=== PATIENT | male | born 1950 | race Hispanic/Latino ===

== ENCOUNTER 2017-05-29 09:57 | Inpatient (IN) | payer MEDICARE ==
--- NOTE | 2017-05-29 10:07 | ED PDOC ---
Arrival/HPI - General Time Seen by Provider: 05/29/17 10:02 Historian: Spouse, EMS - History of Present Illness Narrative History of Present Illness (Text): 05/29/17 09:58 A 67 year old male, [id number], is brought into the emergency department via EMS for possible stroke, the EMS states they found the patient in the kitchen prior to arrival. The patients states that when they went to bed last night the patient was at his normal baseline. When she found him this morning she immediately called EMS. EMS states the patient has slurred speech and complete right sided weakness. Unable to obtain the patient's history ROS is unable to be obtained. Time/Duration: 24 hours Symptom Onset: Sudden Symptom Course: Unchanged Quality: Other Activities at Onset: Rest, Light Context: Home Past Medical History - Provider Review Nursing Documentation Reviewed: Yes Family/Social History - Physician Review Nursing Documentation Reviewed: Yes Family/Social History: No Known Family HX Allergies/Home Meds Allergies/Adverse Reactions: Allergies Penicillins Allergy (Verified 05/29/17 12:45) unknown Home Medications: Home Meds Medication Instructions Recorded Confirmed Mupirocin 2% Ointment [Bactroban 1 appl TP BID 05/29/17 05/29/17 Ointment] Silver Sulfadiazine 1% 20 gm 1 ea TOP BID 05/29/17 05/29/17 [Silvadene 1% 20 gm] Review of Systems - Review of Systems Systems not reviewed;Unavailable: Altered Mental Status Physical Exam - Physical Exam Physical Exam Limitations: Altered Mental Status Vital Signs Reviewed: Yes Vital Signs Pulse Resp BP Pulse Ox 05/29/17 11:58 100 H 148/80 05/29/17 11:38 110 H 161/82 H 05/29/17 11:23 104 H 162/80 H 05/29/17 11:01 90 192/102 H 05/29/17 11:00 100 H 176/86 H 05/29/17 10:47 95 H 17 176/96 H 100 05/29/17 10:32 94 H 187/93 H 05/29/17 10:20 87 193/95 H 05/29/17 10:17 88 18 193/95 H 96 05/29/17 10:03 100 H 159/74 H Blood Pressure: Hypertensive Pulse: Regular Respiratory Rate: Normal Appearance: Positive for: Well-Appearing, Non-Toxic, Comfortable Pain Distress: None Mental Status: Positive for: Alert and Oriented X 3 - Systems Exam Head: Present: Atraumatic, Normocephalic Pupils: Present: PERRL Extroacular Muscles: Present: EOMI Conjunctiva: Present: Normal Mouth: Present: Moist Mucous Membranes Neck: Present: Normal Range of Motion Respiratory/Chest: Present: Clear to Auscultation, Good Air Exchange. No: Respiratory Distress, Accessory Muscle Use Cardiovascular: Present: Regular Rate and Rhythm, Normal S1, S2. No: Murmurs Abdomen: Present: Normal Bowel Sounds. No: Tenderness, Distention, Peritoneal Signs Upper Extremity: Present: Other (Flacid right sided hemiparesis) Neurological: Present: Other (aphasia;right sided facial droop). No: Speech Normal Medical Decision Making ED Course and Treatment: 05/29/17 10:00 Code stroke was called on the patient at 10:00. 05/29/17 10:[address] Davies and he agrees the patient is not a TPA candidate at this time due to unclear time of onset, he recommends stat CTA of the brain. 05/29/17 10:20 EKG: Ordered, reviewed, and independently interpreted the EKG. Rate : 88 BPM Rhythm : NSR Interpretation : LVH. No STEMI. Comparison : No previous EKG for comparison. 05/29/17 10:20 Discussed case with the patient's who states the patient is allergic to Penicilin and does not take any daily medications. The patient's primary doctor is Dr. Puentes. She states the patient drinks 15 beers daily. 05/29/17 10:[address] manriquez who recommends no neurosurgical intervention. 05/29/17 10:59 Chest X-ray Aging Room Hand : Carl Hernandez MD Report Date : 05/29/2017 10:35:05 HISTORY:cva COMPARISON:No prior. FINDINGS: LUNGS:No active pulmonary disease. PLEURA:No significant pleural effusion identified, no pneumothorax apparent. CARDIOVASCULAR:Normal. OSSEOUS STRUCTURES:No significant abnormalities. VISUALIZED UPPER ABDOMEN:Normal. OTHER FINDINGS:None. IMPRESSION:No active disease. PROCEDURE: CT HEAD WITHOUT CONTRAST. Aging Room Hand : Prabhjot Bhandari MD Report Date : 05/29/2017 10:24:15 HISTORY:Code Stroke COMPARISON:None available. FINDINGS: HEMORRHAGE:Hemorrhagic infarction is appreciate the left thalamus/medial left basal ganglia measuring 3.6 x 2.6 cm with extension into the 3rd ventricle and minimally into the left lateral ventricle as well. Trace hemorrhage extends into the right frontal horn further. Local edema is seen surrounding the left thalamic intraparenchymal hemorrhage mildly. No significant shift of the midline structures is appreciated this time however follow-up CT is advised. BRAIN:Diffuse cerebral atrophy chronic microangiopathy are identified. No cortical edema is evident. Posterior fossa contents appear unremarkable and there is no suspicious extra-axial collection identified. Dense calcifications seen related to the falx. VENTRICLES:No hydrocephalus is appreciated at this time. Intraventricular hemorrhage is as discussed above. CALVARIUM:Unremarkable. PARANASAL SINUSES:Mild right maxillary sinusitis identified. MASTOID AIR CELLS:Unremarkable as visualized. No inflammatory changes. OTHER FINDINGS:None. IMPRESSION: Hemorrhagic infarct is seen affecting the left thalamus/basal ganglia without significant midline shift at this time. Trace extension to the bilateral lateral ventricle frontal horns is identified as well as the body of the left lateral ventricle and 3rd ventricle. Local left thalamic edema is appreciated. Follow-up head CT advised. Mild age related neuro degenerative changes are identified diffusely. Findings discussed with Dr. Smith 05/29/2017 10:12 a.m.. - Critical Care Critical Care Minutes: 60 minutes - Lab Interpretations Lab Results: 05/29/17 10:15 05/29/17 10:03 Lab Results 05/29/17 11:07: Blood Type Confirm A POSITIVE 05/29/17 10:15: Alcohol, Quantitative < 10 05/29/17 10:15: Blood Type A POSITIVE, Antibody Screen Negative, BBK History Checked No verified bt 05/29/17 10:15: Hemoglobin A1c 5.6 05/29/17 10:15: PT 13.2 H, INR 1.20 H, APTT 30.8 05/29/17 10:15: WBC 11.3 H, RBC 4.22, Hgb 13.0 L, Hct 38.1 L, MCV 90.3, MCH 30.8 , MCHC 34.1, RDW 12.6, Plt Count 263, MPV 9.2, Gran % 79.5 H, Lymph % (Auto) 10.5 L, [place] % (Auto) 8.6 H, Eos % (Auto) 1.1 L, Baso % (Auto) 0.3, Gran # 8.97 H, Lymph # 1.2, [place] # 1.0 H, Eos # 0.1, Baso # 0.03 05/29/17 10:03: Sodium 132, Potassium 4.3, Chloride 93 L, Carbon Dioxide 31, Anion Gap 12, BUN 9, Creatinine 0.7 L, Est GFR ( Amer) > 60, Est GFR (Non -Af Amer) > 60, Random Glucose 143 H, Calcium 9.3, Total Bilirubin 0.7, AST 32, ALT 30, Alkaline Phosphatase 92, Troponin I 0.02, Total Protein 8.9 H, Albumin 3.7, Globulin 5.2, Albumin/Globulin Ratio 0.7 L, Triglycerides 48, Cholesterol 116 L, LDL Cholesterol Direct 54, HDL Cholesterol 46 - RAD Interpretation Radiology Orders: 05/29/17 10:03 HEAD W/O (CODE STROKE) [CT] Stat CHEST PORTABLE [RAD] Stat - Medication Orders Current Medication Orders: Nicardipine HCl (Cardene Iv Premix) 20 mg in 200 mls @ 50 mls/hr IV .Q4H PRN; Protocol; 5 MG/HR PRN Reason: TITRATE PER MD ORDER Last Admin: 05/29/17 15:00 Dose: 15 mg/hr, 150 mls/hr eMAR Start Stop Document 05/29/17 15:00 JUR (Rec: 05/29/17 15:01 [id number] Intravenous Solution Start Date 05/29/17 Start Time 15:00 MAR Pulse and Blood Pressure Document 05/29/17 15:00 JUR (Rec: 05/29/17 15:01 [facility] [id number]) Pulse Pulse Rate (60-90) 91 Blood Pressure Blood Pressure (100/60-150/90) 122/67 Titration Intervention Document 05/29/17 15:00 JUR (Rec: 05/29/17 15:01 JUR [id number]) Titration Intake Cumulative Intake (Rx) 200 Waste Amount 0 Container Volume 200 Titration Dosing Titration Dose 15 IV Rate 150 Intake/Decrease Started/Running Cumulative Dose 20 Sodium Chloride (Hypertonic Saline 3%) 500 mls @ 30 mls/hr IV .[id number] KATIE Last Admin: 05/29/17 11:34 Dose: 30 mls/hr eMAR Start Stop Document 05/29/17 11:34 AB (Rec: 05/29/17 11:34 AB [id number]) Intravenous Solution Start Date 05/29/17 Start Time 11:46 Sodium Chloride (Hypertonic Saline 3%) 250 mls @ 250 mls/hr IV Q6 KATIE Stop: 05/30/17 12:59 Lorazepam (Ativan) 2 mg IVP Q2H PRN; Protocol PRN Reason: Symptoms of alcohol withdrawl Lorazepam (Ativan) 4 mg IVP Q4H PRN; Protocol PRN Reason: Symptoms of alcohol withdrawl Pantoprazole Sodium (Protonix Inj) 40 mg IVP DAILY KATIE Last Admin: 05/29/17 15:00 Dose: 40 mg IVP Administration Document 05/29/17 15:00 JUR (Rec: 05/29/17 15:00 JUR [id number]) Charges for Administration # of IVP Administrations 1 Discontinued Medications Pneumococcal Polyvalent Vaccine (Pneumovax 23 Vaccine) 0.5 ml IM .ONCE ONE Stop: 05/29/17 13:47 Sodium Chloride (Hypertonic Saline 3%) 250 ml IV STAT STA Stop: 05/29/17 11:22 Last Admin: 05/29/17 11:37 Dose: 250 ml eMAR Start Stop Document 05/29/17 11:37 AB (Rec: 05/29/17 11:37 AB [id number]) Intravenous Solution Start Date 05/29/17 Start Time 11:30 NIHSS Scale(Davidson)3 Time Performed: 10:00 rTPA Inclusion/Exclusion - Refusal of Treatment Patient Refused Treatment: No - Inclusion Criteria for Altepase Patient is 18 years or Older: Yes The Clinical Diagnosis of Ischemic Stroke That is Causing a Potentially Disabling Neurological Deficit: No Time of Onset is Well Established to be Less Than 270 Minute Before Treatment Would Begin: No Risk/Benefit Discussed With Patient/Family Member Present: No NIHSS Stroke Scale 3 - Date/Time Evaluation Performed Date Performed: 05/29/17 Time Performed: 10:00 - How Severe is the Stroke Level of Consciousness: 1=Drowsy LOC to Questions: 2=Neither correct LOC to commands: 1=Obeys one correctly Best Gaze: 0=Normal Visual: 1=Partial hemianopia Facial: 2=Partial (lower face paralysis) Motor Arm - Left: 0=No drift Motor Arm - Right: 4=No movement Motor Leg - Left: 0=No drift Motor Leg - Right: 4=No movement Limb Ataxia: 0=Absent Sensory: 2=Severe to total loss Best Language: 2=Severe aphasia Dysarthia: 2=Severe, near unintelligible or worse Extinction & Inattention (Neglect): 0=Normal, no object Score: 21 - Scribe Statement The provider has reviewed the documentation as recorded by the Anca Fay Provider Scribe Attestation: All medical record entries made by the Anca were at my direction and personally dictated by me. I have reviewed the chart and agree that the record accurately reflects my personal performance of the history, physical exam, medical decision making, and the department course for this patient. I have also personally directed, reviewed, and agree with the discharge instructions and disposition. Disposition/Present on Arrival - Present on Arrival Any Indicators Present on Arrival: No - Disposition Have Diagnosis and Disposition been Completed?: Yes Diagnosis: Intracerebral hemorrhage Disposition: HOSPITALIZED Disposition Time: 11:11 Patient Problems: Current Active Problems Problem Status Onset Intracerebral hemorrhage Acute Condition: CRITICAL
[2017-05-29 10:17] VITALS: BMI 22.8
[2017-05-29] MEDS: Nicardipine 20 MG/200 ML 20 MG/200 ML BAG IV PRN ×5 (10:20→17:47)
--- NOTE | 2017-05-29 10:26 | CT ---
PROCEDURE: CT HEAD WITHOUT CONTRAST. HISTORY: Code Stroke COMPARISON: None available. TECHNIQUE: Axial computed tomography images were obtained through the head/brain without intravenous contrast. Radiation dose: Total exam DLP = 736.81 mGy-cm. This CT exam was performed using one or more of the following dose reduction techniques: Automated exposure control, adjustment of the mA and/or kV according to patient size, and/or use of iterative reconstruction technique. FINDINGS: HEMORRHAGE: Hemorrhagic infarction is appreciate the left thalamus/medial left basal ganglia measuring 3.6 x 2.6 cm with extension into the 3rd ventricle and minimally into the left lateral ventricle as well. Trace hemorrhage extends into the right frontal horn further. Local edema is seen surrounding the left thalamic intraparenchymal hemorrhage mildly. No significant shift of the midline structures is appreciated this time however follow-up CT is advised. BRAIN: Diffuse cerebral atrophy chronic microangiopathy are identified. No cortical edema is evident. Posterior fossa contents appear unremarkable and there is no suspicious extra-axial collection identified. Dense calcifications seen related to the falx. VENTRICLES: No hydrocephalus is appreciated at this time. Intraventricular hemorrhage is as discussed above. CALVARIUM: Unremarkable. PARANASAL SINUSES: Mild right maxillary sinusitis identified. MASTOID AIR CELLS: Unremarkable as visualized. No inflammatory changes. OTHER FINDINGS: None. IMPRESSION: Hemorrhagic infarct is seen affecting the left thalamus/basal ganglia without significant midline shift at this time. Trace extension to the bilateral lateral ventricle frontal horns is identified as well as the body of the left lateral ventricle and 3rd ventricle. Local left thalamic edema is appreciated. Follow-up head CT advised. Mild age related neuro degenerative changes are identified diffusely. Findings discussed with Dr. Smith 05/29/2017 10:12 a.m..
[2017-05-29 10:30] LABS: BASO # 0.03 K/mm3 (0.0-2.0); BASO % 0.3 % (0.0-3.0); EOS # 0.1 (0.0-0.7); EOS % 1.1 % (1.5-5.0); GRAN # 8.97 (1.4-6.5); GRAN % 79.5 % (50.0-68.0); HEMATOCRIT 38.1 % (42.0-52.0); LYMPH # 1.2 (1.2-3.4); LYMPH % 10.5 % (22.0-35.0); MEAN CELL VOLUME 90.3 fl (80.0-105.0); MEAN CORPUSCULAR HEMOGLOBIN 30.8 pg (25.0-35.0); MEAN CORPUSCULAR HGB CONC 34.1 g/dl (31.0-37.0); MEAN PLATELET VOLUME 9.2 fl (7.0-11.0); MONO % 8.6 % (1.0-6.0); RED CELL DISTRIBUTION WIDTH 12.6 % (11.5-14.5); WHITE BLOOD COUNT 11.3 10^3/ul (4.5-11.0)
--- NOTE | 2017-05-29 10:36 | RAD ---
HISTORY: cva COMPARISON: No prior. FINDINGS: LUNGS: No active pulmonary disease. PLEURA: No significant pleural effusion identified, no pneumothorax apparent. CARDIOVASCULAR: Normal. OSSEOUS STRUCTURES: No significant abnormalities. VISUALIZED UPPER ABDOMEN: Normal. OTHER FINDINGS: None. IMPRESSION: No active disease.
[2017-05-29 10:40] LABS: ALB/GLOB RATIO 0.7 (1.1-1.8); ALKALINE PHOSPHATASE 92 U/L (38-126); ALT/SGPT 30 U/L (7-56); AST/SGOT 32 U/L (17-59); BILIRUBIN,TOTAL 0.7 mg/dL (0.2-1.3); BLOOD UREA NITROGEN 9 mg/dL (7-21); CALCIUM 9.3 mg/dL (8.4-10.5); CARBON DIOXIDE 31 mmol/L (21-33); CHLORIDE 93 mmol/L (98-107); CHOLESTEROL 116 mg/dL (130-200); GFR AFRICAN-AMERICAN > 60; GLUCOSE,RANDOM 143 mg/dL (70-110); POTASSIUM 4.3 mmol/L (3.6-5.0); SODIUM 132 mmol/L (132-148); TOTAL PROTEIN 8.9 g/dL (5.8-8.3)
[2017-05-29 10:40] LABS: INR 1.2 (0.93-1.08); PARTIAL THROMBOPLASTIN TIME 30.8 Seconds (25.1-36.5)
[2017-05-29 10:54] LABS: TROPONIN I 0.02 ng/mL
[2017-05-29] MEDS ORDERED: Sodium Chloride 3% 500 ML IV SCH (11:30)
--- NOTE | 2017-05-29 13:02 | CP.PCM.CON ---
History of Present Illness - History of Present Illness History of Present Illness: Mr. Veras is a 67-year-old man who was brought in by EMS after being found by his this morning, on the floor, and paralyzed on the right side with speech difficulty. In the ED, he was noted to have right side hemiplegia, aphasia and confusion. A CT scan of the head was done and showed a large left thalamic bleed with intraventricular extension and some left midbrain involvement. His left pupil was dilated and not responding well to light. He was bolused with 3% hypertonic saline for ICP management and having some mild hyponatremia. Review of Systems - Review of Systems Systems not reviewed;Unavailable: Altered Mental Status Past Patient History - Infectious Disease Hx of Infectious Diseases: None - Past Social History Smoking Status: Unknown If Ever Smoked - PSYCHIATRIC Hx Substance Use: No - ANESTHESIA Hx Anesthesia Reactions: No Hx Malignant Hyperthermia: No Meds Allergies/Adverse Reactions: Allergies Allergy/AdvReac Type Severity Reaction Status Date / Time Penicillins Allergy unknown Verified 05/29/17 12:45 - Medications Medications: Current Medications Nicardipine HCl (Cardene Iv Premix) 20 mg in 200 mls @ 50 mls/hr IV .Q4H PRN; Protocol; 5 MG/HR PRN Reason: TITRATE PER MD ORDER Last Admin: 05/29/17 11:01 Dose: 150 mls/hr Sodium Chloride (Hypertonic Saline 3%) 500 mls @ 30 mls/hr IV .[id number] [facility] Last Admin: 05/29/17 11:34 Dose: 30 mls/hr Physical Exam - Constitutional Appears: Agitated, Confused - Head Exam Head Exam: ATRAUMATIC, NORMAL INSPECTION, NORMOCEPHALIC - Eye Exam Pupil Exam: Unequal - ENT Exam ENT Exam: Mucous Membranes Moist, Normal Exam - Neck Exam Neck exam: Positive for: Normal Inspection - Respiratory Exam Respiratory Exam: Clear to Auscultation Bilateral, NORMAL BREATHING PATTERN - Cardiovascular Exam Cardiovascular Exam: REGULAR RHYTHM, +S1, +S2 - Rectal Exam Rectal Exam: Deferred - Extremities Exam Extremities exam: Positive for: normal inspection - Back Exam Back exam: NORMAL INSPECTION - Neurological Exam Neurological exam: Altered Additional comments: CN III palsy on the left. Otherwise normal CN 2-12. He was aphasic with receptive and productive aphasia. He had right side hemiplegia, right facial droop and hemianesthesia. Reflexes were brisk on the right with upgoing plantar response. NIHSS = 14 - Psychiatric Exam Psychiatric exam: Agitated, Anxious - Skin Skin Exam: Dry, Intact, Normal Color, Warm Results - Vital Signs Recent Vital Signs: Last Vital Signs Temp Pulse 100 H 05/29/17 11:58 Resp 17 05/29/17 10:47 BP 148/80 05/29/17 11:58 Pulse Ox 100 05/29/17 10:47 - Labs Result Diagrams: 05/29/17 10:15 05/29/17 10:03 Assessment & Plan (1) Intracerebral hemorrhage Assessment and Plan: Likely due to hypertension. I recommend the followin. Admit to ICU for close monitoring and Q1 hour neuro-examination 2. Continuous telemetry 3. Bolus with 250 mL of 3% and insert central line 4. Check serum sodium and osmolarity Q6 hours to ensure sodium remains 135-145 and osmolarity is < 320 5. Continue 3% at 30 mL/hr unless sodium is above 145 or osmolarity is above 320. Call neurologist for further instructions. 6. Maintain head of bed above 30 degrees 7. Maintain serum glucose below 160 mg/dL 8. Avoid IV glucose 9. Avoid hyperthermia 10. Avoid antiplatelet or anticoagulants for now 11. PT/OT eval and treat 12. Case management consult Thank you for this consultation. Status: Acute Priority: High
[2017-05-29] MEDS ORDERED: Influenza Vaccine 60 mcg/0.5 mL SYR (4YR UP) IM ONE (13:46)
[2017-05-29] MEDS ORDERED: Pneumococcal 23-Valent Vaccine IM ONE (13:46)
[2017-05-29 14:01] LABS: ARTERIAL BLOOD GAS HCO3 28.5 mmol/L (21-28); ARTERIAL BLOOD GAS PH 7.44 (7.35-7.45)
--- NOTE | 2017-05-29 14:16 | CP.PCM.HP ---
<BROOKS CONWAY - Last Filed: 05/29/17 15:18> History of Present Illness - History of Present Illness History of Present Illness: CC: Stroke HPI: Pt is a 67 yo male with an unknown PMH was [place] [facility] for possible [place]. As per patient's , pt was found on the floor this morning around 9:30 am with head up against cabinet with right-sided paralysis and difficult speaking. Fall was not witnessed. states that patient was babbling and not answer questions correctly. She said he did not have any complaints prior to the event, but patient generally does not complain if there is an issue. Pt was at baseline according to the night before. states that for the last few months the patient has had a shuffling gait. ROS was limited due to patient's current mental status. 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 Past Patient History - Infectious Disease Hx of Infectious Diseases: None - Past Social History Smoking Status: Heavy Smoker > 10 Cigarettes Daily - PULMONARY Hx Respiratory Disorders: Yes (2 ppd smoker) - HEENT Other/Comment: right ear skin ca part of helix removed, red sclera right eye - INTEGUMENTARY Other/Comment: info from , pt had a boil to left buttock over 5 yrs ago had surgery and there are 4 small openings that would not heal, large area of deep red hard skin to left buttock and redness traveled to left groin, and wounds drain "sometimes". pt needs skin graft as per but pt would not follow up. r buttock pink blanchable skin, pt had sx to right ear "many yrs ago" part of helix removed. not sure what type of skin ca it was, dry skin to left ear helix, outer left ankle 1cm round dry scab, dry skin ble, - MUSCULOSKELETAL/RHEUMATOLOGICAL Hx Falls: No - GASTROINTESTINAL Hx Gastroesophageal Reflux: Yes ("years ago" would take otc meds) - PSYCHIATRIC Hx Substance Use: No - SURGICAL HISTORY Hx Surgeries: Yes Other/Comment: lower back sx, hip bone to lower back [facility] - ANESTHESIA Hx Anesthesia Reactions: No Hx Malignant Hyperthermia: No Meds Allergies/Adverse Reactions: Allergies Allergy/AdvReac Type Severity Reaction Status Date / Time Penicillins Allergy unknown Verified 05/29/17 12:45 Physical Exam - Constitutional Appears: Agitated, Confused - Head Exam Head Exam: ATRAUMATIC, NORMAL INSPECTION, NORMOCEPHALIC - Eye Exam Additional comments: Left pupil dilated, B/l eyes not responsive to light - ENT Exam ENT Exam: Mucous Membranes Moist, Normal Exam - Neck Exam Neck exam: Positive for: Full Rom, Normal Inspection. Negative for: Lymphadenopathy, Tenderness, Thyromegaly - Respiratory Exam Respiratory Exam: Clear to Auscultation Bilateral. absent: Accessory Muscle Use , Rales, Rhonchi, Wheezes, Respiratory Distress - Cardiovascular Exam Cardiovascular Exam: RRR, +S1, +S2. absent: Diastolic murmur, Gallop, Rubs, Systolic Murmur - GI/Abdominal Exam GI & Abdominal Exam: Soft. absent: Distended, Firm, Guarding, Rebound, Rigid, Tenderness - Extremities Exam Extremities exam: Positive for: normal inspection - Back Exam Back exam: NORMAL INSPECTION - Neurological Exam Neurological exam: Altered Additional comments: CN 3 palsy. Right facial droop, Right-sided hemiplegia, dysarthria. Moves left arm and leg on command. - Psychiatric Exam Psychiatric exam: Agitated, Anxious - Skin Skin Exam: Dry, Intact, Normal Color, Warm Results - Vital Signs Recent Vital Signs: Last Vital Signs Temp Pulse 95 H 05/29/17 13:21 Resp 20 05/29/17 13:21 BP 130/67 05/29/17 12:45 Pulse Ox 93 L 05/29/17 12:50 - Labs Result Diagrams: 05/29/17 10:15 05/29/17 10:03 Labs: Laboratory Results - last 24 hr 05/29/17 13:55 pCO2 42 pO2 52.0 L HCO3 28.5 H ABG pH 7.44 ABG Total CO2 29.8 H ABG O2 Saturation 93.2 L ABG Base Excess 3.9 H ABG Potassium 3.5 L Sodium 130.0 L Chloride 100.0 Glucose 218 H Lactate 0.6 L FiO2 21.0 Arterial Blood Potassium 3.5 L Assessment & Plan - Assessment and Plan (Free Text) Assessment: 67 yo M with unknown PMH presented for possible stroke, found to have 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 Plan: 1. Intracerebral Hemorrhage - Admitted to ICU - NIHSS in ED: 21 - CT showed hemorrhagic infarct of the left thalamus/basal ganglia. No midline shift. Left thalamic edema - Nicardipine drip per ICU Maintain SBP between 140-160 - Neurosurgery consulted No surgical intervention at this time - Neuro consulted Neuro checks q1h Hypertonic saline via central line Monitor serum sodium and osmolarity Q6H; target Na 135-145 and osmolarity is < 320 Maintain head of bed above 30 degrees Maintain serum glucose below 160 mg/dL Avoid IV glucose, hyperthermia - Lipid panel WNL - PT/OT, speech eval 2. Possible EtOH Withdraw - EtOH negative - CIWA - Ativan PRN GI/DVT PPx - Protonix - SCDs Pt was seen and discussed in detail with Dr. Licona. Tao Conway, PGY1 <Melchor Licona - Last Filed: 05/30/17 13:50> Results - Vital Signs Recent Vital Signs: Last Vital Signs Temp 97.6 F 05/30/17 12:00 Pulse 97 H 05/30/17 12:30 Resp 21 05/30/17 12:30 BP 145/78 05/30/17 10:00 Pulse Ox 96 05/30/17 12:30 - Labs Result Diagrams: 05/30/17 05:20 05/30/17 10:45 Labs: Laboratory Results - last 24 hr 05/29/17 05/29/17 05/29/17 13:55 15:12 15:51 WBC RBC Hgb Hct MCV MCH MCHC RDW Plt Count MPV Gran % Lymph % (Auto) Dawes % (Auto) Eos % (Auto) Baso % (Auto) Gran # Lymph # Dawes # Eos # Baso # pCO2 42 pO2 52.0 L HCO3 28.5 H ABG pH 7.44 ABG Total CO2 29.8 H ABG O2 Saturation 93.2 L ABG Base Excess 3.9 H ABG Potassium 3.5 L Sodium 130.0 L 131 L Chloride 100.0 96 L Glucose 218 H Lactate 0.6 L FiO2 21.0 Potassium 3.9 Carbon Dioxide 30 Anion Gap 9 L BUN 7 Creatinine 0.6 L Est GFR ( Amer) > 60 Est GFR (Non-Af Amer) > 60 POC Glucose (mg/dL) 203 H Random Glucose 206 H Serum Osmolality Calcium 8.9 Phosphorus 2.4 L Magnesium 1.7 Triglycerides Cholesterol LDL Cholesterol Direct HDL Cholesterol Arterial Blood Potassium 3.5 L Urine Osmolality Ur Random Creatinine Ur Random Sodium 05/29/17 05/29/17 05/29/17 16:30 16:45 17:15 WBC RBC Hgb Hct MCV MCH MCHC RDW Plt Count MPV Gran % Lymph % (Auto) Dawes % (Auto) Eos % (Auto) Baso % (Auto) Gran # Lymph # Dawes # Eos # Baso # pCO2 pO2 HCO3 ABG pH ABG Total CO2 ABG O2 Saturation ABG Base Excess ABG Potassium Sodium Chloride Glucose Lactate FiO2 Potassium Carbon Dioxide Anion Gap BUN Creatinine Est GFR ( Amer) Est GFR (Non-Af Amer) POC Glucose (mg/dL) Random Glucose Serum Osmolality 278 Calcium Phosphorus Magnesium Triglycerides Cholesterol LDL Cholesterol Direct HDL Cholesterol Arterial Blood Potassium Urine Osmolality 459 Ur Random Creatinine 41 Ur Random Sodium 161 05/29/17 05/29/17 05/29/17 17:56 19:56 22:06 WBC RBC Hgb Hct MCV MCH MCHC RDW Plt Count MPV Gran % Lymph % (Auto) Dawes % (Auto) Eos % (Auto) Baso % (Auto) Gran # Lymph # Dawes # Eos # Baso # pCO2 pO2 HCO3 ABG pH ABG Total CO2 ABG O2 Saturation ABG Base Excess ABG Potassium Sodium Chloride Glucose Lactate FiO2 Potassium Carbon Dioxide Anion Gap BUN Creatinine Est GFR ( Amer) Est GFR (Non-Af Amer) POC Glucose (mg/dL) 192 H 136 H 130 H Random Glucose Serum Osmolality Calcium Phosphorus Magnesium Triglycerides Cholesterol LDL Cholesterol Direct HDL Cholesterol Arterial Blood Potassium Urine Osmolality Ur Random Creatinine Ur Random Sodium 05/30/17 05/30/17 05/30/17 01:28 03:02 05:20 WBC RBC Hgb Hct MCV MCH MCHC RDW Plt Count MPV Gran % Lymph % (Auto) Dawes % (Auto) Eos % (Auto) Baso % (Auto) Gran # Lymph # Dawes # Eos # Baso # pCO2 pO2 HCO3 ABG pH ABG Total CO2 ABG O2 Saturation ABG Base Excess ABG Potassium Sodium 131 L 132 Chloride 98 99 Glucose Lactate FiO2 Potassium 3.7 3.7 Carbon Dioxide 27 27 Anion Gap 10 10 BUN 4 L 4 L Creatinine 0.6 L 0.6 L Est GFR ( Amer) > 60 > 60 Est GFR (Non-Af Amer) > 60 > 60 POC Glucose (mg/dL) 139 H Random Glucose 135 H 129 H Serum Osmolality Calcium 9.1 9.2 Phosphorus Magnesium Triglycerides 46 Cholesterol 113 L LDL Cholesterol Direct 51 HDL Cholesterol 47 Arterial Blood Potassium Urine Osmolality Ur Random Creatinine Ur Random Sodium 05/30/17 05/30/17 05/30/17 05:20 05:20 05:30 WBC 12.8 H RBC 4.11 Hgb 12.8 L Hct 37.2 L MCV 90.5 MCH 31.1 MCHC 34.4 RDW 12.7 Plt Count 268 MPV 9.9 Gran % 84.0 H Lymph % (Auto) 9.3 L Dawes % (Auto) 6.1 H Eos % (Auto) 0.5 L Baso % (Auto) 0.1 Gran # 10.72 H Lymph # 1.2 Dawes # 0.8 H Eos # 0.1 Baso # 0.01 pCO2 pO2 HCO3 ABG pH ABG Total CO2 ABG O2 Saturation ABG Base Excess ABG Potassium Sodium Chloride Glucose Lactate FiO2 Potassium Carbon Dioxide Anion Gap BUN Creatinine Est GFR ( Amer) Est GFR (Non-Af Amer) POC Glucose (mg/dL) Random Glucose Serum Osmolality 277 Calcium Phosphorus 3.3 Magnesium 1.7 Triglycerides Cholesterol LDL Cholesterol Direct HDL Cholesterol Arterial Blood Potassium Urine Osmolality Ur Random Creatinine Ur Random Sodium 05/30/17 05/30/17 05/30/17 06:49 09:00 10:45 WBC RBC Hgb Hct MCV MCH MCHC RDW Plt Count MPV Gran % Lymph % (Auto) Dawes % (Auto) Eos % (Auto) Baso % (Auto) Gran # Lymph # Dawes # Eos # Baso # pCO2 pO2 HCO3 ABG pH ABG Total CO2 ABG O2 Saturation ABG Base Excess ABG Potassium Sodium 135 Chloride 100 Glucose Lactate FiO2 Potassium 3.6 Carbon Dioxide 28 Anion Gap 11 BUN 5 L Creatinine 0.5 L Est GFR ( Amer) > 60 Est GFR (Non-Af Amer) > 60 POC Glucose (mg/dL) 118 H 115 H Random Glucose 117 H Serum Osmolality Calcium 8.8 Phosphorus Magnesium Triglycerides Cholesterol LDL Cholesterol Direct HDL Cholesterol Arterial Blood Potassium Urine Osmolality Ur Random Creatinine Ur Random Sodium 05/30/17 11:43 WBC RBC Hgb Hct MCV MCH MCHC RDW Plt Count MPV Gran % Lymph % (Auto) Dawes % (Auto) Eos % (Auto) Baso % (Auto) Gran # Lymph # Dawes # Eos # Baso # pCO2 pO2 HCO3 ABG pH ABG Total CO2 ABG O2 Saturation ABG Base Excess ABG Potassium Sodium Chloride Glucose Lactate FiO2 Potassium Carbon Dioxide Anion Gap BUN Creatinine Est GFR ( Amer) Est GFR (Non-Af Amer) POC Glucose (mg/dL) 110 Random Glucose Serum Osmolality Calcium Phosphorus Magnesium Triglycerides Cholesterol LDL Cholesterol Direct HDL Cholesterol Arterial Blood Potassium Urine Osmolality Ur Random Creatinine Ur Random Sodium Attending/Attestation - Attestation I have personally seen and examined this patient.: Yes I have fully participated in the care of the patient.: Yes I have reviewed all pertinent clinical information: Yes Notes (Text): 05/30/17 13:45 Patient was seen and examined with medical fee clerk. 67 yrs old male was admitted with change of mental status , found to have hammorhagic CVA, CT showed hemorrhagic infarct of the left thalamus/basal ganglia with extension into 3rd ventricle and lateral ventrile. Neuro surgery has recommended conservative management. Patient is in ICU , on hypertonic saline and Nicardipine drip. We will monitor Neuro check, blood pressure and electrolyte. Prognosis is guarded. 05/30/17 13:48
--- NOTE | 2017-05-29 14:48 | PCM.PROC ---
Procedures Attestation:: I certify that I have explained the specified Operation(s) or Procedure(s), risks, benefits and reasonable alternatives to the Patient and/or other person responsible. The opportunity was given to ask questions and all questions answered - Central Line Placement Left Internal Jugular Triple Lumen Catheter Aseptic technique was employed throughout the procedure: Hand Hygiene done prior to procedure, Full sterile barriers (mask, hair cover, sterile gown, sterile gloves), Full body sterile drape, Chloraprep Antiseptic: 30 second prep for IJ or SC sites CVP Time Out Performed: Yes Pt. Placed on Pulse Ox Monitor: Yes Central Line Prep: Chlorhexidine-Alcohol Combination Local Anesthesia Used: Lidocaine 1% Amount of Anesthesia Used (mls): 3 Ultrasound Used for Placement: Yes Central Line Lumen Inserted: triple Central Line Length: 20 cm Post Procedure: Sutured in Place, Good Blood Return, All Ports Aspirated, Flushed, Capped, Sterile Dressing Applied Secured by: Suture Post procedure dressing: Clear vapor permeable, Chlorhexidine disc (Biopatch) Post Procedure X-Ray: Yes Patient Tolerated Procedure: Well, No Complications Immediate Complications: None (pending xray before use)
[2017-05-29 15:33] LABS: BLOOD UREA NITROGEN 7 mg/dL (7-21); CALCIUM 8.9 mg/dL (8.4-10.5); CARBON DIOXIDE 30 mmol/L (21-33); CHLORIDE 96 mmol/L (98-107); GFR AFRICAN-AMERICAN > 60; GLUCOSE,RANDOM 206 mg/dL (70-110); PHOSPHOROUS 2.4 mg/dL (2.5-4.5); POTASSIUM 3.9 mmol/L (3.6-5.0); SODIUM 131 mmol/L (132-148)
--- NOTE | 2017-05-29 15:42 | RAD ---
HISTORY: Central line placement COMPARISON: No prior. FINDINGS: LUNGS: There is a left internal jugular line that terminates in the SVC just below the level of the aortic arch. There is no pneumothorax PLEURA: No significant pleural effusion identified, no pneumothorax apparent. CARDIOVASCULAR: Normal. OSSEOUS STRUCTURES: No significant abnormalities. VISUALIZED UPPER ABDOMEN: Normal. OTHER FINDINGS: None. IMPRESSION: There is a left internal jugular line that terminates in the SVC just below the level of the aortic arch. There is no pneumothorax
[2017-05-29 16:17] LABS: MAGNESIUM 1.7 mg/dL (1.7-2.2)
--- NOTE | 2017-05-29 16:33 | CARD ---
APPROVED REPORT EKG Measurement Heart [id number] <Conclusion> Normal sinus rhythm Possible Left atrial enlargement Left ventricular hypertrophy Abnormal ECG
[2017-05-29] MEDS: Sodium Chloride 3% 250 ML IV SCH (17:49)
--- NOTE | 2017-05-30 00:50 | CON ---
DATE: 05/29/2017HISTORY OF PRESENT ILLNESS: The patient is 67-year-old gentleman without significant past medical history; however, known active smoker and heavy drinker, who presented at this time with sudden onset of right-sided weakness, inability to maintain posture and aphasia. No history of chest pain, shortness of breath, fever, chills, sweats, nausea, vomiting, diarrhea or constipation noted. PAST MEDICAL HISTORY: None. SOCIAL HISTORY: The patient is active smoker and drinks every day large amount of beer. No illicit drug abuse. FAMILY HISTORY: Noncontributory. MEDICATION AT HOME: Just ointment topical for buttock abscess. No heals. REVIEW OF SYSTEM: Review of 12-organ system other than mentioned in history of present illness is negative. ALLERGIES: TO PENICILLIN. PHYSICAL EXAMINATION: GENERAL: The patient is on a Cardene drip 5 mg per hour. VITAL SIGNS: His blood pressure 155/60, heart rate 95, oxygen saturation 93% on nasal cannula, respiratory rate 20. ENT: Head and neck atraumatic. LUNGS: Clear to auscultation bilaterally. HEART: Regular rate and rhythm. S1 and S2 distant. ABDOMEN: Soft, nontender, nondistended. MUSCULOSKELETAL: No C/C/E. NEUROLOGIC: The patient has a right-sided facial droop. Appears to be able to protect his airways. There is 1/5 motor strength in the right upper and lower extremity and 4/5 motor strength in left upper extremity, 3/5 motor strength in the left lower extremity. The patient does follow command; however, has expressive aphasia. The patient also has some visual neglect of the left side. SKIN: Moist. PSYCHIATRIC: The patient is following commands. Appears to be comfortable, not in respiratory or otherwise distress. LABORATORY DATA: WBC 11.3, hemoglobin 13, platelet count 263. Sodium 132, potassium 4.3, chloride 93, carbon dioxide 31, BUN 9, creatinine 0.7, glucose 143, troponin 0.02, AST 32, ALT 30, INR 1.2. Alcohol less than 10. CT head revealed hemorrhagic infarct in the left thalamus basal ganglia without significant midline shift at this time, trace extension to the bilateral lateral ventricle, frontal horns is identified as well as the body of the left lateral ventricle and third ventricle; local left thalamic edema is appreciated. Followup head CT advised; mild age-related neurodegenerative changes identified diffusely. Chest x-ray revealed no acute pulmonary disease. Neurology consultation is appreciated. MEDICATIONS: Cardene drip 5 mg per hour; Protonix, sodium chloride 30 mL per hour (hypertonic 3%), bolus of 250 mL of 3% sodium chloride was given. ASSESSMENT AND PLAN: This is a 67-year-old gentleman with intracranial hemorrhage, most likely due to hypertensive episode. The patient has a neurological impairment; however, appears to be able to protect his airways. He has a borderline gas exchange parameters. I will do arterial blood gas to better evaluate ventilatory and gas exchange parameters as well. Nevertheless at present time, we will proceed with maintaining blood pressure within 140 to 160 systolic range. The patient is on Cardene drip. Speech and swallow evaluation will be done. If the patient fails this evaluation, he may need nasogastric tube for enteral nutrition and medication. Clonidine will be started tomorrow to wean down on his Cardene drip. Head of bed elevated at 135 degrees in neutral position will be recommended. Maintain euvolemia, euglycemia, normothermia, and oxygen saturation more than 90%. Neurology consultation appreciated and recommendation noted. Central venous line will be placed for continuous hypertonic saline infusion. When discussed case with PICC line team, it appears that they will not be able to put it today, thus CVL will be placed by intensive care unit team today. We will continue with mechanical deep venous thrombosis prophylaxis. We will continue with gastrointestinal prophylaxis. Physical therapy and occupational therapy will be requested. Echocardiogram will be performed. Neurosurgical team was consulted; however, no neurosurgical intervention is indicated based on the input at the present time. ccm time 40 min Sukhwinder Oliva MD EZRA
[2017-05-30] MEDS: Sodium Chloride 3% 250 ML IV SCH ×2 (01:00→06:17)
[2017-05-30 01:46] LABS: BLOOD UREA NITROGEN 4 mg/dL (7-21); CALCIUM 9.1 mg/dL (8.4-10.5); CARBON DIOXIDE 27 mmol/L (21-33); CHLORIDE 98 mmol/L (98-107); GFR AFRICAN-AMERICAN > 60; GLUCOSE,RANDOM 135 mg/dL (70-110); POTASSIUM 3.7 mmol/L (3.6-5.0); SODIUM 131 mmol/L (132-148)
[2017-05-30 06:09] LABS: BASO # 0.01 K/mm3 (0.0-2.0); BASO % 0.1 % (0.0-3.0); EOS # 0.1 (0.0-0.7); EOS % 0.5 % (1.5-5.0); GRAN # 10.72 (1.4-6.5); HEMATOCRIT 37.2 % (42.0-52.0); LYMPH # 1.2 (1.2-3.4); LYMPH % 9.3 % (22.0-35.0); MEAN CELL VOLUME 90.5 fl (80.0-105.0); MEAN CORPUSCULAR HEMOGLOBIN 31.1 pg (25.0-35.0); MEAN CORPUSCULAR HGB CONC 34.4 g/dl (31.0-37.0); MEAN PLATELET VOLUME 9.9 fl (7.0-11.0); MONO # 0.8 (0.1-0.6); MONO % 6.1 % (1.0-6.0); RED CELL DISTRIBUTION WIDTH 12.7 % (11.5-14.5); WHITE BLOOD COUNT 12.8 10^3/ul (4.5-11.0)
[2017-05-30 06:34] LABS: BLOOD UREA NITROGEN 4 mg/dL (7-21); CALCIUM 9.2 mg/dL (8.4-10.5); CARBON DIOXIDE 27 mmol/L (21-33); CHLORIDE 99 mmol/L (98-107); CHOLESTEROL 113 mg/dL (130-200); GFR AFRICAN-AMERICAN > 60; GLUCOSE,RANDOM 129 mg/dL (70-110); POTASSIUM 3.7 mmol/L (3.6-5.0); SODIUM 132 mmol/L (132-148)
[2017-05-30 06:40] LABS: MAGNESIUM 1.7 mg/dL (1.7-2.2); PHOSPHOROUS 3.3 mg/dL (2.5-4.5)
--- NOTE | 2017-05-30 08:05 | CP.CCUPN ---
<Benji Ma - Last Filed: 05/30/17 10:25> CCU Subjective - Physician Review Subjective (Free Text): 05/30/17 07:57 Benji Ma D.O. 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 Patient was seen and examined at bedside. Patient continues to have an expressive aphasia but can follow commands. Does not appear in any discomfort. Overnight patient had no acute events. CCU Objective - Vital Signs / Intake & Output Vital Signs (Last 4 hours): Vital Signs Temp Pulse Resp BP Pulse Ox 05/30/17 06:30 76 17 97 05/30/17 06:20 73 17 97 05/30/17 06:10 73 17 97 05/30/17 06:00 74 18 129/71 97 05/30/17 05:50 75 18 95 05/30/17 05:40 74 18 92 L 05/30/17 05:30 77 18 96 05/30/17 05:20 75 17 98 05/30/17 05:10 98 H 23 99 05/30/17 05:00 73 16 131/68 99 05/30/17 04:50 76 16 99 05/30/17 04:40 74 16 99 05/30/17 04:30 78 18 100 05/30/17 04:20 72 17 99 05/30/17 04:10 73 17 99 05/30/17 04:00 98 F 71 15 117/75 99 Intake and Output (Last 8hrs): Intake & Output 05/29/17 05/30/17 05/30/17 22:59 06:59 14:59 Intake Total 1910 460 Output Total 150 1200 Balance 1760 -740 Weight 69.853 kg Intake: IV 1910 460 Right Hand 100 Right Internal Jugular 1510 360 Oral 0 Output: Urine 150 1200 Condom 150 1200 Other: # Voids Condom 1 # Bowel Movements 0 - Physical Exam Head: Positive for: Atraumatic, Normocephalic Pupils: Positive for: Other (~2-3mm fixed) Extroacular Muscles: Positive for: Other (does not follow commands to evaluate) Conjunctiva: Positive for: Normal Ears: Positive for: Normal Mouth: Positive for: Moist Mucous Membranes Pharnyx: Positive for: Normal Nose (External): Positive for: Atraumatic Neck: Positive for: Normal Range of Motion Respiratory/Chest: Positive for: Clear to Auscultation, Good Air Exchange. Negative for: Respiratory Distress, Accessory Muscle Use, Wheezes, Rales, Rhonchi Cardiovascular: Positive for: Regular Rate and Rhythm, Normal S1, S2. Negative for: Murmurs, Rub Abdomen: Positive for: Normal Bowel Sounds. Negative for: Tenderness, Distention, Peritoneal Signs Upper Extremity: Positive for: Capillary Refill < 2s, Other (Flacid right sided hemiparesis). Negative for: Edema, Erythema Lower Extremity: Positive for: Capillary Refill < 2 s. Negative for: Edema, CALF TENDERNESS Neurological: Positive for: Other (awake, alert, follows simple commands, expressive aphasia, right sided hemiplegia with some residual tone, upgoing babinski on R, L 4/5 BI/TRI/DELT, L 3/5 HF/KF/DF/PF). Negative for: Speech Normal Skin: Positive for: Warm, Dry - Medications Active Medications: Active Medications Generic Name Dose Route Start Last Admin Trade Name Freq PRN Reason Stop Dose Admin Nicardipine HCl 20 mg in 200 mls @ 50 mls/hr 05/29/17 10:12 05/29/17 17:47 Cardene Iv Premix IV 15 mg/hr .Q4H PRN 150 mls/hr TITRATE PER MD ORDER Administration Protocol 5 MG/HR Sodium Chloride 500 mls @ 30 mls/hr 05/29/17 11:30 05/29/17 11:34 Hypertonic Saline 3% IV 30 mls/hr .[id number] KATIE Administration Sodium Chloride 250 mls @ 250 mls/hr 05/29/17 18:00 05/30/17 06:17 Hypertonic Saline 3% IV 05/30/17 12:59 250 mls/hr Q6 KATIE Administration Lorazepam 2 mg 05/29/17 15:23 Ativan IVP Q2H PRN Symptoms of alcohol withdrawl Protocol Lorazepam 4 mg 05/29/17 15:23 Ativan IVP Q4H PRN Symptoms of alcohol withdrawl Protocol Pantoprazole Sodium 40 mg 05/29/17 13:30 05/29/17 15:00 Protonix Inj IVP 40 mg DAILY KATIE Administration - Patient Studies Lab Studies: Microbiology Studies 05/29/17 12:35 MRSA Culture (Admit) - Final Nose MRSA NOT DETECTED Lab Studies 05/30/17 05/30/17 05/30/17 Range/Units 06:49 05:20 05:20 WBC 12.8 H (4.5-11.0) 10^3/ul RBC 4.11 (3.5-6.1) 10^6/uL Hgb 12.8 L (14.0-18.0) g/dL Hct 37.2 L (42.0-52.0) % MCV 90.5 (80.0-105.0) fl MCH 31.1 (25.0-35.0) pg MCHC 34.4 (31.0-37.0) g/dl RDW 12.7 (11.5-14.5) % Plt Count 268 (120.0-450.0) 10^3/uL MPV 9.9 (7.0-11.0) fl Gran % 84.0 H (50.0-68.0) % Lymph % (Auto) 9.3 L (22.0-35.0) % Spencer % (Auto) 6.1 H (1.0-6.0) % Eos % (Auto) 0.5 L (1.5-5.0) % Baso % (Auto) 0.1 (0.0-3.0) % Gran # 10.72 H (1.4-6.5) Lymph # 1.2 (1.2-3.4) Spencer # 0.8 H (0.1-0.6) Eos # 0.1 (0.0-0.7) Baso # 0.01 (0.0-2.0) K/mm3 pCO2 (35-45) mm/Hg pO2 (80-100) mm/Hg HCO3 (21-28) mmol/L ABG pH (7.35-7.45) ABG Total CO2 (22-28) mmol.L ABG O2 Saturation (95-98) % ABG Base Excess (-2.0-3.0) mmol/L ABG Potassium (3.6-5.2) mmol/L Sodium (132-148) mmol/L Chloride (98-107) mmol/L Glucose (75-110) mg/dl Lactate (0.7-2.1) mmol/L FiO2 % Potassium (3.6-5.0) mmol/L Carbon Dioxide (21-33) mmol/L Anion Gap (10-20) BUN (7-21) mg/dL Creatinine (0.8-1.5) mg/dL Est GFR ( Amer) Est GFR (Non-Af Amer) POC Glucose (mg/dL) 118 H (65-110) mg/dL Random Glucose (70-110) mg/dL Calcium (8.4-10.5) mg/dL Phosphorus 3.3 (2.5-4.5) mg/dL Magnesium 1.7 (1.7-2.2) mg/dL Triglycerides (35-160) mg/dL Cholesterol (130-200) mg/dL LDL Cholesterol Direct (0-129) mg/dL HDL Cholesterol (29-60) mg/dL Arterial Blood Potassium (3.6-5.2) mmol/L Urine Osmolality (300-1000) mosm/kg Ur Random Creatinine mg/dL Ur Random Sodium meq/L 05/30/17 05/30/17 05/30/17 Range/Units 05:20 03:02 01:28 WBC (4.5-11.0) 10^3/ul RBC (3.5-6.1) 10^6/uL Hgb (14.0-18.0) g/dL Hct (42.0-52.0) % MCV (80.0-105.0) fl MCH (25.0-35.0) pg MCHC (31.0-37.0) g/dl RDW (11.5-14.5) % Plt Count (120.0-450.0) 10^3/uL MPV (7.0-11.0) fl Gran % (50.0-68.0) % Lymph % (Auto) (22.0-35.0) % Spencer % (Auto) (1.0-6.0) % Eos % (Auto) (1.5-5.0) % Baso % (Auto) (0.0-3.0) % Gran # (1.4-6.5) Lymph # (1.2-3.4) Spencer # (0.1-0.6) Eos # (0.0-0.7) Baso # (0.0-2.0) K/mm3 pCO2 (35-45) mm/Hg pO2 (80-100) mm/Hg HCO3 (21-28) mmol/L ABG pH (7.35-7.45) ABG Total CO2 (22-28) mmol.L ABG O2 Saturation (95-98) % ABG Base Excess (-2.0-3.0) mmol/L ABG Potassium (3.6-5.2) mmol/L Sodium 132 131 L (132-148) mmol/L Chloride 99 98 (98-107) mmol/L Glucose (75-110) mg/dl Lactate (0.7-2.1) mmol/L FiO2 % Potassium 3.7 3.7 (3.6-5.0) mmol/L Carbon Dioxide 27 27 (21-33) mmol/L Anion Gap 10 10 (10-20) BUN 4 L 4 L (7-21) mg/dL Creatinine 0.6 L 0.6 L (0.8-1.5) mg/dL Est GFR ( Amer) > 60 > 60 Est GFR (Non-Af Amer) > 60 > 60 POC Glucose (mg/dL) 139 H (65-110) mg/dL Random Glucose 129 H 135 H (70-110) mg/dL Calcium 9.2 9.1 (8.4-10.5) mg/dL Phosphorus (2.5-4.5) mg/dL Magnesium (1.7-2.2) mg/dL Triglycerides 46 (35-160) mg/dL Cholesterol 113 L (130-200) mg/dL LDL Cholesterol Direct 51 (0-129) mg/dL HDL Cholesterol 47 (29-60) mg/dL Arterial Blood Potassium (3.6-5.2) mmol/L Urine Osmolality (300-1000) mosm/kg Ur Random Creatinine mg/dL Ur Random Sodium meq/L 05/29/17 05/29/17 05/29/17 Range/Units 22:06 19:56 17:56 WBC (4.5-11.0) 10^3/ul RBC (3.5-6.1) 10^6/uL Hgb (14.0-18.0) g/dL Hct (42.0-52.0) % MCV (80.0-105.0) fl MCH (25.0-35.0) pg MCHC (31.0-37.0) g/dl RDW (11.5-14.5) % Plt Count (120.0-450.0) 10^3/uL MPV (7.0-11.0) fl Gran % (50.0-68.0) % Lymph % (Auto) (22.0-35.0) % Spencer % (Auto) (1.0-6.0) % Eos % (Auto) (1.5-5.0) % Baso % (Auto) (0.0-3.0) % Gran # (1.4-6.5) Lymph # (1.2-3.4) Spencer # (0.1-0.6) Eos # (0.0-0.7) Baso # (0.0-2.0) K/mm3 pCO2 (35-45) mm/Hg pO2 (80-100) mm/Hg HCO3 (21-28) mmol/L ABG pH (7.35-7.45) ABG Total CO2 (22-28) mmol.L ABG O2 Saturation (95-98) % ABG Base Excess (-2.0-3.0) mmol/L ABG Potassium (3.6-5.2) mmol/L Sodium (132-148) mmol/L Chloride (98-107) mmol/L Glucose (75-110) mg/dl Lactate (0.7-2.1) mmol/L FiO2 % Potassium (3.6-5.0) mmol/L Carbon Dioxide (21-33) mmol/L Anion Gap (10-20) BUN (7-21) mg/dL Creatinine (0.8-1.5) mg/dL Est GFR ( Amer) Est GFR (Non-Af Amer) POC Glucose (mg/dL) 130 H 136 H 192 H (65-110) mg/dL Random Glucose (70-110) mg/dL Calcium (8.4-10.5) mg/dL Phosphorus (2.5-4.5) mg/dL Magnesium (1.7-2.2) mg/dL Triglycerides (35-160) mg/dL Cholesterol (130-200) mg/dL LDL Cholesterol Direct (0-129) mg/dL HDL Cholesterol (29-60) mg/dL Arterial Blood Potassium (3.6-5.2) mmol/L Urine Osmolality (300-1000) mosm/kg Ur Random Creatinine mg/dL Ur Random Sodium meq/L 05/29/17 05/29/17 05/29/17 Range/Units 17:15 16:45 15:51 WBC (4.5-11.0) 10^3/ul RBC (3.5-6.1) 10^6/uL Hgb (14.0-18.0) g/dL Hct (42.0-52.0) % MCV (80.0-105.0) fl MCH (25.0-35.0) pg MCHC (31.0-37.0) g/dl RDW (11.5-14.5) % Plt Count (120.0-450.0) 10^3/uL MPV (7.0-11.0) fl Gran % (50.0-68.0) % Lymph % (Auto) (22.0-35.0) % Spencer % (Auto) (1.0-6.0) % Eos % (Auto) (1.5-5.0) % Baso % (Auto) (0.0-3.0) % Gran # (1.4-6.5) Lymph # (1.2-3.4) Spencer # (0.1-0.6) Eos # (0.0-0.7) Baso # (0.0-2.0) K/mm3 pCO2 (35-45) mm/Hg pO2 (80-100) mm/Hg HCO3 (21-28) mmol/L ABG pH (7.35-7.45) ABG Total CO2 (22-28) mmol.L ABG O2 Saturation (95-98) % ABG Base Excess (-2.0-3.0) mmol/L ABG Potassium (3.6-5.2) mmol/L Sodium (132-148) mmol/L Chloride (98-107) mmol/L Glucose (75-110) mg/dl Lactate (0.7-2.1) mmol/L FiO2 % Potassium (3.6-5.0) mmol/L Carbon Dioxide (21-33) mmol/L Anion Gap (10-20) BUN (7-21) mg/dL Creatinine (0.8-1.5) mg/dL Est GFR ( Amer) Est GFR (Non-Af Amer) POC Glucose (mg/dL) 203 H (65-110) mg/dL Random Glucose (70-110) mg/dL Calcium (8.4-10.5) mg/dL Phosphorus (2.5-4.5) mg/dL Magnesium (1.7-2.2) mg/dL Triglycerides (35-160) mg/dL Cholesterol (130-200) mg/dL LDL Cholesterol Direct (0-129) mg/dL HDL Cholesterol (29-60) mg/dL Arterial Blood Potassium (3.6-5.2) mmol/L Urine Osmolality 459 (300-1000) mosm/kg Ur Random Creatinine 41 mg/dL Ur Random Sodium 161 meq/L 05/29/17 05/29/17 Range/Units 15:12 13:55 WBC (4.5-11.0) 10^3/ul RBC (3.5-6.1) 10^6/uL Hgb (14.0-18.0) g/dL Hct (42.0-52.0) % MCV (80.0-105.0) fl MCH (25.0-35.0) pg MCHC (31.0-37.0) g/dl RDW (11.5-14.5) % Plt Count (120.0-450.0) 10^3/uL MPV (7.0-11.0) fl Gran % (50.0-68.0) % Lymph % (Auto) (22.0-35.0) % Spencer % (Auto) (1.0-6.0) % Eos % (Auto) (1.5-5.0) % Baso % (Auto) (0.0-3.0) % Gran # (1.4-6.5) Lymph # (1.2-3.4) Spencer # (0.1-0.6) Eos # (0.0-0.7) Baso # (0.0-2.0) K/mm3 pCO2 42 (35-45) mm/Hg pO2 52.0 L (80-100) mm/Hg HCO3 28.5 H (21-28) mmol/L ABG pH 7.44 (7.35-7.45) ABG Total CO2 29.8 H (22-28) mmol.L ABG O2 Saturation 93.2 L (95-98) % ABG Base Excess 3.9 H (-2.0-3.0) mmol/L ABG Potassium 3.5 L (3.6-5.2) mmol/L Sodium 131 L 130.0 L (132-148) mmol/L Chloride 96 L 100.0 (98-107) mmol/L Glucose 218 H (75-110) mg/dl Lactate 0.6 L (0.7-2.1) mmol/L FiO2 21.0 % Potassium 3.9 (3.6-5.0) mmol/L Carbon Dioxide 30 (21-33) mmol/L Anion Gap 9 L (10-20) BUN 7 (7-21) mg/dL Creatinine 0.6 L (0.8-1.5) mg/dL Est GFR ( Amer) > 60 Est GFR (Non-Af Amer) > 60 POC Glucose (mg/dL) (65-110) mg/dL Random Glucose 206 H (70-110) mg/dL Calcium 8.9 (8.4-10.5) mg/dL Phosphorus 2.4 L (2.5-4.5) mg/dL Magnesium 1.7 (1.7-2.2) mg/dL Triglycerides (35-160) mg/dL Cholesterol (130-200) mg/dL LDL Cholesterol Direct (0-129) mg/dL HDL Cholesterol (29-60) mg/dL Arterial Blood Potassium 3.5 L (3.6-5.2) mmol/L Urine Osmolality (300-1000) mosm/kg Ur Random Creatinine mg/dL Ur Random Sodium meq/L Laboratory Results - last 24 hr 05/29/17 05/29/17 05/29/17 13:55 15:12 15:51 WBC RBC Hgb Hct MCV MCH MCHC RDW Plt Count MPV Gran % Lymph % (Auto) Spencer % (Auto) Eos % (Auto) Baso % (Auto) Gran # Lymph # Spencer # Eos # Baso # pCO2 42 pO2 52.0 L HCO3 28.5 H ABG pH 7.44 ABG Total CO2 29.8 H ABG O2 Saturation 93.2 L ABG Base Excess 3.9 H ABG Potassium 3.5 L Sodium 130.0 L 131 L Chloride 100.0 96 L Glucose 218 H Lactate 0.6 L FiO2 21.0 Potassium 3.9 Carbon Dioxide 30 Anion Gap 9 L BUN 7 Creatinine 0.6 L Est GFR ( Amer) > 60 Est GFR (Non-Af Amer) > 60 POC Glucose (mg/dL) 203 H Random Glucose 206 H Calcium 8.9 Phosphorus 2.4 L Magnesium 1.7 Triglycerides Cholesterol LDL Cholesterol Direct HDL Cholesterol Arterial Blood Potassium 3.5 L Urine Osmolality Ur Random Creatinine Ur Random Sodium 05/29/17 05/29/17 05/29/17 16:45 17:15 17:56 WBC RBC Hgb Hct MCV MCH MCHC RDW Plt Count MPV Gran % Lymph % (Auto) Spencer % (Auto) Eos % (Auto) Baso % (Auto) Gran # Lymph # Spencer # Eos # Baso # pCO2 pO2 HCO3 ABG pH ABG Total CO2 ABG O2 Saturation ABG Base Excess ABG Potassium Sodium Chloride Glucose Lactate FiO2 Potassium Carbon Dioxide Anion Gap BUN Creatinine Est GFR ( Amer) Est GFR (Non-Af Amer) POC Glucose (mg/dL) 192 H Random Glucose Calcium Phosphorus Magnesium Triglycerides Cholesterol LDL Cholesterol Direct HDL Cholesterol Arterial Blood Potassium Urine Osmolality 459 Ur Random Creatinine 41 Ur Random Sodium 161 05/29/17 05/29/17 05/30/17 19:56 22:06 01:28 WBC RBC Hgb Hct MCV MCH MCHC RDW Plt Count MPV Gran % Lymph % (Auto) Spencer % (Auto) Eos % (Auto) Baso % (Auto) Gran # Lymph # Spencer # Eos # Baso # pCO2 pO2 HCO3 ABG pH ABG Total CO2 ABG O2 Saturation ABG Base Excess ABG Potassium Sodium 131 L Chloride 98 Glucose Lactate FiO2 Potassium 3.7 Carbon Dioxide 27 Anion Gap 10 BUN 4 L Creatinine 0.6 L Est GFR ( Amer) > 60 Est GFR (Non-Af Amer) > 60 POC Glucose (mg/dL) 136 H 130 H Random Glucose 135 H Calcium 9.1 Phosphorus Magnesium Triglycerides Cholesterol LDL Cholesterol Direct HDL Cholesterol Arterial Blood Potassium Urine Osmolality Ur Random Creatinine Ur Random Sodium 05/30/17 05/30/17 05/30/17 03:02 05:20 05:20 WBC 12.8 H RBC 4.11 Hgb 12.8 L Hct 37.2 L MCV 90.5 MCH 31.1 MCHC 34.4 RDW 12.7 Plt Count 268 MPV 9.9 Gran % 84.0 H Lymph % (Auto) 9.3 L Spencer % (Auto) 6.1 H Eos % (Auto) 0.5 L Baso % (Auto) 0.1 Gran # 10.72 H Lymph # 1.2 Spencer # 0.8 H Eos # 0.1 Baso # 0.01 pCO2 pO2 HCO3 ABG pH ABG Total CO2 ABG O2 Saturation ABG Base Excess ABG Potassium Sodium 132 Chloride 99 Glucose Lactate FiO2 Potassium 3.7 Carbon Dioxide 27 Anion Gap 10 BUN 4 L Creatinine 0.6 L Est GFR ( Amer) > 60 Est GFR (Non-Af Amer) > 60 POC Glucose (mg/dL) 139 H Random Glucose 129 H Calcium 9.2 Phosphorus Magnesium Triglycerides 46 Cholesterol 113 L LDL Cholesterol Direct 51 HDL Cholesterol 47 Arterial Blood Potassium Urine Osmolality Ur Random Creatinine Ur Random Sodium 05/30/17 05/30/17 05:20 06:49 WBC RBC Hgb Hct MCV MCH MCHC RDW Plt Count MPV Gran % Lymph % (Auto) Spencer % (Auto) Eos % (Auto) Baso % (Auto) Gran # Lymph # Spencer # Eos # Baso # pCO2 pO2 HCO3 ABG pH ABG Total CO2 ABG O2 Saturation ABG Base Excess ABG Potassium Sodium Chloride Glucose Lactate FiO2 Potassium Carbon Dioxide Anion Gap BUN Creatinine Est GFR ( Amer) Est GFR (Non-Af Amer) POC Glucose (mg/dL) 118 H Random Glucose Calcium Phosphorus 3.3 Magnesium 1.7 Triglycerides Cholesterol LDL Cholesterol Direct HDL Cholesterol Arterial Blood Potassium Urine Osmolality Ur Random Creatinine Ur Random Sodium Fingerstick Blood Sugar Results: 118 Assessment/Plan - Assessment and Plan (Free Text) Assessment: 67 year old male with a PMH of tobacco and alcohol abuse, hypertension, who presented to [facility] ER on 05/29 after being found by his , 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 Plan: Neurological Left thalamic/BG with intraventricular extension on Head CT Neuro following, recs appreciated NeuroSx states no acute intervention On 3% NaCl @ 50ml/hr per neuro Sodium and serum osm Q8H PT/OT Speech/swallow eval Accuchecks Q2, avoid hyperglycemia Maintain SBP 140-160 Off cardizem drip HOB 30 PRN lorazepam for possible withdrawal given alcohol abuse hx Cardiovascular Hemodynamically stable On monitor, following vital signs Pulmnologic Protecting airway, maintaing saturations on NC 2L GI NPO until swallow eval Nephro/Electrolytes Monitoring IxOs Following sodium closely while on 3% NaCl ID Afebrile but mild leukocytosis, likely reactive Monitoring closely Heme Hemodynamically stable No active bleeding GI/DVT ppx: protonix/SCDs, no AC Patient was seen and examined and case was discussed at length with attending physician. - Date & Time Date: 05/30/17 Time: 07:00 <Sukhwinder Oliva - Last Filed: 05/30/17 16:31> CCU Objective - Vital Signs / Intake & Output Vital Signs (Last 4 hours): Vital Signs Pulse Resp BP Pulse Ox 05/30/17 16:00 93 H 21 154/89 H 96 05/30/17 15:50 89 18 95 05/30/17 15:40 93 H 21 95 05/30/17 15:30 91 H 19 96 05/30/17 15:20 94 H 18 96 05/30/17 15:10 97 H 22 96 05/30/17 15:00 97 H 24 150/81 96 05/30/17 14:50 98 H 25 H 95 05/30/17 14:40 95 H 22 96 05/30/17 14:30 103 H 24 97 05/30/17 14:20 97 H 23 95 05/30/17 14:10 103 H 18 96 05/30/17 14:00 100 H 22 144/82 95 05/30/17 13:50 101 H 20 95 05/30/17 13:44 101 H 21 144/84 95 05/30/17 13:40 103 H 21 95 05/30/17 13:30 102 H 19 92 L 05/30/17 13:20 103 H 22 95 05/30/17 13:10 99 H 23 96 05/30/17 13:00 101 H 22 96 05/30/17 12:50 97 H 29 H 97 05/30/17 12:40 93 H 20 97 05/30/17 12:30 97 H 21 96 Intake and Output (Last 8hrs): Intake & Output 05/30/17 05/30/1705/30/17 06:59 14:59 22:59 Intake Total 460 Output Total 1200 Balance -740 Weight 154 lb 155 lb 9.6 oz Intake: IV 460 Right Hand 100 Right Internal Jugular 360 Oral 0 Output: Urine 1200 Condom 1200 Other: # Bowel Movements 0 - Medications Active Medications: Active Medications Generic Name Dose Route Start Last Admin Trade Name Freq PRN Reason Stop Dose Admin Nicardipine HCl 20 mg in 200 mls @ 50 mls/hr 05/29/17 10:12 05/29/17 17:47 Cardene Iv Premix IV 15 mg/hr .Q4H PRN 150 mls/hr TITRATE PER MD ORDER Administration Protocol 5 MG/HR Sodium Chloride 500 mls @ 50 mls/hr 05/30/17 15:45 05/30/17 16:14 Hypertonic Saline 3% IV 50 mls/hr .Q10H KATIE Administration Lorazepam 2 mg 05/29/17 15:23 Ativan IVP Q2H PRN Symptoms of alcohol withdrawl Protocol Lorazepam 4 mg 05/29/17 15:23 Ativan IVP Q4H PRN Symptoms of alcohol withdrawl Protocol Pantoprazole Sodium 40 mg 05/29/17 13:30 05/30/17 09:15 Protonix Inj IVP 40 mg DAILY KATIE Administration Silver Sulfadiazine 0 gm 05/30/17 18:00 Silvadene 1% 25 Gm TP BID KATIE - Patient Studies Lab Studies: Microbiology Studies 05/29/17 12:35 MRSA Culture (Admit) - Final Nose MRSA NOT DETECTED Lab Studies 05/30/17 05/30/17 05/30/17 Range/Units 15:27 11:43 10:45 WBC (4.5-11.0) 10^3/ul RBC (3.5-6.1) 10^6/uL Hgb (14.0-18.0) g/dL Hct (42.0-52.0) % MCV (80.0-105.0) fl MCH (25.0-35.0) pg MCHC (31.0-37.0) g/dl RDW (11.5-14.5) % Plt Count (120.0-450.0) 10^3/uL MPV (7.0-11.0) fl Gran % (50.0-68.0) % Lymph % (Auto) (22.0-35.0) % Spencer % (Auto) (1.0-6.0) % Eos % (Auto) (1.5-5.0) % Baso % (Auto) (0.0-3.0) % Gran # (1.4-6.5) Lymph # (1.2-3.4) Spencer # (0.1-0.6) Eos # (0.0-0.7) Baso # (0.0-2.0) K/mm3 Sodium 135 (132-148) mmol/L Potassium 3.6 (3.6-5.0) mmol/L Chloride 100 (98-107) mmol/L Carbon Dioxide 28 (21-33) mmol/L Anion Gap 11 (10-20) BUN 5 L (7-21) mg/dL Creatinine 0.5 L (0.8-1.5) mg/dL Est GFR ( Amer) > 60 Est GFR (Non-Af Amer) > 60 POC Glucose (mg/dL) 120 H 110 (65-110) mg/dL Random Glucose 117 H (70-110) mg/dL Serum Osmolality (272-300) mosm/kg Calcium 8.8 (8.4-10.5) mg/dL Phosphorus (2.5-4.5) mg/dL Magnesium (1.7-2.2) mg/dL Triglycerides (35-160) mg/dL Cholesterol (130-200) mg/dL LDL Cholesterol Direct (0-129) mg/dL HDL Cholesterol (29-60) mg/dL Urine Osmolality (300-1000) mosm/kg Ur Random Creatinine mg/dL Ur Random Sodium meq/L 05/30/17 05/30/17 05/30/17 Range/Units 09:00 06:49 05:30 WBC (4.5-11.0) 10^3/ul RBC (3.5-6.1) 10^6/uL Hgb (14.0-18.0) g/dL Hct (42.0-52.0) % MCV (80.0-105.0) fl MCH (25.0-35.0) pg MCHC (31.0-37.0) g/dl RDW (11.5-14.5) % Plt Count (120.0-450.0) 10^3/uL MPV (7.0-11.0) fl Gran % (50.0-68.0) % Lymph % (Auto) (22.0-35.0) % Spencer % (Auto) (1.0-6.0) % Eos % (Auto) (1.5-5.0) % Baso % (Auto) (0.0-3.0) % Gran # (1.4-6.5) Lymph # (1.2-3.4) Spencer # (0.1-0.6) Eos # (0.0-0.7) Baso # (0.0-2.0) K/mm3 Sodium (132-148) mmol/L Potassium (3.6-5.0) mmol/L Chloride (98-107) mmol/L Carbon Dioxide (21-33) mmol/L Anion Gap (10-20) BUN (7-21) mg/dL Creatinine (0.8-1.5) mg/dL Est GFR ( Amer) Est GFR (Non-Af Amer) POC Glucose (mg/dL) 115 H 118 H (65-110) mg/dL Random Glucose (70-110) mg/dL Serum Osmolality 277 (272-300) mosm/kg Calcium (8.4-10.5) mg/dL Phosphorus (2.5-4.5) mg/dL Magnesium (1.7-2.2) mg/dL Triglycerides (35-160) mg/dL Cholesterol (130-200) mg/dL LDL Cholesterol Direct (0-129) mg/dL HDL Cholesterol (29-60) mg/dL Urine Osmolality (300-1000) mosm/kg Ur Random Creatinine mg/dL Ur Random Sodium meq/L 05/30/17 05/30/17 05/30/17 Range/Units 05:20 05:20 05:20 WBC 12.8 H (4.5-11.0) 10^3/ul RBC 4.11 (3.5-6.1) 10^6/uL Hgb 12.8 L (14.0-18.0) g/dL Hct 37.2 L (42.0-52.0) % MCV 90.5 (80.0-105.0) fl MCH 31.1 (25.0-35.0) pg MCHC 34.4 (31.0-37.0) g/dl RDW 12.7 (11.5-14.5) % Plt Count 268 (120.0-450.0) 10^3/uL MPV 9.9 (7.0-11.0) fl Gran % 84.0 H (50.0-68.0) % Lymph % (Auto) 9.3 L (22.0-35.0) % Spencer % (Auto) 6.1 H (1.0-6.0) % Eos % (Auto) 0.5 L (1.5-5.0) % Baso % (Auto) 0.1 (0.0-3.0) % Gran # 10.72 H (1.4-6.5) Lymph # 1.2 (1.2-3.4) Spencer # 0.8 H (0.1-0.6) Eos # 0.1 (0.0-0.7) Baso # 0.01 (0.0-2.0) K/mm3 Sodium 132 (132-148) mmol/L Potassium 3.7 (3.6-5.0) mmol/L Chloride 99 (98-107) mmol/L Carbon Dioxide 27 (21-33) mmol/L Anion Gap 10 (10-20) BUN 4 L (7-21) mg/dL Creatinine 0.6 L (0.8-1.5) mg/dL Est GFR ( Amer) > 60 Est GFR (Non-Af Amer) > 60 POC Glucose (mg/dL) (65-110) mg/dL Random Glucose 129 H (70-110) mg/dL Serum Osmolality (272-300) mosm/kg Calcium 9.2 (8.4-10.5) mg/dL Phosphorus 3.3 (2.5-4.5) mg/dL Magnesium 1.7 (1.7-2.2) mg/dL Triglycerides 46 (35-160) mg/dL Cholesterol 113 L (130-200) mg/dL LDL Cholesterol Direct 51 (0-129) mg/dL HDL Cholesterol 47 (29-60) mg/dL Urine Osmolality (300-1000) mosm/kg Ur Random Creatinine mg/dL Ur Random Sodium meq/L 11/08/1505/30/17 05/29/17 Range/Units 03:02 01:28 22:06 WBC (4.5-11.0) 10^3/ul RBC (3.5-6.1) 10^6/uL Hgb (14.0-18.0) g/dL Hct (42.0-52.0) % MCV (80.0-105.0) fl MCH (25.0-35.0) pg MCHC (31.0-37.0) g/dl RDW (11.5-14.5) % Plt Count (120.0-450.0) 10^3/uL MPV (7.0-11.0) fl Gran % (50.0-68.0) % Lymph % (Auto) (22.0-35.0) % Spencer % (Auto) (1.0-6.0) % Eos % (Auto) (1.5-5.0) % Baso % (Auto) (0.0-3.0) % Gran # (1.4-6.5) Lymph # (1.2-3.4) Spencer # (0.1-0.6) Eos # (0.0-0.7) Baso # (0.0-2.0) K/mm3 Sodium 131 L (132-148) mmol/L Potassium 3.7 (3.6-5.0) mmol/L Chloride 98 (98-107) mmol/L Carbon Dioxide 27 (21-33) mmol/L Anion Gap 10 (10-20) BUN 4 L (7-21) mg/dL Creatinine 0.6 L (0.8-1.5) mg/dL Est GFR ( Amer) > 60 Est GFR (Non-Af Amer) > 60 POC Glucose (mg/dL) 139 H 130 H (65-110) mg/dL Random Glucose 135 H (70-110) mg/dL Serum Osmolality (272-300) mosm/kg Calcium 9.1 (8.4-10.5) mg/dL Phosphorus (2.5-4.5) mg/dL Magnesium (1.7-2.2) mg/dL Triglycerides (35-160) mg/dL Cholesterol (130-200) mg/dL LDL Cholesterol Direct (0-129) mg/dL HDL Cholesterol (29-60) mg/dL Urine Osmolality (300-1000) mosm/kg Ur Random Creatinine mg/dL Ur Random Sodium meq/L 05/29/17 05/29/17 05/29/17 Range/Units 19:56 17:56 17:15 WBC (4.5-11.0) 10^3/ul RBC (3.5-6.1) 10^6/uL Hgb (14.0-18.0) g/dL Hct (42.0-52.0) % MCV (80.0-105.0) fl MCH (25.0-35.0) pg MCHC (31.0-37.0) g/dl RDW (11.5-14.5) % Plt Count (120.0-450.0) 10^3/uL MPV (7.0-11.0) fl Gran % (50.0-68.0) % Lymph % (Auto) (22.0-35.0) % Spencer % (Auto) (1.0-6.0) % Eos % (Auto) (1.5-5.0) % Baso % (Auto) (0.0-3.0) % Gran # (1.4-6.5) Lymph # (1.2-3.4) Spencer # (0.1-0.6) Eos # (0.0-0.7) Baso # (0.0-2.0) K/mm3 Sodium (132-148) mmol/L Potassium (3.6-5.0) mmol/L Chloride (98-107) mmol/L Carbon Dioxide (21-33) mmol/L Anion Gap (10-20) BUN (7-21) mg/dL Creatinine (0.8-1.5) mg/dL Est GFR ( Amer) Est GFR (Non-Af Amer) POC Glucose (mg/dL) 136 H 192 H (65-110) mg/dL Random Glucose (70-110) mg/dL Serum Osmolality (272-300) mosm/kg Calcium (8.4-10.5) mg/dL Phosphorus (2.5-4.5) mg/dL Magnesium (1.7-2.2) mg/dL Triglycerides (35-160) mg/dL Cholesterol (130-200) mg/dL LDL Cholesterol Direct (0-129) mg/dL HDL Cholesterol (29-60) mg/dL Urine Osmolality 459 (300-1000) mosm/kg Ur Random Creatinine mg/dL Ur Random Sodium meq/L 05/29/17 05/29/17 05/29/17 Range/Units 16:45 16:30 15:51 WBC (4.5-11.0) 10^3/ul RBC (3.5-6.1) 10^6/uL Hgb (14.0-18.0) g/dL Hct (42.0-52.0) % MCV (80.0-105.0) fl MCH (25.0-35.0) pg MCHC (31.0-37.0) g/dl RDW (11.5-14.5) % Plt Count (120.0-450.0) 10^3/uL MPV (7.0-11.0) fl Gran % (50.0-68.0) % Lymph % (Auto) (22.0-35.0) % Spencer % (Auto) (1.0-6.0) % Eos % (Auto) (1.5-5.0) % Baso % (Auto) (0.0-3.0) % Gran # (1.4-6.5) Lymph # (1.2-3.4) Spencer # (0.1-0.6) Eos # (0.0-0.7) Baso # (0.0-2.0) K/mm3 Sodium (132-148) mmol/L Potassium (3.6-5.0) mmol/L Chloride (98-107) mmol/L Carbon Dioxide (21-33) mmol/L Anion Gap (10-20) BUN (7-21) mg/dL Creatinine (0.8-1.5) mg/dL Est GFR ( Amer) Est GFR (Non-Af Amer) POC Glucose (mg/dL) 203 H (65-110) mg/dL Random Glucose (70-110) mg/dL Serum Osmolality 278 (272-300) mosm/kg Calcium (8.4-10.5) mg/dL Phosphorus (2.5-4.5) mg/dL Magnesium (1.7-2.2) mg/dL Triglycerides (35-160) mg/dL Cholesterol (130-200) mg/dL LDL Cholesterol Direct (0-129) mg/dL HDL Cholesterol (29-60) mg/dL Urine Osmolality (300-1000) mosm/kg Ur Random Creatinine 41 mg/dL Ur Random Sodium 161 meq/L 05/29/17 Range/Units 15:12 WBC (4.5-11.0) 10^3/ul RBC (3.5-6.1) 10^6/uL Hgb (14.0-18.0) g/dL Hct (42.0-52.0) % MCV (80.0-105.0) fl MCH (25.0-35.0) pg MCHC (31.0-37.0) g/dl RDW (11.5-14.5) % Plt Count (120.0-450.0) 10^3/uL MPV (7.0-11.0) fl Gran % (50.0-68.0) % Lymph % (Auto) (22.0-35.0) % Spencer % (Auto) (1.0-6.0) % Eos % (Auto) (1.5-5.0) % Baso % (Auto) (0.0-3.0) % Gran # (1.4-6.5) Lymph # (1.2-3.4) Spencer # (0.1-0.6) Eos # (0.0-0.7) Baso # (0.0-2.0) K/mm3 Sodium (132-148) mmol/L Potassium (3.6-5.0) mmol/L Chloride (98-107) mmol/L Carbon Dioxide (21-33) mmol/L Anion Gap (10-20) BUN (7-21) mg/dL Creatinine (0.8-1.5) mg/dL Est GFR ( Amer) Est GFR (Non-Af Amer) POC Glucose (mg/dL) (65-110) mg/dL Random Glucose (70-110) mg/dL Serum Osmolality (272-300) mosm/kg Calcium (8.4-10.5) mg/dL Phosphorus (2.5-4.5) mg/dL Magnesium 1.7 (1.7-2.2) mg/dL Triglycerides (35-160) mg/dL Cholesterol (130-200) mg/dL LDL Cholesterol Direct (0-129) mg/dL HDL Cholesterol (29-60) mg/dL Urine Osmolality (300-1000) mosm/kg Ur Random Creatinine mg/dL Ur Random Sodium meq/L Laboratory Results - last 24 hr 05/29/17 05/29/17 05/29/17 15:12 15:51 16:30 WBC RBC Hgb Hct MCV MCH MCHC RDW Plt Count MPV Gran % Lymph % (Auto) Spencer % (Auto) Eos % (Auto) Baso % (Auto) Gran # Lymph # Spencer # Eos # Baso # Sodium Potassium Chloride Carbon Dioxide Anion Gap BUN Creatinine Est GFR ( Amer) Est GFR (Non-Af Amer) POC Glucose (mg/dL) 203 H Random Glucose Serum Osmolality 278 Calcium Phosphorus Magnesium 1.7 Triglycerides Cholesterol LDL Cholesterol Direct HDL Cholesterol Urine Osmolality Ur Random Creatinine Ur Random Sodium 05/29/17 05/29/17 05/29/17 16:45 17:15 17:56 WBC RBC Hgb Hct MCV MCH MCHC RDW Plt Count MPV Gran % Lymph % (Auto) Spencer % (Auto) Eos % (Auto) Baso % (Auto) Gran # Lymph # Spencer # Eos # Baso # Sodium Potassium Chloride Carbon Dioxide Anion Gap BUN Creatinine Est GFR ( Amer) Est GFR (Non-Af Amer) POC Glucose (mg/dL) 192 H Random Glucose Serum Osmolality Calcium Phosphorus Magnesium Triglycerides Cholesterol LDL Cholesterol Direct HDL Cholesterol Urine Osmolality 459 Ur Random Creatinine 41 Ur Random Sodium 161 05/29/17 05/29/17 05/30/17 19:56 22:06 01:28 WBC RBC Hgb Hct MCV MCH MCHC RDW Plt Count MPV Gran % Lymph % (Auto) Spencer % (Auto) Eos % (Auto) Baso % (Auto) Gran # Lymph # Spencer # Eos # Baso # Sodium 131 L Potassium 3.7 Chloride 98 Carbon Dioxide 27 Anion Gap 10 BUN 4 L Creatinine 0.6 L Est GFR ( Amer) > 60 Est GFR (Non-Af Amer) > 60 POC Glucose (mg/dL) 136 H 130 H Random Glucose 135 H Serum Osmolality Calcium 9.1 Phosphorus Magnesium Triglycerides Cholesterol LDL Cholesterol Direct HDL Cholesterol Urine Osmolality Ur Random Creatinine Ur Random Sodium 05/30/17 05/30/17 05/30/17 03:02 05:20 05:20 WBC 12.8 H RBC 4.11 Hgb 12.8 L Hct 37.2 L MCV 90.5 MCH 31.1 MCHC 34.4 RDW 12.7 Plt Count 268 MPV 9.9 Gran % 84.0 H Lymph % (Auto) 9.3 L Spencer % (Auto) 6.1 H Eos % (Auto) 0.5 L Baso % (Auto) 0.1 Gran # 10.72 H Lymph # 1.2 Spencer # 0.8 H Eos # 0.1 Baso # 0.01 Sodium 132 Potassium 3.7 Chloride 99 Carbon Dioxide 27 Anion Gap 10 BUN 4 L Creatinine 0.6 L Est GFR ( Amer) > 60 Est GFR (Non-Af Amer) > 60 POC Glucose (mg/dL) 139 H Random Glucose 129 H Serum Osmolality Calcium 9.2 Phosphorus Magnesium Triglycerides 46 Cholesterol 113 L LDL Cholesterol Direct 51 HDL Cholesterol 47 Urine Osmolality Ur Random Creatinine Ur Random Sodium 05/30/17 05/30/17 05/30/17 05:20 05:30 06:49 WBC RBC Hgb Hct MCV MCH MCHC RDW Plt Count MPV Gran % Lymph % (Auto) Spencer % (Auto) Eos % (Auto) Baso % (Auto) Gran # Lymph # Spencer # Eos # Baso # Sodium Potassium Chloride Carbon Dioxide Anion Gap BUN Creatinine Est GFR ( Amer) Est GFR (Non-Af Amer) POC Glucose (mg/dL) 118 H Random Glucose Serum Osmolality 277 Calcium Phosphorus 3.3 Magnesium 1.7 Triglycerides Cholesterol LDL Cholesterol Direct HDL Cholesterol Urine Osmolality Ur Random Creatinine Ur Random Sodium 05/30/17 05/30/17 05/30/17 09:00 10:45 11:43 WBC RBC Hgb Hct MCV MCH MCHC RDW Plt Count MPV Gran % Lymph % (Auto) Spencer % (Auto) Eos % (Auto) Baso % (Auto) Gran # Lymph # Spencer # Eos # Baso # Sodium 135 Potassium 3.6 Chloride 100 Carbon Dioxide 28 Anion Gap 11 BUN 5 L Creatinine 0.5 L Est GFR ( Amer) > 60 Est GFR (Non-Af Amer) > 60 POC Glucose (mg/dL) 115 H 110 Random Glucose 117 H Serum Osmolality Calcium 8.8 Phosphorus Magnesium Triglycerides Cholesterol LDL Cholesterol Direct HDL Cholesterol Urine Osmolality Ur Random Creatinine Ur Random Sodium 05/30/17 15:27 WBC RBC Hgb Hct MCV MCH MCHC RDW Plt Count MPV Gran % Lymph % (Auto) Spencer % (Auto) Eos % (Auto) Baso % (Auto) Gran # Lymph # Spencer # Eos # Baso # Sodium Potassium Chloride Carbon Dioxide Anion Gap BUN Creatinine Est GFR ( Amer) Est GFR (Non-Af Amer) POC Glucose (mg/dL) 120 H Random Glucose Serum Osmolality Calcium Phosphorus Magnesium Triglycerides Cholesterol LDL Cholesterol Direct HDL Cholesterol Urine Osmolality Ur Random Creatinine Ur Random Sodium Attending/Attestation - Attestation I have personally seen and examined this patient.: Yes I have fully participated in the care of the patient.: Yes I have reviewed all pertinent clinical information: Yes Notes (Text): 05/30/17 16: HTN related ICH with some surrounding swelling in basal ganglia/thalami area. 3% NaCl rate is adjusted, CTH-no worsening, satble bleed. No significant clinical improvement though. Maintain euvolemia, euglycemia and 02sat>90%. mechanical DVT prophylaxis, GI prophyalxis. swallow eval done--want to repeat tomorrow, if fails tomorrow as well--NGT and start feeding. PT/OT, pulmonary toilet, early mobilization ccm time 40 min
[2017-05-30] MEDS ORDERED: Sodium Chloride 3% 500 ML IV SCH ×2 (08:21→15:45)
--- NOTE | 2017-05-30 08:34 | CP.PCM.PN ---
Subjective - Date & Time of Evaluation Date of Evaluation: 05/30/17 Time of Evaluation: 08:30 - Subjective Subjective: Mr. Veras was seen and examined at the bedside. He is responsive to verbal and tactile cues, remains with garbled speech. He is able to follow few commands such as visual field assessment,squeezing the hand and raising his left upper arm. He is not able to follow commands like sticking out his tongue. He remains with right facial droop, right side paralysis. He has the left jugular TLC with 3% NACL infusing. There was no untoward events overnight. Objective - Vital Signs/Intake and Output Vital Signs (last 24 hours): Temp Pulse Resp BP Pulse Ox 98 F 76 17 129/71 97 05/30/17 04:00 05/30/17 06:30 05/30/17 06:30 05/30/17 06:00 05/30/17 06:30 Intake and Output: 05/30/17 05/30/17 06:59 18:59 Intake Total 460 Output Total 1200 Balance -740 - Medications Medications: Current Medications Nicardipine HCl (Cardene Iv Premix) 20 mg in 200 mls @ 50 mls/hr IV .Q4H PRN; Protocol; 5 MG/HR PRN Reason: TITRATE PER MD ORDER Last Admin: 05/29/17 17:47 Dose: 15 mg/hr, 150 mls/hr Sodium Chloride (Hypertonic Saline 3%) 500 mls @ 50 mls/hr IV .Q10H [facility] Lorazepam (Ativan) 2 mg IVP Q2H PRN; Protocol PRN Reason: Symptoms of alcohol withdrawl Lorazepam (Ativan) 4 mg IVP Q4H PRN; Protocol PRN Reason: Symptoms of alcohol withdrawl Pantoprazole Sodium (Protonix Inj) 40 mg IVP DAILY [facility] Last Admin: 05/29/17 15:00 Dose: 40 mg - Labs Labs: 05/30/17 05:20 05/30/17 05:20 PT 13.2 SECONDS (9.4-12.5) H 05/29/17 10:15 INR 1.20 (0.93-1.08) H 05/29/17 10:15 APTT 30.8 Seconds (25.1-36.5) 05/29/17 10:15 - Constitutional Appears: No Acute Distress - Head Exam Head Exam: ATRAUMATIC - Eye Exam Additional comments: pupils are sluggish to react with 2 mm size and equal. - Neurological Exam Neurological Exam: Awake Neuro motor strength exam: Left Upper Extremity: 2/1, Right Upper Extremity: 0, Left Lower Extremity: 2/1, Right Lower Extremity: 0 Additional comments: He is able to follow some simple commands such as squeezing his left fingers and visual field assessment. He remains with garbled speech. Sensation asymmetrical. Assessment and Plan (1) Intracerebral hemorrhage Assessment & Plan: Case discussed with Dr. Davies, To increase the 3% NACL to 50 ml/hr. Continue monitoring for serum Na and serum osmolality Q 6 hours. Speech to evaluate swallowing, if unable to pass swallowing test, kindly place NGT for medications and nutrition. Repeat CT of the head without contrast today.Continue all other medical, physical, and occupational therapies. DVT prophylaxis- on SCD's. Status: Acute
--- NOTE | 2017-05-30 10:44 | CT ---
PROCEDURE: CT HEAD WITHOUT CONTRAST. HISTORY: follow up ICH COMPARISON: 05/29/2017 TECHNIQUE: Axial computed tomography images were obtained through the head/brain without intravenous contrast. Radiation dose: Total exam DLP = 775 mGy-cm. This CT exam was performed using one or more of the following dose reduction techniques: Automated exposure control, adjustment of the mA and/or kV according to patient size, and/or use of iterative reconstruction technique. FINDINGS: HEMORRHAGE: There is no change in the size of the acute hemorrhage in the region of the left thalamus. This measures 18 x 36 mm on image 33 series 2. There is a small amount of blood in the 3rd ventricle and the occipital horns of the lateral ventricles. The amount of intraventricular hemorrhage has decreased. BRAIN: Atrophy and chronic microvascular changes are seen. VENTRICLES: There is mild hydrocephalus unchanged. CALVARIUM: Unremarkable. PARANASAL SINUSES: Unremarkable as visualized. No significant inflammatory changes. MASTOID AIR CELLS: Unremarkable as visualized. No inflammatory changes. OTHER FINDINGS: None. IMPRESSION: Stable appearance of left thalamic hemorrhage. Decreased intraventricular blood.
--- NOTE | 2017-05-30 11:18 | CP.PCM.PN ---
<BROOKS CONWAY - Last Filed: 05/30/17 11:14> Subjective - Date & Time of Evaluation Date of Evaluation: 05/30/17 Time of Evaluation: 11:14 - Subjective Subjective: Medicine Progress Note: Pt seen and examined at bedside. No acute changes overnight. Pt follow some commands, but speech is incoherent. Pt appears to be stable from yesterday. ROS limited due to patient's current mental status. Objective - Vital Signs/Intake and Output Vital Signs (last 24 hours): Temp Pulse Resp BP Pulse Ox 98 F 76 17 129/71 97 05/30/17 04:00 05/30/17 10:00 05/30/17 06:30 05/30/17 06:00 05/30/17 06:30 Intake and Output: 05/30/17 05/30/17 06:59 18:59 Intake Total 460 Output Total 1200 Balance -740 - Medications Medications: Current Medications Nicardipine HCl (Cardene Iv Premix) 20 mg in 200 mls @ 50 mls/hr IV .Q4H PRN; Protocol; 5 MG/HR PRN Reason: TITRATE PER MD ORDER Last Admin: 05/29/17 17:47 Dose: 15 mg/hr, 150 mls/hr Sodium Chloride (Hypertonic Saline 3%) 500 mls @ 50 mls/hr IV .Q10H [facility] Last Admin: 05/30/17 09:12 Dose: 50 mls/hr Lorazepam (Ativan) 2 mg IVP Q2H PRN; Protocol PRN Reason: Symptoms of alcohol withdrawl Lorazepam (Ativan) 4 mg IVP Q4H PRN; Protocol PRN Reason: Symptoms of alcohol withdrawl Pantoprazole Sodium (Protonix Inj) 40 mg IVP DAILY [facility] Last Admin: 05/30/17 09:15 Dose: 40 mg - Labs Labs: 05/30/17 05:20 05/30/17 05:20 PT 13.2 SECONDS (9.4-12.5) H 05/29/17 10:15 INR 1.20 (0.93-1.08) H 05/29/17 10:15 APTT 30.8 Seconds (25.1-36.5) 05/29/17 10:15 - Constitutional Appears: No Acute Distress - Head Exam Head Exam: ATRAUMATIC, NORMOCEPHALIC - Eye Exam Additional comments: Fixed 3mm b/l - ENT Exam ENT Exam: Mucous Membranes Moist, Normal Exam - Neck Exam Neck Exam: Full ROM. absent: Lymphadenopathy, Tenderness, Thyromegaly - Respiratory Exam Respiratory Exam: Clear to Ausculation Bilateral. absent: Accessory Muscle Use , Rales, Rhonchi, Wheezes, Respiratory Distress - Cardiovascular Exam Cardiovascular Exam: RRR, +S1, +S2. absent: Diastolic murmur, Gallop, Rubs, Murmur - GI/Abdominal Exam GI & Abdominal Exam: Soft. absent: Distended, Guarding, Tenderness, Mass, Organomegaly, Rebound - Extremities Exam Extremities Exam: absent: Joint Swelling, Pedal Edema, Tenderness Additional comments: Lifts left arm and leg on command. Unable to move right arm and leg. - Neurological Exam Neurological Exam: Awake. absent: Oriented x3 Additional comments: CN 3 palsy, Right facial droop, Right-sided hemiplegia, dysarthria. Moves left arm and leg on command. Positive babinski on R. - Skin Skin Exam: Dry, Intact, Normal Color, Warm Assessment and Plan - Assessment and Plan (Free Text) Assessment: 67 yo M with unknown PMH presented for possible stroke, found to have 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 Plan: 1. Intracerebral Hemorrhage - Admitted to ICU - NIHSS in ED: 21 - CT showed hemorrhagic infarct of the left thalamus/basal ganglia. No midline shift. Left thalamic edema - Repeat CT showed stable left thalamic hemorrhage - Nicardipine drip per ICU for BP management - Neurosurgery consulted No surgical intervention at this time - Neuro consulted Neuro checks q1h Hypertonic saline, rate increased to 50 ml/hr Monitor serum sodium and osmolarity Q6H Target Na 135-145 and osmolarity is < 320 (Na 132 today) Maintain serum glucose below 160 mg/dL (129 today) Maintain head of bed above 30 degrees Avoid IV glucose, hyperthermia F/u swallow eval - Lipid panel, A1C WNL - PT/OT, speech eval 2. Possible EtOH Withdraw - EtOH negative - CIWA 2 - Ativan PRN GI/DVT PPx - Protonix - SCDs Pt was seen and discussed in detail with Dr. Licona. Tao Conway, PGY1 <Melchor Licona - Last Filed: 05/31/17 16:52> Objective - Vital Signs/Intake and Output Vital Signs (last 24 hours): Temp Pulse Resp BP Pulse Ox 99 F 76 16 116/58 L 93 L 05/31/17 05:36 05/31/17 16:40 05/31/17 10:47 05/31/17 16:30 05/31/17 16:40 Intake and Output: 05/31/17 05/31/17 06:59 18:59 Intake Total 500 135 Output Total 250 Balance 250 135 - Medications Medications: Current Medications NOREPINEPHRINE BIT/0.9 % NACL (Levophed 4 Mg/ 250 Ml Ns Premixed) 4 mg in 250 mls @ 18.75 mls/hr IV .[id number] PRN; Protocol; 5 MCG/MIN PRN Reason: TITRATE PER MD ORDER Last Titration: 05/31/17 13:35 Dose: 0 mcg/min, 0 mls/hr Propofol (Diprivan) 500 mg in 50 mls @ 2.117 mls/hr IV .[id number] PRN; Protocol; 5 MCG/KG/MIN PRN Reason: TITRATE PER MD ORDER Last Titration: 05/31/17 09:39 Dose: 0 mcg/kg/min, 0 mls/hr Sodium Chloride (Hypertonic Saline 3%) 500 mls @ 50 mls/hr IV .Q10H [facility] Last Admin: 05/31/17 13:31 Dose: 50 mls/hr Lorazepam (Ativan) 2 mg IVP Q2H PRN; Protocol PRN Reason: Symptoms of alcohol withdrawl Lorazepam (Ativan) 4 mg IVP Q4H PRN; Protocol PRN Reason: Symptoms of alcohol withdrawl Last Admin: 05/30/17 17:00 Dose: 4 mg Metoprolol Tartrate (Lopressor) 25 mg PO BID [facility] Pantoprazole Sodium (Protonix Inj) 40 mg IVP DAILY [facility] Last Admin: 05/31/17 11:36 Dose: 40 mg Silver Sulfadiazine (Silvadene 1% 25 Gm) 0 gm TP BID [facility] Last Admin: 05/31/17 11:39 Dose: 25 gm Sodium Chloride (Sodium Chloride Tab) 1 gm PO Q12 [facility] Last Admin: 05/31/17 11:38 Dose: 1 gm - Labs Labs: 05/31/17 09:30 05/31/17 09:30 PT 14.0 SECONDS (9.4-12.5) H 05/31/17 09:30 INR 1.27 (0.93-1.08) H 05/31/17 09:30 APTT 23.3 Seconds (25.1-36.5) L 05/31/17 09:30 Attending/Attestation - Attestation I have personally seen and examined this patient.: Yes I have fully participated in the care of the patient.: Yes I have reviewed all pertinent clinical information, including history, physical exam and plan: Yes Notes (Text): 05/31/17 16:49 Patient was seen and examined with medical director. 67 yrs old male was admitted with change of mental status , found to have hammorhagic CVA, CT showed hemorrhagic infarct of the left thalamus/basal ganglia with extension into 3rd ventricle and lateral ventrile. Neuro surgery has recommended conservative management. Patient is in ICU , blood pressure is better, Repeat Ct head 05/30/17 is unchanged.Patient Neuro examination is unchanged since yesterday. We will DC ativan as there is no sign of alcohol withdrawal and patient Neuro examination need to be monitored closely. Prognosis is guarded.
[2017-05-30 11:21] LABS: BLOOD UREA NITROGEN 5 mg/dL (7-21); CALCIUM 8.8 mg/dL (8.4-10.5); CARBON DIOXIDE 28 mmol/L (21-33); CHLORIDE 100 mmol/L (98-107); GFR AFRICAN-AMERICAN > 60; GLUCOSE,RANDOM 117 mg/dL (70-110); POTASSIUM 3.6 mmol/L (3.6-5.0); SODIUM 135 mmol/L (132-148)
--- NOTE | 2017-05-30 13:22 | CON ---
I was asked to review the CAT scan on this 67-year-old gentleman who presented with a code stroke. Basically, he has a moderate-sized deep intraparenchymal hemorrhage rupturing, unfortunately into the left mid brain and there was a small amount of blood in the third ventricle. There is no hydrocephalus. There was no indication for neurosurgical involvement for this patient at this time, suggest to call Neurology. Chema Kern MD
--- NOTE | 2017-05-30 18:23 | RAD ---
HISTORY: NGT placement COMPARISON: 05/29/2017. FINDINGS: The nasogastric tube terminates in the stomach. The left IJV line terminates in the SVC. LUNGS: The lungs are hyperinflated and there is peribronchial thickening with chronic changes in both lungs. No focal consolidation. The PLEURA: No significant pleural effusion identified, no pneumothorax apparent. CARDIOVASCULAR: The heart is normal in size. Atherosclerotic aortic arch calcifications are present. OSSEOUS STRUCTURES: No significant abnormalities. VISUALIZED UPPER ABDOMEN: Normal. OTHER FINDINGS: None. IMPRESSION: Nasogastric tube terminates in the stomach. No active pulmonary disease. COPD.
[2017-05-30 18:50] LABS: BLOOD UREA NITROGEN 7 mg/dL (7-21); CALCIUM 9.1 mg/dL (8.4-10.5); CARBON DIOXIDE 29 mmol/L (21-33); CHLORIDE 101 mmol/L (98-107); GFR AFRICAN-AMERICAN > 60; GLUCOSE,RANDOM 107 mg/dL (70-110); POTASSIUM 3.6 mmol/L (3.6-5.0); SODIUM 136 mmol/L (132-148)
[2017-05-30] MEDS: Silver Sulfadiazine 1% Cream (25 gm) TP SCH (18:56)
[2017-05-30] MEDS ORDERED: Sodium Chloride 0.9% 1,000 ML IV SCH (21:30)
[2017-05-31 03:51] LABS: BLOOD UREA NITROGEN 8 mg/dL (7-21); CALCIUM 9.1 mg/dL (8.4-10.5); CARBON DIOXIDE 29 mmol/L (21-33); CHLORIDE 101 mmol/L (98-107); GFR AFRICAN-AMERICAN > 60; GLUCOSE,RANDOM 105 mg/dL (70-110); POTASSIUM 3.7 mmol/L (3.6-5.0); SODIUM 136 mmol/L (132-148)
[2017-05-31 06:15] LABS: BASO # 0.02 K/mm3 (0.0-2.0); BASO % 0.2 % (0.0-3.0); EOS # 0.1 (0.0-0.7); EOS % 0.5 % (1.5-5.0); GRAN # 10.87 (1.4-6.5); GRAN % 84.5 % (50.0-68.0); HEMATOCRIT 36.9 % (42.0-52.0); LYMPH # 1.1 (1.2-3.4); LYMPH % 8.5 % (22.0-35.0); MEAN CELL VOLUME 92.3 fl (80.0-105.0); MEAN CORPUSCULAR HEMOGLOBIN 30.8 pg (25.0-35.0); MEAN CORPUSCULAR HGB CONC 33.3 g/dl (31.0-37.0); MEAN PLATELET VOLUME 9.8 fl (7.0-11.0); MONO # 0.8 (0.1-0.6); MONO % 6.3 % (1.0-6.0); RED CELL DISTRIBUTION WIDTH 13.1 % (11.5-14.5); WHITE BLOOD COUNT 12.9 10^3/ul (4.5-11.0)
[2017-05-31 07:27] LABS: ARTERIAL BLOOD GAS HCO3 27.9 mmol/L (21-28); ARTERIAL BLOOD GAS O2 CAPACITY 16.4 mL/dl (16-24); ARTERIAL BLOOD GAS O2 CONTENT 15.9 ML/dl (15-23); ARTERIAL BLOOD GAS PH 7.33 (7.35-7.45); ARTERIAL BLOOD HGB O2 SAT 93.4 % (95.0-98.0); CARBOXYHEMOGLOBIN 2.8 % (0.5-1.5); HHB 2.7 % (0-5); METHEMOGLOBIN 1.1 % (0.0-3.0)
[2017-05-31] MEDS ORDERED: Propofol 10 mg/ml 1,000 MG/100 ML VIAL ONE (07:34)
[2017-05-31] MEDS ORDERED: NOREPINEPHRINE BIT/0.9 % NACL 4 MG/250 ML BAG IV ONE (08:06)
--- NOTE | 2017-05-31 08:10 | CP.PCM.PN ---
Subjective - Date & Time of Evaluation Date of Evaluation: 05/31/17 Time of Evaluation: 08:08 - Subjective Subjective: Mr. Veras was seen and examined at the bedside. He had episode of decrease respiration, with gurgling sound was noted by the staff. The ABG was done with CO2 of 53. Patient was intubated for airway protection. During the intubation, propofol was administered. Patients is currently sedated. Unable to assess neuro status of the patient. Objective - Vital Signs/Intake and Output Vital Signs (last 24 hours): Temp Pulse Resp BP Pulse Ox 99 F 104 H 28 H 156/98 H 95 05/31/17 05:36 05/31/17 06:30 05/31/17 06:30 05/31/17 06:19 05/31/17 06:30 Intake and Output: 05/31/17 05/31/17 06:59 18:59 Intake Total 500 Output Total 250 Balance 250 - Medications Medications: Current Medications Sodium Chloride (Sodium Chloride 0.9%) 1,000 mls @ 50 mls/hr IV .Q20H [facility] Last Admin: 05/30/17 21:40 Dose: 50 mls/hr Lorazepam (Ativan) 2 mg IVP Q2H PRN; Protocol PRN Reason: Symptoms of alcohol withdrawl Lorazepam (Ativan) 4 mg IVP Q4H PRN; Protocol PRN Reason: Symptoms of alcohol withdrawl Last Admin: 05/30/17 17:00 Dose: 4 mg Pantoprazole Sodium (Protonix Inj) 40 mg IVP DAILY [facility] Last Admin: 05/30/17 09:15 Dose: 40 mg Silver Sulfadiazine (Silvadene 1% 25 Gm) 0 gm TP BID [facility] Last Admin: 05/30/17 18:56 Dose: Not Given Sodium Chloride (Sodium Chloride Tab) 1 gm PO Q12 [facility] Sodium Chloride (Hypertonic Saline 3%) 0 ml IV STAT STA Stop: 05/31/17 08:04 - Labs Labs: 05/31/17 05:20 05/31/17 03:00 PT 13.2 SECONDS (9.4-12.5) H 05/29/17 10:15 INR 1.20 (0.93-1.08) H 05/29/17 10:15 APTT 30.8 Seconds (25.1-36.5) 05/29/17 10:15 - Constitutional Appears: In Acute Distress - Head Exam Head Exam: ATRAUMATIC, NORMAL INSPECTION, NORMOCEPHALIC - Eye Exam Additional comments: 2 mm very sluggish, but equal size - Neurological Exam Neuro motor strength exam: Left Upper Extremity: 2/1, Right Upper Extremity: 2/1 , Left Lower Extremity: 2/1, Right Lower Extremity: 2/1 Additional comments: Unable to assess neuro status due to patient being sedated. Pupils remains bilateral equal in size. Assessment and Plan (1) Intracerebral hemorrhage Assessment & Plan: Case discussed with Dr. Davies, Will repeat CT of the head without contrast, bolus of 250 ml 3% NaCl for 1 dose. continue all other medical regimen. Status: Acute
[2017-05-31] MEDS ORDERED: NOREPINEPHRINE BIT/0.9 % NACL 4 MG/250 ML BAG IV PRN (08:18)
--- NOTE | 2017-05-31 08:36 | RAD ---
HISTORY: post intubation COMPARISON: 05/30/2017 FINDINGS: LUNGS: The endotracheal and nasogastric tube are in satisfactory position. There is a left internal jugular line in the SVC in satisfactory position. The lungs are clear PLEURA: No significant pleural effusion identified, no pneumothorax apparent. CARDIOVASCULAR: Normal. OSSEOUS STRUCTURES: No significant abnormalities. VISUALIZED UPPER ABDOMEN: Normal. OTHER FINDINGS: None. IMPRESSION: The endotracheal and nasogastric tube are in satisfactory position. There is a left internal jugular line in the SVC in satisfactory position.
[2017-05-31 08:46] LABS: ARTERIAL BLOOD GAS HCO3 23.7 mmol/L (21-28); ARTERIAL BLOOD GAS O2 CONTENT 14.9 ML/dl (15-23); ARTERIAL BLOOD GAS PH 7.35 (7.35-7.45); ARTERIAL BLOOD HGB O2 SAT 95.8 % (95.0-98.0); CARBOXYHEMOGLOBIN 2.7 % (0.5-1.5); HHB 0.4 % (0-5); METHEMOGLOBIN 1.1 % (0.0-3.0)
[2017-05-31] MEDS ORDERED: Sodium Chloride 3% 250 ML IV ONE (09:00)
[2017-05-31] MEDS ORDERED: Amiodarone 150 mg/D5W 100 ml 150 MG/100 ML BAG IVPB ONE (09:11)
[2017-05-31] MEDS ORDERED: Amiodarone 150 mg/D5W 100 ml 150 MG/100 ML BAG ONE (09:12)
[2017-05-31 09:36] LABS: BASO # 0.02 K/mm3 (0.0-2.0); BASO % 0.1 % (0.0-3.0); EOS # 0.1 (0.0-0.7); EOS % 0.4 % (1.5-5.0); GRAN # 12.69 (1.4-6.5); GRAN % 84.6 % (50.0-68.0); LYMPH # 1.3 (1.2-3.4); LYMPH % 8.4 % (22.0-35.0); MEAN CELL VOLUME 92.4 fl (80.0-105.0); MEAN CORPUSCULAR HEMOGLOBIN 30.3 pg (25.0-35.0); MEAN CORPUSCULAR HGB CONC 32.7 g/dl (31.0-37.0); MEAN PLATELET VOLUME 9.3 fl (7.0-11.0); MONO % 6.5 % (1.0-6.0)
[2017-05-31 09:38] LABS: VENOUS BLOOD GAS BASE EXCESS -3.7 mmol/L (0.0-2.0); VENOUS BLOOD PH 7.33 (7.32-7.43)
[2017-05-31] MEDS ORDERED: Amiodarone 360 mg/D5W 200 ml 360 MG/200 ML BAG IV SCH (09:45)
[2017-05-31 09:48] LABS: ALB/GLOB RATIO 0.7 (1.1-1.8); ALKALINE PHOSPHATASE 68 U/L (38-126); ALT/SGPT 29 U/L (7-56); AST/SGOT 27 U/L (17-59); BILIRUBIN,TOTAL 0.7 mg/dL (0.2-1.3); BLOOD UREA NITROGEN 10 mg/dL (7-21); CALCIUM 7.5 mg/dL (8.4-10.5); CARBON DIOXIDE 19 mmol/L (21-33); CHLORIDE 109 mmol/L (98-107); GFR AFRICAN-AMERICAN > 60; GLUCOSE,RANDOM 123 mg/dL (70-110); POTASSIUM 3.6 mmol/L (3.6-5.0); SODIUM 136 mmol/L (132-148); TOTAL PROTEIN 6.9 g/dL (5.8-8.3)
[2017-05-31] MEDS ORDERED: Metoprolol 1 mg/ml Inj IVP ONE ×2 (09:50→09:56)
[2017-05-31 09:59] LABS: INR 1.27 (0.93-1.08); PARTIAL THROMBOPLASTIN TIME 23.3 Seconds (25.1-36.5)
[2017-05-31 10:00] LABS: TROPONIN I 0.06 ng/mL
[2017-05-31] MEDS ORDERED: Propofol 10 mg/ml 500 MG/50 ML VIAL IV PRN (10:06)
--- NOTE | 2017-05-31 11:32 | CT ---
PROCEDURE: CT HEAD WITHOUT CONTRAST. HISTORY: follow up ICH COMPARISON: 05/30/2017. TECHNIQUE: Axial computed tomography images were obtained through the head/brain without intravenous contrast. Radiation dose: Total exam DLP = 792.29 mGy-cm. This CT exam was performed using one or more of the following dose reduction techniques: Automated exposure control, adjustment of the mA and/or kV according to patient size, and/or use of iterative reconstruction technique. FINDINGS: HEMORRHAGE: Given differences in slice selection, there has been no significant interval change in the size and appearance of 3.6 x 2.3 cm acute/early subacute left thalamic hematoma with extension of hemorrhage in the 3rd ventricle and occipital horns of the lateral ventricles. The hematoma extends superiorly into the muller radiata and inferior medially into the posterior limb of the internal capsule and left cerebral peduncle. BRAIN: Again seen are moderate chronic microangiopathic changes. VENTRICLES: There is moderate age-related global parenchymal volume loss and proportionate enlargement of the ventricles and cortical sulci. CALVARIUM: Within normal limits. PARANASAL SINUSES: There is fluid in the right maxillary sinus. The remaining included paranasal sinuses are clear. MASTOID AIR CELLS: Unremarkable as visualized. No inflammatory changes. OTHER FINDINGS: None. IMPRESSION: Little interval change in the size and appearance of acute/early subacute left thalamic hematoma with intraventricular extension of hemorrhage.
[2017-05-31] MEDS: Silver Sulfadiazine 1% Cream (25 gm) TP SCH ×2 (11:39→17:35)
--- NOTE | 2017-05-31 12:50 | CON ---
CARDIOLOGY CONSULTATION DATE: 05/31/2017 HISTORY OF PRESENT ILLNESS: The patient is a 67-year-old male with a history of hypertension as well as heavy alcohol use who was found to have a new neurologic deficit. He was found to have an intracerebral bleed. The patient was treated with Cardene for his accelerated hypertension. This morning, the patient became dyspneic, hypotensive, was intubated, and found to have marked tachycardia with diffuse ST changes on the EKG. SOCIAL HISTORY AND REVIEW OF SYSTEMS: All from the chart, unavailable at this time. PHYSICAL EXAMINATION: GENERAL: The patient is sedated on a ventilator. VITAL SIGNS: Blood pressure was 100 systolic on IV pressors with a heart rate in the 140 to 150s, narrow complex. NECK: Negative JVD. LUNGS: Without rales. HEART: S1 and S2. EXTREMITIES: Without edema. LABORATORY DATA: EKG shows marked supraventricular tachycardia with diffuse ST-T depression. Laboratories reveal hemoglobin of 10.8. Chemistries, BUN, and creatinine unremarkable. Troponin was 0.06. Preliminary echo revealed marked LVH with good overall LV systolic function. IMPRESSION: 1. Intracerebral bleed. 2. Accelerated hypertension/malignant hypertension, which the patient currently is now hypotensive. 3. Intracerebral bleed. 4. Supraventricular tachycardia, which may be an supraventricular tachycardia versus rapid atrial fibrillation. 5. Left ventricular hypertrophy. 6. Ischemia on EKG likely due to his tachycardia. PLAN: His hypotension currently has a differential diagnosis, which needs to include iatrogenic causes from his aggressive hypotensive regimen. We will give Adenocard to try to break his supraventricular tachycardia. We would not give clonidine large doses anymore. A 6 mg of IV Adenocard was given. The patient went from his rapid SVT down to normal sinus rhythm at 90. Given these findings, we will start him on beta-nina slowly. We will discontinue his amiodarone, aggressive IV hydration would be appropriate given his normal LV function and hyperdynamic LV function. Nathan Pereyra MD
--- NOTE | 2017-05-31 13:12 | CP.CCUPN ---
<Benji Ma - Last Filed: 05/31/17 13:01> CCU Subjective - Physician Review Subjective (Free Text): 05/31/17 13:01 Benji Ma D.O. 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 Patient was seen and examined at bedside. Patient was found to be very short of breath this morning and needed to be intubated for airway protection. No overnight events. CCU Objective - Vital Signs / Intake & Output Vital Signs (Last 4 hours): Vital Signs Pulse Resp BP Pulse Ox 05/31/17 12:10 61 111/62 98 05/31/17 12:05 60 105/62 97 05/31/17 12:00 65 97/60 L 97 05/31/17 11:55 65 96/57 L 98 05/31/17 11:52 65 98 05/31/17 11:45 66 126/71 98 05/31/17 11:43 67 98 05/31/17 11:30 70 121/72 99 05/31/17 11:25 71 120/71 100 05/31/17 11:20 70 117/69 100 05/31/17 11:15 71 137/86 100 05/31/17 11:13 70 133/77 100 05/31/17 11:10 70 151/93 H 100 05/31/17 11:08 75 169/95 H 100 05/31/17 11:00 66 157/85 H 100 05/31/17 10:55 66 155/82 H 100 05/31/17 10:50 73 147/78 100 05/31/17 10:47 68 16 156/82 H 100 05/31/17 10:46 69 18 05/31/17 10:20 128/70 99 05/31/17 10:15 64 14 127/69 100 05/31/17 10:10 65 14 119/66 100 05/31/17 10:05 64 14 129/69 97 05/31/17 10:00 76 19 100 05/31/17 09:59 75 17 147/74 99 05/31/17 09:56 75 147/74 11/02/17 09:55 82 18 141/79 98 05/31/17 09:50 84 17 134/80 98 05/31/17 09:48 90 19 141/82 98 05/31/17 09:45 146 H 21 99/63 L 65 L 05/31/17 09:40 144 H 20 106/71 100 Intake and Output (Last 8hrs): Intake & Output 05/30/17 05/31/17 05/31/17 22:59 06:59 14:59 Intake Total 500 125 Output Total 800 250 Balance -800 250 125 Intake: IV 500 125 Right Internal Jugular 500 Oral 0 Output: Urine 800 250 Urine, Voided 800 250 Other: # Bowel Movements 1 - Physical Exam Head: Positive for: Atraumatic, Normocephalic Pupils: Positive for: Other (~2-3mm fixed) Extroacular Muscles: Positive for: Other (does not follow commands to evaluate) Conjunctiva: Positive for: Normal Ears: Positive for: Normal Mouth: Positive for: Moist Mucous Membranes Pharnyx: Positive for: Normal Nose (External): Positive for: Atraumatic Neck: Positive for: Normal Range of Motion, Other (L IJ in place) Respiratory/Chest: Positive for: Respiratory Distress. Negative for: Accessory Muscle Use, Wheezes, Rales, Rhonchi Cardiovascular: Positive for: Regular Rate and Rhythm, Normal S1, S2. Negative for: Murmurs, Rub Abdomen: Positive for: Normal Bowel Sounds. Negative for: Tenderness, Distention, Peritoneal Signs Upper Extremity: Positive for: Capillary Refill < 2s, Other (Flacid right sided hemiparesis). Negative for: Edema, Erythema Lower Extremity: Positive for: Capillary Refill < 2 s. Negative for: Edema, CALF TENDERNESS Neurological: Positive for: Other (intubated, sedated, right Babinski). Negative for: Speech Normal Skin: Positive for: Warm, Dry - Medications Active Medications: Active Medications Generic Name Dose Route Start Last Admin Trade Name Freq PRN Reason Stop Dose Admin NOREPINEPHRINE BIT/0.9 % NACL 4 mg in 250 mls @ 18.75 mls/hr 05/31/17 08:18 05/31/17 12:15 Levophed 4 Mg/ 250 Ml Ns Premixed IV 2 mcg/min .[id number] PRN 7.5 mls/hr TITRATE PER MD ORDER Titration Protocol 5 MCG/MIN Propofol 500 mg in 50 mls @ 2.117 mls/hr 05/31/17 10:06 05/31/17 09:39 Diprivan IV 0 mcg/kg/min .[id number] PRN 0 mls/hr TITRATE PER MD ORDER Titration Protocol 5 MCG/KG/MIN Sodium Chloride 500 mls @ 50 mls/hr 05/31/17 12:30 Hypertonic Saline 3% IV .Q10H KATIE Lorazepam 2 mg 05/29/17 15:23 Ativan IVP Q2H PRN Symptoms of alcohol withdrawl Protocol Lorazepam 4 mg 05/29/17 15:23 05/30/17 17:00 Ativan IVP 4 mg Q4H PRN Administration Symptoms of alcohol withdrawl Protocol Metoprolol Tartrate 25 mg 05/31/17 18:00 Lopressor PO BID KATIE Pantoprazole Sodium 40 mg 05/29/17 13:30 05/31/17 11:36 Protonix Inj IVP 40 mg DAILY KATIE Administration Silver Sulfadiazine 0 gm 05/30/17 18:00 05/31/17 11:39 Silvadene 1% 25 Gm TP 25 gm BID KATIE Administration Sodium Chloride 1 gm 05/31/17 10:00 05/31/17 11:38 Sodium Chloride Tab PO 1 gm Q12 KATIE Administration - Patient Studies Lab Studies: Lab Studies 05/31/17 05/31/17 05/31/17 Range/Units 11:21 09:30 09:30 WBC (4.5-11.0) 10^3/ul RBC (3.5-6.1) 10^6/uL Hgb (14.0-18.0) g/dL Hct (42.0-52.0) % MCV (80.0-105.0) fl MCH (25.0-35.0) pg MCHC (31.0-37.0) g/dl RDW (11.5-14.5) % Plt Count (120.0-450.0) 10^3/uL MPV (7.0-11.0) fl Gran % (50.0-68.0) % Lymph % (Auto) (22.0-35.0) % Jenkins % (Auto) (1.0-6.0) % Eos % (Auto) (1.5-5.0) % Baso % (Auto) (0.0-3.0) % Gran # (1.4-6.5) Lymph # (1.2-3.4) Jenkins # (0.1-0.6) Eos # (0.0-0.7) Baso # (0.0-2.0) K/mm3 PT 14.0 H (9.4-12.5) SECONDS INR 1.27 H (0.93-1.08) APTT 23.3 L (25.1-36.5) Seconds pCO2 (35-45) mm/Hg pO2 45 (80-100) mm/Hg HCO3 (21-28) mmol/L ABG pH (7.35-7.45) ABG Total CO2 (22-28) mmol.L ABG O2 Saturation (95-98) % ABG O2 Content (15-23) ML/dl ABG Base Excess (-2.0-3.0) mmol/L ABG Hemoglobin (11.7-17.4) g/dL ABG Carboxyhemoglobin (0.5-1.5) % POC ABG HHb (Measured) (0-5) % ABG Methemoglobin (0.0-3.0) % ABG O2 Capacity (16-24) mL/dl VBG pH 7.33 (7.32-7.43) VBG pCO2 42.0 (40-60) VBG HCO3 22.1 (21-28) mmol/l VBG Total CO2 23.4 (22-28) mmol.L VBG O2 Sat (Calc) 85.9 H (40-65) % VBG Base Excess -3.7 L (0.0-2.0) mmol/L VBG Potassium 3.6 (3.6-5.2) mmol/L Hgb O2 Saturation (95.0-98.0) % Glucose 130 H (75-110) mg/dl Lactate 1.0 (0.7-2.1) mmol/L FiO2 21.0 % Sodium 136.0 (132-148) mmol/L Potassium (3.6-5.0) mmol/L Chloride 109.0 H (98-107) mmol/L Carbon Dioxide (21-33) mmol/L Anion Gap (10-20) BUN (7-21) mg/dL Creatinine (0.8-1.5) mg/dL Est GFR ( Amer) Est GFR (Non-Af Amer) POC Glucose (mg/dL) 109 (65-110) mg/dL Random Glucose (70-110) mg/dL Serum Osmolality (272-300) mosm/kg Calcium (8.4-10.5) mg/dL Total Bilirubin (0.2-1.3) mg/dL AST (17-59) U/L ALT (7-56) U/L Alkaline Phosphatase (38-126) U/L Lactate Dehydrogenase (333-699) U/L Total Creatine Kinase (35-230) U/L Troponin I ng/mL Total Protein (5.8-8.3) g/dL Albumin (3.0-4.8) g/dL Globulin gm/dL Albumin/Globulin Ratio (1.1-1.8) Venous Blood Potassium 3.6 (3.6-5.2) mmol/L 05/31/17 05/31/17 05/31/17 Range/Units 09:30 09:30 09:30 WBC 15.0 H (4.5-11.0) 10^3/ul RBC 3.57 (3.5-6.1) 10^6/uL Hgb 10.8 L (14.0-18.0) g/dL Hct 33.0 L (42.0-52.0) % MCV 92.4 (80.0-105.0) fl MCH 30.3 (25.0-35.0) pg MCHC 32.7 (31.0-37.0) g/dl RDW 13.0 (11.5-14.5) % Plt Count 223 (120.0-450.0) 10^3/uL MPV 9.3 (7.0-11.0) fl Gran % 84.6 H (50.0-68.0) % Lymph % (Auto) 8.4 L (22.0-35.0) % Jenkins % (Auto) 6.5 H (1.0-6.0) % Eos % (Auto) 0.4 L (1.5-5.0) % Baso % (Auto) 0.1 (0.0-3.0) % Gran # 12.69 H (1.4-6.5) Lymph # 1.3 (1.2-3.4) Jenkins # 1.0 H (0.1-0.6) Eos # 0.1 (0.0-0.7) Baso # 0.02 (0.0-2.0) K/mm3 PT (9.4-12.5) SECONDS INR (0.93-1.08) APTT (25.1-36.5) Seconds pCO2 (35-45) mm/Hg pO2 (80-100) mm/Hg HCO3 (21-28) mmol/L ABG pH (7.35-7.45) ABG Total CO2 (22-28) mmol.L ABG O2 Saturation (95-98) % ABG O2 Content (15-23) ML/dl ABG Base Excess (-2.0-3.0) mmol/L ABG Hemoglobin (11.7-17.4) g/dL ABG Carboxyhemoglobin (0.5-1.5) % POC ABG HHb (Measured) (0-5) % ABG Methemoglobin (0.0-3.0) % ABG O2 Capacity (16-24) mL/dl VBG pH (7.32-7.43) VBG pCO2 (40-60) VBG HCO3 (21-28) mmol/l VBG Total CO2 (22-28) mmol.L VBG O2 Sat (Calc) (40-65) % VBG Base Excess (0.0-2.0) mmol/L VBG Potassium (3.6-5.2) mmol/L Hgb O2 Saturation (95.0-98.0) % Glucose (75-110) mg/dl Lactate (0.7-2.1) mmol/L FiO2 % Sodium 136 (132-148) mmol/L Potassium 3.6 (3.6-5.0) mmol/L Chloride 109 H (98-107) mmol/L Carbon Dioxide 19 L (21-33) mmol/L Anion Gap 12 (10-20) BUN 10 (7-21) mg/dL Creatinine 0.7 L (0.8-1.5) mg/dL Est GFR ( Amer) > 60 Est GFR (Non-Af Amer) > 60 POC Glucose (mg/dL) (65-110) mg/dL Random Glucose 123 H (70-110) mg/dL Serum Osmolality 287 (272-300) mosm/kg Calcium 7.5 L (8.4-10.5) mg/dL Total Bilirubin 0.7 (0.2-1.3) mg/dL AST 27 (17-59) U/L ALT 29 (7-56) U/L Alkaline Phosphatase 68 (38-126) U/L Lactate Dehydrogenase 284 L (333-699) U/L Total Creatine Kinase 206 (35-230) U/L Troponin I 0.06 D ng/mL Total Protein 6.9 (5.8-8.3) g/dL Albumin 2.8 L (3.0-4.8) g/dL Globulin 4.1 gm/dL Albumin/Globulin Ratio 0.7 L (1.1-1.8) Venous Blood Potassium (3.6-5.2) mmol/L 05/31/17 05/31/17 05/31/17 Range/Units 08:40 07:24 07:19 WBC (4.5-11.0) 10^3/ul RBC (3.5-6.1) 10^6/uL Hgb (14.0-18.0) g/dL Hct (42.0-52.0) % MCV (80.0-105.0) fl MCH (25.0-35.0) pg MCHC (31.0-37.0) g/dl RDW (11.5-14.5) % Plt Count (120.0-450.0) 10^3/uL MPV (7.0-11.0) fl Gran % (50.0-68.0) % Lymph % (Auto) (22.0-35.0) % Jenkins % (Auto) (1.0-6.0) % Eos % (Auto) (1.5-5.0) % Baso % (Auto) (0.0-3.0) % Gran # (1.4-6.5) Lymph # (1.2-3.4) Jenkins # (0.1-0.6) Eos # (0.0-0.7) Baso # (0.0-2.0) K/mm3 PT (9.4-12.5) SECONDS INR (0.93-1.08) APTT (25.1-36.5) Seconds pCO2 43 53 H (35-45) mm/Hg pO2 110.0 H 71.0 L (80-100) mm/Hg HCO3 23.7 27.9 (21-28) mmol/L ABG pH 7.35 7.33 L (7.35-7.45) ABG Total CO2 25.0 29.5 H (22-28) mmol.L ABG O2 Saturation 99.6 H 97.2 (95-98) % ABG O2 Content 14.9 L 15.9 (15-23) ML/dl ABG Base Excess -1.9 1.1 (-2.0-3.0) mmol/L ABG Hemoglobin 10.9 L 12.1 (11.7-17.4) g/dL ABG Carboxyhemoglobin 2.7 H 2.8 H (0.5-1.5) % POC ABG HHb (Measured) 0.4 2.7 (0-5) % ABG Methemoglobin 1.1 1.1 (0.0-3.0) % ABG O2 Capacity 15.0 L 16.4 (16-24) mL/dl VBG pH (7.32-7.43) VBG pCO2 (40-60) VBG HCO3 (21-28) mmol/l VBG Total CO2 (22-28) mmol.L VBG O2 Sat (Calc) (40-65) % VBG Base Excess (0.0-2.0) mmol/L VBG Potassium (3.6-5.2) mmol/L Hgb O2 Saturation 95.8 93.4 L (95.0-98.0) % Glucose (75-110) mg/dl Lactate (0.7-2.1) mmol/L FiO2 40.0 28.0 % Sodium (132-148) mmol/L Potassium (3.6-5.0) mmol/L Chloride (98-107) mmol/L Carbon Dioxide (21-33) mmol/L Anion Gap (10-20) BUN (7-21) mg/dL Creatinine (0.8-1.5) mg/dL Est GFR ( Amer) Est GFR (Non-Af Amer) POC Glucose (mg/dL) 110 (65-110) mg/dL Random Glucose (70-110) mg/dL Serum Osmolality (272-300) mosm/kg Calcium (8.4-10.5) mg/dL Total Bilirubin (0.2-1.3) mg/dL AST (17-59) U/L ALT (7-56) U/L Alkaline Phosphatase (38-126) U/L Lactate Dehydrogenase (333-699) U/L Total Creatine Kinase (35-230) U/L Troponin I ng/mL Total Protein (5.8-8.3) g/dL Albumin (3.0-4.8) g/dL Globulin gm/dL Albumin/Globulin Ratio (1.1-1.8) Venous Blood Potassium (3.6-5.2) mmol/L 05/31/17 05/31/17 05/31/17 Range/Units 05:20 05:08 03:00 WBC 12.9 H (4.5-11.0) 10^3/ul RBC 4.00 (3.5-6.1) 10^6/uL Hgb 12.3 L (14.0-18.0) g/dL Hct 36.9 L (42.0-52.0) % MCV 92.3 (80.0-105.0) fl MCH 30.8 (25.0-35.0) pg MCHC 33.3 (31.0-37.0) g/dl RDW 13.1 (11.5-14.5) % Plt Count 278 (120.0-450.0) 10^3/uL MPV 9.8 (7.0-11.0) fl Gran % 84.5 H (50.0-68.0) % Lymph % (Auto) 8.5 L (22.0-35.0) % Jenkins % (Auto) 6.3 H (1.0-6.0) % Eos % (Auto) 0.5 L (1.5-5.0) % Baso % (Auto) 0.2 (0.0-3.0) % Gran # 10.87 H (1.4-6.5) Lymph # 1.1 L (1.2-3.4) Jenkins # 0.8 H (0.1-0.6) Eos # 0.1 (0.0-0.7) Baso # 0.02 (0.0-2.0) K/mm3 PT (9.4-12.5) SECONDS INR (0.93-1.08) APTT (25.1-36.5) Seconds pCO2 (35-45) mm/Hg pO2 (80-100) mm/Hg HCO3 (21-28) mmol/L ABG pH (7.35-7.45) ABG Total CO2 (22-28) mmol.L ABG O2 Saturation (95-98) % ABG O2 Content (15-23) ML/dl ABG Base Excess (-2.0-3.0) mmol/L ABG Hemoglobin (11.7-17.4) g/dL ABG Carboxyhemoglobin (0.5-1.5) % POC ABG HHb (Measured) (0-5) % ABG Methemoglobin (0.0-3.0) % ABG O2 Capacity (16-24) mL/dl VBG pH (7.32-7.43) VBG pCO2 (40-60) VBG HCO3 (21-28) mmol/l VBG Total CO2 (22-28) mmol.L VBG O2 Sat (Calc) (40-65) % VBG Base Excess (0.0-2.0) mmol/L VBG Potassium (3.6-5.2) mmol/L Hgb O2 Saturation (95.0-98.0) % Glucose (75-110) mg/dl Lactate (0.7-2.1) mmol/L FiO2 % Sodium (132-148) mmol/L Potassium (3.6-5.0) mmol/L Chloride (98-107) mmol/L Carbon Dioxide (21-33) mmol/L Anion Gap (10-20) BUN (7-21) mg/dL Creatinine (0.8-1.5) mg/dL Est GFR ( Amer) Est GFR (Non-Af Amer) POC Glucose (mg/dL) 149 H (65-110) mg/dL Random Glucose (70-110) mg/dL Serum Osmolality 282 (272-300) mosm/kg Calcium (8.4-10.5) mg/dL Total Bilirubin (0.2-1.3) mg/dL AST (17-59) U/L ALT (7-56) U/L Alkaline Phosphatase (38-126) U/L Lactate Dehydrogenase (333-699) U/L Total Creatine Kinase (35-230) U/L Troponin I ng/mL Total Protein (5.8-8.3) g/dL Albumin (3.0-4.8) g/dL Globulin gm/dL Albumin/Globulin Ratio (1.1-1.8) Venous Blood Potassium (3.6-5.2) mmol/L 05/31/17 05/30/17 05/30/17 Range/Units 03:00 22:04 19:07 WBC (4.5-11.0) 10^3/ul RBC (3.5-6.1) 10^6/uL Hgb (14.0-18.0) g/dL Hct (42.0-52.0) % MCV (80.0-105.0) fl MCH (25.0-35.0) pg MCHC (31.0-37.0) g/dl RDW (11.5-14.5) % Plt Count (120.0-450.0) 10^3/uL MPV (7.0-11.0) fl Gran % (50.0-68.0) % Lymph % (Auto) (22.0-35.0) % Jenkins % (Auto) (1.0-6.0) % Eos % (Auto) (1.5-5.0) % Baso % (Auto) (0.0-3.0) % Gran # (1.4-6.5) Lymph # (1.2-3.4) Jenkins # (0.1-0.6) Eos # (0.0-0.7) Baso # (0.0-2.0) K/mm3 PT (9.4-12.5) SECONDS INR (0.93-1.08) APTT (25.1-36.5) Seconds pCO2 (35-45) mm/Hg pO2 (80-100) mm/Hg HCO3 (21-28) mmol/L ABG pH (7.35-7.45) ABG Total CO2 (22-28) mmol.L ABG O2 Saturation (95-98) % ABG O2 Content (15-23) ML/dl ABG Base Excess (-2.0-3.0) mmol/L ABG Hemoglobin (11.7-17.4) g/dL ABG Carboxyhemoglobin (0.5-1.5) % POC ABG HHb (Measured) (0-5) % ABG Methemoglobin (0.0-3.0) % ABG O2 Capacity (16-24) mL/dl VBG pH (7.32-7.43) VBG pCO2 (40-60) VBG HCO3 (21-28) mmol/l VBG Total CO2 (22-28) mmol.L VBG O2 Sat (Calc) (40-65) % VBG Base Excess (0.0-2.0) mmol/L VBG Potassium (3.6-5.2) mmol/L Hgb O2 Saturation (95.0-98.0) % Glucose (75-110) mg/dl Lactate (0.7-2.1) mmol/L FiO2 % Sodium 136 (132-148) mmol/L Potassium 3.7 (3.6-5.0) mmol/L Chloride 101 (98-107) mmol/L Carbon Dioxide 29 (21-33) mmol/L Anion Gap 10 (10-20) BUN 8 (7-21) mg/dL Creatinine 0.7 L (0.8-1.5) mg/dL Est GFR ( Amer) > 60 Est GFR (Non-Af Amer) > 60 POC Glucose (mg/dL) 71 81 (65-110) mg/dL Random Glucose 105 (70-110) mg/dL Serum Osmolality (272-300) mosm/kg Calcium 9.1 (8.4-10.5) mg/dL Total Bilirubin (0.2-1.3) mg/dL AST (17-59) U/L ALT (7-56) U/L Alkaline Phosphatase (38-126) U/L Lactate Dehydrogenase (333-699) U/L Total Creatine Kinase (35-230) U/L Troponin I ng/mL Total Protein (5.8-8.3) g/dL Albumin (3.0-4.8) g/dL Globulin gm/dL Albumin/Globulin Ratio (1.1-1.8) Venous Blood Potassium (3.6-5.2) mmol/L 05/30/17 05/30/17 05/30/17 Range/Units 18:37 18:37 17:21 WBC (4.5-11.0) 10^3/ul RBC (3.5-6.1) 10^6/uL Hgb (14.0-18.0) g/dL Hct (42.0-52.0) % MCV (80.0-105.0) fl MCH (25.0-35.0) pg MCHC (31.0-37.0) g/dl RDW (11.5-14.5) % Plt Count (120.0-450.0) 10^3/uL MPV (7.0-11.0) fl Gran % (50.0-68.0) % Lymph % (Auto) (22.0-35.0) % Jenkins % (Auto) (1.0-6.0) % Eos % (Auto) (1.5-5.0) % Baso % (Auto) (0.0-3.0) % Gran # (1.4-6.5) Lymph # (1.2-3.4) Jenkins # (0.1-0.6) Eos # (0.0-0.7) Baso # (0.0-2.0) K/mm3 PT (9.4-12.5) SECONDS INR (0.93-1.08) APTT (25.1-36.5) Seconds pCO2 (35-45) mm/Hg pO2 (80-100) mm/Hg HCO3 (21-28) mmol/L ABG pH (7.35-7.45) ABG Total CO2 (22-28) mmol.L ABG O2 Saturation (95-98) % ABG O2 Content (15-23) ML/dl ABG Base Excess (-2.0-3.0) mmol/L ABG Hemoglobin (11.7-17.4) g/dL ABG Carboxyhemoglobin (0.5-1.5) % POC ABG HHb (Measured) (0-5) % ABG Methemoglobin (0.0-3.0) % ABG O2 Capacity (16-24) mL/dl VBG pH (7.32-7.43) VBG pCO2 (40-60) VBG HCO3 (21-28) mmol/l VBG Total CO2 (22-28) mmol.L VBG O2 Sat (Calc) (40-65) % VBG Base Excess (0.0-2.0) mmol/L VBG Potassium (3.6-5.2) mmol/L Hgb O2 Saturation (95.0-98.0) % Glucose (75-110) mg/dl Lactate (0.7-2.1) mmol/L FiO2 % Sodium 136 (132-148) mmol/L Potassium 3.6 (3.6-5.0) mmol/L Chloride 101 (98-107) mmol/L Carbon Dioxide 29 (21-33) mmol/L Anion Gap 10 (10-20) BUN 7 (7-21) mg/dL Creatinine 0.6 L (0.8-1.5) mg/dL Est GFR ( Amer) > 60 Est GFR (Non-Af Amer) > 60 POC Glucose (mg/dL) 104 (65-110) mg/dL Random Glucose 107 (70-110) mg/dL Serum Osmolality 286 (272-300) mosm/kg Calcium 9.1 (8.4-10.5) mg/dL Total Bilirubin (0.2-1.3) mg/dL AST (17-59) U/L ALT (7-56) U/L Alkaline Phosphatase (38-126) U/L Lactate Dehydrogenase (333-699) U/L Total Creatine Kinase (35-230) U/L Troponin I ng/mL Total Protein (5.8-8.3) g/dL Albumin (3.0-4.8) g/dL Globulin gm/dL Albumin/Globulin Ratio (1.1-1.8) Venous Blood Potassium (3.6-5.2) mmol/L 05/30/17 05/30/17 Range/Units 15:27 10:45 WBC (4.5-11.0) 10^3/ul RBC (3.5-6.1) 10^6/uL Hgb (14.0-18.0) g/dL Hct (42.0-52.0) % MCV (80.0-105.0) fl MCH (25.0-35.0) pg MCHC (31.0-37.0) g/dl RDW (11.5-14.5) % Plt Count (120.0-450.0) 10^3/uL MPV (7.0-11.0) fl Gran % (50.0-68.0) % Lymph % (Auto) (22.0-35.0) % Jenkins % (Auto) (1.0-6.0) % Eos % (Auto) (1.5-5.0) % Baso % (Auto) (0.0-3.0) % Gran # (1.4-6.5) Lymph # (1.2-3.4) Jenkins # (0.1-0.6) Eos # (0.0-0.7) Baso # (0.0-2.0) K/mm3 PT (9.4-12.5) SECONDS INR (0.93-1.08) APTT (25.1-36.5) Seconds pCO2 (35-45) mm/Hg pO2 (80-100) mm/Hg HCO3 (21-28) mmol/L ABG pH (7.35-7.45) ABG Total CO2 (22-28) mmol.L ABG O2 Saturation (95-98) % ABG O2 Content (15-23) ML/dl ABG Base Excess (-2.0-3.0) mmol/L ABG Hemoglobin (11.7-17.4) g/dL ABG Carboxyhemoglobin (0.5-1.5) % POC ABG HHb (Measured) (0-5) % ABG Methemoglobin (0.0-3.0) % ABG O2 Capacity (16-24) mL/dl VBG pH (7.32-7.43) VBG pCO2 (40-60) VBG HCO3 (21-28) mmol/l VBG Total CO2 (22-28) mmol.L VBG O2 Sat (Calc) (40-65) % VBG Base Excess (0.0-2.0) mmol/L VBG Potassium (3.6-5.2) mmol/L Hgb O2 Saturation (95.0-98.0) % Glucose (75-110) mg/dl Lactate (0.7-2.1) mmol/L FiO2 % Sodium (132-148) mmol/L Potassium (3.6-5.0) mmol/L Chloride (98-107) mmol/L Carbon Dioxide (21-33) mmol/L Anion Gap (10-20) BUN (7-21) mg/dL Creatinine (0.8-1.5) mg/dL Est GFR ( Amer) Est GFR (Non-Af Amer) POC Glucose (mg/dL) 120 H (65-110) mg/dL Random Glucose (70-110) mg/dL Serum Osmolality 297 (272-300) mosm/kg Calcium (8.4-10.5) mg/dL Total Bilirubin (0.2-1.3) mg/dL AST (17-59) U/L ALT (7-56) U/L Alkaline Phosphatase (38-126) U/L Lactate Dehydrogenase (333-699) U/L Total Creatine Kinase (35-230) U/L Troponin I ng/mL Total Protein (5.8-8.3) g/dL Albumin (3.0-4.8) g/dL Globulin gm/dL Albumin/Globulin Ratio (1.1-1.8) Venous Blood Potassium (3.6-5.2) mmol/L Laboratory Results - last 24 hr 05/30/17 05/30/17 05/30/17 10:45 15:27 17:21 WBC RBC Hgb Hct MCV MCH MCHC RDW Plt Count MPV Gran % Lymph % (Auto) Jenkins % (Auto) Eos % (Auto) Baso % (Auto) Gran # Lymph # Jenkins # Eos # Baso # PT INR APTT pCO2 pO2 HCO3 ABG pH ABG Total CO2 ABG O2 Saturation ABG O2 Content ABG Base Excess ABG Hemoglobin ABG Carboxyhemoglobin POC ABG HHb (Measured) ABG Methemoglobin ABG O2 Capacity VBG pH VBG pCO2 VBG HCO3 VBG Total CO2 VBG O2 Sat (Calc) VBG Base Excess VBG Potassium Hgb O2 Saturation Glucose Lactate FiO2 Sodium Potassium Chloride Carbon Dioxide Anion Gap BUN Creatinine Est GFR ( Amer) Est GFR (Non-Af Amer) POC Glucose (mg/dL) 120 H 104 Random Glucose Serum Osmolality 297 Calcium Total Bilirubin AST ALT Alkaline Phosphatase Lactate Dehydrogenase Total Creatine Kinase Troponin I Total Protein Albumin Globulin Albumin/Globulin Ratio Venous Blood Potassium 05/30/17 05/30/17 05/30/17 18:37 18:37 19:07 WBC RBC Hgb Hct MCV MCH MCHC RDW Plt Count MPV Gran % Lymph % (Auto) Jenkins % (Auto) Eos % (Auto) Baso % (Auto) Gran # Lymph # Jenkins # Eos # Baso # PT INR APTT pCO2 pO2 HCO3 ABG pH ABG Total CO2 ABG O2 Saturation ABG O2 Content ABG Base Excess ABG Hemoglobin ABG Carboxyhemoglobin POC ABG HHb (Measured) ABG Methemoglobin ABG O2 Capacity VBG pH VBG pCO2 VBG HCO3 VBG Total CO2 VBG O2 Sat (Calc) VBG Base Excess VBG Potassium Hgb O2 Saturation Glucose Lactate FiO2 Sodium 136 Potassium 3.6 Chloride 101 Carbon Dioxide 29 Anion Gap 10 BUN 7 Creatinine 0.6 L Est GFR ( Amer) > 60 Est GFR (Non-Af Amer) > 60 POC Glucose (mg/dL) 81 Random Glucose 107 Serum Osmolality 286 Calcium 9.1 Total Bilirubin AST ALT Alkaline Phosphatase Lactate Dehydrogenase Total Creatine Kinase Troponin I Total Protein Albumin Globulin Albumin/Globulin Ratio Venous Blood Potassium 05/30/17 05/31/17 05/31/17 22:04 03:00 03:00 WBC RBC Hgb Hct MCV MCH MCHC RDW Plt Count MPV Gran % Lymph % (Auto) Jenkins % (Auto) Eos % (Auto) Baso % (Auto) Gran # Lymph # Jenkins # Eos # Baso # PT INR APTT pCO2 pO2 HCO3 ABG pH ABG Total CO2 ABG O2 Saturation ABG O2 Content ABG Base Excess ABG Hemoglobin ABG Carboxyhemoglobin POC ABG HHb (Measured) ABG Methemoglobin ABG O2 Capacity VBG pH VBG pCO2 VBG HCO3 VBG Total CO2 VBG O2 Sat (Calc) VBG Base Excess VBG Potassium Hgb O2 Saturation Glucose Lactate FiO2 Sodium 136 Potassium 3.7 Chloride 101 Carbon Dioxide 29 Anion Gap 10 BUN 8 Creatinine 0.7 L Est GFR ( Amer) > 60 Est GFR (Non-Af Amer) > 60 POC Glucose (mg/dL) 71 Random Glucose 105 Serum Osmolality 282 Calcium 9.1 Total Bilirubin AST ALT Alkaline Phosphatase Lactate Dehydrogenase Total Creatine Kinase Troponin I Total Protein Albumin Globulin Albumin/Globulin Ratio Venous Blood Potassium 05/31/17 05/31/17 05/31/17 05:08 05:20 07:19 WBC 12.9 H RBC 4.00 Hgb 12.3 L Hct 36.9 L MCV 92.3 MCH 30.8 MCHC 33.3 RDW 13.1 Plt Count 278 MPV 9.8 Gran % 84.5 H Lymph % (Auto) 8.5 L Jenkins % (Auto) 6.3 H Eos % (Auto) 0.5 L Baso % (Auto) 0.2 Gran # 10.87 H Lymph # 1.1 L Jenkins # 0.8 H Eos # 0.1 Baso # 0.02 PT INR APTT pCO2 pO2 HCO3 ABG pH ABG Total CO2 ABG O2 Saturation ABG O2 Content ABG Base Excess ABG Hemoglobin ABG Carboxyhemoglobin POC ABG HHb (Measured) ABG Methemoglobin ABG O2 Capacity VBG pH VBG pCO2 VBG HCO3 VBG Total CO2 VBG O2 Sat (Calc) VBG Base Excess VBG Potassium Hgb O2 Saturation Glucose Lactate FiO2 Sodium Potassium Chloride Carbon Dioxide Anion Gap BUN Creatinine Est GFR ( Amer) Est GFR (Non-Af Amer) POC Glucose (mg/dL) 149 H 110 Random Glucose Serum Osmolality Calcium Total Bilirubin AST ALT Alkaline Phosphatase Lactate Dehydrogenase Total Creatine Kinase Troponin I Total Protein Albumin Globulin Albumin/Globulin Ratio Venous Blood Potassium 05/31/17 05/31/17 05/31/17 07:24 08:40 09:30 WBC RBC Hgb Hct MCV MCH MCHC RDW Plt Count MPV Gran % Lymph % (Auto) Jenkins % (Auto) Eos % (Auto) Baso % (Auto) Gran # Lymph # Jenkins # Eos # Baso # PT INR APTT pCO2 53 H 43 pO2 71.0 L 110.0 H HCO3 27.9 23.7 ABG pH 7.33 L 7.35 ABG Total CO2 29.5 H 25.0 ABG O2 Saturation 97.2 99.6 H ABG O2 Content 15.9 14.9 L ABG Base Excess 1.1 -1.9 ABG Hemoglobin 12.1 10.9 L ABG Carboxyhemoglobin 2.8 H 2.7 H POC ABG HHb (Measured) 2.7 0.4 ABG Methemoglobin 1.1 1.1 ABG O2 Capacity 16.4 15.0 L VBG pH VBG pCO2 VBG HCO3 VBG Total CO2 VBG O2 Sat (Calc) VBG Base Excess VBG Potassium Hgb O2 Saturation 93.4 L 95.8 Glucose Lactate FiO2 28.0 40.0 Sodium 136 Potassium 3.6 Chloride 109 H Carbon Dioxide 19 L Anion Gap 12 BUN 10 Creatinine 0.7 L Est GFR ( Amer) > 60 Est GFR (Non-Af Amer) > 60 POC Glucose (mg/dL) Random Glucose 123 H Serum Osmolality Calcium 7.5 L Total Bilirubin 0.7 AST 27 ALT 29 Alkaline Phosphatase 68 Lactate Dehydrogenase 284 L Total Creatine Kinase 206 Troponin I 0.06 D Total Protein 6.9 Albumin 2.8 L Globulin 4.1 Albumin/Globulin Ratio 0.7 L Venous Blood Potassium 05/31/17 05/31/17 05/31/17 09:30 09:30 09:30 WBC 15.0 H RBC 3.57 Hgb 10.8 L Hct 33.0 L MCV 92.4 MCH 30.3 MCHC 32.7 RDW 13.0 Plt Count 223 MPV 9.3 Gran % 84.6 H Lymph % (Auto) 8.4 L Jenkins % (Auto) 6.5 H Eos % (Auto) 0.4 L Baso % (Auto) 0.1 Gran # 12.69 H Lymph # 1.3 Jenkins # 1.0 H Eos # 0.1 Baso # 0.02 PT INR APTT pCO2 pO2 45 HCO3 ABG pH ABG Total CO2 ABG O2 Saturation ABG O2 Content ABG Base Excess ABG Hemoglobin ABG Carboxyhemoglobin POC ABG HHb (Measured) ABG Methemoglobin ABG O2 Capacity VBG pH 7.33 VBG pCO2 42.0 VBG HCO3 22.1 VBG Total CO2 23.4 VBG O2 Sat (Calc) 85.9 H VBG Base Excess -3.7 L VBG Potassium 3.6 Hgb O2 Saturation Glucose 130 H Lactate 1.0 FiO2 21.0 Sodium 136.0 Potassium Chloride 109.0 H Carbon Dioxide Anion Gap BUN Creatinine Est GFR ( Amer) Est GFR (Non-Af Amer) POC Glucose (mg/dL) Random Glucose Serum Osmolality 287 Calcium Total Bilirubin AST ALT Alkaline Phosphatase Lactate Dehydrogenase Total Creatine Kinase Troponin I Total Protein Albumin Globulin Albumin/Globulin Ratio Venous Blood Potassium 3.6 05/31/17 05/31/17 09:30 11:21 WBC RBC Hgb Hct MCV MCH MCHC RDW Plt Count MPV Gran % Lymph % (Auto) Jenkins % (Auto) Eos % (Auto) Baso % (Auto) Gran # Lymph # Jenkins # Eos # Baso # PT 14.0 H INR 1.27 H APTT 23.3 L pCO2 pO2 HCO3 ABG pH ABG Total CO2 ABG O2 Saturation ABG O2 Content ABG Base Excess ABG Hemoglobin ABG Carboxyhemoglobin POC ABG HHb (Measured) ABG Methemoglobin ABG O2 Capacity VBG pH VBG pCO2 VBG HCO3 VBG Total CO2 VBG O2 Sat (Calc) VBG Base Excess VBG Potassium Hgb O2 Saturation Glucose Lactate FiO2 Sodium Potassium Chloride Carbon Dioxide Anion Gap BUN Creatinine Est GFR ( Amer) Est GFR (Non-Af Amer) POC Glucose (mg/dL) 109 Random Glucose Serum Osmolality Calcium Total Bilirubin AST ALT Alkaline Phosphatase Lactate Dehydrogenase Total Creatine Kinase Troponin I Total Protein Albumin Globulin Albumin/Globulin Ratio Venous Blood Potassium EKG/Cardiology Studies: Cardiology / EKG Studies 05/31/17 08:56 EKG [ELECTROCARDIOGRAM] Stat Comment: Reason For Exam: tachycardia 05/31/17 11:18 EKG [ELECTROCARDIOGRAM] Stat Comment: Reason For Exam: chest pain Fingerstick Blood Sugar Results: 71 Assessment/Plan - Assessment and Plan (Free Text) Assessment: 67 year old male with a PMH of tobacco and alcohol abuse, hypertension, who presented to [facility] on 05/29 after being found by his , 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 Plan: Neurological Left thalamic/BG with intraventricular extension on Head CT, no neurosurgical intervention indicated Repeat Head CT 05/30 showed little interval change and decreased intraventricular blood Will order another STAT Head CT given change in mentation Neuro following, recs appreciated, maintaining serum Na from 135-145 Continue 3% NaCl @ 50ml/hr Continue serum Na and serum osm Q8H Maintain SBP 140-160 HOB 30 Cardiovascular Hemodynamically unstable, started on levophed drip Found to have abnormal rhythm/tachycardia, STAT consult with Cardiology Dr. Pereyra placed Amio 150 STAT Following closely Pulmnologic Not protecting airway this AM, ABG showed acidosis with CO2 retention, patient intubated, PRVC 480/14/5/40% Propofol gtt started ABG pending, will adjust as indicated Maintain O2 sat >92% GI NPO, now intubated GI ppx Nephro/Electrolytes Monitoring IxOs, making good urine, banegas in place Following sodium closely while on 3% NaCl ID Afebrile but mild leukocytosis, likely reactive Monitoring closely Heme No active bleeding noted, no interval change on repeat Head CT Following CBC GI/DVT ppx: protonix/SCDs, no AC Patient was seen and examined and case was discussed at length with attending physician. - Date & Time Date: 05/31/17 Time: 07:00 <Sukhwinder Oliva - Last Filed: 05/31/17 16:38> CCU Objective - Vital Signs / Intake & Output Vital Signs (Last 4 hours): Vital Signs Pulse 05/31/17 13:00 54 L Intake and Output (Last 8hrs): Intake & Output 05/31/17 05/31/17 05/31/17 06:59 14:59 22:59 Intake Total 500 135 Output Total 250 Balance 250 135 Intake: IV 500 135 Right Internal Jugular 500 Oral 0 Output: Urine 250 Urine, Voided 250 Other: # Bowel Movements 1 - Medications Active Medications: Active Medications Generic Name Dose Route Start Last Admin Trade Name Freq PRN Reason Stop Dose Admin NOREPINEPHRINE BIT/0.9 % NACL 4 mg in 250 mls @ 18.75 mls/hr 05/31/17 08:18 05/31/17 13:35 Levophed 4 Mg/ 250 Ml Ns Premixed IV 0 mcg/min .[id number] PRN 0 mls/hr TITRATE PER MD ORDER Titration Protocol 5 MCG/MIN Propofol 500 mg in 50 mls @ 2.117 mls/hr 05/31/17 10:06 05/31/17 09:39 Diprivan IV 0 mcg/kg/min .[id number] PRN 0 mls/hr TITRATE PER MD ORDER Titration Protocol 5 MCG/KG/MIN Sodium Chloride 500 mls @ 50 mls/hr 05/31/17 12:30 05/31/17 13:31 Hypertonic Saline 3% IV 50 mls/hr .Q10H KATIE Administration Lorazepam 2 mg 05/29/17 15:23 Ativan IVP Q2H PRN Symptoms of alcohol withdrawl Protocol Lorazepam 4 mg 05/29/17 15:23 05/30/17 17:00 Ativan IVP 4 mg Q4H PRN Administration Symptoms of alcohol withdrawl Protocol Metoprolol Tartrate 25 mg 05/31/17 18:00 Lopressor PO BID KATIE Pantoprazole Sodium 40 mg 05/29/17 13:30 05/31/17 11:36 Protonix Inj IVP 40 mg DAILY KATIE Administration Silver Sulfadiazine 0 gm 05/30/17 18:00 05/31/17 11:39 Silvadene 1% 25 Gm TP 25 gm BID KATIE Administration Sodium Chloride 1 gm 05/31/17 10:00 05/31/17 11:38 Sodium Chloride Tab PO 1 gm Q12 KATIE Administration - Patient Studies Lab Studies: Lab Studies 05/31/17 05/31/17 05/31/17 Range/Units 11:21 09:30 09:30 WBC (4.5-11.0) 10^3/ul RBC (3.5-6.1) 10^6/uL Hgb (14.0-18.0) g/dL Hct (42.0-52.0) % MCV (80.0-105.0) fl MCH (25.0-35.0) pg MCHC (31.0-37.0) g/dl RDW (11.5-14.5) % Plt Count (120.0-450.0) 10^3/uL MPV (7.0-11.0) fl Gran % (50.0-68.0) % Lymph % (Auto) (22.0-35.0) % Jenkins % (Auto) (1.0-6.0) % Eos % (Auto) (1.5-5.0) % Baso % (Auto) (0.0-3.0) % Gran # (1.4-6.5) Lymph # (1.2-3.4) Jenkins # (0.1-0.6) Eos # (0.0-0.7) Baso # (0.0-2.0) K/mm3 PT 14.0 H (9.4-12.5) SECONDS INR 1.27 H (0.93-1.08) APTT 23.3 L (25.1-36.5) Seconds pCO2 (35-45) mm/Hg pO2 45 (80-100) mm/Hg HCO3 (21-28) mmol/L ABG pH (7.35-7.45) ABG Total CO2 (22-28) mmol.L ABG O2 Saturation (95-98) % ABG O2 Content (15-23) ML/dl ABG Base Excess (-2.0-3.0) mmol/L ABG Hemoglobin (11.7-17.4) g/dL ABG Carboxyhemoglobin (0.5-1.5) % POC ABG HHb (Measured) (0-5) % ABG Methemoglobin (0.0-3.0) % ABG O2 Capacity (16-24) mL/dl VBG pH 7.33 (7.32-7.43) VBG pCO2 42.0 (40-60) VBG HCO3 22.1 (21-28) mmol/l VBG Total CO2 23.4 (22-28) mmol.L VBG O2 Sat (Calc) 85.9 H (40-65) % VBG Base Excess -3.7 L (0.0-2.0) mmol/L VBG Potassium 3.6 (3.6-5.2) mmol/L Hgb O2 Saturation (95.0-98.0) % Glucose 130 H (75-110) mg/dl Lactate 1.0 (0.7-2.1) mmol/L FiO2 21.0 % Sodium 136.0 (132-148) mmol/L Potassium (3.6-5.0) mmol/L Chloride 109.0 H (98-107) mmol/L Carbon Dioxide (21-33) mmol/L Anion Gap (10-20) BUN (7-21) mg/dL Creatinine (0.8-1.5) mg/dL Est GFR ( Amer) Est GFR (Non-Af Amer) POC Glucose (mg/dL) 109 (65-110) mg/dL Random Glucose (70-110) mg/dL Serum Osmolality (272-300) mosm/kg Calcium (8.4-10.5) mg/dL Total Bilirubin (0.2-1.3) mg/dL AST (17-59) U/L ALT (7-56) U/L Alkaline Phosphatase (38-126) U/L Lactate Dehydrogenase (333-699) U/L Total Creatine Kinase (35-230) U/L Troponin I ng/mL Total Protein (5.8-8.3) g/dL Albumin (3.0-4.8) g/dL Globulin gm/dL Albumin/Globulin Ratio (1.1-1.8) Venous Blood Potassium 3.6 (3.6-5.2) mmol/L 05/31/17 05/31/17 05/31/17 Range/Units 09:30 09:30 09:30 WBC 15.0 H (4.5-11.0) 10^3/ul RBC 3.57 (3.5-6.1) 10^6/uL Hgb 10.8 L (14.0-18.0) g/dL Hct 33.0 L (42.0-52.0) % MCV 92.4 (80.0-105.0) fl MCH 30.3 (25.0-35.0) pg MCHC 32.7 (31.0-37.0) g/dl RDW 13.0 (11.5-14.5) % Plt Count 223 (120.0-450.0) 10^3/uL MPV 9.3 (7.0-11.0) fl Gran % 84.6 H (50.0-68.0) % Lymph % (Auto) 8.4 L (22.0-35.0) % Jenkins % (Auto) 6.5 H (1.0-6.0) % Eos % (Auto) 0.4 L (1.5-5.0) % Baso % (Auto) 0.1 (0.0-3.0) % Gran # 12.69 H (1.4-6.5) Lymph # 1.3 (1.2-3.4) Jenkins # 1.0 H (0.1-0.6) Eos # 0.1 (0.0-0.7) Baso # 0.02 (0.0-2.0) K/mm3 PT (9.4-12.5) SECONDS INR (0.93-1.08) APTT (25.1-36.5) Seconds pCO2 (35-45) mm/Hg pO2 (80-100) mm/Hg HCO3 (21-28) mmol/L ABG pH (7.35-7.45) ABG Total CO2 (22-28) mmol.L ABG O2 Saturation (95-98) % ABG O2 Content (15-23) ML/dl ABG Base Excess (-2.0-3.0) mmol/L ABG Hemoglobin (11.7-17.4) g/dL ABG Carboxyhemoglobin (0.5-1.5) % POC ABG HHb (Measured) (0-5) % ABG Methemoglobin (0.0-3.0) % ABG O2 Capacity (16-24) mL/dl VBG pH (7.32-7.43) VBG pCO2 (40-60) VBG HCO3 (21-28) mmol/l VBG Total CO2 (22-28) mmol.L VBG O2 Sat (Calc) (40-65) % VBG Base Excess (0.0-2.0) mmol/L VBG Potassium (3.6-5.2) mmol/L Hgb O2 Saturation (95.0-98.0) % Glucose (75-110) mg/dl Lactate (0.7-2.1) mmol/L FiO2 % Sodium 136 (132-148) mmol/L Potassium 3.6 (3.6-5.0) mmol/L Chloride 109 H (98-107) mmol/L Carbon Dioxide 19 L (21-33) mmol/L Anion Gap 12 (10-20) BUN 10 (7-21) mg/dL Creatinine 0.7 L (0.8-1.5) mg/dL Est GFR ( Amer) > 60 Est GFR (Non-Af Amer) > 60 POC Glucose (mg/dL) (65-110) mg/dL Random Glucose 123 H (70-110) mg/dL Serum Osmolality 287 (272-300) mosm/kg Calcium 7.5 L (8.4-10.5) mg/dL Total Bilirubin 0.7 (0.2-1.3) mg/dL AST 27 (17-59) U/L ALT 29 (7-56) U/L Alkaline Phosphatase 68 (38-126) U/L Lactate Dehydrogenase 284 L (333-699) U/L Total Creatine Kinase 206 (35-230) U/L Troponin I 0.06 D ng/mL Total Protein 6.9 (5.8-8.3) g/dL Albumin 2.8 L (3.0-4.8) g/dL Globulin 4.1 gm/dL Albumin/Globulin Ratio 0.7 L (1.1-1.8) Venous Blood Potassium (3.6-5.2) mmol/L 05/31/17 05/31/17 05/31/17 Range/Units 08:40 07:24 07:19 WBC (4.5-11.0) 10^3/ul RBC (3.5-6.1) 10^6/uL Hgb (14.0-18.0) g/dL Hct (42.0-52.0) % MCV (80.0-105.0) fl MCH (25.0-35.0) pg MCHC (31.0-37.0) g/dl RDW (11.5-14.5) % Plt Count (120.0-450.0) 10^3/uL MPV (7.0-11.0) fl Gran % (50.0-68.0) % Lymph % (Auto) (22.0-35.0) % Jenkins % (Auto) (1.0-6.0) % Eos % (Auto) (1.5-5.0) % Baso % (Auto) (0.0-3.0) % Gran # (1.4-6.5) Lymph # (1.2-3.4) Jenkins # (0.1-0.6) Eos # (0.0-0.7) Baso # (0.0-2.0) K/mm3 PT (9.4-12.5) SECONDS INR (0.93-1.08) APTT (25.1-36.5) Seconds pCO2 43 53 H (35-45) mm/Hg pO2 110.0 H 71.0 L (80-100) mm/Hg HCO3 23.7 27.9 (21-28) mmol/L ABG pH 7.35 7.33 L (7.35-7.45) ABG Total CO2 25.0 29.5 H (22-28) mmol.L ABG O2 Saturation 99.6 H 97.2 (95-98) % ABG O2 Content 14.9 L 15.9 (15-23) ML/dl ABG Base Excess -1.9 1.1 (-2.0-3.0) mmol/L ABG Hemoglobin 10.9 L 12.1 (11.7-17.4) g/dL ABG Carboxyhemoglobin 2.7 H 2.8 H (0.5-1.5) % POC ABG HHb (Measured) 0.4 2.7 (0-5) % ABG Methemoglobin 1.1 1.1 (0.0-3.0) % ABG O2 Capacity 15.0 L 16.4 (16-24) mL/dl VBG pH (7.32-7.43) VBG pCO2 (40-60) VBG HCO3 (21-28) mmol/l VBG Total CO2 (22-28) mmol.L VBG O2 Sat (Calc) (40-65) % VBG Base Excess (0.0-2.0) mmol/L VBG Potassium (3.6-5.2) mmol/L Hgb O2 Saturation 95.8 93.4 L (95.0-98.0) % Glucose (75-110) mg/dl Lactate (0.7-2.1) mmol/L FiO2 40.0 28.0 % Sodium (132-148) mmol/L Potassium (3.6-5.0) mmol/L Chloride (98-107) mmol/L Carbon Dioxide (21-33) mmol/L Anion Gap (10-20) BUN (7-21) mg/dL Creatinine (0.8-1.5) mg/dL Est GFR ( Amer) Est GFR (Non-Af Amer) POC Glucose (mg/dL) 110 (65-110) mg/dL Random Glucose (70-110) mg/dL Serum Osmolality (272-300) mosm/kg Calcium (8.4-10.5) mg/dL Total Bilirubin (0.2-1.3) mg/dL AST (17-59) U/L ALT (7-56) U/L Alkaline Phosphatase (38-126) U/L Lactate Dehydrogenase (333-699) U/L Total Creatine Kinase (35-230) U/L Troponin I ng/mL Total Protein (5.8-8.3) g/dL Albumin (3.0-4.8) g/dL Globulin gm/dL Albumin/Globulin Ratio (1.1-1.8) Venous Blood Potassium (3.6-5.2) mmol/L 05/31/17 05/31/17 05/31/17 Range/Units 05:20 05:08 03:00 WBC 12.9 H (4.5-11.0) 10^3/ul RBC 4.00 (3.5-6.1) 10^6/uL Hgb 12.3 L (14.0-18.0) g/dL Hct 36.9 L (42.0-52.0) % MCV 92.3 (80.0-105.0) fl MCH 30.8 (25.0-35.0) pg MCHC 33.3 (31.0-37.0) g/dl RDW 13.1 (11.5-14.5) % Plt Count 278 (120.0-450.0) 10^3/uL MPV 9.8 (7.0-11.0) fl Gran % 84.5 H (50.0-68.0) % Lymph % (Auto) 8.5 L (22.0-35.0) % Jenkins % (Auto) 6.3 H (1.0-6.0) % Eos % (Auto) 0.5 L (1.5-5.0) % Baso % (Auto) 0.2 (0.0-3.0) % Gran # 10.87 H (1.4-6.5) Lymph # 1.1 L (1.2-3.4) Jenkins # 0.8 H (0.1-0.6) Eos # 0.1 (0.0-0.7) Baso # 0.02 (0.0-2.0) K/mm3 PT (9.4-12.5) SECONDS INR (0.93-1.08) APTT (25.1-36.5) Seconds pCO2 (35-45) mm/Hg pO2 (80-100) mm/Hg HCO3 (21-28) mmol/L ABG pH (7.35-7.45) ABG Total CO2 (22-28) mmol.L ABG O2 Saturation (95-98) % ABG O2 Content (15-23) ML/dl ABG Base Excess (-2.0-3.0) mmol/L ABG Hemoglobin (11.7-17.4) g/dL ABG Carboxyhemoglobin (0.5-1.5) % POC ABG HHb (Measured) (0-5) % ABG Methemoglobin (0.0-3.0) % ABG O2 Capacity (16-24) mL/dl VBG pH (7.32-7.43) VBG pCO2 (40-60) VBG HCO3 (21-28) mmol/l VBG Total CO2 (22-28) mmol.L VBG O2 Sat (Calc) (40-65) % VBG Base Excess (0.0-2.0) mmol/L VBG Potassium (3.6-5.2) mmol/L Hgb O2 Saturation (95.0-98.0) % Glucose (75-110) mg/dl Lactate (0.7-2.1) mmol/L FiO2 % Sodium (132-148) mmol/L Potassium (3.6-5.0) mmol/L Chloride (98-107) mmol/L Carbon Dioxide (21-33) mmol/L Anion Gap (10-20) BUN (7-21) mg/dL Creatinine (0.8-1.5) mg/dL Est GFR ( Amer) Est GFR (Non-Af Amer) POC Glucose (mg/dL) 149 H (65-110) mg/dL Random Glucose (70-110) mg/dL Serum Osmolality 282 (272-300) mosm/kg Calcium (8.4-10.5) mg/dL Total Bilirubin (0.2-1.3) mg/dL AST (17-59) U/L ALT (7-56) U/L Alkaline Phosphatase (38-126) U/L Lactate Dehydrogenase (333-699) U/L Total Creatine Kinase (35-230) U/L Troponin I ng/mL Total Protein (5.8-8.3) g/dL Albumin (3.0-4.8) g/dL Globulin gm/dL Albumin/Globulin Ratio (1.1-1.8) Venous Blood Potassium (3.6-5.2) mmol/L 05/31/17 05/30/17 05/30/17 Range/Units 03:00 22:04 19:07 WBC (4.5-11.0) 10^3/ul RBC (3.5-6.1) 10^6/uL Hgb (14.0-18.0) g/dL Hct (42.0-52.0) % MCV (80.0-105.0) fl MCH (25.0-35.0) pg MCHC (31.0-37.0) g/dl RDW (11.5-14.5) % Plt Count (120.0-450.0) 10^3/uL MPV (7.0-11.0) fl Gran % (50.0-68.0) % Lymph % (Auto) (22.0-35.0) % Jenkins % (Auto) (1.0-6.0) % Eos % (Auto) (1.5-5.0) % Baso % (Auto) (0.0-3.0) % Gran # (1.4-6.5) Lymph # (1.2-3.4) Jenkins # (0.1-0.6) Eos # (0.0-0.7) Baso # (0.0-2.0) K/mm3 PT (9.4-12.5) SECONDS INR (0.93-1.08) APTT (25.1-36.5) Seconds pCO2 (35-45) mm/Hg pO2 (80-100) mm/Hg HCO3 (21-28) mmol/L ABG pH (7.35-7.45) ABG Total CO2 (22-28) mmol.L ABG O2 Saturation (95-98) % ABG O2 Content (15-23) ML/dl ABG Base Excess (-2.0-3.0) mmol/L ABG Hemoglobin (11.7-17.4) g/dL ABG Carboxyhemoglobin (0.5-1.5) % POC ABG HHb (Measured) (0-5) % ABG Methemoglobin (0.0-3.0) % ABG O2 Capacity (16-24) mL/dl VBG pH (7.32-7.43) VBG pCO2 (40-60) VBG HCO3 (21-28) mmol/l VBG Total CO2 (22-28) mmol.L VBG O2 Sat (Calc) (40-65) % VBG Base Excess (0.0-2.0) mmol/L VBG Potassium (3.6-5.2) mmol/L Hgb O2 Saturation (95.0-98.0) % Glucose (75-110) mg/dl Lactate (0.7-2.1) mmol/L FiO2 % Sodium 136 (132-148) mmol/L Potassium 3.7 (3.6-5.0) mmol/L Chloride 101 (98-107) mmol/L Carbon Dioxide 29 (21-33) mmol/L Anion Gap 10 (10-20) BUN 8 (7-21) mg/dL Creatinine 0.7 L (0.8-1.5) mg/dL Est GFR ( Amer) > 60 Est GFR (Non-Af Amer) > 60 POC Glucose (mg/dL) 71 81 (65-110) mg/dL Random Glucose 105 (70-110) mg/dL Serum Osmolality (272-300) mosm/kg Calcium 9.1 (8.4-10.5) mg/dL Total Bilirubin (0.2-1.3) mg/dL AST (17-59) U/L ALT (7-56) U/L Alkaline Phosphatase (38-126) U/L Lactate Dehydrogenase (333-699) U/L Total Creatine Kinase (35-230) U/L Troponin I ng/mL Total Protein (5.8-8.3) g/dL Albumin (3.0-4.8) g/dL Globulin gm/dL Albumin/Globulin Ratio (1.1-1.8) Venous Blood Potassium (3.6-5.2) mmol/L 05/30/17 05/30/17 05/30/17 Range/Units 18:37 18:37 17:21 WBC (4.5-11.0) 10^3/ul RBC (3.5-6.1) 10^6/uL Hgb (14.0-18.0) g/dL Hct (42.0-52.0) % MCV (80.0-105.0) fl MCH (25.0-35.0) pg MCHC (31.0-37.0) g/dl RDW (11.5-14.5) % Plt Count (120.0-450.0) 10^3/uL MPV (7.0-11.0) fl Gran % (50.0-68.0) % Lymph % (Auto) (22.0-35.0) % Jenkins % (Auto) (1.0-6.0) % Eos % (Auto) (1.5-5.0) % Baso % (Auto) (0.0-3.0) % Gran # (1.4-6.5) Lymph # (1.2-3.4) Jenkins # (0.1-0.6) Eos # (0.0-0.7) Baso # (0.0-2.0) K/mm3 PT (9.4-12.5) SECONDS INR (0.93-1.08) APTT (25.1-36.5) Seconds pCO2 (35-45) mm/Hg pO2 (80-100) mm/Hg HCO3 (21-28) mmol/L ABG pH (7.35-7.45) ABG Total CO2 (22-28) mmol.L ABG O2 Saturation (95-98) % ABG O2 Content (15-23) ML/dl ABG Base Excess (-2.0-3.0) mmol/L ABG Hemoglobin (11.7-17.4) g/dL ABG Carboxyhemoglobin (0.5-1.5) % POC ABG HHb (Measured) (0-5) % ABG Methemoglobin (0.0-3.0) % ABG O2 Capacity (16-24) mL/dl VBG pH (7.32-7.43) VBG pCO2 (40-60) VBG HCO3 (21-28) mmol/l VBG Total CO2 (22-28) mmol.L VBG O2 Sat (Calc) (40-65) % VBG Base Excess (0.0-2.0) mmol/L VBG Potassium (3.6-5.2) mmol/L Hgb O2 Saturation (95.0-98.0) % Glucose (75-110) mg/dl Lactate (0.7-2.1) mmol/L FiO2 % Sodium 136 (132-148) mmol/L Potassium 3.6 (3.6-5.0) mmol/L Chloride 101 (98-107) mmol/L Carbon Dioxide 29 (21-33) mmol/L Anion Gap 10 (10-20) BUN 7 (7-21) mg/dL Creatinine 0.6 L (0.8-1.5) mg/dL Est GFR ( Amer) > 60 Est GFR (Non-Af Amer) > 60 POC Glucose (mg/dL) 104 (65-110) mg/dL Random Glucose 107 (70-110) mg/dL Serum Osmolality 286 (272-300) mosm/kg Calcium 9.1 (8.4-10.5) mg/dL Total Bilirubin (0.2-1.3) mg/dL AST (17-59) U/L ALT (7-56) U/L Alkaline Phosphatase (38-126) U/L Lactate Dehydrogenase (333-699) U/L Total Creatine Kinase (35-230) U/L Troponin I ng/mL Total Protein (5.8-8.3) g/dL Albumin (3.0-4.8) g/dL Globulin gm/dL Albumin/Globulin Ratio (1.1-1.8) Venous Blood Potassium (3.6-5.2) mmol/L 05/30/17 Range/Units 10:45 WBC (4.5-11.0) 10^3/ul RBC (3.5-6.1) 10^6/uL Hgb (14.0-18.0) g/dL Hct (42.0-52.0) % MCV (80.0-105.0) fl MCH (25.0-35.0) pg MCHC (31.0-37.0) g/dl RDW (11.5-14.5) % Plt Count (120.0-450.0) 10^3/uL MPV (7.0-11.0) fl Gran % (50.0-68.0) % Lymph % (Auto) (22.0-35.0) % Jenkins % (Auto) (1.0-6.0) % Eos % (Auto) (1.5-5.0) % Baso % (Auto) (0.0-3.0) % Gran # (1.4-6.5) Lymph # (1.2-3.4) Jenkins # (0.1-0.6) Eos # (0.0-0.7) Baso # (0.0-2.0) K/mm3 PT (9.4-12.5) SECONDS INR (0.93-1.08) APTT (25.1-36.5) Seconds pCO2 (35-45) mm/Hg pO2 (80-100) mm/Hg HCO3 (21-28) mmol/L ABG pH (7.35-7.45) ABG Total CO2 (22-28) mmol.L ABG O2 Saturation (95-98) % ABG O2 Content (15-23) ML/dl ABG Base Excess (-2.0-3.0) mmol/L ABG Hemoglobin (11.7-17.4) g/dL ABG Carboxyhemoglobin (0.5-1.5) % POC ABG HHb (Measured) (0-5) % ABG Methemoglobin (0.0-3.0) % ABG O2 Capacity (16-24) mL/dl VBG pH (7.32-7.43) VBG pCO2 (40-60) VBG HCO3 (21-28) mmol/l VBG Total CO2 (22-28) mmol.L VBG O2 Sat (Calc) (40-65) % VBG Base Excess (0.0-2.0) mmol/L VBG Potassium (3.6-5.2) mmol/L Hgb O2 Saturation (95.0-98.0) % Glucose (75-110) mg/dl Lactate (0.7-2.1) mmol/L FiO2 % Sodium (132-148) mmol/L Potassium (3.6-5.0) mmol/L Chloride (98-107) mmol/L Carbon Dioxide (21-33) mmol/L Anion Gap (10-20) BUN (7-21) mg/dL Creatinine (0.8-1.5) mg/dL Est GFR ( Amer) Est GFR (Non-Af Amer) POC Glucose (mg/dL) (65-110) mg/dL Random Glucose (70-110) mg/dL Serum Osmolality 297 (272-300) mosm/kg Calcium (8.4-10.5) mg/dL Total Bilirubin (0.2-1.3) mg/dL AST (17-59) U/L ALT (7-56) U/L Alkaline Phosphatase (38-126) U/L Lactate Dehydrogenase (333-699) U/L Total Creatine Kinase (35-230) U/L Troponin I ng/mL Total Protein (5.8-8.3) g/dL Albumin (3.0-4.8) g/dL Globulin gm/dL Albumin/Globulin Ratio (1.1-1.8) Venous Blood Potassium (3.6-5.2) mmol/L Laboratory Results - last 24 hr 05/30/17 05/30/17 05/30/17 10:45 17:21 18:37 WBC RBC Hgb Hct MCV MCH MCHC RDW Plt Count MPV Gran % Lymph % (Auto) Jenkins % (Auto) Eos % (Auto) Baso % (Auto) Gran # Lymph # Jenkins # Eos # Baso # PT INR APTT pCO2 pO2 HCO3 ABG pH ABG Total CO2 ABG O2 Saturation ABG O2 Content ABG Base Excess ABG Hemoglobin ABG Carboxyhemoglobin POC ABG HHb (Measured) ABG Methemoglobin ABG O2 Capacity VBG pH VBG pCO2 VBG HCO3 VBG Total CO2 VBG O2 Sat (Calc) VBG Base Excess VBG Potassium Hgb O2 Saturation Glucose Lactate FiO2 Sodium 136 Potassium 3.6 Chloride 101 Carbon Dioxide 29 Anion Gap 10 BUN 7 Creatinine 0.6 L Est GFR ( Amer) > 60 Est GFR (Non-Af Amer) > 60 POC Glucose (mg/dL) 104 Random Glucose 107 Serum Osmolality 297 Calcium 9.1 Total Bilirubin AST ALT Alkaline Phosphatase Lactate Dehydrogenase Total Creatine Kinase Troponin I Total Protein Albumin Globulin Albumin/Globulin Ratio Venous Blood Potassium 05/30/17 05/30/17 05/30/17 18:37 19:07 22:04 WBC RBC Hgb Hct MCV MCH MCHC RDW Plt Count MPV Gran % Lymph % (Auto) Jenkins % (Auto) Eos % (Auto) Baso % (Auto) Gran # Lymph # Jenkins # Eos # Baso # PT INR APTT pCO2 pO2 HCO3 ABG pH ABG Total CO2 ABG O2 Saturation ABG O2 Content ABG Base Excess ABG Hemoglobin ABG Carboxyhemoglobin POC ABG HHb (Measured) ABG Methemoglobin ABG O2 Capacity VBG pH VBG pCO2 VBG HCO3 VBG Total CO2 VBG O2 Sat (Calc) VBG Base Excess VBG Potassium Hgb O2 Saturation Glucose Lactate FiO2 Sodium Potassium Chloride Carbon Dioxide Anion Gap BUN Creatinine Est GFR ( Amer) Est GFR (Non-Af Amer) POC Glucose (mg/dL) 81 71 Random Glucose Serum Osmolality 286 Calcium Total Bilirubin AST ALT Alkaline Phosphatase Lactate Dehydrogenase Total Creatine Kinase Troponin I Total Protein Albumin Globulin Albumin/Globulin Ratio Venous Blood Potassium 05/31/17 05/31/17 05/31/17 03:00 03:00 05:08 WBC RBC Hgb Hct MCV MCH MCHC RDW Plt Count MPV Gran % Lymph % (Auto) Jenkins % (Auto) Eos % (Auto) Baso % (Auto) Gran # Lymph # Jenkins # Eos # Baso # PT INR APTT pCO2 pO2 HCO3 ABG pH ABG Total CO2 ABG O2 Saturation ABG O2 Content ABG Base Excess ABG Hemoglobin ABG Carboxyhemoglobin POC ABG HHb (Measured) ABG Methemoglobin ABG O2 Capacity VBG pH VBG pCO2 VBG HCO3 VBG Total CO2 VBG O2 Sat (Calc) VBG Base Excess VBG Potassium Hgb O2 Saturation Glucose Lactate FiO2 Sodium 136 Potassium 3.7 Chloride 101 Carbon Dioxide 29 Anion Gap 10 BUN 8 Creatinine 0.7 L Est GFR ( Amer) > 60 Est GFR (Non-Af Amer) > 60 POC Glucose (mg/dL) 149 H Random Glucose 105 Serum Osmolality 282 Calcium 9.1 Total Bilirubin AST ALT Alkaline Phosphatase Lactate Dehydrogenase Total Creatine Kinase Troponin I Total Protein Albumin Globulin Albumin/Globulin Ratio Venous Blood Potassium 05/31/17 05/31/17 05/31/17 05:20 07:19 07:24 WBC 12.9 H RBC 4.00 Hgb 12.3 L Hct 36.9 L MCV 92.3 MCH 30.8 MCHC 33.3 RDW 13.1 Plt Count 278 MPV 9.8 Gran % 84.5 H Lymph % (Auto) 8.5 L Jenkins % (Auto) 6.3 H Eos % (Auto) 0.5 L Baso % (Auto) 0.2 Gran # 10.87 H Lymph # 1.1 L Jenkins # 0.8 H Eos # 0.1 Baso # 0.02 PT INR APTT pCO2 53 H pO2 71.0 L HCO3 27.9 ABG pH 7.33 L ABG Total CO2 29.5 H ABG O2 Saturation 97.2 ABG O2 Content 15.9 ABG Base Excess 1.1 ABG Hemoglobin 12.1 ABG Carboxyhemoglobin 2.8 H POC ABG HHb (Measured) 2.7 ABG Methemoglobin 1.1 ABG O2 Capacity 16.4 VBG pH VBG pCO2 VBG HCO3 VBG Total CO2 VBG O2 Sat (Calc) VBG Base Excess VBG Potassium Hgb O2 Saturation 93.4 L Glucose Lactate FiO2 28.0 Sodium Potassium Chloride Carbon Dioxide Anion Gap BUN Creatinine Est GFR ( Amer) Est GFR (Non-Af Amer) POC Glucose (mg/dL) 110 Random Glucose Serum Osmolality Calcium Total Bilirubin AST ALT Alkaline Phosphatase Lactate Dehydrogenase Total Creatine Kinase Troponin I Total Protein Albumin Globulin Albumin/Globulin Ratio Venous Blood Potassium 05/31/17 05/31/17 05/31/17 08:40 09:30 09:30 WBC RBC Hgb Hct MCV MCH MCHC RDW Plt Count MPV Gran % Lymph % (Auto) Jenkins % (Auto) Eos % (Auto) Baso % (Auto) Gran # Lymph # Jenkins # Eos # Baso # PT INR APTT pCO2 43 pO2 110.0 H HCO3 23.7 ABG pH 7.35 ABG Total CO2 25.0 ABG O2 Saturation 99.6 H ABG O2 Content 14.9 L ABG Base Excess -1.9 ABG Hemoglobin 10.9 L ABG Carboxyhemoglobin 2.7 H POC ABG HHb (Measured) 0.4 ABG Methemoglobin 1.1 ABG O2 Capacity 15.0 L VBG pH VBG pCO2 VBG HCO3 VBG Total CO2 VBG O2 Sat (Calc) VBG Base Excess VBG Potassium Hgb O2 Saturation 95.8 Glucose Lactate FiO2 40.0 Sodium 136 Potassium 3.6 Chloride 109 H Carbon Dioxide 19 L Anion Gap 12 BUN 10 Creatinine 0.7 L Est GFR ( Amer) > 60 Est GFR (Non-Af Amer) > 60 POC Glucose (mg/dL) Random Glucose 123 H Serum Osmolality 287 Calcium 7.5 L Total Bilirubin 0.7 AST 27 ALT 29 Alkaline Phosphatase 68 Lactate Dehydrogenase 284 L Total Creatine Kinase 206 Troponin I 0.06 D Total Protein 6.9 Albumin 2.8 L Globulin 4.1 Albumin/Globulin Ratio 0.7 L Venous Blood Potassium 05/31/17 05/31/17 05/31/17 09:30 09:30 09:30 WBC 15.0 H RBC 3.57 Hgb 10.8 L Hct 33.0 L MCV 92.4 MCH 30.3 MCHC 32.7 RDW 13.0 Plt Count 223 MPV 9.3 Gran % 84.6 H Lymph % (Auto) 8.4 L Jenkins % (Auto) 6.5 H Eos % (Auto) 0.4 L Baso % (Auto) 0.1 Gran # 12.69 H Lymph # 1.3 Jenkins # 1.0 H Eos # 0.1 Baso # 0.02 PT 14.0 H INR 1.27 H APTT 23.3 L pCO2 pO2 45 HCO3 ABG pH ABG Total CO2 ABG O2 Saturation ABG O2 Content ABG Base Excess ABG Hemoglobin ABG Carboxyhemoglobin POC ABG HHb (Measured) ABG Methemoglobin ABG O2 Capacity VBG pH 7.33 VBG pCO2 42.0 VBG HCO3 22.1 VBG Total CO2 23.4 VBG O2 Sat (Calc) 85.9 H VBG Base Excess -3.7 L VBG Potassium 3.6 Hgb O2 Saturation Glucose 130 H Lactate 1.0 FiO2 21.0 Sodium 136.0 Potassium Chloride 109.0 H Carbon Dioxide Anion Gap BUN Creatinine Est GFR ( Amer) Est GFR (Non-Af Amer) POC Glucose (mg/dL) Random Glucose Serum Osmolality Calcium Total Bilirubin AST ALT Alkaline Phosphatase Lactate Dehydrogenase Total Creatine Kinase Troponin I Total Protein Albumin Globulin Albumin/Globulin Ratio Venous Blood Potassium 3.6 05/31/17 11:21 WBC RBC Hgb Hct MCV MCH MCHC RDW Plt Count MPV Gran % Lymph % (Auto) Jenkins % (Auto) Eos % (Auto) Baso % (Auto) Gran # Lymph # Jenkins # Eos # Baso # PT INR APTT pCO2 pO2 HCO3 ABG pH ABG Total CO2 ABG O2 Saturation ABG O2 Content ABG Base Excess ABG Hemoglobin ABG Carboxyhemoglobin POC ABG HHb (Measured) ABG Methemoglobin ABG O2 Capacity VBG pH VBG pCO2 VBG HCO3 VBG Total CO2 VBG O2 Sat (Calc) VBG Base Excess VBG Potassium Hgb O2 Saturation Glucose Lactate FiO2 Sodium Potassium Chloride Carbon Dioxide Anion Gap BUN Creatinine Est GFR ( Amer) Est GFR (Non-Af Amer) POC Glucose (mg/dL) 109 Random Glucose Serum Osmolality Calcium Total Bilirubin AST ALT Alkaline Phosphatase Lactate Dehydrogenase Total Creatine Kinase Troponin I Total Protein Albumin Globulin Albumin/Globulin Ratio Venous Blood Potassium EKG/Cardiology Studies: Cardiology / EKG Studies 05/31/17 08:56 EKG [ELECTROCARDIOGRAM] Stat Comment: Reason For Exam: tachycardia 05/31/17 11:18 EKG [ELECTROCARDIOGRAM] Stat Comment: Reason For Exam: chest pain Attending/Attestation - Attestation I have personally seen and examined this patient.: Yes I have fully participated in the care of the patient.: Yes I have reviewed all pertinent clinical information: Yes Notes (Text): 05/31/17 16:33 67 yo with intrathalamic bleed and progressively worse mental status, requring intubation for airway protection, complicated by SVT spontaneously converted to NSR after adenosin 6 mg IV x 1 with catholic of stable hemodynamics. Will continue with protective lung ventilation strategy, HOB>35 in neutral position, oral hygiene and DVT/GI prophylaxis. will maintain euvolemia, euglycemia and normothermia as we ll as 02sat>90%. Will start enteral nutrition. Repeated CTH revelaed slight worsening of ventricular dilatation, but not warranting Nsx intervention as per neurology and Nsx service. Sedation vacation. Will keep close eye on wbc, but for now afebrile and no clear cut source of infection. CXR --no infiltrate and no PTX. Will start enteral nutrition. ccm time 40 min
[2017-05-31] MEDS: Sodium Chloride 3% 500 ML IV SCH (13:31)
--- NOTE | 2017-05-31 15:21 | CP.PCM.PN ---
<BROOKS CONWAY - Last Filed: 05/31/17 15:18> Subjective - Date & Time of Evaluation Date of Evaluation: 05/31/17 Time of Evaluation: 15:18 - Subjective Subjective: Medicine Progress Note: Pt seen and examined at bedside. Pt SOB overnight, currently mechanically ventilated to protect ariway. Pt went into a-fib with rvr overnight. ROS was unobtainable due to patient's current status. Objective - Vital Signs/Intake and Output Vital Signs (last 24 hours): Temp Pulse Resp BP Pulse Ox 99 F 54 L 16 111/62 98 05/31/17 05:36 05/31/17 13:00 05/31/17 10:47 05/31/17 12:10 05/31/17 12:10 Intake and Output: 05/31/17 05/31/17 06:59 18:59 Intake Total 500 135 Output Total 250 Balance 250 135 - Medications Medications: Current Medications NOREPINEPHRINE BIT/0.9 % NACL (Levophed 4 Mg/ 250 Ml Ns Premixed) 4 mg in 250 mls @ 18.75 mls/hr IV .[id number] PRN; Protocol; 5 MCG/MIN PRN Reason: TITRATE PER MD ORDER Last Titration: 05/31/17 13:35 Dose: 0 mcg/min, 0 mls/hr Propofol (Diprivan) 500 mg in 50 mls @ 2.117 mls/hr IV .[id number] PRN; Protocol; 5 MCG/KG/MIN PRN Reason: TITRATE PER MD ORDER Last Titration: 05/31/17 09:39 Dose: 0 mcg/kg/min, 0 mls/hr Sodium Chloride (Hypertonic Saline 3%) 500 mls @ 50 mls/hr IV .Q10H [facility] Last Admin: 05/31/17 13:31 Dose: 50 mls/hr Lorazepam (Ativan) 2 mg IVP Q2H PRN; Protocol PRN Reason: Symptoms of alcohol withdrawl Lorazepam (Ativan) 4 mg IVP Q4H PRN; Protocol PRN Reason: Symptoms of alcohol withdrawl Last Admin: 05/30/17 17:00 Dose: 4 mg Metoprolol Tartrate (Lopressor) 25 mg PO BID [facility] Pantoprazole Sodium (Protonix Inj) 40 mg IVP DAILY [facility] Last Admin: 05/31/17 11:36 Dose: 40 mg Silver Sulfadiazine (Silvadene 1% 25 Gm) 0 gm TP BID [facility] Last Admin: 05/31/17 11:39 Dose: 25 gm Sodium Chloride (Sodium Chloride Tab) 1 gm PO Q12 [facility] Last Admin: 05/31/17 11:38 Dose: 1 gm - Labs Labs: 05/31/17 09:30 05/31/17 09:30 PT 14.0 SECONDS (9.4-12.5) H 05/31/17 09:30 INR 1.27 (0.93-1.08) H 05/31/17 09:30 APTT 23.3 Seconds (25.1-36.5) L 05/31/17 09:30 - Constitutional Appears: In Acute Distress - Head Exam Head Exam: ATRAUMATIC, NORMAL INSPECTION, NORMOCEPHALIC - Eye Exam Additional comments: 2-3 mm pupil equal, but not reactive to light. - ENT Exam ENT Exam: Mucous Membranes Moist - Neck Exam Neck Exam: absent: Lymphadenopathy, Tenderness, Thyromegaly - Respiratory Exam Respiratory Exam: Clear to Ausculation Bilateral. absent: Rales, Rhonchi, Wheezes - Cardiovascular Exam Cardiovascular Exam: Tachycardia, Irregular Rhythm, +S1, +S2. absent: Diastolic murmur, Gallop, Rubs, Murmur - GI/Abdominal Exam GI & Abdominal Exam: Soft. 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 Plan: 1. Intracerebral Hemorrhage - Admitted to ICU - Intubated to protect airway, vent settings and sedation per ICU - Hemodynamically unstable, Levophed started - NGT placed as patient failed swallow evaluation - CT showed hemorrhagic infarct of the left thalamus/basal ganglia. No midline shift. Left thalamic edema - Repeat CT showed stable left thalamic hemorrhage x2 - Nicardipine drip per ICU for BP management - Neurosurgery consulted No surgical intervention at this time - Neuro consulted Neuro checks q1h Hypertonic saline, rate increased to 50 ml/hr Monitor serum sodium and osmolarity Q6H Target Na 135-145 and osmolarity is < 320 (Na 136, Osm 287 today) Maintain serum glucose below 160 mg/dL (123 today) Maintain head of bed above 30 degrees Avoid IV glucose, hyperthermia - Lipid panel, A1C WNL - PT/OT, speech eval 2. SVT vs. Rapid a-fib - Cardio consulted - Adenosine given, which converted patient to NSR - Start Lopressor and aggresive IV hydration 3. EtOH Abuse - EtOH negative - Ativan held to better assess neuro status GI/DVT PPx - Protonix - SCDs Pt was seen and discussed in detail with Dr. Licona. Tao Conway, PGY1 <Melchor Licona - Last Filed: 05/31/17 17:02> Objective - Vital Signs/Intake and Output Vital Signs (last 24 hours): Temp Pulse Resp BP Pulse Ox 99 F 79 16 116/58 L 92 L 05/31/17 05:36 05/31/17 16:50 05/31/17 10:47 05/31/17 16:30 05/31/17 16:50 Intake and Output: 05/31/17 05/31/17 06:59 18:59 Intake Total 500 135 Output Total 250 Balance 250 135 - Medications Medications: Current Medications NOREPINEPHRINE BIT/0.9 % NACL (Levophed 4 Mg/ 250 Ml Ns Premixed) 4 mg in 250 mls @ 18.75 mls/hr IV .[id number] PRN; Protocol; 5 MCG/MIN PRN Reason: TITRATE PER MD ORDER Last Titration: 05/31/17 13:35 Dose: 0 mcg/min, 0 mls/hr Propofol (Diprivan) 500 mg in 50 mls @ 2.117 mls/hr IV .[id number] PRN; Protocol; 5 MCG/KG/MIN PRN Reason: TITRATE PER MD ORDER Last Titration: 05/31/17 09:39 Dose: 0 mcg/kg/min, 0 mls/hr Sodium Chloride (Hypertonic Saline 3%) 500 mls @ 50 mls/hr IV .Q10H KATIE Last Admin: 05/31/17 13:31 Dose: 50 mls/hr Lorazepam (Ativan) 2 mg IVP Q2H PRN; Protocol PRN Reason: Symptoms of alcohol withdrawl Lorazepam (Ativan) 4 mg IVP Q4H PRN; Protocol PRN Reason: Symptoms of alcohol withdrawl Last Admin: 05/30/17 17:00 Dose: 4 mg Metoprolol Tartrate (Lopressor) 25 mg PO BID [facility] Pantoprazole Sodium (Protonix Inj) 40 mg IVP DAILY [facility] Last Admin: 05/31/17 11:36 Dose: 40 mg Silver Sulfadiazine (Silvadene 1% 25 Gm) 0 gm TP BID [facility] Last Admin: 05/31/17 11:39 Dose: 25 gm Sodium Chloride (Sodium Chloride Tab) 1 gm PO Q12 [facility] Last Admin: 05/31/17 11:38 Dose: 1 gm - Labs Labs: 05/31/17 09:30 05/31/17 09:30 PT 14.0 SECONDS (9.4-12.5) H 05/31/17 09:30 INR 1.27 (0.93-1.08) H 05/31/17 09:30 APTT 23.3 Seconds (25.1-36.5) L 05/31/17 09:30 Attending/Attestation - Attestation I have personally seen and examined this patient.: Yes I have fully participated in the care of the patient.: Yes I have reviewed all pertinent clinical information, including history, physical exam and plan: Yes Notes (Text): 05/31/17 16:55 Patient was seen and examined with medical i d sales. 67 yrs old male was admitted with change of mental status , found to have hammorhagic CVA, CT showed hemorrhagic infarct of the left thalamus/basal ganglia with extension into 3rd ventricle and lateral ventrile. Neuro surgery recommended conservative management.Patient was intubated for air way protection , also went into SVT responded to 6 mg of Adenosine, now back in NSR. Patient repeat CT head is unchanged.Mental status is very poor.We will continue monitoring Neuro check. Patient case was discussed with Neurology and ICU attending. Prognosis is guarded.
[2017-05-31 19:21] LABS: BLOOD UREA NITROGEN 14 mg/dL (7-21); CALCIUM 8.3 mg/dL (8.4-10.5); CARBON DIOXIDE 24 mmol/L (21-33); CHLORIDE 115 mmol/L (98-107); GFR AFRICAN-AMERICAN > 60; GLUCOSE,RANDOM 86 mg/dL (70-110); POTASSIUM 3.6 mmol/L (3.6-5.0); SODIUM 145 mmol/L (132-148)
--- NOTE | 2017-05-31 20:18 | CARD ---
APPROVED REPORT EKG Measurement Heart [id number] <Conclusion> Normal sinus rhythm Normal ECG
--- NOTE | 2017-05-31 20:25 | CARD ---
APPROVED REPORT EKG Measurement Heart [id number] <Conclusion> Junctional tachycardia vs A Flutter with 2:1 conduction Left ventricular hypertrophy with QRS widening Abnormal ECG
[2017-06-01] MEDS: Sodium Chloride 3% 500 ML IV SCH (00:10)
[2017-06-01 02:00] LABS: BLOOD UREA NITROGEN 14 mg/dL (7-21); CALCIUM 8.8 mg/dL (8.4-10.5); CARBON DIOXIDE 23 mmol/L (21-33); CHLORIDE 116 mmol/L (98-107); GFR AFRICAN-AMERICAN > 60; GLUCOSE,RANDOM 90 mg/dL (70-110); POTASSIUM 3.5 mmol/L (3.6-5.0); SODIUM 146 mmol/L (132-148)
[2017-06-01 06:04] LABS: ARTERIAL BLOOD GAS HCO3 19.8 mmol/L (21-28); ARTERIAL BLOOD GAS O2 CAPACITY 14.4 mL/dl (16-24); ARTERIAL BLOOD GAS O2 CONTENT 14.3 ML/dl (15-23); ARTERIAL BLOOD HGB O2 SAT 96.6 % (95.0-98.0); CARBOXYHEMOGLOBIN 1.9 % (0.5-1.5); HHB 0.8 % (0-5); METHEMOGLOBIN 0.8 % (0.0-3.0)
[2017-06-01 06:35] LABS: BASO # 0.01 K/mm3 (0.0-2.0); BASO % 0.1 % (0.0-3.0); EOS % 0.1 % (1.5-5.0); GRAN # 11.22 (1.4-6.5); GRAN % 88.4 % (50.0-68.0); HEMATOCRIT 33.2 % (42.0-52.0); LYMPH # 0.8 (1.2-3.4); LYMPH % 5.9 % (22.0-35.0); MEAN CELL VOLUME 93.3 fl (80.0-105.0); MEAN CORPUSCULAR HEMOGLOBIN 30.3 pg (25.0-35.0); MEAN CORPUSCULAR HGB CONC 32.5 g/dl (31.0-37.0); MEAN PLATELET VOLUME 9.7 fl (7.0-11.0); MONO # 0.7 (0.1-0.6); MONO % 5.5 % (1.0-6.0); RED CELL DISTRIBUTION WIDTH 13.2 % (11.5-14.5); WHITE BLOOD COUNT 12.7 10^3/ul (4.5-11.0)
[2017-06-01 07:07] LABS: ALB/GLOB RATIO 0.6 (1.1-1.8); ALKALINE PHOSPHATASE 75 U/L (38-126); ALT/SGPT 21 U/L (7-56); AST/SGOT 39 U/L (17-59); BILIRUBIN,TOTAL 0.7 mg/dL (0.2-1.3); BLOOD UREA NITROGEN 13 mg/dL (7-21); CARBON DIOXIDE 22 mmol/L (21-33); CHLORIDE 118 mmol/L (98-107); GFR AFRICAN-AMERICAN > 60; GLUCOSE,RANDOM 98 mg/dL (70-110); POTASSIUM 3.4 mmol/L (3.6-5.0); SODIUM 151 mmol/L (132-148); TOTAL PROTEIN 7.9 g/dL (5.8-8.3)
--- NOTE | 2017-06-01 08:08 | CP.PCM.PN ---
Subjective - Date & Time of Evaluation Date of Evaluation: 06/01/17 Time of Evaluation: 08:07 - Subjective Subjective: Mr. Veras was seen and examined at the bedside. He is awake, on mechanical ventilation, patient is able to tolerate without any sedation. He has the NGT on the left nare. He had two episodes of hypertension episodes last night. Hydralazine was given. At present, the BP- 157/88. Hr-94. He is not in any kind of distress. He is able to follow simple commands such as squeezing his left hand, wriggling his left fingers, and raising his left leg. He has a left arm restraint for patient safety. Objective - Vital Signs/Intake and Output Vital Signs (last 24 hours): Temp Pulse Resp BP Pulse Ox 98.4 F 86 21 147/74 100 06/01/17 05:00 06/01/17 06:40 06/01/17 07:05 06/01/17 06:30 06/01/17 07:05 Intake and Output: 06/01/17 06/01/17 06:59 18:59 Intake Total 600 Output Total 875 Balance -275 - Medications Medications: Current Medications NOREPINEPHRINE BIT/0.9 % NACL (Levophed 4 Mg/ 250 Ml Ns Premixed) 4 mg in 250 mls @ 18.75 mls/hr IV .[id number] PRN; Protocol; 5 MCG/MIN PRN Reason: TITRATE PER MD ORDER Last Titration: 05/31/17 13:35 Dose: 0 mcg/min, 0 mls/hr Propofol (Diprivan) 500 mg in 50 mls @ 2.117 mls/hr IV .[id number] PRN; Protocol; 5 MCG/KG/MIN PRN Reason: TITRATE PER MD ORDER Last Titration: 05/31/17 09:39 Dose: 0 mcg/kg/min, 0 mls/hr Potassium Chloride (Potassium Chloride 20 Meq/100 Ml) 20 meq in 100 mls @ 50 mls/hr IVPB Q2H [facility]AT[facility] Stop: 06/01/17 11:44 Vancomycin HCl (Vancomycin 1gm) 1 gm in 250 mls @ 167 mls/hr IVPB Q12H KATIE PRN Reason: Protocol Lorazepam (Ativan) 2 mg IVP Q2H PRN; Protocol PRN Reason: Symptoms of alcohol withdrawl Lorazepam (Ativan) 4 mg IVP Q4H PRN; Protocol PRN Reason: Symptoms of alcohol withdrawl Last Admin: 05/30/17 17:00 Dose: 4 mg Pantoprazole Sodium (Protonix Inj) 40 mg IVP DAILY [facility] Last Admin: 05/31/17 11:36 Dose: 40 mg Silver Sulfadiazine (Silvadene 1% 25 Gm) 0 gm TP BID [facility] Last Admin: 05/31/17 17:35 Dose: 25 gm Sodium Chloride (Sodium Chloride Tab) 1 gm PO Q12 [facility] Last Admin: 05/31/17 22:24 Dose: 1 gm - Labs Labs: 06/01/17 06:00 06/01/17 06:00 PT 14.0 SECONDS (9.4-12.5) H 05/31/17 09:30 INR 1.27 (0.93-1.08) H 05/31/17 09:30 APTT 23.3 Seconds (25.1-36.5) L 05/31/17 09:30 - Constitutional Appears: No Acute Distress - Head Exam Head Exam: ATRAUMATIC, NORMAL INSPECTION, NORMOCEPHALIC - Eye Exam Additional comments: very sluggish, but equal in size. - Neurological Exam Neurological Exam: Awake Neuro motor strength exam: Left Upper Extremity: 4, Right Upper Extremity: 0 ( paralyze), Left Lower Extremity: 3, Right Lower Extremity: 0 (paralyze) Additional comments: He is able to follow simple commands such as squeezing his left hand, wriggling his left fingers, and raising his left leg. He has the CN 3 palsy.Sensation remains asymmetrical Assessment and Plan (1) Intracerebral hemorrhage Assessment & Plan: Case discussed with Dr. Davies, continue all current medical regimen. PT to eval and treat for passive exercise and left side strengthening. Status: Acute
--- NOTE | 2017-06-01 09:32 | RAD ---
HISTORY: intubated COMPARISON: 05/31/2017 FINDINGS: LUNGS: No active pulmonary disease. PLEURA: No significant pleural effusion identified, no pneumothorax apparent. CARDIOVASCULAR: Normal. OSSEOUS STRUCTURES: No significant abnormalities. VISUALIZED UPPER ABDOMEN: Normal. OTHER FINDINGS: Central lines and tubes are unchanged in position IMPRESSION: No active disease.
[2017-06-01] MEDS: Vancomycin 1gm in NS 250ml 1 GM/250 ML BAG IVPB SCH ×2 (09:49→22:32)
[2017-06-01] MEDS: Silver Sulfadiazine 1% Cream (25 gm) TP SCH ×2 (09:49→18:14)
[2017-06-01] MEDS: Aztreonam 2 Gm in NS 100mL 100 ML IVPB SCH ×3 (10:00→22:33)
--- NOTE | 2017-06-01 10:09 | CP.PCM.CON ---
History of Present Illness - History of Present Illness History of Present Illness: 67 year old male with PMH of skin cancer S/P resection around right ear area, S/ P lumbar disc hernia repair was brought in to [facility] after he was found on the floor at home with difficulty speaking. He is now diagnosed with a hemorrhagic CVA on the left thalamus/basal ganglia area. He is currently intubated and on the ventilator in the ICU and is being managed conservatively by Neuro and Neurosurgery. While in the ICU, he was noted to have an erythematous lesion on the left buttock and Infectious diseases consult is requested to further evaluate and manage. There has no fevers, no convulsion, no diarrhea noted in the ICU. Review of Systems - Review of Systems Systems not reviewed;Unavailable: Intubated All systems: reviewed and no additional remarkable complaints except (as per HPI ) Past Patient History - Infectious Disease Hx of Infectious Diseases: None - Past Social History Smoking Status: Heavy Smoker > 10 Cigarettes Daily - PULMONARY Hx Respiratory Disorders: Yes (2 ppd smoker) - HEENT Other/Comment: right ear skin ca part of helix removed, red sclera right eye - HEMATOLOGICAL/ONCOLOGICAL Hx Cancer: Yes (skin Ca; esophageal Ca) - INTEGUMENTARY Other/Comment: info from , pt had a boil to left buttock over 5 yrs ago had surgery and there are 4 small openings that would not heal, large area of deep red hard skin to left buttock and redness traveled to left groin, and wounds drain "sometimes". pt needs skin graft as per but pt would not follow up. r buttock pink blanchable skin, pt had sx to right ear "many yrs ago" part of helix removed. not sure what type of skin ca it was, dry skin to left ear helix, outer left ankle 1cm round dry scab, dry skin ble, - MUSCULOSKELETAL/RHEUMATOLOGICAL Hx Falls: No - GASTROINTESTINAL Hx Gastroesophageal Reflux: Yes - PSYCHIATRIC Hx Substance Use: No - SURGICAL HISTORY Hx Surgeries: Yes Other/Comment: lower back sx, hip bone [facility] lower [facility] - ANESTHESIA Hx Anesthesia Reactions: No Hx Malignant Hyperthermia: No Meds Allergies/Adverse Reactions: Allergies Allergy/AdvReac Type Severity Reaction Status Date / Time Penicillins Allergy unknown Verified 05/29/17 12:45 - Medications Medications: Current Medications NOREPINEPHRINE BIT/0.9 % NACL (Levophed 4 Mg/ 250 Ml Ns Premixed) 4 mg in 250 mls @ 18.75 mls/hr IV .[id number] PRN; Protocol; 5 MCG/MIN PRN Reason: TITRATE PER MD ORDER Last Titration: 05/31/17 13:35 Dose: 0 mcg/min, 0 mls/hr Propofol (Diprivan) 500 mg in 50 mls @ 2.117 mls/hr IV .[id number] PRN; Protocol; 5 MCG/KG/MIN PRN Reason: TITRATE PER MD ORDER Last Titration: 05/31/17 09:39 Dose: 0 mcg/kg/min, 0 mls/hr Potassium Chloride (Potassium Chloride 20 Meq/100 Ml) 20 meq in 100 mls @ 50 mls/hr IVPB Q2H ON [facility] OF [facility] Stop: 06/01/17 11:44 Last Admin: 06/01/17 08:40 Dose: 50 mls/hr Vancomycin HCl (Vancomycin 1gm) 1 gm in 250 mls @ 167 mls/hr IVPB Q12H [facility] PRN Reason: Protocol Aztreonam (Azactam 2 Gm) 100 mls @ 100 mls/hr IVPB Q8 [facility] PRN Reason: Protocol Stop: 06/08/17 09:01 Lorazepam (Ativan) 2 mg IVP Q2H PRN; Protocol PRN Reason: Symptoms of alcohol withdrawl Lorazepam (Ativan) 4 mg IVP Q4H PRN; Protocol PRN Reason: Symptoms of alcohol withdrawl Last Admin: 05/30/17 17:00 Dose: 4 mg Pantoprazole Sodium (Protonix Inj) 40 mg IVP DAILY [facility] Last Admin: 05/31/17 11:36 Dose: 40 mg Silver Sulfadiazine (Silvadene 1% 25 Gm) 0 gm TP BID [facility] Last Admin: 05/31/17 17:35 Dose: 25 gm Sodium Chloride (Sodium Chloride Tab) 1 gm PO Q12 [facility] Last Admin: 05/31/17 22:24 Dose: 1 gm Physical Exam - Constitutional Appears: Other (intubated, sedated) - ENT Exam Additional comments: ET tube in place - Neck Exam Neck exam: Negative for: Meningismus - Respiratory Exam Respiratory Exam: Rales (scattered) - Cardiovascular Exam Cardiovascular Exam: +S1, +S2 - GI/Abdominal Exam GI & Abdominal Exam: Soft. absent: Tenderness - Extremities Exam Additional comments: left buttock area with area of erythema, blanching with some induration, no pus or blood currently noted Results - Vital Signs Recent Vital Signs: Last Vital Signs Temp 98.4 F 06/01/17 05:00 Pulse 86 06/01/17 06:40 Resp 21 06/01/17 07:05 BP 147/74 06/01/17 06:30 Pulse Ox 100 06/01/17 07:05 - Labs Result Diagrams: 06/01/17 06:00 06/01/17 06:00 Labs: Laboratory Results - last 24 hr 05/31/17 05/31/17 05/31/17 03:00 08:40 09:30 WBC RBC Hgb Hct MCV MCH MCHC RDW Plt Count MPV Gran % Lymph % (Auto) [place] % (Auto) Eos % (Auto) Baso % (Auto) Gran # Lymph # [place] # Eos # Baso # PT INR APTT pCO2 43 pO2 110.0 H HCO3 23.7 ABG pH 7.35 ABG Total CO2 25.0 ABG O2 Saturation 99.6 H ABG O2 Content 14.9 L ABG Base Excess -1.9 ABG Hemoglobin 10.9 L ABG Carboxyhemoglobin 2.7 H POC ABG HHb (Measured) 0.4 ABG Methemoglobin 1.1 ABG O2 Capacity 15.0 L VBG pH VBG pCO2 VBG HCO3 VBG Total CO2 VBG O2 Sat (Calc) VBG Base Excess VBG Potassium Hgb O2 Saturation 95.8 Sodium 136 Chloride 109 H Glucose Lactate FiO2 40.0 Potassium 3.6 Carbon Dioxide 19 L Anion Gap 12 BUN 10 Creatinine 0.7 L Est GFR ( Amer) > 60 Est GFR (Non-Af Amer) > 60 POC Glucose (mg/dL) Random Glucose 123 H Serum Osmolality 282 Calcium 7.5 L Total Bilirubin 0.7 AST 27 ALT 29 Alkaline Phosphatase 68 Lactate Dehydrogenase 284 L Total Creatine Kinase 206 Troponin I 0.06 D Total Protein 6.9 Albumin 2.8 L Globulin 4.1 Albumin/Globulin Ratio 0.7 L Venous Blood Potassium 05/31/17 05/31/17 05/31/17 09:30 09:30 09:30 WBC 15.0 H RBC 3.57 Hgb 10.8 L Hct 33.0 L MCV 92.4 MCH 30.3 MCHC 32.7 RDW 13.0 Plt Count 223 MPV 9.3 Gran % 84.6 H Lymph % (Auto) 8.4 L [place] % (Auto) 6.5 H Eos % (Auto) 0.4 L Baso % (Auto) 0.1 Gran # 12.69 H Lymph # 1.3 [place] # 1.0 H Eos # 0.1 Baso # 0.02 PT INR APTT pCO2 pO2 45 HCO3 ABG pH ABG Total CO2 ABG O2 Saturation ABG O2 Content ABG Base Excess ABG Hemoglobin ABG Carboxyhemoglobin POC ABG HHb (Measured) ABG Methemoglobin ABG O2 Capacity VBG pH 7.33 VBG pCO2 42.0 VBG HCO3 22.1 VBG Total CO2 23.4 VBG O2 Sat (Calc) 85.9 H VBG Base Excess -3.7 L VBG Potassium 3.6 Hgb O2 Saturation Sodium 136.0 Chloride 109.0 H Glucose 130 H Lactate 1.0 FiO2 21.0 Potassium Carbon Dioxide Anion Gap BUN Creatinine Est GFR ( Amer) Est GFR (Non-Af Amer) POC Glucose (mg/dL) Random Glucose Serum Osmolality 287 Calcium Total Bilirubin AST ALT Alkaline Phosphatase Lactate Dehydrogenase Total Creatine Kinase Troponin I Total Protein Albumin Globulin Albumin/Globulin Ratio Venous Blood Potassium 3.6 05/31/17 05/31/17 05/31/17 09:30 11:21 16:22 WBC RBC Hgb Hct MCV MCH MCHC RDW Plt Count MPV Gran % Lymph % (Auto) [place] % (Auto) Eos % (Auto) Baso % (Auto) Gran # Lymph # [place] # Eos # Baso # PT 14.0 H INR 1.27 H APTT 23.3 L pCO2 pO2 HCO3 ABG pH ABG Total CO2 ABG O2 Saturation ABG O2 Content ABG Base Excess ABG Hemoglobin ABG Carboxyhemoglobin POC ABG HHb (Measured) ABG Methemoglobin ABG O2 Capacity VBG pH VBG pCO2 VBG HCO3 VBG Total CO2 VBG O2 Sat (Calc) VBG Base Excess VBG Potassium Hgb O2 Saturation Sodium Chloride Glucose Lactate FiO2 Potassium Carbon Dioxide Anion Gap BUN Creatinine Est GFR ( Amer) Est GFR (Non-Af Amer) POC Glucose (mg/dL) 109 89 Random Glucose Serum Osmolality Calcium Total Bilirubin AST ALT Alkaline Phosphatase Lactate Dehydrogenase Total Creatine Kinase Troponin I Total Protein Albumin Globulin Albumin/Globulin Ratio Venous Blood Potassium 05/31/17 05/31/17 05/31/17 19:07 19:07 22:05 WBC RBC Hgb Hct MCV MCH MCHC RDW Plt Count MPV Gran % Lymph % (Auto) [place] % (Auto) Eos % (Auto) Baso % (Auto) Gran # Lymph # [place] # Eos # Baso # PT INR APTT pCO2 pO2 HCO3 ABG pH ABG Total CO2 ABG O2 Saturation ABG O2 Content ABG Base Excess ABG Hemoglobin ABG Carboxyhemoglobin POC ABG HHb (Measured) ABG Methemoglobin ABG O2 Capacity VBG pH VBG pCO2 VBG HCO3 VBG Total CO2 VBG O2 Sat (Calc) VBG Base Excess VBG Potassium Hgb O2 Saturation Sodium 145 Chloride 115 H Glucose Lactate FiO2 Potassium 3.6 Carbon Dioxide 24 Anion Gap 10 BUN 14 Creatinine 0.7 L Est GFR ( Amer) > 60 Est GFR (Non-Af Amer) > 60 POC Glucose (mg/dL) 89 Random Glucose 86 Serum Osmolality 296 Calcium 8.3 L Total Bilirubin AST ALT Alkaline Phosphatase Lactate Dehydrogenase Total Creatine Kinase Troponin I Total Protein Albumin Globulin Albumin/Globulin Ratio Venous Blood Potassium 06/01/17 06/01/17 06/01/17 01:34 05:35 06:00 WBC 12.7 H RBC 3.56 Hgb 10.8 L Hct 33.2 L MCV 93.3 MCH 30.3 MCHC 32.5 RDW 13.2 Plt Count 229 MPV 9.7 Gran % 88.4 H Lymph % (Auto) 5.9 L [place] % (Auto) 5.5 Eos % (Auto) 0.1 L Baso % (Auto) 0.1 Gran # 11.22 H Lymph # 0.8 L [place] # 0.7 H Eos # 0.0 Baso # 0.01 PT INR APTT pCO2 32 L pO2 92.0 HCO3 19.8 L ABG pH 7.40 ABG Total CO2 20.8 L ABG O2 Saturation 99.2 H ABG O2 Content 14.3 L ABG Base Excess -4.3 L ABG Hemoglobin 10.4 L ABG Carboxyhemoglobin 1.9 H POC ABG HHb (Measured) 0.8 ABG Methemoglobin 0.8 ABG O2 Capacity 14.4 L VBG pH VBG pCO2 VBG HCO3 VBG Total CO2 VBG O2 Sat (Calc) VBG Base Excess VBG Potassium Hgb O2 Saturation 96.6 Sodium 146 Chloride 116 H Glucose Lactate FiO2 40.0 Potassium 3.5 L Carbon Dioxide 23 Anion Gap 11 BUN 14 Creatinine 0.8 Est GFR ( Amer) > 60 Est GFR (Non-Af Amer) > 60 POC Glucose (mg/dL) Random Glucose 90 Serum Osmolality Calcium 8.8 Total Bilirubin AST ALT Alkaline Phosphatase Lactate Dehydrogenase Total Creatine Kinase Troponin I Total Protein Albumin Globulin Albumin/Globulin Ratio Venous Blood Potassium 06/01/17 06/01/17 06:00 08:04 WBC RBC Hgb Hct MCV MCH MCHC RDW Plt Count MPV Gran % Lymph % (Auto) [place] % (Auto) Eos % (Auto) Baso % (Auto) Gran # Lymph # [place] # Eos # Baso # PT INR APTT pCO2 pO2 HCO3 ABG pH ABG Total CO2 ABG O2 Saturation ABG O2 Content ABG Base Excess ABG Hemoglobin ABG Carboxyhemoglobin POC ABG HHb (Measured) ABG Methemoglobin ABG O2 Capacity VBG pH VBG pCO2 VBG HCO3 VBG Total CO2 VBG O2 Sat (Calc) VBG Base Excess VBG Potassium Hgb O2 Saturation Sodium 151 H Chloride 118 H Glucose Lactate FiO2 Potassium 3.4 L Carbon Dioxide 22 Anion Gap 14 BUN 13 Creatinine 0.7 L Est GFR ( Amer) > 60 Est GFR (Non-Af Amer) > 60 POC Glucose (mg/dL) 91 Random Glucose 98 Serum Osmolality Calcium 9.0 Total Bilirubin 0.7 AST 39 ALT 21 Alkaline Phosphatase 75 Lactate Dehydrogenase Total Creatine Kinase Troponin I Total Protein 7.9 Albumin 3.1 Globulin 4.8 Albumin/Globulin Ratio 0.6 L Venous Blood Potassium Assessment & Plan - Assessment and Plan (Free Text) Plan: Assessment Probable left buttock skin and skin structure infection systemic inflammatory response syndrome probably from acute left sided hemorrhagic CVA skin cancer S/P resection around right ear area S/P lumbar disc hernia repair Plan Started patient on Vancomycin, Azactam and Flagyl pending blood and wound cx; awaiting Surgery evaluation and plans Neuro and Neurosurgery managing the CVA will monitor clinically
--- NOTE | 2017-06-01 10:56 | PN ---
CARDIOLOGY FOLLOWUP DATE OF FOLLOWUP: 06/01/2017 SUBJECTIVE: The patient remains on a ventilator. PHYSICAL EXAMINATION: VITAL SIGNS: Blood pressure is 147/74, the heart rate is in the 90s, normal sinus rhythm. NECK: Negative JVD. LUNGS: Decreased breath sounds. HEART: S1, S2. EXTREMITIES: Without edema. LABORATORY DATA: Hemoglobin is 10.8. BUN and creatinine is unremarkable. IMPRESSION: 1. Status post cerebrovascular accident. 2. Intracerebral bleed. 3. Respiratory failure. 4. Left ventricular hypertrophy. 5. Status post supraventricular tachycardia. 6. Hypertension. Given these findings, we will start the patient on beta blockers and IV NG tube today. The patient remained in normal sinus rhythm. Nathan Pereyra MD
--- NOTE | 2017-06-01 11:43 | CP.PCM.PN ---
<MANBROOKS - Last Filed: 06/01/17 11:39> Subjective - Date & Time of Evaluation Date of Evaluation: 06/01/17 Time of Evaluation: 11:40 - Subjective Subjective: Medicine Progress Note: Pt seen and examined at bedside. Pt currently intubated off sedation. Pt off pressors and hypertonic saline. Pt obeys commands with hand indian nanny and foot on left side. ROS limited due to patient's current status. Objective - Vital Signs/Intake and Output Vital Signs (last 24 hours): Temp Pulse Resp BP Pulse Ox 98.4 F 86 21 147/74 100 06/01/17 05:00 06/01/17 06:40 06/01/17 07:05 06/01/17 06:30 06/01/17 07:05 Intake and Output: 06/01/17 06/01/17 06:59 18:59 Intake Total 600 Output Total 875 Balance -275 - Medications Medications: Current Medications Chlorhexidine Gluconate (Peridex) 15 ml PO TID KATIE NOREPINEPHRINE BIT/0.9 % NACL (Levophed 4 Mg/ 250 Ml Ns Premixed) 4 mg in 250 mls @ 18.75 mls/hr IV .[id number] PRN; Protocol; 5 MCG/MIN PRN Reason: TITRATE PER MD ORDER Last Titration: 05/31/17 13:35 Dose: 0 mcg/min, 0 mls/hr Propofol (Diprivan) 500 mg in 50 mls @ 2.117 mls/hr IV .[id number] PRN; Protocol; 5 MCG/KG/MIN PRN Reason: TITRATE PER MD ORDER Last Titration: 05/31/17 09:39 Dose: 0 mcg/kg/min, 0 mls/hr Potassium Chloride (Potassium Chloride 20 Meq/100 Ml) 20 meq in 100 mls @ 50 mls/hr IVPB Q2H KATIE Stop: 06/01/17 11:44 Last Admin: 06/01/17 11:18 Dose: 50 mls/hr Vancomycin HCl (Vancomycin 1gm) 1 gm in 250 mls @ 167 mls/hr IVPB Q12H KATIE PRN Reason: Protocol Last Admin: 06/01/17 09:49 Dose: 167 mls/hr Aztreonam (Azactam 2 Gm) 100 mls @ 100 mls/hr IVPB Q8 KATIE PRN Reason: Protocol Stop: 06/08/17 09:01 Last Admin: 06/01/17 10:00 Dose: 100 mls/hr Metronidazole (Flagyl) 500 mg in 100 mls @ 100 mls/hr IVPB Q8 KATIE PRN Reason: Protocol Lorazepam (Ativan) 2 mg IVP Q2H PRN; Protocol PRN Reason: Symptoms of alcohol withdrawl Lorazepam (Ativan) 4 mg IVP Q4H PRN; Protocol PRN Reason: Symptoms of alcohol withdrawl Last Admin: 05/30/17 17:00 Dose: 4 mg Metoprolol Tartrate (Lopressor) 25 mg PO BID [facility] Pantoprazole Sodium (Protonix Inj) 40 mg IVP DAILY [facility] Last Admin: 06/01/17 09:49 Dose: 40 mg Silver Sulfadiazine (Silvadene 1% 25 Gm) 0 gm TP BID [facility] Last Admin: 06/01/17 09:49 Dose: 25 gm Sodium Chloride (Sodium Chloride Tab) 1 gm PO Q12 [facility] Last Admin: 06/01/17 09:45 Dose: Not Given - Labs Labs: 06/01/17 06:00 06/01/17 06:00 PT 14.0 SECONDS (9.4-12.5) H 05/31/17 09:30 INR 1.27 (0.93-1.08) H 05/31/17 09:30 APTT 23.3 Seconds (25.1-36.5) L 05/31/17 09:30 - Head Exam Head Exam: ATRAUMATIC, NORMAL INSPECTION, NORMOCEPHALIC - Eye Exam Additional comments: Pupils 2-3 mm, sluggishly reactive to light, Nystagmus noted with right gaze. CN 3 palsy - ENT Exam ENT Exam: Mucous Membranes Dry - Neck Exam Neck Exam: absent: Lymphadenopathy, Thyromegaly - Respiratory Exam Respiratory Exam: Clear to Ausculation Bilateral. absent: Accessory Muscle Use , Rales, Rhonchi, Wheezes, Respiratory Distress - Cardiovascular Exam Cardiovascular Exam: RRR, +S1, +S2. absent: Diastolic murmur, Gallop, Rubs, Murmur - GI/Abdominal Exam GI & Abdominal Exam: Soft. absent: Distended, Guarding, Tenderness, Rebound - Extremities Exam Extremities Exam: Normal Inspection - Neurological Exam Neurological Exam: Awake. absent: Oriented x3 Additional comments: left hand indian nanny and leg movement on command. Right sided hemiplegia. 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 Plan: 1. Intracerebral Hemorrhage - Admitted to ICU - Intubated to protect airway, currently off sedation - Levophed held, as patient is hypertensive - NGT in place - CT showed hemorrhagic infarct of the left thalamus/basal ganglia. No midline shift. Left thalamic edema - Repeat CT showed stable left thalamic hemorrhage x2 - Neurosurgery consulted No surgical intervention at this time - Neuro consulted Target Na 135-145 and osmolarity is < 320 Hypertonic saline, currently held as Na is 146 Monitor serum sodium and osmolarity Q6H Maintain serum glucose below 160 mg/dL Maintain head of bed above 30 degrees Avoid IV glucose, hyperthermia - Lipid panel, A1C WNL - PT/OT, speech eval 2. SVT vs. Rapid a-fib, resolved - Cardio consulted Lopressor 25 mg PO BID - Adenosine given, which converted patient to NSR - Start Lopressor and aggresive IV hydration 3. Decubitus Ulcer, Grade 2 - Surgery consulted - ID consulted Started patient on Vancomycin, Azactam and Flagyl pending blood and wound cx\ 4. Hypokalemia - K 3.5 - Repleted - Monitor and replete as needed 5. EtOH Abuse - EtOH negative - Ativan held to better assess neuro status GI/DVT PPx - Protonix - SCDs Pt was seen and discussed in detail with Dr. Licona. Tao Greenberg, PGY1 <Melchor Licona - Last Filed: 06/01/17 16:46> Objective - Vital Signs/Intake and Output Vital Signs (last 24 hours): Temp Pulse Resp BP Pulse Ox 98.1 F 74 21 115/61 99 06/01/17 16:00 06/01/17 16:00 06/01/17 07:05 06/01/17 16:00 06/01/17 16:00 Intake and Output: 06/01/17 06/01/17 06:59 18:59 Intake Total 600 Output Total 875 Balance -275 - Medications Medications: Current Medications Chlorhexidine Gluconate (Peridex) 15 ml PO TID [facility] Last Admin: 06/01/17 14:20 Dose: 15 ml Clonidine HCl (Catapres) 0.1 mg PO BID [facility] NOREPINEPHRINE BIT/0.9 % NACL (Levophed 4 Mg/ 250 Ml Ns Premixed) 4 mg in 250 mls @ 18.75 mls/hr IV .[id number] PRN; Protocol; 5 MCG/MIN PRN Reason: TITRATE PER MD ORDER Last Titration: 05/31/17 13:35 Dose: 0 mcg/min, 0 mls/hr Propofol (Diprivan) 500 mg in 50 mls @ 2.117 mls/hr IV .[id number] PRN; Protocol; 5 MCG/KG/MIN PRN Reason: TITRATE PER MD ORDER Last Titration: 05/31/17 09:39 Dose: 0 mcg/kg/min, 0 mls/hr Vancomycin HCl (Vancomycin 1gm) 1 gm in 250 mls @ 167 mls/hr IVPB Q12H KATIE PRN Reason: Protocol Last Admin: 06/01/17 09:49 Dose: 167 mls/hr Aztreonam (Azactam 2 Gm) 100 mls @ 100 mls/hr IVPB Q8 KATIE PRN Reason: Protocol Stop: 06/08/17 09:01 Last Admin: 06/01/17 10:00 Dose: 100 mls/hr Metronidazole (Flagyl) 500 mg in 100 mls @ 100 mls/hr IVPB Q8 KATIE PRN Reason: Protocol Last Admin: 06/01/17 14:21 Dose: 100 mls/hr Fentanyl Citrate (Fentanyl Citrate/Sodium Chloride 1 Mg/100 Ml) 1,000 mcg in 100 mls @ 2 mls/hr IV .Q24H PRN; Protocol; 20 MCG/HR PRN Reason: TITRATE PER MD ORDER Last Admin: 06/01/17 14:21 Dose: 20 mcg/hr, 2 mls/hr Lorazepam (Ativan) 2 mg IVP Q2H PRN; Protocol PRN Reason: Symptoms of alcohol withdrawl Lorazepam (Ativan) 4 mg IVP Q4H PRN; Protocol PRN Reason: Symptoms of alcohol withdrawl Last Admin: 05/30/17 17:00 Dose: 4 mg Metoprolol Tartrate (Lopressor) 25 mg PO BID [facility] Last Admin: 06/01/17 11:27 Dose: 25 mg Pantoprazole Sodium (Protonix Inj) 40 mg IVP DAILY [facility] Last Admin: 06/01/17 09:49 Dose: 40 mg Silver Sulfadiazine (Silvadene 1% 25 Gm) 0 gm TP BID [facility] Last Admin: 06/01/17 09:49 Dose: 25 gm Sodium Chloride (Sodium Chloride Tab) 1 gm PO Q12 [facility] Last Admin: 06/01/17 09:45 Dose: Not Given - Labs Labs: 06/01/17 06:00 06/01/17 06:00 PT 14.0 SECONDS (9.4-12.5) H 05/31/17 09:30 INR 1.27 (0.93-1.08) H 05/31/17 09:30 APTT 23.3 Seconds (25.1-36.5) L 05/31/17 09:30 Attending/Attestation - Attestation I have personally seen and examined this patient.: Yes I have fully participated in the care of the patient.: Yes I have reviewed all pertinent clinical information, including history, physical exam and plan: Yes Notes (Text): 06/01/17 16:44 Patient was seen and examined with certified medical coding specialist. 67 yrs old male was admitted with change of mental status , found to have hammorhagic CVA, CT showed hemorrhagic infarct of the left thalamus/basal ganglia with extension into 3rd ventricle and lateral ventrile. Neuro surgery recommended conservative management.Patient was intubated for air way protection , also went into SVT responded to 6 mg of Adenosine, now back in NSR.Patient was also hypotensive yesterday , now off pressor.Hypernatremia is improving. Patient repeat CT head was unchanged.Patient is also sp I/D of right buttock abscess on broad spectrum antibiotics as per ID.We will follow up cultures. Prognosis is guarded.
[2017-06-01] MEDS: Chlorhexidine 0.12% Oral Sol 480 ml Bot PO SCH ×3 (12:50→18:09)
--- NOTE | 2017-06-01 14:11 | CP.PCM.CON ---
History of Present Illness - History of Present Illness History of Present Illness: Consult for Dr. Hyatt CC: Left gluteal abscess HPI: pt is a 67 year old male who presents to the ED on 05/29 with right sided paralysis, difficulty speaking, left hemorrhagic infarct of thalamus and basal ganglia noted on CT w/o significant midline shift. Surgery consulted for a left gluteal abscess, currently expressing foul smelling purulent drainage from 4 small openings. 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 As per family, pt had left gluteal abscess drained surgically 5 years ago. Pt currently with a leukocytosis. Additiomnally per neurology he is unlikely to recoverin lázaro immediate future. Spoke with Dr. Davies feels the patient would benefit from early tracheostomy as this will allow the patient to begin rehab earlier. Past medical history: HTN, Alcohol Abuse Surgical History: skin cancer excision of right ear, lumbar disc herniation repair Family History: skin cancer, esophageal cancer Allergies: Penicillin, basil Social History: 15 beers/day; 2 ppd for 30 years; no illicit drug use Medications: none noted Review of Systems - Review of Systems Systems not reviewed;Unavailable: Intubated Past Patient History - Infectious Disease Hx of Infectious Diseases: None - Past Medical History & Family History Past Medical History?: Yes - Past Social History Smoking Status: Heavy Smoker > 10 Cigarettes Daily Alcohol: > 2 Drinks/Day Drugs: Denies - CARDIAC Hx Hypertension: Yes - PULMONARY Hx Respiratory Disorders: Yes (2 ppd smoker) - HEENT Other/Comment: right ear skin ca part of helix removed, red sclera right eye - HEMATOLOGICAL/ONCOLOGICAL Hx Cancer: Yes (skin Ca; esophageal Ca) - INTEGUMENTARY Other/Comment: info from , pt had a boil to left buttock over 5 yrs ago had surgery and there are 4 small openings that would not heal, large area of deep red hard skin to left buttock and redness traveled to left groin, and wounds drain "sometimes". pt needs skin graft as per but pt would not follow up. r buttock pink blanchable skin, pt had sx to right ear "many yrs ago" part of helix removed. not sure what type of skin ca it was, dry skin to left ear helix, outer left ankle 1cm round dry scab, dry skin ble, - MUSCULOSKELETAL/RHEUMATOLOGICAL Hx Falls: No - GASTROINTESTINAL Hx Gastroesophageal Reflux: Yes - PSYCHIATRIC Hx Substance Use: No - SURGICAL HISTORY Hx Surgeries: Yes Other/Comment: lower back sx, [facility] - ANESTHESIA Hx Anesthesia Reactions: No Hx Malignant Hyperthermia: No Meds Allergies/Adverse Reactions: Allergies Allergy/AdvReac Type Severity Reaction Status Date / Time Penicillins Allergy unknown Verified 05/29/17 12:45 - Medications Medications: Current Medications Chlorhexidine Gluconate (Peridex) 15 ml PO TID [facility] Last Admin: 06/01/17 12:50 Dose: 15 ml Clonidine HCl (Catapres) 0.1 mg PO BID [facility] NOREPINEPHRINE BIT/0.9 % NACL (Levophed 4 Mg/ 250 Ml Ns Premixed) 4 mg in 250 mls @ 18.75 mls/hr IV .[id number] PRN; Protocol; 5 MCG/MIN PRN Reason: TITRATE PER MD ORDER Last Titration: 05/31/17 13:35 Dose: 0 mcg/min, 0 mls/hr Propofol (Diprivan) 500 mg in 50 mls @ 2.117 mls/hr IV .[id number] PRN; Protocol; 5 MCG/KG/MIN PRN Reason: TITRATE PER MD ORDER Last Titration: 05/31/17 09:39 Dose: 0 mcg/kg/min, 0 mls/hr Vancomycin HCl (Vancomycin 1gm) 1 gm in 250 mls @ 167 mls/hr IVPB Q12H [facility]ATIE PRN Reason: Protocol Last Admin: 06/01/17 09:49 Dose: 167 mls/hr Aztreonam (Azactam 2 Gm) 100 mls @ 100 mls/hr IVPB Q8 KATIE PRN Reason: Protocol Stop: 06/08/17 09:01 Last Admin: 06/01/17 10:00 Dose: 100 mls/hr Metronidazole (Flagyl) 500 mg in 100 mls @ 100 mls/hr IVPB Q8 KATIE PRN Reason: Protocol Lorazepam (Ativan) 2 mg IVP Q2H PRN; Protocol PRN Reason: Symptoms of alcohol withdrawl Lorazepam (Ativan) 4 mg IVP Q4H PRN; Protocol PRN Reason: Symptoms of alcohol withdrawl Last Admin: 05/30/17 17:00 Dose: 4 mg Metoprolol Tartrate (Lopressor) 25 mg PO BID [facility] Last Admin: 06/01/17 11:27 Dose: 25 mg Pantoprazole Sodium (Protonix Inj) 40 mg IVP DAILY [facility] Last Admin: 06/01/17 09:49 Dose: 40 mg Silver Sulfadiazine (Silvadene 1% 25 Gm) 0 gm TP BID [facility] Last Admin: 06/01/17 09:49 Dose: 25 gm Sodium Chloride (Sodium Chloride Tab) 1 gm PO Q12 [facility] Last Admin: 06/01/17 09:45 Dose: Not Given Physical Exam - Constitutional Appears: No Acute Distress - Head Exam Head Exam: NORMOCEPHALIC - Eye Exam Eye Exam: Normal appearance. absent: Scleral icterus - ENT Exam ENT Exam: Mucous Membranes Moist - Respiratory Exam Respiratory Exam: absent: Chest Wall Tenderness - Cardiovascular Exam Cardiovascular Exam: Tachycardia. absent: Gallop, Rubs - GI/Abdominal Exam GI & Abdominal Exam: Normal Bowel Sounds, Soft. absent: Rebound, Rigid - Exam External exam: absent: Ecchymosis, Erythema - Back Exam Additional comments: Left buttock with purulent drainage from multiple puncta. - Neurological Exam Neurological exam: Alert - Skin Skin Exam: Dry, Intact, Normal Color, Warm Results - Vital Signs Recent Vital Signs: Last Vital Signs Temp 98.1 F 06/01/17 12:00 Pulse 85 06/01/17 13:01 Resp 21 06/01/17 07:05 BP 178/91 H 06/01/17 13:01 Pulse Ox 99 06/01/17 13:01 - Labs Result Diagrams: 06/01/17 06:00 06/01/17 06:00 Labs: Laboratory Results - last 24 hr 05/31/17 05/31/17 05/31/17 16:22 19:07 19:07 WBC RBC Hgb Hct MCV MCH MCHC RDW Plt Count MPV Gran % Lymph % (Auto) [place] % (Auto) Eos % (Auto) Baso % (Auto) Gran # Lymph # [place] # Eos # Baso # pCO2 pO2 HCO3 ABG pH ABG Total CO2 ABG O2 Saturation ABG O2 Content ABG Base Excess ABG Hemoglobin ABG Carboxyhemoglobin POC ABG HHb (Measured) ABG Methemoglobin ABG O2 Capacity Hgb O2 Saturation FiO2 Sodium 145 Potassium 3.6 Chloride 115 H Carbon Dioxide 24 Anion Gap 10 BUN 14 Creatinine 0.7 L Est GFR ( Amer) > 60 Est GFR (Non-Af Amer) > 60 POC Glucose (mg/dL) 89 Random Glucose 86 Serum Osmolality 296 Calcium 8.3 L Total Bilirubin AST ALT Alkaline Phosphatase Total Protein Albumin Globulin Albumin/Globulin Ratio 05/31/17 06/01/17 06/01/17 22:05 01:34 05:35 WBC RBC Hgb Hct MCV MCH MCHC RDW Plt Count MPV Gran % Lymph % (Auto) [place] % (Auto) Eos % (Auto) Baso % (Auto) Gran # Lymph # [place] # Eos # Baso # pCO2 32 L pO2 92.0 HCO3 19.8 L ABG pH 7.40 ABG Total CO2 20.8 L ABG O2 Saturation 99.2 H ABG O2 Content 14.3 L ABG Base Excess -4.3 L ABG Hemoglobin 10.4 L ABG Carboxyhemoglobin 1.9 H POC ABG HHb (Measured) 0.8 ABG Methemoglobin 0.8 ABG O2 Capacity 14.4 L Hgb O2 Saturation 96.6 FiO2 40.0 Sodium 146 Potassium 3.5 L Chloride 116 H Carbon Dioxide 23 Anion Gap 11 BUN 14 Creatinine 0.8 Est GFR ( Amer) > 60 Est GFR (Non-Af Amer) > 60 POC Glucose (mg/dL) 89 Random Glucose 90 Serum Osmolality Calcium 8.8 Total Bilirubin AST ALT Alkaline Phosphatase Total Protein Albumin Globulin Albumin/Globulin Ratio 06/01/17 06/01/17 06/01/17 06:00 06:00 08:04 WBC 12.7 H RBC 3.56 Hgb 10.8 L Hct 33.2 L MCV 93.3 MCH 30.3 MCHC 32.5 RDW 13.2 Plt Count 229 MPV 9.7 Gran % 88.4 H Lymph % (Auto) 5.9 L Pacific % (Auto) 5.5 Eos % (Auto) 0.1 L Baso % (Auto) 0.1 Gran # 11.22 H Lymph # 0.8 L Pacific # 0.7 H Eos # 0.0 Baso # 0.01 pCO2 pO2 HCO3 ABG pH ABG Total CO2 ABG O2 Saturation ABG O2 Content ABG Base Excess ABG Hemoglobin ABG Carboxyhemoglobin POC ABG HHb (Measured) ABG Methemoglobin ABG O2 Capacity Hgb O2 Saturation FiO2 Sodium 151 H Potassium 3.4 L Chloride 118 H Carbon Dioxide 22 Anion Gap 14 BUN 13 Creatinine 0.7 L Est GFR ( Amer) > 60 Est GFR (Non-Af Amer) > 60 POC Glucose (mg/dL) 91 Random Glucose 98 Serum Osmolality Calcium 9.0 Total Bilirubin 0.7 AST 39 ALT 21 Alkaline Phosphatase 75 Total Protein 7.9 Albumin 3.1 Globulin 4.8 Albumin/Globulin Ratio 0.6 L 06/01/17 09:00 WBC RBC Hgb Hct MCV MCH MCHC RDW Plt Count MPV Gran % Lymph % (Auto) Pacific % (Auto) Eos % (Auto) Baso % (Auto) Gran # Lymph # Pacific # Eos # Baso # pCO2 pO2 HCO3 ABG pH ABG Total CO2 ABG O2 Saturation ABG O2 Content ABG Base Excess ABG Hemoglobin ABG Carboxyhemoglobin POC ABG HHb (Measured) ABG Methemoglobin ABG O2 Capacity Hgb O2 Saturation FiO2 Sodium Potassium Chloride Carbon Dioxide Anion Gap BUN Creatinine Est GFR ( Amer) Est GFR (Non-Af Amer) POC Glucose (mg/dL) Random Glucose Serum Osmolality 310 H Calcium Total Bilirubin AST ALT Alkaline Phosphatase Total Protein Albumin Globulin Albumin/Globulin Ratio Assessment & Plan - Assessment and Plan (Free Text) Assessment: Pt is a 67 year old male with PMH of HTN and alcohol use who presents to ED on 05/29 with R sided paralysis, difficulty speaking, and hemorrhagic infarct of L thalamus and basal ganglia seen on CT. Surgery consulted for left gluteal abscess and tracheostomy. Plan: Incision and drainage of left gluteal abscess under IV sedation. Tracheostomy
[2017-06-01] MEDS: metroNIDAZOLE IV 500 mg/100 ml 500 MG/100 ML BAG IVPB SCH ×2 (14:21→22:32)
[2017-06-01] MEDS: Fentanyl 1000mcg/100ml NS 1,000 MCG/100 ML BAG IV PRN (14:21)
--- NOTE | 2017-06-01 14:57 | PCM.SURG1 ---
Surgeon's Initial Post Op Note - Surgeon's Notes Surgeon: Dr. Hyatt Sticker On: Dr. Pennington Type of Anesthesia: IV Sedation Pre-Operative Diagnosis: Left gluteal Abscess Operative Findings: Large pocket without significant purulence Post-Operative Diagnosis: Left Gluteal abscess Operation Performed: Bedside Inscision and drainage of left gluteal abscess Specimen/Specimens Removed: None Estimated Blood Loss: EBL {In ML}: 15 Blood Products Given: N/A Drains Used: No Drains Post-Op Condition: Other (Patient intubated and sedated before and after case) Date of Surgery/Procedure: 06/01/17 Time of Surgery/Procedure: 14:56
[2017-06-01] MEDS ORDERED: Lidocaine 1% Inj (20ml) ONE (15:06)
--- NOTE | 2017-06-01 16:33 | PN ---
DATE: 06/01/2017 SUBJECTIVE: The patient is seen and examined at the beside. He is following commands and tracking object with his eyes. He has dense paralysis on the left upper and lower extremity, however able to use his left upper and lower extremity and dense paralysis on the right upper and lower extremity. PHYSICAL EXAMINATION: VITAL SIGNS: Heart rate 106, blood pressure 176/87, respiratory rate 21, and oxygen saturation 100%. ENT: Head and neck; atraumatic. LUNGS: Clear to auscultation bilaterally. HEART: Regular rate and rhythm. S1 and S2 normal. ABDOMEN: Soft, nontender, and nondistended. MUSCULOSKELETAL: No C/C/E. NEUROLOGIC: The patient moves all extremities. The patient has dense hemiplegia on the right side and 3/5 motor strength on the left upper and lower extremity. He is tracking object with his eyes and follow commands. SKIN: Moist. PSYCHIATRIC: The patient is comfortable off sedation. Following commands. LABORATORY DATA: WBC 12.7, hemoglobin 10.8, and platelet count 229. Sodium 151, potassium 3.4, chloride 118, carbon dioxide 22, BUN 15, creatinine 0.7, and glucose 91. AST 39 and ALT 21. MEDICATIONS: Aztreonam, Flagyl, metoprolol 25 mg p.o. b.i.d., Protonix, topical silver sulfadiazine, and vancomycin. ASSESSMENT AND PLAN: 1. This is a 67-year-old gentleman with thalamic bleed due to uncontrolled hypertension, who was intubated for airway protection with some improvement in neuro exam and MS since yesterday. He still has dense hemiplegia on the right side. He however is able to follow commands. I am waiting for neurology followup exam today to see if neuro exam would suggest improved enough ability to protect airways, if extubated. If however, deemed too risky would proceed with trach 2. We will continue to maintain euvolemia, euglycemia, normothermia, and oxygen saturation more than 90%. We will continue to maintain sodium level between 145 and 155 range. We will start enteral nutrition. We will continue with head of bed elevated at >35 degree in neutral position. Neurology follow up is appreciated. If neurology service concur, we will extubate the patient, otherwise trach. 3. PULM: we will continue with PST, VAP bundle including oral hygiene, DVT and GI prophylaxis and head of bed elevated to >35 degrees. 4. Cardiac: The patient is in sinus rhythm, slightly hypertensive. Beta-blockers added. Cardiology followup appreciated. Clonidine 0.1 mg p.o. started to maintain normotension. 5. Gastrointestinal: We will start enteral nutrition through NG tube. GI prophylaxis. 6. Renal: Adequate urine output. Creatinine level is within normal limits. We will try to avoid nephrotoxic medication. We will maintain blood glucose control and euvolemia and MAP>70 (h/o HTN). 7. Infectious Disease: The patient has some cellulitis in the buttock. Antibiotics started. ID and surgical service consult requested.. Leukocytosis is going down. The patient is afebrile. 8. Endocrine: We will maintain euvolemia, euglycemia, and correct electrolytes if needed. We will continue with DVT and GI prophylaxis. Addendum: Discussed with Dr. Davies-->will proceed with trach and further weaning from vent. Surgical consult: I&D of a buttock abscess--done ccm time 40 min Sukhwinder Oliva MD EZRA
[2017-06-01] MEDS ORDERED: Iohexol 350 MG/100 ML VIAL ONE (16:43)
--- NOTE | 2017-06-01 17:37 | CT ---
PROCEDURE: CT HEAD WITHOUT CONTRAST. HISTORY: follow up stroke COMPARISON: 05/29/2017, 05/30/2017, May 31, 2017. . Serial CT scans of the head. TECHNIQUE: Axial computed tomography images were obtained through the head/brain without intravenous contrast. Radiation dose: Total exam DLP = 803.39 mGy-cm. This CT exam was performed using one or more of the following dose reduction techniques: Automated exposure control, adjustment of the mA and/or kV according to patient size, and/or use of iterative reconstruction technique. FINDINGS: HEMORRHAGE: No intracranial hemorrhageStable hemorrhage occupying portions of the left thalamus, posterior limb of the internal capsule and muller radiata. All. BRAIN: Local edema unchanged. Cortical atrophy, periventricular small vessel disease VENTRICLES: Hemorrhage again identified landing in the posterior horns of the lateral ventricles bilaterally. CALVARIUM: Unremarkable. PARANASAL SINUSES: No significant interval change compared to the prior examination(s). MASTOID AIR CELLS: Unremarkable as visualized. No inflammatory changes. OTHER FINDINGS: None. IMPRESSION: Stable the lab yolanda and internal capsule hemorrhage, no interval change with respect to blood layering in the lateral ventricles.
--- NOTE | 2017-06-01 17:44 | CT ---
PROCEDURE: CT Pelvis with contrast HISTORY: Please include full bottock proximal thigh COMPARISON: None. TECHNIQUE: Contiguous axial images of the pelvis with contrast. Coronal and sagittal reformats generated. Contrast dose: 100 cc Omnipaque 350 Radiation dose: Total exam DLP = 486.94 mGy-cm. This CT exam was performed using one or more of the following dose reduction techniques: Automated exposure control, adjustment of the mA and/or kV according to patient size, and/or use of iterative reconstruction technique. FINDINGS: BLADDER: Bladder wall thickening more likely to be secondary to underfilling than cystitis or other inflammatory process. REPRODUCTIVE ORGANS: Unremarkable. VISUALIZED BOWEL: Fecal impaction, constipation. PERITONEUM: Unremarkable, as visualized. No free fluid. No free air. LYMPH NODES: Unremarkable. No enlarged lymph nodes. VASCULATURE: Unremarkable. BONES: Findings in the medial aspect of the right iliac bone suggests sequela prior surgery, perhaps bone graft. OTHER FINDINGS: Cutaneous thickening/edema at or infra gluteal region on the left with focal collection containing air and debris the 1.5 cm. An additional smaller subcutaneous abscess more laterally measures approximately 0.9 x 1.6 cm. No evidence of fistulous tract, sinus tract or extension into the peritoneum. IMPRESSION: Inflammatory changes affecting skin and subcutaneous tissues inferior to the left gluteal muscles with at least 2 focal collections described in greater detail in the commentary common neither limb measure larger than 1.6 cm. Additional benign and/or incidental findings described above.Unremarkable contrast enhanced CT of the pelvis.
[2017-06-01] MEDS: Sodium Chloride 0.9% 1,000 ML IV SCH (20:14)
[2017-06-02] MEDS: Aztreonam 2 Gm in NS 100mL 100 ML IVPB SCH ×3 (05:46→21:22)
[2017-06-02] MEDS: metroNIDAZOLE IV 500 mg/100 ml 500 MG/100 ML BAG IVPB SCH ×3 (05:47→21:26)
[2017-06-02 06:09] LABS: BASO # 0.02 K/mm3 (0.0-2.0); BASO % 0.2 % (0.0-3.0); EOS # 0.1 (0.0-0.7); EOS % 1.1 % (1.5-5.0); GRAN # 9.8 (1.4-6.5); GRAN % 84.8 % (50.0-68.0); HEMATOCRIT 30.5 % (42.0-52.0); LYMPH # 0.8 (1.2-3.4); LYMPH % 7.3 % (22.0-35.0); MEAN CELL VOLUME 94.4 fl (80.0-105.0); MEAN CORPUSCULAR HEMOGLOBIN 30.3 pg (25.0-35.0); MEAN CORPUSCULAR HGB CONC 32.1 g/dl (31.0-37.0); MEAN PLATELET VOLUME 9.5 fl (7.0-11.0); MONO # 0.8 (0.1-0.6); MONO % 6.6 % (1.0-6.0); RED CELL DISTRIBUTION WIDTH 13.5 % (11.5-14.5); WHITE BLOOD COUNT 11.6 10^3/ul (4.5-11.0)
[2017-06-02 06:17] LABS: ALB/GLOB RATIO 0.6 (1.1-1.8); ALKALINE PHOSPHATASE 72 U/L (38-126); ALT/SGPT 25 U/L (7-56); AST/SGOT 30 U/L (17-59); BILIRUBIN,TOTAL 0.6 mg/dL (0.2-1.3); BLOOD UREA NITROGEN 16 mg/dL (7-21); CARBON DIOXIDE 25 mmol/L (21-33); CHLORIDE 118 mmol/L (98-107); GFR AFRICAN-AMERICAN > 60; GLUCOSE,RANDOM 108 mg/dL (70-110); POTASSIUM 3.5 mmol/L (3.6-5.0); SODIUM 149 mmol/L (132-148); TOTAL PROTEIN 7.5 g/dL (5.8-8.3)
--- NOTE | 2017-06-02 08:39 | CP.PCM.PN ---
Subjective - Date & Time of Evaluation Date of Evaluation: 06/02/17 Time of Evaluation: 10:02 - Subjective Subjective: Surgery Progress note. Dr. Hyatt Pt seen and examined at bedside. Patient is intubated and sedated. No acute events overnight as per nursing staff. Objective - Vital Signs/Intake and Output Vital Signs (last 24 hours): Temp Pulse Resp BP Pulse Ox 98.5 F 71 14 119/57 L 99 06/02/17 04:00 06/02/17 06:40 06/02/17 06:40 06/01/17 22:30 06/02/17 06:40 Intake and Output: 06/02/17 06/02/17 06:59 18:59 Intake Total 2270 Output Total 600 Balance 1670 - Medications Medications: Current Medications Chlorhexidine Gluconate (Peridex) 15 ml PO TID [facility] Last Admin: 06/01/17 18:09 Dose: 15 ml Clonidine HCl (Catapres) 0.1 mg PO BID [facility] Last Admin: 06/01/17 18:10 Dose: 0.1 mg NOREPINEPHRINE BIT/0.9 % NACL (Levophed 4 Mg/ 250 Ml Ns Premixed) 4 mg in 250 mls @ 18.75 mls/hr IV .[id number] PRN; Protocol; 5 MCG/MIN PRN Reason: TITRATE PER MD ORDER Last Titration: 05/31/17 13:35 Dose: 0 mcg/min, 0 mls/hr Propofol (Diprivan) 500 mg in 50 mls @ 2.117 mls/hr IV .[id number] PRN; Protocol; 5 MCG/KG/MIN PRN Reason: TITRATE PER MD ORDER Last Titration: 05/31/17 09:39 Dose: 0 mcg/kg/min, 0 mls/hr Vancomycin HCl (Vancomycin 1gm) 1 gm in 250 mls @ 167 mls/hr IVPB Q12H [facility] PRN Reason: Protocol Last Admin: 06/01/17 22:32 Dose: 167 mls/hr Aztreonam (Azactam 2 Gm) 100 mls @ 100 mls/hr IVPB Q8 [facility] PRN Reason: Protocol Stop: 06/08/17 09:01 Last Admin: 06/02/17 05:46 Dose: 100 mls/hr Metronidazole (Flagyl) 500 mg in 100 mls @ 100 mls/hr IVPB Q8 [facility] PRN Reason: Protocol Last Admin: 06/02/17 05:47 Dose: 100 mls/hr Fentanyl Citrate (Fentanyl Citrate/Sodium Chloride 1 Mg/100 Ml) 1,000 mcg in 100 mls @ 2 mls/hr IV .Q24H PRN; Protocol; 20 MCG/HR PRN Reason: TITRATE PER MD ORDER Last Titration: 06/02/17 04:00 Dose: 40 mcg/hr, 4 mls/hr Sodium Chloride (Sodium Chloride 0.9%) 1,000 mls @ 100 mls/hr IV .Q10H [facility] Last Admin: 06/01/17 20:14 Dose: 100 mls/hr Lorazepam (Ativan) 2 mg IVP Q2H PRN; Protocol PRN Reason: Symptoms of alcohol withdrawl Lorazepam (Ativan) 4 mg IVP Q4H PRN; Protocol PRN Reason: Symptoms of alcohol withdrawl Last Admin: 05/30/17 17:00 Dose: 4 mg Metoprolol Tartrate (Lopressor) 25 mg PO BID [facility] Last Admin: 06/01/17 18:10 Dose: 25 mg Pantoprazole Sodium (Protonix Inj) 40 mg IVP DAILY [facility] Last Admin: 06/01/17 09:49 Dose: 40 mg Silver Sulfadiazine (Silvadene 1% 25 Gm) 0 gm TP BID [facility] Last Admin: 06/01/17 18:14 Dose: 25 gm Sodium Chloride (Sodium Chloride Tab) 1 gm PO Q12 [facility] Last Admin: 06/02/17 00:20 Dose: 1 gm - Labs Labs: 06/02/17 06:00 06/02/17 06:00 PT 14.0 SECONDS (9.4-12.5) H 05/31/17 09:30 INR 1.27 (0.93-1.08) H 05/31/17 09:30 APTT 23.3 Seconds (25.1-36.5) L 05/31/17 09:30 - Constitutional Appears: No Acute Distress - Head Exam Head Exam: ATRAUMATIC, NORMAL INSPECTION - ENT Exam Additional comments: Intubated and on vent. - Respiratory Exam Respiratory Exam: absent: Wheezes Additional comments: Intubated and sedated. On vent: PRVC FiO2 40%, RR 14, PEEP 5, TV 480 - Cardiovascular Exam Cardiovascular Exam: RRR. absent: JVD - GI/Abdominal Exam GI & Abdominal Exam: Soft. absent: Guarding, Rigid, Tenderness - Back Exam Additional comments: I&D site with dressings intact. Will reinforce as needed - Neurological Exam Additional comments: Sedated Assessment and Plan - Assessment and Plan (Free Text) Assessment: 67yo M with PMHx of HTN, ETOH abuse here with hemorrhagic stroke involving L Thalamus and Basal Ganglia, Intubated on 05/31. General Surgery consulted for tracheostomy and gluteal abscess. S/P Bedside I&D 06/01. - Reinforce gluteal dressings as needed - Continue Abx as per ID - Medical management as per primary, ICU, Neurology, Cardiology teams - Monitor patient's dependence on ventilator for now Further recs as per Dr. Edmar Andersen PGY1 surgery pager: [phone]
[2017-06-02] MEDS: Chlorhexidine 0.12% Oral Sol 480 ml Bot PO SCH ×3 (10:16→18:37)
[2017-06-02] MEDS: Silver Sulfadiazine 1% Cream (25 gm) TP SCH ×2 (10:21→17:11)
[2017-06-02] MEDS: Vancomycin 1gm in NS 250ml 1 GM/250 ML BAG IVPB SCH ×2 (10:24→21:23)
[2017-06-02] MEDS: Sodium Chloride 0.9% 1,000 ML IV SCH (10:25)
--- NOTE | 2017-06-02 11:05 | CP.PCM.PN ---
Subjective - Date & Time of Evaluation Date of Evaluation: 06/02/17 Time of Evaluation: 10:50 - Subjective Subjective: Continues to be on the ventilator, no fevers overnight, I and D was done for the left gluteal abscess yesterday. Objective - Vital Signs/Intake and Output Vital Signs (last 24 hours): Temp Pulse Resp BP Pulse Ox 98.5 F 71 14 119/57 L 99 06/02/17 04:00 06/02/17 06:40 06/02/17 06:40 06/01/17 22:30 06/02/17 06:40 Intake and Output: 06/02/17 06/02/17 06:59 18:59 Intake Total 2270 Output Total 600 Balance 1670 - Medications Medications: Current Medications Chlorhexidine Gluconate (Peridex) 15 ml PO TID [facility] Last Admin: 06/01/17 18:09 Dose: 15 ml Clonidine HCl (Catapres) 0.1 mg PO BID [facility] Last Admin: 06/01/17 18:10 Dose: 0.1 mg NOREPINEPHRINE BIT/0.9 % NACL (Levophed 4 Mg/ 250 Ml Ns Premixed) 4 mg in 250 mls @ 18.75 mls/hr IV .[id number] PRN; Protocol; 5 MCG/MIN PRN Reason: TITRATE PER MD ORDER Last Titration: 05/31/17 13:35 Dose: 0 mcg/min, 0 mls/hr Propofol (Diprivan) 500 mg in 50 mls @ 2.117 mls/hr IV .[id number] PRN; Protocol; 5 MCG/KG/MIN PRN Reason: TITRATE PER MD ORDER Last Titration: 05/31/17 09:39 Dose: 0 mcg/kg/min, 0 mls/hr Vancomycin HCl (Vancomycin 1gm) 1 gm in 250 mls @ 167 mls/hr IVPB Q12H [facility] PRN Reason: Protocol Last Admin: 06/01/17 22:32 Dose: 167 mls/hr Aztreonam (Azactam 2 Gm) 100 mls @ 100 mls/hr IVPB Q8 [facility] PRN Reason: Protocol Stop: 06/08/17 09:01 Last Admin: 06/02/17 05:46 Dose: 100 mls/hr Metronidazole (Flagyl) 500 mg in 100 mls @ 100 mls/hr IVPB Q8 [facility] PRN Reason: Protocol Last Admin: 06/02/17 05:47 Dose: 100 mls/hr Fentanyl Citrate (Fentanyl Citrate/Sodium Chloride 1 Mg/100 Ml) 1,000 mcg in 100 mls @ 2 mls/hr IV .Q24H PRN; Protocol; 20 MCG/HR PRN Reason: TITRATE PER MD ORDER Last Titration: 06/02/17 04:00 Dose: 40 mcg/hr, 4 mls/hr Sodium Chloride (Sodium Chloride 0.9%) 1,000 mls @ 100 mls/hr IV .Q10H [facility] Last Admin: 06/01/17 20:14 Dose: 100 mls/hr Lorazepam (Ativan) 2 mg IVP Q2H PRN; Protocol PRN Reason: Symptoms of alcohol withdrawl Lorazepam (Ativan) 4 mg IVP Q4H PRN; Protocol PRN Reason: Symptoms of alcohol withdrawl Last Admin: 05/30/17 17:00 Dose: 4 mg Metoprolol Tartrate (Lopressor) 25 mg PO BID [facility] Last Admin: 06/01/17 18:10 Dose: 25 mg Pantoprazole Sodium (Protonix Inj) 40 mg IVP DAILY [facility] Last Admin: 06/01/17 09:49 Dose: 40 mg Silver Sulfadiazine (Silvadene 1% 25 Gm) 0 gm TP BID [facility] Last Admin: 06/01/17 18:14 Dose: 25 gm Sodium Chloride (Sodium Chloride Tab) 1 gm PO Q12 [facility] Last Admin: 06/02/17 00:20 Dose: 1 gm - Labs Labs: 06/02/17 06:00 06/02/17 06:00 PT 14.0 SECONDS (9.4-12.5) H 05/31/17 09:30 INR 1.27 (0.93-1.08) H 05/31/17 09:30 APTT 23.3 Seconds (25.1-36.5) L 05/31/17 09:30 - Constitutional Appears: Other (intubated and sedated) - Head Exam Head Exam: NORMAL INSPECTION - ENT Exam Additional comments: ET tube in place - Respiratory Exam Respiratory Exam: Decreased Breath Sounds - Cardiovascular Exam Cardiovascular Exam: +S1, +S2 - GI/Abdominal Exam GI & Abdominal Exam: Soft. absent: Tenderness - Extremities Exam Additional comments: left gluteal area with dressings in place Assessment and Plan - Assessment and Plan (Free Text) Plan: Assessment Probable left buttock skin and skin structure infection S/P I and D POD #1 systemic inflammatory response syndrome probably from acute left sided hemorrhagic CVA skin cancer S/P resection around right ear area S/P lumbar disc hernia repair Plan continue Vancomycin, Azactam and Flagyl day 2 pending final blood and wound cx Neuro and Neurosurgery managing the CVA will continue to monitor clinically
--- NOTE | 2017-06-02 11:18 | CP.PCM.PN ---
<Paramjit Kamara - Last Filed: 06/02/17 11:15> Subjective - Date & Time of Evaluation Date of Evaluation: 06/02/17 Time of Evaluation: 11:15 - Subjective Subjective: Patient seen and examined at bedside in ICU this AM. Patient is intubated and of sedation. No acute events overnight reported. Patient went for drainage of abscess yesterday with general surgery. Patient able to obey simple commands. Patient is unable to communicate ROS and therefore limited. Objective - Vital Signs/Intake and Output Vital Signs (last 24 hours): Temp Pulse Resp BP Pulse Ox 99.3 F 73 14 136/70 100 06/02/17 09:00 06/02/17 10:16 06/02/17 08:30 06/02/17 10:16 06/02/17 08:30 Intake and Output: 06/02/17 06/02/17 06:59 18:59 Intake Total 2270 Output Total 600 Balance 1670 - Medications Medications: Current Medications Chlorhexidine Gluconate (Peridex) 15 ml PO TID [facility] Last Admin: 06/02/17 10:16 Dose: 15 ml Clonidine HCl (Catapres) 0.1 mg PO BID [facility] Last Admin: 06/02/17 10:15 Dose: 0.1 mg NOREPINEPHRINE BIT/0.9 % NACL (Levophed 4 Mg/ 250 Ml Ns Premixed) 4 mg in 250 mls @ 18.75 mls/hr IV .[id number] PRN; Protocol; 5 MCG/MIN PRN Reason: TITRATE PER MD ORDER Last Titration: 05/31/17 13:35 Dose: 0 mcg/min, 0 mls/hr Propofol (Diprivan) 500 mg in 50 mls @ 2.117 mls/hr IV .[id number] PRN; Protocol; 5 MCG/KG/MIN PRN Reason: TITRATE PER MD ORDER Last Titration: 05/31/17 09:39 Dose: 0 mcg/kg/min, 0 mls/hr Vancomycin HCl (Vancomycin 1gm) 1 gm in 250 mls @ 167 mls/hr IVPB Q12H [facility] PRN Reason: Protocol Last Admin: 06/02/17 10:24 Dose: 167 mls/hr Aztreonam (Azactam 2 Gm) 100 mls @ 100 mls/hr IVPB Q8 [facility] PRN Reason: Protocol Stop: 06/08/17 09:01 Last Admin: 06/02/17 05:46 Dose: 100 mls/hr Metronidazole (Flagyl) 500 mg in 100 mls @ 100 mls/hr IVPB Q8 [facility] PRN Reason: Protocol Last Admin: 06/02/17 05:47 Dose: 100 mls/hr Fentanyl Citrate (Fentanyl Citrate/Sodium Chloride 1 Mg/100 Ml) 1,000 mcg in 100 mls @ 2 mls/hr IV .Q24H PRN; Protocol; 20 MCG/HR PRN Reason: TITRATE PER MD ORDER Last Titration: 06/02/17 04:00 Dose: 40 mcg/hr, 4 mls/hr Sodium Chloride (Sodium Chloride 0.9%) 1,000 mls @ 100 mls/hr IV .Q10H [facility] Last Admin: 06/02/17 10:25 Dose: 100 mls/hr Lorazepam (Ativan) 2 mg IVP Q2H PRN; Protocol PRN Reason: Symptoms of alcohol withdrawl Lorazepam (Ativan) 4 mg IVP Q4H PRN; Protocol PRN Reason: Symptoms of alcohol withdrawl Last Admin: 05/30/17 17:00 Dose: 4 mg Metoprolol Tartrate (Lopressor) 25 mg PO BID [facility] Last Admin: 06/02/17 10:16 Dose: 25 mg Pantoprazole Sodium (Protonix Inj) 40 mg IVP DAILY [facility] Last Admin: 06/02/17 10:17 Dose: 40 mg Silver Sulfadiazine (Silvadene 1% 25 Gm) 0 gm TP BID [facility] Last Admin: 06/02/17 10:21 Dose: Not Given Sodium Chloride (Sodium Chloride Tab) 1 gm PO Q12 [facility] Last Admin: 06/02/17 10:21 Dose: 1 gm - Labs Labs: 06/02/17 06:00 06/02/17 06:00 PT 14.0 SECONDS (9.4-12.5) H 05/31/17 09:30 INR 1.27 (0.93-1.08) H 05/31/17 09:30 APTT 23.3 Seconds (25.1-36.5) L 05/31/17 09:30 - Constitutional Appears: No Acute Distress - Head Exam Head Exam: ATRAUMATIC, NORMAL INSPECTION, NORMOCEPHALIC - Eye Exam Eye Exam: EOMI Pupil Exam: PERRL Additional comments: pupils noted to be sluggish, CN3 palsy, Pupils 2 mm - ENT Exam ENT Exam: Mucous Membranes Dry - Neck Exam Neck Exam: absent: Lymphadenopathy, Thyromegaly - Respiratory Exam Respiratory Exam: Clear to Ausculation Bilateral, NORMAL BREATHING PATTERN - Cardiovascular Exam Cardiovascular Exam: REGULAR RHYTHM, +S1, +S2. absent: Murmur - GI/Abdominal Exam GI & Abdominal Exam: Soft, Normal Bowel Sounds - Extremities Exam Extremities Exam: Normal Capillary Refill, Normal Inspection - Neurological Exam Neurological Exam: Awake Additional comments: right sided hemiplegia Left side able to follow simple commands with motor intact - Psychiatric Exam Psychiatric exam: Normal Affect - Skin Skin Exam: Dry, Intact, Normal Color, Warm Additional comments: Left gluteal ulcer with surgical dressing c/d/i s/p intervention Assessment and Plan - Assessment and Plan (Free Text) Assessment: 67 yo M with unknown PMH presented for possible stroke, found to have 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 Plan: 1. Intracerebral Hemorrhage - Admitted to ICU - Intubated to protect airway, currently off sedation - Levophed held, as patient is hypertensive - NGT in place, tube feedings - CT showed hemorrhagic infarct of the left thalamus/basal ganglia. No midline shift. Left thalamic edema - Repeat CT showed stable left thalamic hemorrhage x2 - Neurosurgery consulted No surgical intervention at this time - Neuro consulted Target Na 135-145 and osmolarity is < 320 Hypertonic saline, currently held Monitor serum sodium and osmolarity Q6H Maintain serum glucose below 160 mg/dL Maintain head of bed above 30 degrees Avoid IV glucose, hyperthermia - Lipid panel, A1C WNL 2. SVT vs. Rapid a-fib, resolved - Cardio consulted Lopressor 25 mg PO BID - Adenosine given, which converted patient to NSR - Start Lopressor and aggresive IV hydration 3. Decubitus Ulcer, Grade 2 - Surgery consulted - ID consulted - Vancomycin, Azactam, Flagyl day 2 - Blood and wound culture negative continue to follow 4. Hypokalemia - K 3.5 - Repleted - Monitor and replete as needed 5. EtOH Abuse - EtOH negative - Ativan held to better assess neuro status GI/DVT PPx - Protonix - SCDs Case and planned reviewed with attending <Irfan,Mohammad - Last Filed: 06/02/17 17:03> Objective - Vital Signs/Intake and Output Vital Signs (last 24 hours): Temp Pulse Resp BP Pulse Ox 99.1 F 68 14 148/74 100 06/02/17 16:00 06/02/17 16:10 06/02/17 16:10 06/02/17 16:00 06/02/17 16:10 Intake and Output: 06/02/17 06/02/17 06:59 18:59 Intake Total 2270 20 Output Total 600 Balance 1670 20 - Medications Medications: Current Medications Artificial Tears (Artificial Tears) 0 ml OU DAILY [facility] Last Admin: 06/02/17 15:06 Dose: 2 drop Chlorhexidine Gluconate (Peridex) 15 ml PO TID [facility] Last Admin: 06/02/17 14:10 Dose: 15 ml Clonidine HCl (Catapres) 0.1 mg PO BID [facility] Last Admin: 06/02/17 10:15 Dose: 0.1 mg Vancomycin HCl (Vancomycin 1gm) 1 gm in 250 mls @ 167 mls/hr IVPB Q12H [facility] PRN Reason: Protocol Last Admin: 06/02/17 10:24 Dose: 167 mls/hr Aztreonam (Azactam 2 Gm) 100 mls @ 100 mls/hr IVPB Q8 [facility] PRN Reason: Protocol Stop: 06/08/17 09:01 Last Admin: 06/02/17 14:09 Dose: 100 mls/hr Metronidazole (Flagyl) 500 mg in 100 mls @ 100 mls/hr IVPB Q8 [facility] PRN Reason: Protocol Last Admin: 06/02/17 14:11 Dose: 100 mls/hr Fentanyl Citrate (Fentanyl Citrate/Sodium Chloride 1 Mg/100 Ml) 1,000 mcg in 100 mls @ 2 mls/hr IV .Q24H PRN; Protocol; 20 MCG/HR PRN Reason: TITRATE PER MD ORDER Last Admin: 06/02/17 11:20 Dose: 40 mcg/hr, 4 mls/hr Sodium Chloride (Sodium Chloride 0.9%) 1,000 mls @ 100 mls/hr IV .Q10H [facility] Last Admin: 06/02/17 10:25 Dose: 100 mls/hr Lorazepam (Ativan) 2 mg IVP Q2H PRN; Protocol PRN Reason: Symptoms of alcohol withdrawl Lorazepam (Ativan) 4 mg IVP Q4H PRN; Protocol PRN Reason: Symptoms of alcohol withdrawl Last Admin: 05/30/17 17:00 Dose: 4 mg Metoprolol Tartrate (Lopressor) 25 mg PO BID [facility] Last Admin: 06/02/17 10:16 Dose: 25 mg Pantoprazole Sodium (Protonix Inj) 40 mg IVP DAILY [facility] Last Admin: 06/02/17 10:17 Dose: 40 mg Silver Sulfadiazine (Silvadene 1% 25 Gm) 0 gm TP BID [facility] Last Admin: 06/02/17 10:21 Dose: Not Given Sodium Chloride (Sodium Chloride Tab) 1 gm PO Q12 [facility] Last Admin: 06/02/17 10:21 Dose: 1 gm - Labs Labs: 06/02/17 06:00 06/02/17 06:00 PT 14.0 SECONDS (9.4-12.5) H 05/31/17 09:30 INR 1.27 (0.93-1.08) H 05/31/17 09:30 APTT 23.3 Seconds (25.1-36.5) L 05/31/17 09:30 Attending/Attestation - Attestation I have personally seen and examined this patient.: Yes I have fully participated in the care of the patient.: Yes I have reviewed all pertinent clinical information, including history, physical exam and plan: Yes Notes (Text): 06/02/17 16:56 Patient was seen and examined with medical territory manager. 67 yrs old male was admitted with change of mental status , found to have hammorhagic CVA, CT showed hemorrhagic infarct of the left thalamus/basal ganglia with extension into 3rd ventricle and lateral ventrile. Neuro surgery recommended conservative management.Patient was intubated for air way protection , also went into SVT responded to 6 mg of Adenosine, now back in NSR.Patient repeat CT head was unchanged.He follows simple command.He is on respiratory support. Patient is also sp I/D of right buttock abscess on broad spectrum antibiotics as per ID.Cultures are negative for any growth.. Hypokalemia, will replace electrolyte. Prognosis is guarded.
[2017-06-02] MEDS: Fentanyl 1000mcg/100ml NS 1,000 MCG/100 ML BAG IV PRN (11:20)
--- NOTE | 2017-06-02 11:21 | CARD ---
APPROVED REPORT EXAM: Two-dimensional and M-mode echocardiogram with Doppler and color Doppler. INDICATION TACHY 2D DIMENSIONS Left Atrium (2D)4.0 (1.6-4.0cm)IVSd1.4 (0.7-1.1cm) LVDd2.8 (3.9-5.9cm)PWd1.9 (0.7-1.1cm) LVDs1.7 (2.5-4.0cm)FS (%) 38.7 % LVEF (%)70.8 (>50%) M-Mode DIMENSIONS Aortic Root3.60 (2.2-3.7cm)Aortic Cusp Exc.1.00 (1.5-2.0cm) Aortic Valve AoV Peak [id number]/Reagan Peak GR.7mmHg Mitral Valve E/A ratio0.0 TDI E/Lateral E'0.0E/Medial E'0.0 Tricuspid Valve TR Peak [id number] [id number] Peak Gr.24mmHg [id number] LEFT VENTRICLE There is moderate concentric left ventricular hypertrophy. The left ventricular function is normal. The left ventricular ejection fraction is within the normal range. RIGHT VENTRICLE The right ventricle is normal size. ATRIA The left atrium is mildly dilated. The right atrium is mildly dilated. AORTIC VALVE The aortic valve is thickened but opens well. MITRAL VALVE The mitral valve is thickened but opens well. TRICUSPID VALVE The tricuspid valve leaflets are thickened , but open well. There is mild tricuspid regurgitation. There is mild pulmonary hypertension. PULMONIC VALVE The pulmonic valve is not well visualized. PERICARDIAL EFFUSION There is no pericardial effusion. <Conclusion> Moderate LVH Normal LV systolic function Small LV cavity secondary to tachycardia Mildly dilated LA and RA Mild TR Mild pulmonary hypertension
--- NOTE | 2017-06-02 11:59 | PN ---
DATE: 06/02/2017 SUBJECTIVE: The patient remains on a ventilator. PHYSICAL EXAMINATION: VITAL SIGNS: Blood pressure is 136/70, heart rate is in the 70s, normal sinus rhythm. NECK: Negative JVD. LUNGS: Decreased breath sounds. HEART: With S1 and S2. EXTREMITIES: Without change. LABORATORY DATA: Hemoglobin is 9.8. Chemistries: BUN and creatinine are unremarkable. Potassium is 3.5. IMPRESSION: 1. Status post respiratory failure. 2. Intracerebral bleed. 3. Status post accelerated hypertension, which is now well-controlled. 4. Status post supraventricular tachycardia, in which the patient now remains in normal sinus rhythm. PLAN: Given these findings, we will check the magnesium today. We will replace potassium and magnesium as needed. We will continue on beta blockers. Nathan Pereyra MD
--- NOTE | 2017-06-02 12:28 | CP.CCUPN ---
<Mikhail De La Cruz - Last Filed: 06/02/17 12:25> CCU Subjective - Physician Review Subjective (Free Text): Patient seen and examined at bedside. Resting comfortably in bed. No acute overnight events. Patient is intubated and off of sedation. Patient opens eyes to verbal stimuli but does not follow commands. ROS cannot be attained at this time due to altered mental status. 06/02/17 12:25 CCU Objective - Vital Signs / Intake & Output Vital Signs (Last 4 hours): Vital Signs Temp Pulse Resp BP Pulse Ox 06/02/17 12:00 55 L 14 102/51 L 100 06/02/17 11:50 56 L 14 99 06/02/17 11:40 57 L 14 100 06/02/17 11:30 59 L 14 100 06/02/17 11:20 63 14 100 06/02/17 11:10 64 14 100 06/02/17 11:00 66 14 115/59 L 100 06/02/17 10:50 78 14 100 06/02/17 10:40 78 14 100 06/02/17 10:30 73 14 100 06/02/17 10:20 71 14 100 06/02/17 10:16 73 136/70 06/02/17 10:15 75 136/70 06/02/17 10:10 74 14 100 06/02/17 10:00 75 14 136/70 100 06/02/17 09:50 71 14 100 06/02/17 09:40 67 14 100 06/02/17 09:30 70 14 100 06/02/17 09:20 66 14 100 06/02/17 09:10 64 14 100 06/02/17 09:00 99.3 F 66 14 121/62 100 06/02/17 08:50 64 14 100 06/02/17 08:40 66 14 100 06/02/17 08:30 68 14 100 Intake and Output (Last 8hrs): Intake & Output 06/01/17 06/02/17 06/02/17 22:59 06:59 14:59 Intake Total 870 2270 20 Output Total 1200 600 Balance -330 1670 20 Intake: IV 800 1890 20 Left Internal Jugular 800 1810 Right Antecubital 0 Oral 0 Tube Feeding 70 380 Output: Urine 1200 600 Urine, Voided 1200 600 Other: # Bowel Movements 0 0 - Physical Exam Head: Positive for: Atraumatic, Normocephalic Extroacular Muscles: Positive for: Other (does not follow commands ) Mouth: Positive for: Moist Mucous Membranes Nose (External): Positive for: Atraumatic Neck: Positive for: Other (L IJ in place) Respiratory/Chest: Positive for: Respiratory Distress. Negative for: Accessory Muscle Use, Wheezes, Rales, Rhonchi Cardiovascular: Positive for: Regular Rate and Rhythm, Normal S1, S2. Negative for: Murmurs, Rub Abdomen: Positive for: Normal Bowel Sounds. Negative for: Tenderness, Distention, Peritoneal Signs Upper Extremity: Positive for: Capillary Refill < 2s, Other (Flacid right sided hemiparesis). Negative for: Edema, Erythema Lower Extremity: Positive for: Capillary Refill < 2 s. Negative for: Edema, CALF TENDERNESS Neurological: Positive for: Other (intubated, right Babinski). Negative for: Speech Normal Skin: Positive for: Warm, Dry - Medications Active Medications: Active Medications Generic Name Dose Route Start Last Admin Trade Name Freq PRN Reason Stop Dose Admin Chlorhexidine Gluconate 15 ml 06/01/17 12:00 06/02/17 10:16 Peridex PO 15 ml TID KATIE Administration Clonidine HCl 0.1 mg 06/01/17 18:00 06/02/17 10:15 Catapres PO 0.1 mg BID KATIE Administration NOREPINEPHRINE BIT/0.9 % NACL 4 mg in 250 mls @ 18.75 mls/hr 05/31/17 08:18 05/31/17 13:35 Levophed 4 Mg/ 250 Ml Ns Premixed IV 0 mcg/min .[id number] PRN 0 mls/hr TITRATE PER MD ORDER Titration Protocol 5 MCG/MIN Propofol 500 mg in 50 mls @ 2.117 mls/hr 05/31/17 10:06 05/31/17 09:39 Diprivan IV 0 mcg/kg/min .[id number] PRN 0 mls/hr TITRATE PER MD ORDER Titration Protocol 5 MCG/KG/MIN Vancomycin HCl 1 gm in 250 mls @ 167 mls/hr 06/01/17 10:00 06/02/17 10:24 Vancomycin 1gm IVPB 167 mls/hr Q12H KATIE Administration Protocol Aztreonam 100 mls @ 100 mls/hr 06/01/17 09:00 06/02/17 05:46 Azactam 2 Gm IVPB 06/08/17 09:01 100 mls/hr Q8 KATIE Administration Protocol Metronidazole 500 mg in 100 mls @ 100 mls/hr 06/01/17 14:00 06/02/17 05:47 Flagyl IVPB 100 mls/hr Q8 KATIE Administration Protocol Fentanyl Citrate 1,000 mcg in 100 mls @ 2 mls/hr 06/01/17 14:04 06/02/17 11: 20 Fentanyl Citrate/Sodium Chloride 1 Mg/100 Ml IV 40 mcg/hr .Q24H PRN 4 mls/hr TITRATE PER MD ORDER Administration Protocol 20 MCG/HR Sodium Chloride 1,000 mls @ 100 mls/hr 06/01/17 19:00 06/02/17 10:25 Sodium Chloride 0.9% IV 100 mls/hr .Q10H KATIE Administration Potassium Chloride 20 meq in 100 mls @ 50 mls/hr 06/02/17 11:30 Potassium Chloride 20 Meq/100 Ml IVPB 06/02/17 15:29 Q2H AKTIE Lorazepam 2 mg 05/29/17 15:23 Ativan IVP Q2H PRN Symptoms of alcohol withdrawl Protocol Lorazepam 4 mg 05/29/17 15:23 05/30/17 17:00 Ativan IVP 4 mg Q4H PRN Administration Symptoms of alcohol withdrawl Protocol Metoprolol Tartrate 25 mg 06/01/17 10:15 06/02/17 10:16 Lopressor PO 25 mg BID KATIE Administration Pantoprazole Sodium 40 mg 05/29/17 13:30 06/02/17 10:17 Protonix Inj IVP 40 mg DAILY KATIE Administration Silver Sulfadiazine 0 gm 05/30/17 18:00 06/02/17 10:21 Silvadene 1% 25 Gm TP Not Given BID KATIE Sodium Chloride 1 gm 05/31/17 10:00 06/02/17 10:21 Sodium Chloride Tab PO 1 gm Q12 KATIE Administration - Patient Studies Lab Studies: Microbiology Studies 06/01/17 09:15 Blood Culture - Preliminary Blood-Venous NO GROWTH AFTER 24 HOURS 06/01/17 09:00 Blood Culture - Preliminary Blood-Venous NO GROWTH AFTER 24 HOURS 06/01/17 07:40 Gram Stain - Final Drainage Lab Studies 06/02/17 06/02/17 06/01/17 Range/Units 06:00 06:00 22:09 WBC 11.6 H (4.5-11.0) 10^3/ul RBC 3.23 L (3.5-6.1) 10^6/uL Hgb 9.8 L (14.0-18.0) g/dL Hct 30.5 L (42.0-52.0) % MCV 94.4 (80.0-105.0) fl MCH 30.3 (25.0-35.0) pg MCHC 32.1 (31.0-37.0) g/dl RDW 13.5 (11.5-14.5) % Plt Count 210 (120.0-450.0) 10^3/uL MPV 9.5 (7.0-11.0) fl Gran % 84.8 H (50.0-68.0) % Lymph % (Auto) 7.3 L (22.0-35.0) % [place] % (Auto) 6.6 H (1.0-6.0) % Eos % (Auto) 1.1 L (1.5-5.0) % Baso % (Auto) 0.2 (0.0-3.0) % Gran # 9.80 H (1.4-6.5) Lymph # 0.8 L (1.2-3.4) [place] # 0.8 H (0.1-0.6) Eos # 0.1 (0.0-0.7) Baso # 0.02 (0.0-2.0) K/mm3 Sodium 149 H (132-148) mmol/L Potassium 3.5 L (3.6-5.0) mmol/L Chloride 118 H (98-107) mmol/L Carbon Dioxide 25 (21-33) mmol/L Anion Gap 10 (10-20) BUN 16 (7-21) mg/dL Creatinine 0.7 L (0.8-1.5) mg/dL Est GFR ( Amer) > 60 Est GFR (Non-Af Amer) > 60 POC Glucose (mg/dL) 96 (65-110) mg/dL Random Glucose 108 (70-110) mg/dL Serum Osmolality (272-300) mosm/kg Calcium 9.0 (8.4-10.5) mg/dL Total Bilirubin 0.6 (0.2-1.3) mg/dL AST 30 (17-59) U/L ALT 25 (7-56) U/L Alkaline Phosphatase 72 (38-126) U/L Total Protein 7.5 (5.8-8.3) g/dL Albumin 2.9 L (3.0-4.8) g/dL Globulin 4.5 gm/dL Albumin/Globulin Ratio 0.6 L (1.1-1.8) 06/01/17 06/01/17 Range/Units 16:18 09:00 WBC (4.5-11.0) 10^3/ul RBC (3.5-6.1) 10^6/uL Hgb (14.0-18.0) g/dL Hct (42.0-52.0) % MCV (80.0-105.0) fl MCH (25.0-35.0) pg MCHC (31.0-37.0) g/dl RDW (11.5-14.5) % Plt Count (120.0-450.0) 10^3/uL MPV (7.0-11.0) fl Gran % (50.0-68.0) % Lymph % (Auto) (22.0-35.0) % [place] % (Auto) (1.0-6.0) % Eos % (Auto) (1.5-5.0) % Baso % (Auto) (0.0-3.0) % Gran # (1.4-6.5) Lymph # (1.2-3.4) [place] # (0.1-0.6) Eos # (0.0-0.7) Baso # (0.0-2.0) K/mm3 Sodium (132-148) mmol/L Potassium (3.6-5.0) mmol/L Chloride (98-107) mmol/L Carbon Dioxide (21-33) mmol/L Anion Gap (10-20) BUN (7-21) mg/dL Creatinine (0.8-1.5) mg/dL Est GFR ( Amer) Est GFR (Non-Af Amer) POC Glucose (mg/dL) 90 (65-110) mg/dL Random Glucose (70-110) mg/dL Serum Osmolality 310 H (272-300) mosm/kg Calcium (8.4-10.5) mg/dL Total Bilirubin (0.2-1.3) mg/dL AST (17-59) U/L ALT (7-56) U/L Alkaline Phosphatase (38-126) U/L Total Protein (5.8-8.3) g/dL Albumin (3.0-4.8) g/dL Globulin gm/dL Albumin/Globulin Ratio (1.1-1.8) Laboratory Results - last 24 hr 06/01/17 06/01/17 06/01/17 09:00 16:18 22:09 WBC RBC Hgb Hct MCV MCH MCHC RDW Plt Count MPV Gran % Lymph % (Auto) [place] % (Auto) Eos % (Auto) Baso % (Auto) Gran # Lymph # [place] # Eos # Baso # Sodium Potassium Chloride Carbon Dioxide Anion Gap BUN Creatinine Est GFR ( Amer) Est GFR (Non-Af Amer) POC Glucose (mg/dL) 90 96 Random Glucose Serum Osmolality 310 H Calcium Total Bilirubin AST ALT Alkaline Phosphatase Total Protein Albumin Globulin Albumin/Globulin Ratio 06/02/17 06/02/17 06:00 06:00 WBC 11.6 H RBC 3.23 L Hgb 9.8 L Hct 30.5 L MCV 94.4 MCH 30.3 MCHC 32.1 RDW 13.5 Plt Count 210 MPV 9.5 Gran % 84.8 H Lymph % (Auto) 7.3 L [place] % (Auto) 6.6 H Eos % (Auto) 1.1 L Baso % (Auto) 0.2 Gran # 9.80 H Lymph # 0.8 L [place] # 0.8 H Eos # 0.1 Baso # 0.02 Sodium 149 H Potassium 3.5 L Chloride 118 H Carbon Dioxide 25 Anion Gap 10 BUN 16 Creatinine 0.7 L Est GFR ( Amer) > 60 Est GFR (Non-Af Amer) > 60 POC Glucose (mg/dL) Random Glucose 108 Serum Osmolality Calcium 9.0 Total Bilirubin 0.6 AST 30 ALT 25 Alkaline Phosphatase 72 Total Protein 7.5 Albumin 2.9 L Globulin 4.5 Albumin/Globulin Ratio 0.6 L Fingerstick Blood Sugar Results: 101 Review of Systems - Review of Systems Review of Systems: 12 point review of system cannot be attained at this time due to altered mental status. Assessment/Plan - Assessment and Plan (Free Text) Assessment: Patient is a 67 year old male with a PMH of tobacco and alcohol abuse, hypertension, who was admitted for evaluation and treatment of altered mental status. 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 Patient was unable to protect his airway and was intubated for airway protection. Plan: Neurological - Left thalamic/BG with intraventricular extension on Head CT, no neurosurgical intervention indicated - Repeat Head CT 05/30 showed little interval change and decreased intraventricular blood - Neuro following, recs appreciated - Continue NS @ 100 and sodium tabs - Continue serum Na and serum osm Q8H - Maintain SBP 140-160 - HOB 30 Cardiovascular - Hemodynamically stable, control BP with catapres and metoprolol - Levophed is discontinued - HR trended, reviewed, and appreciated, will continue to monitor closely - BPs trended, reviewed, and appreciated, will continue to monitor closely Pulmnologic - Not protecting airway this AM, ABG showed acidosis with CO2 retention, patient intubated, PRVC 480/14/5/40%; tracheostomy needed- general surgery consulted - Propofol gtt discontinued - Maintain O2 sat >92% GI - NPO, now intubated - GI ppx Nephro/Electrolytes - Monitoring IxOs, making good urine, banegas in place - Following sodium closely - Hypokalemia noted- mag ordered- will replete - Creatinine and BUN trended, reviewed, and appreciated, will continue to monitor closely ID Gluteal Cellulitis; Gluteal Abscess - Afebrile but mild leukocytosis. due to cellulitis and draining wounds of the buttocks- general surgery consulted - continue vancomycin, azactam and flagyl - Monitoring closely Heme - No active bleeding noted, no interval change on repeat Head CT - Hgbs trended, reviewed, and appreciated, will continue to monitor closely - SCDs Patient seen, case discussed with, and plan approved by attending physician, Dr. Bobo. <Brody Bobo - Last Filed: 06/02/17 13:10> CCU Objective - Vital Signs / Intake & Output Vital Signs (Last 4 hours): Vital Signs Pulse Resp BP Pulse Ox 06/02/17 12:50 53 L 14 100 06/02/17 12:40 54 L 14 100 06/02/17 12:30 55 L 14 100 06/02/17 12:20 56 L 14 100 06/02/17 12:10 55 L 14 100 06/02/17 12:00 55 L 14 102/51 L 100 06/02/17 11:50 56 L 14 99 06/02/17 11:40 57 L 14 100 06/02/17 11:30 59 L 14 100 06/02/17 11:20 63 14 100 06/02/17 11:10 64 14 100 06/02/17 11:00 66 14 115/59 L 100 06/02/17 10:50 78 14 100 06/02/17 10:40 78 14 100 06/02/17 10:30 73 14 100 06/02/17 10:20 71 14 100 06/02/17 10:16 73 136/70 06/02/17 10:15 75 136/70 06/02/17 10:10 74 14 100 06/02/17 10:00 75 14 136/70 100 06/02/17 09:50 71 14 100 06/02/17 09:40 67 14 100 06/02/17 09:30 70 14 100 06/02/17 09:20 66 14 100 06/02/17 09:10 64 14 100 Intake and Output (Last 8hrs): Intake & Output 06/01/17 06/02/17 06/02/17 22:59 06:59 14:59 Intake Total 870 2270 20 Output Total 1200 600 Balance -330 1670 20 Intake: IV 800 1890 20 Left Internal Jugular 800 1810 Right Antecubital 0 Oral 0 Tube Feeding 70 380 Output: Urine 1200 600 Urine, Voided 1200 600 Other: # Bowel Movements 0 0 - Medications Active Medications: Active Medications Generic Name Dose Route Start Last Admin Trade Name Freq PRN Reason Stop Dose Admin Chlorhexidine Gluconate 15 ml 06/01/17 12:00 06/02/17 10:16 Peridex PO 15 ml TID KATIE Administration Clonidine HCl 0.1 mg 06/01/17 18:00 06/02/17 10:15 Catapres PO 0.1 mg BID KATIE Administration Vancomycin HCl 1 gm in 250 mls @ 167 mls/hr 06/01/17 10:00 06/02/17 10:24 Vancomycin 1gm IVPB 167 mls/hr Q12H KATIE Administration Protocol Aztreonam 100 mls @ 100 mls/hr 06/01/17 09:00 06/02/17 05:46 Azactam 2 Gm IVPB 06/08/17 09:01 100 mls/hr Q8 KATIE Administration Protocol Metronidazole 500 mg in 100 mls @ 100 mls/hr 06/01/17 14:00 06/02/17 05:47 Flagyl IVPB 100 mls/hr Q8 KATIE Administration Protocol Fentanyl Citrate 1,000 mcg in 100 mls @ 2 mls/hr 06/01/17 14:04 06/02/17 11: 20 Fentanyl Citrate/Sodium Chloride 1 Mg/100 Ml IV 40 mcg/hr .Q24H PRN 4 mls/hr TITRATE PER MD ORDER Administration Protocol 20 MCG/HR Sodium Chloride 1,000 mls @ 100 mls/hr 06/01/17 19:00 06/02/17 10:25 Sodium Chloride 0.9% IV 100 mls/hr .Q10H KATIE Administration Potassium Chloride 20 meq in 100 mls @ 50 mls/hr 06/02/17 11:30 06/02/17 12: 50 Potassium Chloride 20 Meq/100 Ml IVPB 06/02/17 15:29 50 mls/hr Q2H KATIE Administration Lorazepam 2 mg 05/29/17 15:23 Ativan IVP Q2H PRN Symptoms of alcohol withdrawl Protocol Lorazepam 4 mg 05/29/17 15:23 05/30/17 17:00 Ativan IVP 4 mg Q4H PRN Administration Symptoms of alcohol withdrawl Protocol Metoprolol Tartrate 25 mg 06/01/17 10:15 06/02/17 10:16 Lopressor PO 25 mg BID KATIE Administration Pantoprazole Sodium 40 mg 05/29/17 13:30 06/02/17 10:17 Protonix Inj IVP 40 mg DAILY KATIE Administration Silver Sulfadiazine 0 gm 05/30/17 18:00 06/02/17 10:21 Silvadene 1% 25 Gm TP Not Given BID KATIE Sodium Chloride 1 gm 05/31/17 10:00 06/02/17 10:21 Sodium Chloride Tab PO 1 gm Q12 KATIE Administration - Patient Studies Lab Studies: Microbiology Studies 06/01/17 09:15 Blood Culture - Preliminary Blood-Venous NO GROWTH AFTER 24 HOURS 06/01/17 09:00 Blood Culture - Preliminary Blood-Venous NO GROWTH AFTER 24 HOURS 06/01/17 07:40 Gram Stain - Final Drainage Lab Studies 06/02/17 06/02/17 06/01/17 Range/Units 06:00 06:00 22:09 WBC 11.6 H (4.5-11.0) 10^3/ul RBC 3.23 L (3.5-6.1) 10^6/uL Hgb 9.8 L (14.0-18.0) g/dL Hct 30.5 L (42.0-52.0) % MCV 94.4 (80.0-105.0) fl MCH 30.3 (25.0-35.0) pg MCHC 32.1 (31.0-37.0) g/dl RDW 13.5 (11.5-14.5) % Plt Count 210 (120.0-450.0) 10^3/uL MPV 9.5 (7.0-11.0) fl Gran % 84.8 H (50.0-68.0) % Lymph % (Auto) 7.3 L (22.0-35.0) % [place] % (Auto) 6.6 H (1.0-6.0) % Eos % (Auto) 1.1 L (1.5-5.0) % Baso % (Auto) 0.2 (0.0-3.0) % Gran # 9.80 H (1.4-6.5) Lymph # 0.8 L (1.2-3.4) [place] # 0.8 H (0.1-0.6) Eos # 0.1 (0.0-0.7) Baso # 0.02 (0.0-2.0) K/mm3 Sodium 149 H (132-148) mmol/L Potassium 3.5 L (3.6-5.0) mmol/L Chloride 118 H (98-107) mmol/L Carbon Dioxide 25 (21-33) mmol/L Anion Gap 10 (10-20) BUN 16 (7-21) mg/dL Creatinine 0.7 L (0.8-1.5) mg/dL Est GFR ( Amer) > 60 Est GFR (Non-Af Amer) > 60 POC Glucose (mg/dL) 96 (65-110) mg/dL Random Glucose 108 (70-110) mg/dL Serum Osmolality (272-300) mosm/kg Calcium 9.0 (8.4-10.5) mg/dL Total Bilirubin 0.6 (0.2-1.3) mg/dL AST 30 (17-59) U/L ALT 25 (7-56) U/L Alkaline Phosphatase 72 (38-126) U/L Total Protein 7.5 (5.8-8.3) g/dL Albumin 2.9 L (3.0-4.8) g/dL Globulin 4.5 gm/dL Albumin/Globulin Ratio 0.6 L (1.1-1.8) 06/01/17 06/01/17 Range/Units 16:18 09:00 WBC (4.5-11.0) 10^3/ul RBC (3.5-6.1) 10^6/uL Hgb (14.0-18.0) g/dL Hct (42.0-52.0) % MCV (80.0-105.0) fl MCH (25.0-35.0) pg MCHC (31.0-37.0) g/dl RDW (11.5-14.5) % Plt Count (120.0-450.0) 10^3/uL MPV (7.0-11.0) fl Gran % (50.0-68.0) % Lymph % (Auto) (22.0-35.0) % [place] % (Auto) (1.0-6.0) % Eos % (Auto) (1.5-5.0) % Baso % (Auto) (0.0-3.0) % Gran # (1.4-6.5) Lymph # (1.2-3.4) [place] # (0.1-0.6) Eos # (0.0-0.7) Baso # (0.0-2.0) K/mm3 Sodium (132-148) mmol/L Potassium (3.6-5.0) mmol/L Chloride (98-107) mmol/L Carbon Dioxide (21-33) mmol/L Anion Gap (10-20) BUN (7-21) mg/dL Creatinine (0.8-1.5) mg/dL Est GFR ( Amer) Est GFR (Non-Af Amer) POC Glucose (mg/dL) 90 (65-110) mg/dL Random Glucose (70-110) mg/dL Serum Osmolality 310 H (272-300) mosm/kg Calcium (8.4-10.5) mg/dL Total Bilirubin (0.2-1.3) mg/dL AST (17-59) U/L ALT (7-56) U/L Alkaline Phosphatase (38-126) U/L Total Protein (5.8-8.3) g/dL Albumin (3.0-4.8) g/dL Globulin gm/dL Albumin/Globulin Ratio (1.1-1.8) Laboratory Results - last 24 hr 06/01/17 06/01/17 06/01/17 09:00 16:18 22:09 WBC RBC Hgb Hct MCV MCH MCHC RDW Plt Count MPV Gran % Lymph % (Auto) [place] % (Auto) Eos % (Auto) Baso % (Auto) Gran # Lymph # [place] # Eos # Baso # Sodium Potassium Chloride Carbon Dioxide Anion Gap BUN Creatinine Est GFR ( Amer) Est GFR (Non-Af Amer) POC Glucose (mg/dL) 90 96 Random Glucose Serum Osmolality 310 H Calcium Total Bilirubin AST ALT Alkaline Phosphatase Total Protein Albumin Globulin Albumin/Globulin Ratio 06/02/17 06/02/17 06:00 06:00 WBC 11.6 H RBC 3.23 L Hgb 9.8 L Hct 30.5 L MCV 94.4 MCH 30.3 MCHC 32.1 RDW 13.5 Plt Count 210 MPV 9.5 Gran % 84.8 H Lymph % (Auto) 7.3 L [place] % (Auto) 6.6 H Eos % (Auto) 1.1 L Baso % (Auto) 0.2 Gran # 9.80 H Lymph # 0.8 L [place] # 0.8 H Eos # 0.1 Baso # 0.02 Sodium 149 H Potassium 3.5 L Chloride 118 H Carbon Dioxide 25 Anion Gap 10 BUN 16 Creatinine 0.7 L Est GFR ( Amer) > 60 Est GFR (Non-Af Amer) > 60 POC Glucose (mg/dL) Random Glucose 108 Serum Osmolality Calcium 9.0 Total Bilirubin 0.6 AST 30 ALT 25 Alkaline Phosphatase 72 Total Protein 7.5 Albumin 2.9 L Globulin 4.5 Albumin/Globulin Ratio 0.6 L Assessment/Plan - Assessment and Plan (Free Text) Plan: Patient is seen and examined, on rounds with resident, agree with residents note , with following additions/exceptions: Patient is a 67 year old male with a PMH of tobacco and alcohol abuse, hypertension, who was admitted altered mental status, 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 Patient is currently intubated , follows simple commands. ICH HTN Gluteal Abscess/Cellulitis Recommend: - cont with vent support as needed - patient unable to protect airway, will need Tracheostomy - BP control - maintain Sodium 150-155 - replete K - follow up neurology - cont with IVF - GI ppx - DVT ppx
[2017-06-02] MEDS: Aritificial Tears (15ml) OU SCH (15:06)
--- NOTE | 2017-06-02 18:23 | CP.PCM.PN ---
Subjective - Date & Time of Evaluation Date of Evaluation: 06/02/17 Time of Evaluation: 14:00 - Subjective Subjective: Mr. Veras was seen and examined today at bedside in the ICU. His family was present and we discussed the benefit of tracheostomy considering his weakness of the oropharyngeal muscles. The patient was stable overnight and there were no acute events. He continues to have right side hemiplegia and aphasia, but does follow simple commands. Objective - Vital Signs/Intake and Output Vital Signs (last 24 hours): Temp Pulse Resp BP Pulse Ox 99.1 F 65 14 123/60 100 06/02/17 16:00 06/02/17 17:00 06/02/17 17:00 06/02/17 17:00 06/02/17 17:00 Intake and Output: 06/02/17 06/02/17 06:59 18:59 Intake Total 2270 20 Output Total 600 Balance 1670 20 - Medications Medications: Current Medications Artificial Tears (Artificial Tears) 0 ml OU DAILY [facility] Last Admin: 06/02/17 15:06 Dose: 2 drop Chlorhexidine Gluconate (Peridex) 15 ml PO TID KATIE Last Admin: 06/02/17 14:10 Dose: 15 ml Clonidine HCl (Catapres) 0.1 mg PO BID KATIE Last Admin: 06/02/17 10:15 Dose: 0.1 mg Vancomycin HCl (Vancomycin 1gm) 1 gm in 250 mls @ 167 mls/hr IVPB Q12H KATIE PRN Reason: Protocol Last Admin: 06/02/17 10:24 Dose: 167 mls/hr Aztreonam (Azactam 2 Gm) 100 mls @ 100 mls/hr IVPB Q8 KATIE PRN Reason: Protocol Stop: 06/08/17 09:01 Last Admin: 06/02/17 14:09 Dose: 100 mls/hr Metronidazole (Flagyl) 500 mg in 100 mls @ 100 mls/hr IVPB Q8 KATIE PRN Reason: Protocol Last Admin: 06/02/17 14:11 Dose: 100 mls/hr Fentanyl Citrate (Fentanyl Citrate/Sodium Chloride 1 Mg/100 Ml) 1,000 mcg in 100 mls @ 2 mls/hr IV .Q24H PRN; Protocol; 20 MCG/HR PRN Reason: TITRATE PER MD ORDER Last Admin: 06/02/17 11:20 Dose: 40 mcg/hr, 4 mls/hr Sodium Chloride (Sodium Chloride 0.9%) 1,000 mls @ 100 mls/hr IV .Q10H [facility] Last Admin: 06/02/17 10:25 Dose: 100 mls/hr Lorazepam (Ativan) 2 mg IVP Q2H PRN; Protocol PRN Reason: Symptoms of alcohol withdrawl Lorazepam (Ativan) 4 mg IVP Q4H PRN; Protocol PRN Reason: Symptoms of alcohol withdrawl Last Admin: 05/30/17 17:00 Dose: 4 mg Metoprolol Tartrate (Lopressor) 25 mg PO BID [facility] Last Admin: 06/02/17 10:16 Dose: 25 mg Pantoprazole Sodium (Protonix Inj) 40 mg IVP DAILY [facility] Last Admin: 06/02/17 10:17 Dose: 40 mg Silver Sulfadiazine (Silvadene 1% 25 Gm) 0 gm TP BID [facility] Last Admin: 06/02/17 17:11 Dose: Not Given Sodium Chloride (Sodium Chloride Tab) 1 gm PO Q12 [facility] Last Admin: 06/02/17 10:21 Dose: 1 gm - Labs Labs: 06/02/17 06:00 06/02/17 06:00 PT 14.0 SECONDS (9.4-12.5) H 05/31/17 09:30 INR 1.27 (0.93-1.08) H 05/31/17 09:30 APTT 23.3 Seconds (25.1-36.5) L 05/31/17 09:30 - Neurological Exam Neurological Exam: Altered, Awake Neuro motor strength exam: Left Upper Extremity: 4, Right Upper Extremity: 0, Left Lower Extremity: 4, Right Lower Extremity: 2/1 Additional comments: Left CN 3 palsy. Assessment and Plan (1) Intracerebral hemorrhage Assessment & Plan: Left thalamic and upper midbrain intraparenchymal hemorrhage with some intraventricular component as well. Stable on repeat imaging. Will plan for tracheostomy and initiate PT/OT/ST as soon as possible. Avoid hypertension, hyperthermia, hyperglycemia and continue adequate hydration with NS. May slowly normalize the serum sodium. Will repeat CT head tomorrow morning. If CT head remains stable, or has improved, may initiate SQ heparin for DVT prophylaxis in addition to SCD since the bleed has been stable and it has been longer than 48 hours. Status: Acute
[2017-06-03] MEDS: Sodium Chloride 0.9% 1,000 ML IV SCH (01:30)
[2017-06-03] MEDS ORDERED: Acetaminophen 650mg/20.3ml solution UD PO ONE (04:43)
[2017-06-03] MEDS: metroNIDAZOLE IV 500 mg/100 ml 500 MG/100 ML BAG IVPB SCH ×3 (05:06→21:32)
[2017-06-03] MEDS: Aztreonam 2 Gm in NS 100mL 100 ML IVPB SCH ×3 (05:07→23:54)
[2017-06-03 05:34] LABS: ALB/GLOB RATIO 0.7 (1.1-1.8); ALKALINE PHOSPHATASE 80 U/L (38-126); ALT/SGPT 25 U/L (7-56); AST/SGOT 32 U/L (17-59); BILIRUBIN,TOTAL 0.4 mg/dL (0.2-1.3); BLOOD UREA NITROGEN 15 mg/dL (7-21); CALCIUM 8.6 mg/dL (8.4-10.5); CARBON DIOXIDE 29 mmol/L (21-33); CHLORIDE 119 mmol/L (98-107); GFR AFRICAN-AMERICAN > 60; GLUCOSE,RANDOM 143 mg/dL (70-110); POTASSIUM 3.8 mmol/L (3.6-5.0); SODIUM 151 mmol/L (132-148); TOTAL PROTEIN 7.1 g/dL (5.8-8.3)
[2017-06-03 07:43] LABS: BASO # 0.02 K/mm3 (0.0-2.0); BASO % 0.2 % (0.0-3.0); EOS # 0.2 (0.0-0.7); EOS % 1.8 % (1.5-5.0); GRAN # 7.17 (1.4-6.5); GRAN % 80.1 % (50.0-68.0); LYMPH # 0.9 (1.2-3.4); LYMPH % 10.1 % (22.0-35.0); MEAN CELL VOLUME 96.2 fl (80.0-105.0); MEAN CORPUSCULAR HEMOGLOBIN 29.8 pg (25.0-35.0); MEAN PLATELET VOLUME 10.1 fl (7.0-11.0); MONO # 0.7 (0.1-0.6); MONO % 7.8 % (1.0-6.0); RED CELL DISTRIBUTION WIDTH 13.9 % (11.5-14.5)
[2017-06-03 08:30] LABS: ARTERIAL BLOOD GAS HCO3 25.4 mmol/L (21-28); ARTERIAL BLOOD GAS O2 CAPACITY 12.4 mL/dl (16-24); ARTERIAL BLOOD GAS O2 CONTENT 12.4 ML/dl (15-23); ARTERIAL BLOOD GAS PH 7.34 (7.35-7.45); ARTERIAL BLOOD HGB O2 SAT 97.7 % (95.0-98.0); CARBOXYHEMOGLOBIN 1.9 % (0.5-1.5); HHB -0.2 % (0-5); METHEMOGLOBIN 0.6 % (0.0-3.0)
--- NOTE | 2017-06-03 08:48 | RAD ---
HISTORY: feeding tube insertion COMPARISON: June 01, 2017. FINDINGS: LUNGS: No active pulmonary disease. PLEURA: No significant pleural effusion identified, no pneumothorax apparent. CARDIOVASCULAR: No radiographic findings to suggest acute or significant cardiovascular disease. Venous access catheter in stable, satisfactory position. OSSEOUS STRUCTURES: No significant abnormalities. VISUALIZED UPPER ABDOMEN: Normal. OTHER FINDINGS: Satisfactory position of endotracheal tube. Feeding tube tip within 5 cm of the gastroesophageal junction. IMPRESSION: Feeding tube in the proximal stomach. Optimal placement would be more distal, for example advancing the tube between 05-2010 cm.
[2017-06-03] MEDS: Fentanyl 1000mcg/100ml NS 1,000 MCG/100 ML BAG IV PRN (09:16)
--- NOTE | 2017-06-03 09:54 | CP.PCM.PN ---
Subjective - Date & Time of Evaluation Date of Evaluation: 06/03/17 Time of Evaluation: 08:51 - Subjective Subjective: General Surgery Progress Note for Dr. Hyatt This patient was seen and examined at bedside this AM at bedside. Packing was pulled from abscess incisions, during exam draining lesion noted on left aspect of scrotum discussed with ICU resident urology consulted. Objective - Vital Signs/Intake and Output Vital Signs (last 24 hours): Temp Pulse Resp BP Pulse Ox 100.1 F H 70 14 100/51 L 99 06/03/17 08:00 06/03/17 08:00 06/03/17 07:55 06/03/17 07:23 06/03/17 07:55 Intake and Output: 06/03/17 06/03/17 06:59 18:59 Intake Total 100 Output Total Balance 100 - Medications Medications: Current Medications Artificial Tears (Artificial Tears) 0 ml OU DAILY [facility] Last Admin: 06/02/17 15:06 Dose: 2 drop Chlorhexidine Gluconate (Peridex) 15 ml PO TID [facility] Last Admin: 06/02/17 18:37 Dose: 15 ml Clonidine HCl (Catapres) 0.1 mg PO BID [facility] Last Admin: 06/02/17 21:51 Dose: 0.1 mg Vancomycin HCl (Vancomycin 1gm) 1 gm in 250 mls @ 167 mls/hr IVPB Q12H [facility]ATIE PRN Reason: Protocol Last Admin: 06/02/17 21:23 Dose: 167 mls/hr Aztreonam (Azactam 2 Gm) 100 mls @ 100 mls/hr IVPB Q8 [facility]ATIE PRN Reason: Protocol Stop: 06/08/17 09:01 Last Admin: 06/03/17 05:07 Dose: 100 mls/hr Metronidazole (Flagyl) 500 mg in 100 mls @ 100 mls/hr IVPB Q8 KATIE PRN Reason: Protocol Last Admin: 06/03/17 05:06 Dose: 100 mls/hr Fentanyl Citrate (Fentanyl Citrate/Sodium Chloride 1 Mg/100 Ml) 1,000 mcg in 100 mls @ 2 mls/hr IV .Q24H PRN; Protocol; 20 MCG/HR PRN Reason: TITRATE PER MD ORDER Last Admin: 06/03/17 09:16 Dose: 40 mcg/hr, 4 mls/hr Lorazepam (Ativan) 2 mg IVP Q2H PRN; Protocol PRN Reason: Symptoms of alcohol withdrawl Lorazepam (Ativan) 4 mg IVP Q4H PRN; Protocol PRN Reason: Symptoms of alcohol withdrawl Last Admin: 05/30/17 17:00 Dose: 4 mg Metoprolol Tartrate (Lopressor) 25 mg PO BID [facility] Last Admin: 06/02/17 21:52 Dose: 25 mg Pantoprazole Sodium (Protonix Inj) 40 mg IVP DAILY [facility] Last Admin: 06/02/17 10:17 Dose: 40 mg Silver Sulfadiazine (Silvadene 1% 25 Gm) 0 gm TP BID [facility] Last Admin: 06/02/17 17:11 Dose: Not Given Sodium Chloride (Sodium Chloride Tab) 1 gm PO Q12 [facility] Last Admin: 06/02/17 21:31 Dose: 1 gm - Labs Labs: 06/03/17 07:20 06/03/17 05:20 PT 14.0 SECONDS (9.4-12.5) H 05/31/17 09:30 INR 1.27 (0.93-1.08) H 05/31/17 09:30 APTT 23.3 Seconds (25.1-36.5) L 05/31/17 09:30 - Constitutional Appears: Other (Intubated, breathing with vent) - Respiratory Exam Respiratory Exam: Clear to Ausculation Bilateral - Cardiovascular Exam Cardiovascular Exam: REGULAR RHYTHM - GI/Abdominal Exam GI & Abdominal Exam: Soft. absent: Rigid, Tenderness - Rectal Exam Additional comments: Purulent drainage from poors on the left glute - Exam Additional comments: Left sided testiular abscess spontaneously draining Assessment and Plan - Assessment and Plan (Free Text) Assessment: This is a 67M with a SDH on a vent who currently has multiple draining leasions on his left buttock and groin WBC trending down Continue ABX Testicular abscess management per urology Will continue to monitor gluteal abscess Will Discuss with Dr. Edmar Pennington PGY2
--- NOTE | 2017-06-03 09:55 | RAD ---
HISTORY: Fever COMPARISON: June 02, 2017. Time of the most recent examination: 18:15. FINDINGS: LUNGS: No active pulmonary disease. PLEURA: No significant pleural effusion identified, no pneumothorax apparent. CARDIOVASCULAR: No radiographic findings to suggest acute or significant cardiovascular disease. OSSEOUS STRUCTURES: No significant abnormalities. VISUALIZED UPPER ABDOMEN: Normal. OTHER FINDINGS: Stable, satisfactory position ventilatory, vascular and nasogastric apparatus. IMPRESSION: No significant interval change compared to the prior examination(s).
[2017-06-03] MEDS: Silver Sulfadiazine 1% Cream (25 gm) TP SCH ×2 (09:57→17:33)
[2017-06-03] MEDS: Aritificial Tears (15ml) OU SCH (09:57)
[2017-06-03] MEDS: Chlorhexidine 0.12% Oral Sol 480 ml Bot PO SCH ×3 (09:58→17:34)
[2017-06-03] MEDS: Vancomycin 1gm in NS 250ml 1 GM/250 ML BAG IVPB SCH ×2 (10:11→22:30)
--- NOTE | 2017-06-03 10:38 | CP.PCM.PN ---
Subjective - Date & Time of Evaluation Date of Evaluation: 06/03/17 Time of Evaluation: 10:10 - Subjective Subjective: Continues to be on the ventilator, developed low grade fevers last night, has swollen scrotal areas. Objective - Vital Signs/Intake and Output Vital Signs (last 24 hours): Temp Pulse Resp BP Pulse Ox 99.1 F 70 14 127/60 100 06/02/17 16:00 06/02/17 21:52 06/02/17 18:20 06/02/17 21:52 06/02/17 18:20 - Medications Medications: Current Medications Artificial Tears (Artificial Tears) 0 ml OU DAILY [facility] Last Admin: 06/02/17 15:06 Dose: 2 drop Chlorhexidine Gluconate (Peridex) 15 ml PO TID [facility] Last Admin: 06/02/17 18:37 Dose: 15 ml Clonidine HCl (Catapres) 0.1 mg PO BID [facility] Last Admin: 06/02/17 21:51 Dose: 0.1 mg Vancomycin HCl (Vancomycin 1gm) 1 gm in 250 mls @ 167 mls/hr IVPB Q12H [facility]ATIE PRN Reason: Protocol Last Admin: 06/02/17 21:23 Dose: 167 mls/hr Aztreonam (Azactam 2 Gm) 100 mls @ 100 mls/hr IVPB Q8 KATIE PRN Reason: Protocol Stop: 06/08/17 09:01 Last Admin: 06/03/17 05:07 Dose: 100 mls/hr Metronidazole (Flagyl) 500 mg in 100 mls @ 100 mls/hr IVPB Q8 [facility]ATIE PRN Reason: Protocol Last Admin: 06/03/17 05:06 Dose: 100 mls/hr Fentanyl Citrate (Fentanyl Citrate/Sodium Chloride 1 Mg/100 Ml) 1,000 mcg in 100 mls @ 2 mls/hr IV .Q24H PRN; Protocol; 20 MCG/HR PRN Reason: TITRATE PER MD ORDER Last Admin: 06/02/17 11:20 Dose: 40 mcg/hr, 4 mls/hr Sodium Chloride (Sodium Chloride 0.9%) 1,000 mls @ 100 mls/hr IV .Q10H [facility] Last Admin: 06/03/17 01:30 EDT Dose: 100 mls/hr Lorazepam (Ativan) 2 mg IVP Q2H PRN; Protocol PRN Reason: Symptoms of alcohol withdrawl Lorazepam (Ativan) 4 mg IVP Q4H PRN; Protocol PRN Reason: Symptoms of alcohol withdrawl Last Admin: 05/30/17 17:00 Dose: 4 mg Metoprolol Tartrate (Lopressor) 25 mg PO BID [facility] Last Admin: 06/02/17 21:52 Dose: 25 mg Pantoprazole Sodium (Protonix Inj) 40 mg IVP DAILY [facility] Last Admin: 06/02/17 10:17 Dose: 40 mg Silver Sulfadiazine (Silvadene 1% 25 Gm) 0 gm TP BID [facility] Last Admin: 06/02/17 17:11 Dose: Not Given Sodium Chloride (Sodium Chloride Tab) 1 gm PO Q12 [facility] Last Admin: 06/02/17 21:31 Dose: 1 gm - Labs Labs: 06/02/17 06:00 06/03/17 05:20 PT 14.0 SECONDS (9.4-12.5) H 05/31/17 09:30 INR 1.27 (0.93-1.08) H 05/31/17 09:30 APTT 23.3 Seconds (25.1-36.5) L 05/31/17 09:30 - Constitutional Appears: Other (intubated, sedated) - Head Exam Head Exam: NORMAL INSPECTION - ENT Exam Additional comments: ET tube in place - Respiratory Exam Respiratory Exam: Decreased Breath Sounds - Cardiovascular Exam Cardiovascular Exam: +S1, +S2 - GI/Abdominal Exam GI & Abdominal Exam: Soft. absent: Tenderness - Exam Exam: Scrotal Swelling Assessment and Plan - Assessment and Plan (Free Text) Plan: Assessment new onset fevers, R/O due to scrotal cellulitis R/O abscess formation Probable left buttock skin and skin structure infection S/P I and D POD #2 systemic inflammatory response syndrome probably from acute left sided hemorrhagic CVA skin cancer S/P resection around right ear area S/P lumbar disc hernia repair Plan continue Vancomycin, Azactam and Flagyl day 3 pending final blood and wound cx; awaiting Urology evaluation and possible I and D Neuro and Neurosurgery managing the CVA will continue to monitor clinically
--- NOTE | 2017-06-03 10:56 | CP.PCM.PN ---
<VictoriaParamjit - Last Filed: 06/03/17 10:52> Subjective - Date & Time of Evaluation Date of Evaluation: 06/03/17 Time of Evaluation: 08:30 - Subjective Subjective: Patient seen and examined at bedside in ICU. Patient intubated and not on sedation. Patient able to follow simple commands. No acute events overnight. Patient denies chest pain, shortness of breath, abdominal pain. Patient noted to have increased swelling and firmness to testicular sac and urology has been consulted as well as testicular US ordered. Objective - Vital Signs/Intake and Output Vital Signs (last 24 hours): Temp Pulse Resp BP Pulse Ox 100.1 F H 71 14 111/58 L 99 06/03/17 08:00 06/03/17 09:59 06/03/17 07:55 06/03/17 09:59 06/03/17 07:55 Intake and Output: 06/03/17 06/03/17 06:59 18:59 Intake Total 100 Output Total Balance 100 - Medications Medications: Current Medications Artificial Tears (Artificial Tears) 0 ml OU DAILY [facility] Last Admin: 06/03/17 09:57 Dose: 2 drop Chlorhexidine Gluconate (Peridex) 15 ml PO TID [facility] Last Admin: 06/03/17 09:58 Dose: 15 ml Clonidine HCl (Catapres) 0.1 mg PO BID [facility] Last Admin: 06/03/17 09:59 Dose: 0.1 mg Vancomycin HCl (Vancomycin 1gm) 1 gm in 250 mls @ 167 mls/hr IVPB Q12H [facility] PRN Reason: Protocol Last Admin: 06/03/17 10:11 Dose: 167 mls/hr Aztreonam (Azactam 2 Gm) 100 mls @ 100 mls/hr IVPB Q8 [facility]ATIE PRN Reason: Protocol Stop: 06/08/17 09:01 Last Admin: 06/03/17 05:07 Dose: 100 mls/hr Metronidazole (Flagyl) 500 mg in 100 mls @ 100 mls/hr IVPB Q8 [facility]ATIE PRN Reason: Protocol Last Admin: 06/03/17 05:06 Dose: 100 mls/hr Fentanyl Citrate (Fentanyl Citrate/Sodium Chloride 1 Mg/100 Ml) 1,000 mcg in 100 mls @ 2 mls/hr IV .Q24H PRN; Protocol; 20 MCG/HR PRN Reason: TITRATE PER MD ORDER Last Admin: 06/03/17 09:16 Dose: 40 mcg/hr, 4 mls/hr Lorazepam (Ativan) 2 mg IVP Q2H PRN; Protocol PRN Reason: Symptoms of alcohol withdrawl Lorazepam (Ativan) 4 mg IVP Q4H PRN; Protocol PRN Reason: Symptoms of alcohol withdrawl Last Admin: 05/30/17 17:00 Dose: 4 mg Metoprolol Tartrate (Lopressor) 25 mg PO BID [facility] Last Admin: 06/03/17 09:59 Dose: 25 mg Pantoprazole Sodium (Protonix Inj) 40 mg IVP DAILY [facility] Last Admin: 06/03/17 09:57 Dose: 40 mg Silver Sulfadiazine (Silvadene 1% 25 Gm) 0 gm TP BID [facility] Last Admin: 06/03/17 09:57 Dose: Not Given Sodium Chloride (Sodium Chloride Tab) 1 gm PO Q12 [facility] Last Admin: 06/02/17 21:31 Dose: 1 gm - Labs Labs: 06/03/17 07:20 06/03/17 05:20 PT 14.0 SECONDS (9.4-12.5) H 05/31/17 09:30 INR 1.27 (0.93-1.08) H 05/31/17 09:30 APTT 23.3 Seconds (25.1-36.5) L 05/31/17 09:30 - Head Exam Head Exam: ATRAUMATIC, NORMAL INSPECTION, NORMOCEPHALIC - Eye Exam Eye Exam: EOMI, PERRL - ENT Exam ENT Exam: Mucous Membranes Moist - Respiratory Exam Respiratory Exam: Clear to Ausculation Bilateral - Cardiovascular Exam Cardiovascular Exam: REGULAR RHYTHM, +S1, +S2 - GI/Abdominal Exam GI & Abdominal Exam: Soft, Normal Bowel Sounds. 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 Patient is intubated and off sedation. Pt s/p incision and drainage of left buttock abscess. Patient to be evaluated for acute left testicular swelling and drainage. Plan: 1. Intracerebral Hemorrhage - Admitted to ICU - Intubated to protect airway, currently off sedation - Levophed held, as patient is hypertensive - NGT in place, tube feedings - CT showed hemorrhagic infarct of the left thalamus/basal ganglia. No midline shift. Left thalamic edema - Repeat CT showed stable left thalamic hemorrhage x2 - Neurosurgery consulted No surgical intervention at this time - Neuro consulted Target Na 135-145 and osmolarity is < 320 Hypertonic saline, currently held Monitor serum sodium and osmolarity Q6H Maintain serum glucose below 160 mg/dL Maintain head of bed above 30 degrees Avoid IV glucose, hyperthermia - Lipid panel, A1C WNL 2. SVT vs. Rapid a-fib, resolved - Cardio consulted Lopressor 25 mg PO BID - Adenosine given, which converted patient to NSR - Start Lopressor and aggresive IV hydration 3. Decubitus Ulcer, Grade 2 - Surgery consulted - ID consulted - Vancomycin, Azactam, Flagyl day 3 - Blood and wound culture negative continue to follow 4. Testicular swelling/drainage - Rule out scrotal cellulitis vs. abscess - Urology consulted - Testicular US 5. Hypokalemia - K 3.8 - Repleted - Monitor and replete as needed 6. EtOH Abuse - EtOH negative - Ativan held to better assess neuro status GI/DVT PPx - Protonix - SCDs Case and planned reviewed with attending <Melchor Licona - Last Filed: 06/03/17 11:20> Objective - Vital Signs/Intake and Output Vital Signs (last 24 hours): Temp Pulse Resp BP Pulse Ox 100.1 F H 71 14 111/58 L 99 06/03/17 08:00 06/03/17 09:59 06/03/17 07:55 06/03/17 09:59 06/03/17 07:55 Intake and Output: 06/03/17 06/03/17 06:59 18:59 Intake Total 100 Output Total Balance 100 - Medications Medications: Current Medications Artificial Tears (Artificial Tears) 0 ml OU DAILY [facility] Last Admin: 06/03/17 09:57 Dose: 2 drop Chlorhexidine Gluconate (Peridex) 15 ml PO TID [facility] Last Admin: 06/03/17 09:58 Dose: 15 ml Clonidine HCl (Catapres) 0.1 mg PO BID [facility] Last Admin: 06/03/17 09:59 Dose: 0.1 mg Vancomycin HCl (Vancomycin 1gm) 1 gm in 250 mls @ 167 mls/hr IVPB Q12H [facility]ATIE PRN Reason: Protocol Last Admin: 06/03/17 10:11 Dose: 167 mls/hr Aztreonam (Azactam 2 Gm) 100 mls @ 100 mls/hr IVPB Q8 KATIE PRN Reason: Protocol Stop: 06/08/17 09:01 Last Admin: 06/03/17 05:07 Dose: 100 mls/hr Metronidazole (Flagyl) 500 mg in 100 mls @ 100 mls/hr IVPB Q8 [facility]ATIE PRN Reason: Protocol Last Admin: 06/03/17 05:06 Dose: 100 mls/hr Fentanyl Citrate (Fentanyl Citrate/Sodium Chloride 1 Mg/100 Ml) 1,000 mcg in 100 mls @ 2 mls/hr IV .Q24H PRN; Protocol; 20 MCG/HR PRN Reason: TITRATE PER MD ORDER Last Admin: 06/03/17 09:16 Dose: 40 mcg/hr, 4 mls/hr Lorazepam (Ativan) 2 mg IVP Q2H PRN; Protocol PRN Reason: Symptoms of alcohol withdrawl Lorazepam (Ativan) 4 mg IVP Q4H PRN; Protocol PRN Reason: Symptoms of alcohol withdrawl Last Admin: 05/30/17 17:00 Dose: 4 mg Metoprolol Tartrate (Lopressor) 25 mg PO BID [facility] Last Admin: 06/03/17 09:59 Dose: 25 mg Pantoprazole Sodium (Protonix Inj) 40 mg IVP DAILY [facility] Last Admin: 06/03/17 09:57 Dose: 40 mg Silver Sulfadiazine (Silvadene 1% 25 Gm) 0 gm TP BID [facility] Last Admin: 06/03/17 09:57 Dose: Not Given Sodium Chloride (Sodium Chloride Tab) 1 gm PO Q12 [facility] Last Admin: 06/02/17 21:31 Dose: 1 gm - Labs Labs: 06/03/17 07:20 06/03/17 05:20 PT 14.0 SECONDS (9.4-12.5) H 05/31/17 09:30 INR 1.27 (0.93-1.08) H 05/31/17 09:30 APTT 23.3 Seconds (25.1-36.5) L 05/31/17 09:30 Attending/Attestation - Attestation I have personally seen and examined this patient.: Yes I have fully participated in the care of the patient.: Yes I have reviewed all pertinent clinical information, including history, physical exam and plan: Yes Notes (Text): 06/03/17 11:18 Patient was seen and examined with biomedical service engineer. 67 yrs old male was admitted with change of mental status, found to have hemorrhagic infarct of the left thalamus/basal ganglia with extension into 3rd ventricle and lateral ventricle. Neuro surgery recommended conservative management. Patient was intubated for air way protection, also went into SVT responded to 6 mg of Adenosine, now back in NSR.Patient repeat CT head was unchanged. He follows simple command. He is on respiratory support. Patient is having low grade fever, he is sp I/D of right buttock abscess on broad spectrum antibiotics as per ID.Today also noticed to have scrotal redness and swelling,we will get scrotal USG and will get Urology consulted. Case was discussed with ICU and ID attending. Prognosis is guarded.
[2017-06-03] MEDS ORDERED: Potassium Chloride 40 mEq/30 ml LIQ UD PO ONE (11:03)
--- NOTE | 2017-06-03 12:48 | US ---
HISTORY: Testicular swelling. TECHNIQUE: Realtime sonography through the scrotum with color and doppler flow. COMPARISON: None Available. FINDINGS: RIGHT TESTICLE: Measures 1.7 x 2.6 x 4.8 cm. Normal echotexture and flow. RIGHT EPIDIDYMIS: Epididymal head measures 0.8 x 0.7 cm. Grossly unremarkable appearance with normal flow. LEFT TESTICLE: Measures 2.1 x 2.2 x 3.5 cm. Normal echotexture and flow. LEFT EPIDIDYMIS: Epididymal head measures cm. Grossly unremarkable appearance with diminished flow to the left testicle compared to the right without evidence of torsion. HYDROCELE: None. VARICOCELE: None. OTHER FINDINGS: Diffuse scrotal edema. Scan thickness varies from a 9-14 mm right greater than left. IMPRESSION: Negative study for epididymitis, orchitis or torsion. Diminished flow left testicle relative to the right. Diffuse scrotal edema.
[2017-06-03 13:14] LABS: ALB/GLOB RATIO 0.6 (1.1-1.8); ALKALINE PHOSPHATASE 77 U/L (38-126); ALT/SGPT 24 U/L (7-56); AST/SGOT 18 U/L (17-59); BILIRUBIN,TOTAL 0.4 mg/dL (0.2-1.3); BLOOD UREA NITROGEN 14 mg/dL (7-21); CALCIUM 8.4 mg/dL (8.4-10.5); CARBON DIOXIDE 26 mmol/L (21-33); CHLORIDE 119 mmol/L (98-107); GFR AFRICAN-AMERICAN > 60; GLUCOSE,RANDOM 118 mg/dL (70-110); POTASSIUM 3.6 mmol/L (3.6-5.0); SODIUM 150 mmol/L (132-148); TOTAL PROTEIN 6.7 g/dL (5.8-8.3)
--- NOTE | 2017-06-03 13:24 | CP.CCUPN ---
<Benji Ma - Last Filed: 06/03/17 13:21> CCU Subjective - Physician Review Subjective (Free Text): 05/31/17 13:01 Benji Ma D.O. 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 Patient was seen and examined at bedside. Patient intubated at this time and on fentanyl gtt, unable to obtain any information. Patient appears comfortable and in no acute distress. No acute overnight events. CCU Objective - Vital Signs / Intake & Output Vital Signs (Last 4 hours): Vital Signs Pulse BP 06/03/17 09:59 71 111/58 L Intake and Output (Last 8hrs): Intake & Output 06/02/17 06/03/17 06/03/17 23:59 06:59 14:59 Intake Total 100 Output Total Balance 100 Weight Intake: IV 100 Left Internal Jugular Oral Tube Feeding TPN/PPN Blood Product Lipid Albumin Other Output: Urine Condom Urine, Voided Stool Urine/Stool Mix Emesis Oral Regurgitation Other Other: # Bowel Movements - Physical Exam Head: Positive for: Atraumatic, Normocephalic Pupils: Positive for: Other (~2-3mm fixed) Extroacular Muscles: Positive for: Other (does not follow commands ) Conjunctiva: Positive for: Normal Ears: Positive for: Normal Mouth: Positive for: Moist Mucous Membranes Pharnyx: Positive for: Normal, Other (OGT) Nose (External): Positive for: Atraumatic Neck: Positive for: Other (L IJ in place) Respiratory/Chest: Positive for: Respiratory Distress. Negative for: Accessory Muscle Use, Wheezes, Rales, Rhonchi Cardiovascular: Positive for: Regular Rate and Rhythm, Normal S1, S2. Negative for: Murmurs, Rub Abdomen: Positive for: Normal Bowel Sounds. Negative for: Tenderness, Distention, Peritoneal Signs Upper Extremity: Positive for: Capillary Refill < 2s, Other (Flacid right sided hemiparesis). Negative for: Edema, Erythema Lower Extremity: Positive for: Capillary Refill < 2 s. Negative for: Edema, CALF TENDERNESS Neurological: Positive for: Other (intubated, right Babinski). Negative for: Speech Normal Skin: Positive for: Warm, Dry - Medications Active Medications: Active Medications Generic Name Dose Route Start Last Admin Trade Name Freq PRN Reason Stop Dose Admin Artificial Tears 0 ml 06/02/17 14:45 06/03/17 09:57 Artificial Tears OU 2 drop DAILY KATIE Administration Chlorhexidine Gluconate 15 ml 06/01/17 12:00 06/03/17 09:58 Peridex PO 15 ml TID KATIE Administration Clonidine HCl 0.1 mg 06/01/17 18:00 06/03/17 09:59 Catapres PO 0.1 mg BID KATIE Administration Vancomycin HCl 1 gm in 250 mls @ 167 mls/hr 06/01/17 10:00 06/03/17 10:11 Vancomycin 1gm IVPB 167 mls/hr Q12H KATIE Administration Protocol Aztreonam 100 mls @ 100 mls/hr 06/01/17 09:00 06/03/17 05:07 Azactam 2 Gm IVPB 06/08/17 09:01 100 mls/hr Q8 KATIE Administration Protocol Metronidazole 500 mg in 100 mls @ 100 mls/hr 06/01/17 14:00 06/03/17 05:06 Flagyl IVPB 100 mls/hr Q8 KATIE Administration Protocol Fentanyl Citrate 1,000 mcg in 100 mls @ 2 mls/hr 06/01/17 14:04 06/03/17 09: 16 Fentanyl Citrate/Sodium Chloride 1 Mg/100 Ml IV 40 mcg/hr .Q24H PRN 4 mls/hr TITRATE PER MD ORDER Administration Protocol 20 MCG/HR Lorazepam 2 mg 05/29/17 15:23 Ativan IVP Q2H PRN Symptoms of alcohol withdrawl Protocol Lorazepam 4 mg 05/29/17 15:23 05/30/17 17:00 Ativan IVP 4 mg Q4H PRN Administration Symptoms of alcohol withdrawl Protocol Metoprolol Tartrate 25 mg 06/01/17 10:15 06/03/17 09:59 Lopressor PO 25 mg BID KATIE Administration Pantoprazole Sodium 40 mg 05/29/17 13:30 06/03/17 09:57 Protonix Inj IVP 40 mg DAILY KATIE Administration Silver Sulfadiazine 0 gm 05/30/17 18:00 06/03/17 09:57 Silvadene 1% 25 Gm TP Not Given BID KATIE Sodium Chloride 1 gm 05/31/17 10:00 06/02/17 21:31 Sodium Chloride Tab PO 1 gm Q12 KATIE Administration - Patient Studies Lab Studies: Microbiology Studies 06/01/17 09:15 Blood Culture - Preliminary Blood-Venous NO GROWTH AFTER 48 HOURS 06/01/17 09:00 Blood Culture - Preliminary Blood-Venous NO GROWTH AFTER 48 HOURS Lab Studies 06/03/17 06/03/17 06/03/17 Range/Units 12:33 08:25 07:20 WBC 9.0 D (4.5-11.0) 10^3/ul RBC 3.12 L (3.5-6.1) 10^6/uL Hgb 9.3 L (14.0-18.0) g/dL Hct 30.0 L (42.0-52.0) % MCV 96.2 (80.0-105.0) fl MCH 29.8 (25.0-35.0) pg MCHC 31.0 (31.0-37.0) g/dl RDW 13.9 (11.5-14.5) % Plt Count 207 (120.0-450.0) 10^3/uL MPV 10.1 (7.0-11.0) fl Gran % 80.1 H (50.0-68.0) % Lymph % (Auto) 10.1 L (22.0-35.0) % Kings % (Auto) 7.8 H (1.0-6.0) % Eos % (Auto) 1.8 (1.5-5.0) % Baso % (Auto) 0.2 (0.0-3.0) % Gran # 7.17 H (1.4-6.5) Lymph # 0.9 L (1.2-3.4) Kings # 0.7 H (0.1-0.6) Eos # 0.2 (0.0-0.7) Baso # 0.02 (0.0-2.0) K/mm3 pCO2 47 H (35-45) mm/Hg pO2 108.0 H (80-100) mm/Hg HCO3 25.4 (21-28) mmol/L ABG pH 7.34 L (7.35-7.45) ABG Total CO2 26.8 (22-28) mmol.L ABG O2 Saturation 100.2 H (95-98) % ABG O2 Content 12.4 L (15-23) ML/dl ABG Base Excess -0.5 (-2.0-3.0) mmol/L ABG Hemoglobin 8.9 L (11.7-17.4) g/dL ABG Carboxyhemoglobin 1.9 H (0.5-1.5) % POC ABG HHb (Measured) -0.2 L (0-5) % ABG Methemoglobin 0.6 (0.0-3.0) % ABG O2 Capacity 12.4 L (16-24) mL/dl Hgb O2 Saturation 97.7 (95.0-98.0) % FiO2 40.0 % Sodium 150 H (132-148) mmol/L Potassium 3.6 (3.6-5.0) mmol/L Chloride 119 H (98-107) mmol/L Carbon Dioxide 26 (21-33) mmol/L Anion Gap 9 L (10-20) BUN 14 (7-21) mg/dL Creatinine 0.7 L (0.8-1.5) mg/dL Est GFR ( Amer) > 60 Est GFR (Non-Af Amer) > 60 POC Glucose (mg/dL) (65-110) mg/dL Random Glucose 118 H (70-110) mg/dL Calcium 8.4 (8.4-10.5) mg/dL Total Bilirubin 0.4 (0.2-1.3) mg/dL AST 18 (17-59) U/L ALT 24 (7-56) U/L Alkaline Phosphatase 77 (38-126) U/L Total Protein 6.7 (5.8-8.3) g/dL Albumin 2.6 L (3.0-4.8) g/dL Globulin 4.1 gm/dL Albumin/Globulin Ratio 0.6 L (1.1-1.8) 06/03/17 06/02/17 06/02/17 Range/Units 05:20 22:27 16:11 WBC (4.5-11.0) 10^3/ul RBC (3.5-6.1) 10^6/uL Hgb (14.0-18.0) g/dL Hct (42.0-52.0) % MCV (80.0-105.0) fl MCH (25.0-35.0) pg MCHC (31.0-37.0) g/dl RDW (11.5-14.5) % Plt Count (120.0-450.0) 10^3/uL MPV (7.0-11.0) fl Gran % (50.0-68.0) % Lymph % (Auto) (22.0-35.0) % Kings % (Auto) (1.0-6.0) % Eos % (Auto) (1.5-5.0) % Baso % (Auto) (0.0-3.0) % Gran # (1.4-6.5) Lymph # (1.2-3.4) Kings # (0.1-0.6) Eos # (0.0-0.7) Baso # (0.0-2.0) K/mm3 pCO2 (35-45) mm/Hg pO2 (80-100) mm/Hg HCO3 (21-28) mmol/L ABG pH (7.35-7.45) ABG Total CO2 (22-28) mmol.L ABG O2 Saturation (95-98) % ABG O2 Content (15-23) ML/dl ABG Base Excess (-2.0-3.0) mmol/L ABG Hemoglobin (11.7-17.4) g/dL ABG Carboxyhemoglobin (0.5-1.5) % POC ABG HHb (Measured) (0-5) % ABG Methemoglobin (0.0-3.0) % ABG O2 Capacity (16-24) mL/dl Hgb O2 Saturation (95.0-98.0) % FiO2 % Sodium 151 H (132-148) mmol/L Potassium 3.8 (3.6-5.0) mmol/L Chloride 119 H (98-107) mmol/L Carbon Dioxide 29 (21-33) mmol/L Anion Gap 7 L (10-20) BUN 15 (7-21) mg/dL Creatinine 0.8 (0.8-1.5) mg/dL Est GFR ( Amer) > 60 Est GFR (Non-Af Amer) > 60 POC Glucose (mg/dL) 95 125 H (65-110) mg/dL Random Glucose 143 H (70-110) mg/dL Calcium 8.6 (8.4-10.5) mg/dL Total Bilirubin 0.4 (0.2-1.3) mg/dL AST 32 (17-59) U/L ALT 25 (7-56) U/L Alkaline Phosphatase 80 (38-126) U/L Total Protein 7.1 (5.8-8.3) g/dL Albumin 2.8 L (3.0-4.8) g/dL Globulin 4.3 gm/dL Albumin/Globulin Ratio 0.7 L (1.1-1.8) 06/02/17 06/02/17 Range/Units 11:13 07:12 WBC (4.5-11.0) 10^3/ul RBC (3.5-6.1) 10^6/uL Hgb (14.0-18.0) g/dL Hct (42.0-52.0) % MCV (80.0-105.0) fl MCH (25.0-35.0) pg MCHC (31.0-37.0) g/dl RDW (11.5-14.5) % Plt Count (120.0-450.0) 10^3/uL MPV (7.0-11.0) fl Gran % (50.0-68.0) % Lymph % (Auto) (22.0-35.0) % Kings % (Auto) (1.0-6.0) % Eos % (Auto) (1.5-5.0) % Baso % (Auto) (0.0-3.0) % Gran # (1.4-6.5) Lymph # (1.2-3.4) Kings # (0.1-0.6) Eos # (0.0-0.7) Baso # (0.0-2.0) K/mm3 pCO2 (35-45) mm/Hg pO2 (80-100) mm/Hg HCO3 (21-28) mmol/L ABG pH (7.35-7.45) ABG Total CO2 (22-28) mmol.L ABG O2 Saturation (95-98) % ABG O2 Content (15-23) ML/dl ABG Base Excess (-2.0-3.0) mmol/L ABG Hemoglobin (11.7-17.4) g/dL ABG Carboxyhemoglobin (0.5-1.5) % POC ABG HHb (Measured) (0-5) % ABG Methemoglobin (0.0-3.0) % ABG O2 Capacity (16-24) mL/dl Hgb O2 Saturation (95.0-98.0) % FiO2 % Sodium (132-148) mmol/L Potassium (3.6-5.0) mmol/L Chloride (98-107) mmol/L Carbon Dioxide (21-33) mmol/L Anion Gap (10-20) BUN (7-21) mg/dL Creatinine (0.8-1.5) mg/dL Est GFR ( Amer) Est GFR (Non-Af Amer) POC Glucose (mg/dL) 103 101 (65-110) mg/dL Random Glucose (70-110) mg/dL Calcium (8.4-10.5) mg/dL Total Bilirubin (0.2-1.3) mg/dL AST (17-59) U/L ALT (7-56) U/L Alkaline Phosphatase (38-126) U/L Total Protein (5.8-8.3) g/dL Albumin (3.0-4.8) g/dL Globulin gm/dL Albumin/Globulin Ratio (1.1-1.8) Laboratory Results - last 24 hr 06/02/17 06/02/17 06/02/17 07:12 11:13 16:11 WBC RBC Hgb Hct MCV MCH MCHC RDW Plt Count MPV Gran % Lymph % (Auto) Kings % (Auto) Eos % (Auto) Baso % (Auto) Gran # Lymph # Kings # Eos # Baso # pCO2 pO2 HCO3 ABG pH ABG Total CO2 ABG O2 Saturation ABG O2 Content ABG Base Excess ABG Hemoglobin ABG Carboxyhemoglobin POC ABG HHb (Measured) ABG Methemoglobin ABG O2 Capacity Hgb O2 Saturation FiO2 Sodium Potassium Chloride Carbon Dioxide Anion Gap BUN Creatinine Est GFR ( Amer) Est GFR (Non-Af Amer) POC Glucose (mg/dL) 101 103 125 H Random Glucose Calcium Total Bilirubin AST ALT Alkaline Phosphatase Total Protein Albumin Globulin Albumin/Globulin Ratio 06/02/17 06/03/17 06/03/17 22:27 05:20 07:20 WBC 9.0 D RBC 3.12 L Hgb 9.3 L Hct 30.0 L MCV 96.2 MCH 29.8 MCHC 31.0 RDW 13.9 Plt Count 207 MPV 10.1 Gran % 80.1 H Lymph % (Auto) 10.1 L Kings % (Auto) 7.8 H Eos % (Auto) 1.8 Baso % (Auto) 0.2 Gran # 7.17 H Lymph # 0.9 L Kings # 0.7 H Eos # 0.2 Baso # 0.02 pCO2 pO2 HCO3 ABG pH ABG Total CO2 ABG O2 Saturation ABG O2 Content ABG Base Excess ABG Hemoglobin ABG Carboxyhemoglobin POC ABG HHb (Measured) ABG Methemoglobin ABG O2 Capacity Hgb O2 Saturation FiO2 Sodium 151 H Potassium 3.8 Chloride 119 H Carbon Dioxide 29 Anion Gap 7 L BUN 15 Creatinine 0.8 Est GFR ( Amer) > 60 Est GFR (Non-Af Amer) > 60 POC Glucose (mg/dL) 95 Random Glucose 143 H Calcium 8.6 Total Bilirubin 0.4 AST 32 ALT 25 Alkaline Phosphatase 80 Total Protein 7.1 Albumin 2.8 L Globulin 4.3 Albumin/Globulin Ratio 0.7 L 06/03/17 06/03/17 08:25 12:33 WBC RBC Hgb Hct MCV MCH MCHC RDW Plt Count MPV Gran % Lymph % (Auto) Kings % (Auto) Eos % (Auto) Baso % (Auto) Gran # Lymph # Kings # Eos # Baso # pCO2 47 H pO2 108.0 H HCO3 25.4 ABG pH 7.34 L ABG Total CO2 26.8 ABG O2 Saturation 100.2 H ABG O2 Content 12.4 L ABG Base Excess -0.5 ABG Hemoglobin 8.9 L ABG Carboxyhemoglobin 1.9 H POC ABG HHb (Measured) -0.2 L ABG Methemoglobin 0.6 ABG O2 Capacity 12.4 L Hgb O2 Saturation 97.7 FiO2 40.0 Sodium 150 H Potassium 3.6 Chloride 119 H Carbon Dioxide 26 Anion Gap 9 L BUN 14 Creatinine 0.7 L Est GFR ( Amer) > 60 Est GFR (Non-Af Amer) > 60 POC Glucose (mg/dL) Random Glucose 118 H Calcium 8.4 Total Bilirubin 0.4 AST 18 ALT 24 Alkaline Phosphatase 77 Total Protein 6.7 Albumin 2.6 L Globulin 4.1 Albumin/Globulin Ratio 0.6 L Fingerstick Blood Sugar Results: 144 Assessment/Plan - Assessment and Plan (Free Text) Assessment: 67 year old male with a PMH of tobacco and alcohol abuse, hypertension, who presented to [facility] on 05/29 after being found by his , 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, found to be short of breath and unable to protect his airway 05/31 and intubated for airway protection , complicated by tachyarrythmia found to be SVT which resolved with adenosine Plan: Neurological Left thalamic/BG with intraventricular extension on Head CT, no neurosurgical intervention indicated Repeat Head CT 05/30 showed little interval change and decreased intraventricular blood Neuro following, recs appreciate Off 3% Na, will hold Salt tabs for now as Na 151 Repeat CMP today Maintain SBP 140-160 HOB 30 Will need trach and intensive PT/OT Cardiovascular Hemodynamically stable, SVT resolved with adenosine x1 on 05/31 Cardio following, recs appreciated Cont metoprolol Following closely Pulmnologic Intubated for airway protection, PRVC 480/14/5/40% On fentanyl gtt Surgery following, will need trach Maintain O2 sat >92% GI OGT in place, on feeds with water flushes Monitor residuals Optimize nutrition Nephro/Electrolytes Monitoring IxOs, banegas in place Monitoring Na closely, elevated so will hold salt tabs Per neuro will allow to slowly normalize ID ID Dr. Dunn consulted, recs appreciated Left buttock abscess improving, surgery following Febrile 102.3 this morning with no leukocytosis Found to have left testicular cellulitis with actively draining lesion, Uro consulted Testicular US ordered On aztreonam D3, flagyl D3, and vanco D3 Heme No active bleeding noted Hemodynamically stable Following CBC GI/DVT ppx: protonix/SCDs, no AC Patient was seen and examined and case was discussed at length with attending physician. - Date & Time Date: 06/03/17 Time: 08:00 <Brody Bobo - Last Filed: 06/03/17 14:11> CCU Objective - Vital Signs / Intake & Output Intake and Output (Last 8hrs): Intake & Output 1106/03/17 06/03/17 23:59 06:59 14:59 Intake Total 100 Output Total Balance 100 Weight Intake: IV 100 Left Internal Jugular Oral Tube Feeding TPN/PPN Blood Product Lipid Albumin Other Output: Urine Condom Urine, Voided Stool Urine/Stool Mix Emesis Oral Regurgitation Other Other: # Bowel Movements - Medications Active Medications: Active Medications Generic Name Dose Route Start Last Admin Trade Name Freq PRN Reason Stop Dose Admin Artificial Tears 0 ml 06/02/17 14:45 06/03/17 09:57 Artificial Tears OU 2 drop DAILY KATIE Administration Chlorhexidine Gluconate 15 ml 06/01/17 12:00 06/03/17 09:58 Peridex PO 15 ml TID KATIE Administration Clonidine HCl 0.1 mg 06/01/17 18:00 06/03/17 09:59 Catapres PO 0.1 mg BID KATIE Administration Vancomycin HCl 1 gm in 250 mls @ 167 mls/hr 06/01/17 10:00 06/03/17 10:11 Vancomycin 1gm IVPB 167 mls/hr Q12H KATIE Administration Protocol Aztreonam 100 mls @ 100 mls/hr 06/01/17 09:00 06/03/17 05:07 Azactam 2 Gm IVPB 06/08/17 09:01 100 mls/hr Q8 KATIE Administration Protocol Metronidazole 500 mg in 100 mls @ 100 mls/hr 06/01/17 14:00 06/03/17 05:06 Flagyl IVPB 100 mls/hr Q8 KATIE Administration Protocol Fentanyl Citrate 1,000 mcg in 100 mls @ 2 mls/hr 06/01/17 14:04 06/03/17 09: 16 Fentanyl Citrate/Sodium Chloride 1 Mg/100 Ml IV 40 mcg/hr .Q24H PRN 4 mls/hr TITRATE PER MD ORDER Administration Protocol 20 MCG/HR Lorazepam 2 mg 05/29/17 15:23 Ativan IVP Q2H PRN Symptoms of alcohol withdrawl Protocol Lorazepam 4 mg 05/29/17 15:23 05/30/17 17:00 Ativan IVP 4 mg Q4H PRN Administration Symptoms of alcohol withdrawl Protocol Metoprolol Tartrate 25 mg 06/01/17 10:15 06/03/17 09:59 Lopressor PO 25 mg BID KATIE Administration Pantoprazole Sodium 40 mg 05/29/17 13:30 06/03/17 09:57 Protonix Inj IVP 40 mg DAILY KATIE Administration Silver Sulfadiazine 0 gm 05/30/17 18:00 06/03/17 09:57 Silvadene 1% 25 Gm TP Not Given BID KATIE Sodium Chloride 1 gm 05/31/17 10:00 06/02/17 21:31 Sodium Chloride Tab PO 1 gm Q12 KATIE Administration - Patient Studies Lab Studies: Microbiology Studies 06/01/17 09:15 Blood Culture - Preliminary Blood-Venous NO GROWTH AFTER 48 HOURS 06/01/17 09:00 Blood Culture - Preliminary Blood-Venous NO GROWTH AFTER 48 HOURS Lab Studies 06/03/17 06/03/17 06/03/17 Range/Units 12:33 08:25 07:20 WBC 9.0 D (4.5-11.0) 10^3/ul RBC 3.12 L (3.5-6.1) 10^6/uL Hgb 9.3 L (14.0-18.0) g/dL Hct 30.0 L (42.0-52.0) % MCV 96.2 (80.0-105.0) fl MCH 29.8 (25.0-35.0) pg MCHC 31.0 (31.0-37.0) g/dl RDW 13.9 (11.5-14.5) % Plt Count 207 (120.0-450.0) 10^3/uL MPV 10.1 (7.0-11.0) fl Gran % 80.1 H (50.0-68.0) % Lymph % (Auto) 10.1 L (22.0-35.0) % Kings % (Auto) 7.8 H (1.0-6.0) % Eos % (Auto) 1.8 (1.5-5.0) % Baso % (Auto) 0.2 (0.0-3.0) % Gran # 7.17 H (1.4-6.5) Lymph # 0.9 L (1.2-3.4) Kings # 0.7 H (0.1-0.6) Eos # 0.2 (0.0-0.7) Baso # 0.02 (0.0-2.0) K/mm3 pCO2 47 H (35-45) mm/Hg pO2 108.0 H (80-100) mm/Hg HCO3 25.4 (21-28) mmol/L ABG pH 7.34 L (7.35-7.45) ABG Total CO2 26.8 (22-28) mmol.L ABG O2 Saturation 100.2 H (95-98) % ABG O2 Content 12.4 L (15-23) ML/dl ABG Base Excess -0.5 (-2.0-3.0) mmol/L ABG Hemoglobin 8.9 L (11.7-17.4) g/dL ABG Carboxyhemoglobin 1.9 H (0.5-1.5) % POC ABG HHb (Measured) -0.2 L (0-5) % ABG Methemoglobin 0.6 (0.0-3.0) % ABG O2 Capacity 12.4 L (16-24) mL/dl Hgb O2 Saturation 97.7 (95.0-98.0) % FiO2 40.0 % Sodium 150 H (132-148) mmol/L Potassium 3.6 (3.6-5.0) mmol/L Chloride 119 H (98-107) mmol/L Carbon Dioxide 26 (21-33) mmol/L Anion Gap 9 L (10-20) BUN 14 (7-21) mg/dL Creatinine 0.7 L (0.8-1.5) mg/dL Est GFR ( Amer) > 60 Est GFR (Non-Af Amer) > 60 POC Glucose (mg/dL) (65-110) mg/dL Random Glucose 118 H (70-110) mg/dL Calcium 8.4 (8.4-10.5) mg/dL Total Bilirubin 0.4 (0.2-1.3) mg/dL AST 18 (17-59) U/L ALT 24 (7-56) U/L Alkaline Phosphatase 77 (38-126) U/L Total Protein 6.7 (5.8-8.3) g/dL Albumin 2.6 L (3.0-4.8) g/dL Globulin 4.1 gm/dL Albumin/Globulin Ratio 0.6 L (1.1-1.8) 11/05/17 11/04/17 11/04/17 Range/Units 05:20 22:27 16:11 WBC (4.5-11.0) 10^3/ul RBC (3.5-6.1) 10^6/uL Hgb (14.0-18.0) g/dL Hct (42.0-52.0) % MCV (80.0-105.0) fl MCH (25.0-35.0) pg MCHC (31.0-37.0) g/dl RDW (11.5-14.5) % Plt Count (120.0-450.0) 10^3/uL MPV (7.0-11.0) fl Gran % (50.0-68.0) % Lymph % (Auto) (22.0-35.0) % Kings % (Auto) (1.0-6.0) % Eos % (Auto) (1.5-5.0) % Baso % (Auto) (0.0-3.0) % Gran # (1.4-6.5) Lymph # (1.2-3.4) Kings # (0.1-0.6) Eos # (0.0-0.7) Baso # (0.0-2.0) K/mm3 pCO2 (35-45) mm/Hg pO2 (80-100) mm/Hg HCO3 (21-28) mmol/L ABG pH (7.35-7.45) ABG Total CO2 (22-28) mmol.L ABG O2 Saturation (95-98) % ABG O2 Content (15-23) ML/dl ABG Base Excess (-2.0-3.0) mmol/L ABG Hemoglobin (11.7-17.4) g/dL ABG Carboxyhemoglobin (0.5-1.5) % POC ABG HHb (Measured) (0-5) % ABG Methemoglobin (0.0-3.0) % ABG O2 Capacity (16-24) mL/dl Hgb O2 Saturation (95.0-98.0) % FiO2 % Sodium 151 H (132-148) mmol/L Potassium 3.8 (3.6-5.0) mmol/L Chloride 119 H (98-107) mmol/L Carbon Dioxide 29 (21-33) mmol/L Anion Gap 7 L (10-20) BUN 15 (7-21) mg/dL Creatinine 0.8 (0.8-1.5) mg/dL Est GFR ( Amer) > 60 Est GFR (Non-Af Amer) > 60 POC Glucose (mg/dL) 95 125 H (65-110) mg/dL Random Glucose 143 H (70-110) mg/dL Calcium 8.6 (8.4-10.5) mg/dL Total Bilirubin 0.4 (0.2-1.3) mg/dL AST 32 (17-59) U/L ALT 25 (7-56) U/L Alkaline Phosphatase 80 (38-126) U/L Total Protein 7.1 (5.8-8.3) g/dL Albumin 2.8 L (3.0-4.8) g/dL Globulin 4.3 gm/dL Albumin/Globulin Ratio 0.7 L (1.1-1.8) 06/02/17 06/02/17 Range/Units 11:13 07:12 WBC (4.5-11.0) 10^3/ul RBC (3.5-6.1) 10^6/uL Hgb (14.0-18.0) g/dL Hct (42.0-52.0) % MCV (80.0-105.0) fl MCH (25.0-35.0) pg MCHC (31.0-37.0) g/dl RDW (11.5-14.5) % Plt Count (120.0-450.0) 10^3/uL MPV (7.0-11.0) fl Gran % (50.0-68.0) % Lymph % (Auto) (22.0-35.0) % Kings % (Auto) (1.0-6.0) % Eos % (Auto) (1.5-5.0) % Baso % (Auto) (0.0-3.0) % Gran # (1.4-6.5) Lymph # (1.2-3.4) Kings # (0.1-0.6) Eos # (0.0-0.7) Baso # (0.0-2.0) K/mm3 pCO2 (35-45) mm/Hg pO2 (80-100) mm/Hg HCO3 (21-28) mmol/L ABG pH (7.35-7.45) ABG Total CO2 (22-28) mmol.L ABG O2 Saturation (95-98) % ABG O2 Content (15-23) ML/dl ABG Base Excess (-2.0-3.0) mmol/L ABG Hemoglobin (11.7-17.4) g/dL ABG Carboxyhemoglobin (0.5-1.5) % POC ABG HHb (Measured) (0-5) % ABG Methemoglobin (0.0-3.0) % ABG O2 Capacity (16-24) mL/dl Hgb O2 Saturation (95.0-98.0) % FiO2 % Sodium (132-148) mmol/L Potassium (3.6-5.0) mmol/L Chloride (98-107) mmol/L Carbon Dioxide (21-33) mmol/L Anion Gap (10-20) BUN (7-21) mg/dL Creatinine (0.8-1.5) mg/dL Est GFR ( Amer) Est GFR (Non-Af Amer) POC Glucose (mg/dL) 103 101 (65-110) mg/dL Random Glucose (70-110) mg/dL Calcium (8.4-10.5) mg/dL Total Bilirubin (0.2-1.3) mg/dL AST (17-59) U/L ALT (7-56) U/L Alkaline Phosphatase (38-126) U/L Total Protein (5.8-8.3) g/dL Albumin (3.0-4.8) g/dL Globulin gm/dL Albumin/Globulin Ratio (1.1-1.8) Laboratory Results - last 24 hr 06/02/17 06/02/17 06/02/17 07:12 11:13 16:11 WBC RBC Hgb Hct MCV MCH MCHC RDW Plt Count MPV Gran % Lymph % (Auto) Kings % (Auto) Eos % (Auto) Baso % (Auto) Gran # Lymph # Kings # Eos # Baso # pCO2 pO2 HCO3 ABG pH ABG Total CO2 ABG O2 Saturation ABG O2 Content ABG Base Excess ABG Hemoglobin ABG Carboxyhemoglobin POC ABG HHb (Measured) ABG Methemoglobin ABG O2 Capacity Hgb O2 Saturation FiO2 Sodium Potassium Chloride Carbon Dioxide Anion Gap BUN Creatinine Est GFR ( Amer) Est GFR (Non-Af Amer) POC Glucose (mg/dL) 101 103 125 H Random Glucose Calcium Total Bilirubin AST ALT Alkaline Phosphatase Total Protein Albumin Globulin Albumin/Globulin Ratio 06/02/17 06/03/17 06/03/17 22:27 05:20 07:20 WBC 9.0 D RBC 3.12 L Hgb 9.3 L Hct 30.0 L MCV 96.2 MCH 29.8 MCHC 31.0 RDW 13.9 Plt Count 207 MPV 10.1 Gran % 80.1 H Lymph % (Auto) 10.1 L Kings % (Auto) 7.8 H Eos % (Auto) 1.8 Baso % (Auto) 0.2 Gran # 7.17 H Lymph # 0.9 L Kings # 0.7 H Eos # 0.2 Baso # 0.02 pCO2 pO2 HCO3 ABG pH ABG Total CO2 ABG O2 Saturation ABG O2 Content ABG Base Excess ABG Hemoglobin ABG Carboxyhemoglobin POC ABG HHb (Measured) ABG Methemoglobin ABG O2 Capacity Hgb O2 Saturation FiO2 Sodium 151 H Potassium 3.8 Chloride 119 H Carbon Dioxide 29 Anion Gap 7 L BUN 15 Creatinine 0.8 Est GFR ( Amer) > 60 Est GFR (Non-Af Amer) > 60 POC Glucose (mg/dL) 95 Random Glucose 143 H Calcium 8.6 Total Bilirubin 0.4 AST 32 ALT 25 Alkaline Phosphatase 80 Total Protein 7.1 Albumin 2.8 L Globulin 4.3 Albumin/Globulin Ratio 0.7 L 06/03/17 06/03/17 08:25 12:33 WBC RBC Hgb Hct MCV MCH MCHC RDW Plt Count MPV Gran % Lymph % (Auto) Kings % (Auto) Eos % (Auto) Baso % (Auto) Gran # Lymph # Kings # Eos # Baso # pCO2 47 H pO2 108.0 H HCO3 25.4 ABG pH 7.34 L ABG Total CO2 26.8 ABG O2 Saturation 100.2 H ABG O2 Content 12.4 L ABG Base Excess -0.5 ABG Hemoglobin 8.9 L ABG Carboxyhemoglobin 1.9 H POC ABG HHb (Measured) -0.2 L ABG Methemoglobin 0.6 ABG O2 Capacity 12.4 L Hgb O2 Saturation 97.7 FiO2 40.0 Sodium 150 H Potassium 3.6 Chloride 119 H Carbon Dioxide 26 Anion Gap 9 L BUN 14 Creatinine 0.7 L Est GFR ( Amer) > 60 Est GFR (Non-Af Amer) > 60 POC Glucose (mg/dL) Random Glucose 118 H Calcium 8.4 Total Bilirubin 0.4 AST 18 ALT 24 Alkaline Phosphatase 77 Total Protein 6.7 Albumin 2.6 L Globulin 4.1 Albumin/Globulin Ratio 0.6 L Assessment/Plan - Assessment and Plan (Free Text) Plan: Patient is seen and examined, on rounds with resident, agree with residents note , with following additions/exceptions: Patient is a 67 year old male with a PMH of tobacco and alcohol abuse, hypertension, who was admitted altered mental status, 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 Patient is currently intubated , sedated. Patient has drainage form scrotum, Urology consulted. Surgery following buttocks abscess ICH HTN Gluteal Abscess/Cellulitis Recommend: - cont with vent support as needed - patient unable to protect airway, will need Tracheostomy, consult ENT - BP control - Abx as per ID - maintain Sodium 145-150 - follow up neurology - DC IVF - Follow up Urology - GI ppx - DVT ppx
--- NOTE | 2017-06-03 15:45 | CP.PCM.PN ---
Subjective - Date & Time of Evaluation Date of Evaluation: 06/03/17 Time of Evaluation: 15:43 - Subjective Subjective: Mr. Veras was seen and examined today in the ICU with his family at bedside. He was found in NAD and was comfortable. Overnight, he had developed a fever of 102 degrees. Currently, he was afebrile. Objective - Vital Signs/Intake and Output Vital Signs (last 24 hours): Temp Pulse Resp BP Pulse Ox 100.1 F H 82 14 115/55 L 100 06/03/17 08:00 06/03/17 15:33 06/03/17 07:55 06/03/17 15:33 06/03/17 15:33 Intake and Output: 06/03/17 06/03/17 06:59 18:59 Intake Total 100 Output Total Balance 100 - Medications Medications: Current Medications Artificial Tears (Artificial Tears) 0 ml OU DAILY [facility] Last Admin: 06/03/17 09:57 Dose: 2 drop Chlorhexidine Gluconate (Peridex) 15 ml PO TID [facility] Last Admin: 06/03/17 15:00 Dose: 15 ml Clonidine HCl (Catapres) 0.1 mg PO BID [facility] Last Admin: 06/03/17 09:59 Dose: 0.1 mg Vancomycin HCl (Vancomycin 1gm) 1 gm in 250 mls @ 167 mls/hr IVPB Q12H [facility] PRN Reason: Protocol Last Admin: 06/03/17 10:11 Dose: 167 mls/hr Aztreonam (Azactam 2 Gm) 100 mls @ 100 mls/hr IVPB Q8 [facility] PRN Reason: Protocol Stop: 06/08/17 09:01 Last Admin: 06/03/17 15:00 Dose: 100 mls/hr Metronidazole (Flagyl) 500 mg in 100 mls @ 100 mls/hr IVPB Q8 [facility]ATIE PRN Reason: Protocol Last Admin: 06/03/17 15:01 Dose: 100 mls/hr Fentanyl Citrate (Fentanyl Citrate/Sodium Chloride 1 Mg/100 Ml) 1,000 mcg in 100 mls @ 2 mls/hr IV .Q24H PRN; Protocol; 20 MCG/HR PRN Reason: TITRATE PER MD ORDER Last Admin: 06/03/17 09:16 Dose: 40 mcg/hr, 4 mls/hr Lorazepam (Ativan) 2 mg IVP Q2H PRN; Protocol PRN Reason: Symptoms of alcohol withdrawl Lorazepam (Ativan) 4 mg IVP Q4H PRN; Protocol PRN Reason: Symptoms of alcohol withdrawl Last Admin: 05/30/17 17:00 Dose: 4 mg Metoprolol Tartrate (Lopressor) 25 mg PO BID [facility] Last Admin: 06/03/17 09:59 Dose: 25 mg Pantoprazole Sodium (Protonix Inj) 40 mg IVP DAILY [facility] Last Admin: 06/03/17 09:57 Dose: 40 mg Silver Sulfadiazine (Silvadene 1% 25 Gm) 0 gm TP BID [facility] Last Admin: 06/03/17 09:57 Dose: Not Given Sodium Chloride (Sodium Chloride Tab) 1 gm PO Q12 [facility] Last Admin: 06/02/17 21:31 Dose: 1 gm - Labs Labs: 06/03/17 07:20 06/03/17 12:33 PT 14.0 SECONDS (9.4-12.5) H 05/31/17 09:30 INR 1.27 (0.93-1.08) H 05/31/17 09:30 APTT 23.3 Seconds (25.1-36.5) L 05/31/17 09:30 - Neurological Exam Additional comments: Neurologically unchanged compared with yesterday's examination. Assessment and Plan (1) Intracerebral hemorrhage Assessment & Plan: Continue normotension, normothermia, euglycemia and manage infection. Will plan for trach tomorrow or Sunday. Continue PT/OT and transfer to medical floor when stable with a plan to transfer to inpatient rehab if he meet criteria. Status: Acute
[2017-06-04] MEDS: metroNIDAZOLE IV 500 mg/100 ml 500 MG/100 ML BAG IVPB SCH ×4 (05:05→21:47)
[2017-06-04 05:50] LABS: ARTERIAL BLOOD GAS HCO3 27.8 mmol/L (21-28); ARTERIAL BLOOD GAS O2 CAPACITY 13.1 mL/dl (16-24); ARTERIAL BLOOD GAS PH 7.39 (7.35-7.45); ARTERIAL BLOOD HGB O2 SAT 96.7 % (95.0-98.0); CARBOXYHEMOGLOBIN 1.7 % (0.5-1.5); HHB 0.6 % (0-5)
[2017-06-04] MEDS: Aztreonam 2 Gm in NS 100mL 100 ML IVPB SCH ×3 (05:50→21:47)
[2017-06-04 06:25] LABS: BASO # 0.01 K/mm3 (0.0-2.0); BASO % 0.1 % (0.0-3.0); EOS # 0.2 (0.0-0.7); EOS % 2.6 % (1.5-5.0); GRAN # 7.17 (1.4-6.5); GRAN % 77.6 % (50.0-68.0); LYMPH # 1.2 (1.2-3.4); LYMPH % 12.6 % (22.0-35.0); MEAN CELL VOLUME 96.8 fl (80.0-105.0); MEAN CORPUSCULAR HEMOGLOBIN 29.7 pg (25.0-35.0); MEAN CORPUSCULAR HGB CONC 30.7 g/dl (31.0-37.0); MEAN PLATELET VOLUME 10.2 fl (7.0-11.0); MONO # 0.7 (0.1-0.6); MONO % 7.1 % (1.0-6.0); WHITE BLOOD COUNT 9.2 10^3/ul (4.5-11.0)
--- NOTE | 2017-06-04 06:29 | CP.PCM.PN ---
Subjective - Date & Time of Evaluation Date of Evaluation: 06/04/17 Time of Evaluation: 06:27 - Subjective Subjective: Mr. Veras was seen and examined at the bedside. He is responsive to verbal and tactile cues. On Fentanyl drip at 40 mcg/hr. He remains with right side hemiplegia and aphasia, but does follow simple commands. He is on mechanical ventilation and an OGT. He had an episode of febrile with max. temp. 102, IV tylenol was given. At present, he has temp. 99.5 rectally. Objective - Vital Signs/Intake and Output Vital Signs (last 24 hours): Temp Pulse Resp BP Pulse Ox 99.5 F 59 L 14 104/55 L 100 06/04/17 04:00 06/04/17 03:13 06/03/17 07:55 06/04/17 03:13 06/04/17 03:13 Intake and Output: 06/03/17 06/04/17 18:59 06:59 Intake Total 1948 1400 Output Total 750 525 Balance 1198 875 - Medications Medications: Current Medications Artificial Tears (Artificial Tears) 0 ml OU DAILY [facility] Last Admin: 06/03/17 09:57 Dose: 2 drop Chlorhexidine Gluconate (Peridex) 15 ml PO TID [facility] Last Admin: 06/03/17 17:34 Dose: 15 ml Clonidine HCl (Catapres) 0.1 mg PO BID [facility] Last Admin: 06/03/17 17:36 Dose: 0.1 mg Vancomycin HCl (Vancomycin 1gm) 1 gm in 250 mls @ 167 mls/hr IVPB Q12H [facility] PRN Reason: Protocol Last Admin: 06/03/17 22:30 Dose: 167 mls/hr Aztreonam (Azactam 2 Gm) 100 mls @ 100 mls/hr IVPB Q8 [facility]IE PRN Reason: Protocol Stop: 06/08/17 09:01 Last Admin: 06/04/17 05:50 Dose: 100 mls/hr Metronidazole (Flagyl) 500 mg in 100 mls @ 100 mls/hr IVPB Q8 [facility]ATIE PRN Reason: Protocol Last Admin: 06/04/17 05:05 Dose: 100 mls/hr Fentanyl Citrate (Fentanyl Citrate/Sodium Chloride 1 Mg/100 Ml) 1,000 mcg in 100 mls @ 2 mls/hr IV .Q24H PRN; Protocol; 20 MCG/HR PRN Reason: TITRATE PER MD ORDER Last Admin: 06/03/17 09:16 Dose: 40 mcg/hr, 4 mls/hr Lorazepam (Ativan) 2 mg IVP Q2H PRN; Protocol PRN Reason: Symptoms of alcohol withdrawl Lorazepam (Ativan) 4 mg IVP Q4H PRN; Protocol PRN Reason: Symptoms of alcohol withdrawl Last Admin: 05/30/17 17:00 Dose: 4 mg Metoprolol Tartrate (Lopressor) 25 mg PO BID [facility] Last Admin: 06/03/17 17:36 Dose: 25 mg Pantoprazole Sodium (Protonix Inj) 40 mg IVP DAILY [facility] Last Admin: 06/03/17 09:57 Dose: 40 mg Silver Sulfadiazine (Silvadene 1% 25 Gm) 0 gm TP BID [facility] Last Admin: 06/03/17 17:33 Dose: Not Given Sodium Chloride (Sodium Chloride Tab) 1 gm PO Q12 [facility] Last Admin: 06/02/17 21:31 Dose: 1 gm - Labs Labs: 06/03/17 07:20 06/03/17 12:33 PT 14.0 SECONDS (9.4-12.5) H 05/31/17 09:30 INR 1.27 (0.93-1.08) H 05/31/17 09:30 APTT 23.3 Seconds (25.1-36.5) L 05/31/17 09:30 - Constitutional Appears: No Acute Distress - Head Exam Head Exam: ATRAUMATIC, NORMAL INSPECTION, NORMOCEPHALIC - Neurological Exam Neurological Exam: Awake Neuro motor strength exam: Left Upper Extremity: 3, Right Upper Extremity: 0 ( with positive babinski reflex), Left Lower Extremity: 3, Right Lower Extremity: 0 Additional comments: He is able to follow simple commands such as squeezing hands. Sensation is asymmetrical especially on the right upper extremity. Assessment and Plan (1) Intracerebral hemorrhage Assessment & Plan: Case discussed with Dr. Davies, Continue normotension, normothermia, euglycemia and manage infection. Will plan for trach tomorrow or Sunday. Continue PT/OT and transfer to medical floor when stable with a plan to transfer to inpatient rehab if he meet criteria Status: Acute
[2017-06-04 06:42] LABS: ALB/GLOB RATIO 0.6 (1.1-1.8); ALKALINE PHOSPHATASE 79 U/L (38-126); ALT/SGPT 18 U/L (7-56); AST/SGOT 22 U/L (17-59); BILIRUBIN,TOTAL 0.4 mg/dL (0.2-1.3); BLOOD UREA NITROGEN 14 mg/dL (7-21); CALCIUM 8.5 mg/dL (8.4-10.5); CARBON DIOXIDE 28 mmol/L (21-33); CHLORIDE 120 mmol/L (98-107); GFR AFRICAN-AMERICAN > 60; GLUCOSE,RANDOM 124 mg/dL (70-110); POTASSIUM 3.6 mmol/L (3.6-5.0); SODIUM 152 mmol/L (132-148); TOTAL PROTEIN 6.8 g/dL (5.8-8.3)
--- NOTE | 2017-06-04 07:16 | CP.PCM.PN ---
<GaneshJosé - Last Filed: 06/04/17 11:03> Subjective - Date & Time of Evaluation Date of Evaluation: 06/04/17 Time of Evaluation: 07:15 - Subjective Subjective: ICU progress note. Dr. Bobo Pt seen and examined at bedside. No acute events overnight as per nursing staff. Pt noted to have a draining lesion at the left side of scrotum. Urology to evaluate today. He is responsive to verbal and tactile stimuli. Still with right sided hemiplegia. Objective - Vital Signs/Intake and Output Vital Signs (last 24 hours): Temp Pulse Resp BP Pulse Ox 99.5 F 59 L 14 104/55 L 100 06/04/17 04:00 06/04/17 03:13 06/03/17 07:55 06/04/17 03:13 06/04/17 03:13 Intake and Output: 06/04/17 06/04/17 06:59 18:59 Intake Total 1400 Output Total 525 Balance 875 - Medications Medications: Current Medications Artificial Tears (Artificial Tears) 0 ml OU DAILY [facility] Last Admin: 06/03/17 09:57 Dose: 2 drop Chlorhexidine Gluconate (Peridex) 15 ml PO TID [facility] Last Admin: 06/03/17 17:34 Dose: 15 ml Clonidine HCl (Catapres) 0.1 mg PO BID [facility] Last Admin: 06/03/17 17:36 Dose: 0.1 mg Vancomycin HCl (Vancomycin 1gm) 1 gm in 250 mls @ 167 mls/hr IVPB Q12H [facility]IE PRN Reason: Protocol Last Admin: 06/03/17 22:30 Dose: 167 mls/hr Aztreonam (Azactam 2 Gm) 100 mls @ 100 mls/hr IVPB Q8 [facility]IE PRN Reason: Protocol Stop: 06/08/17 09:01 Last Admin: 06/04/17 05:50 Dose: 100 mls/hr Metronidazole (Flagyl) 500 mg in 100 mls @ 100 mls/hr IVPB Q8 [facility]IE PRN Reason: Protocol Last Admin: 06/04/17 05:05 Dose: 100 mls/hr Fentanyl Citrate (Fentanyl Citrate/Sodium Chloride 1 Mg/100 Ml) 1,000 mcg in 100 mls @ 2 mls/hr IV .Q24H PRN; Protocol; 20 MCG/HR PRN Reason: TITRATE PER MD ORDER Last Admin: 06/03/17 09:16 Dose: 40 mcg/hr, 4 mls/hr Lorazepam (Ativan) 2 mg IVP Q2H PRN; Protocol PRN Reason: Symptoms of alcohol withdrawl Lorazepam (Ativan) 4 mg IVP Q4H PRN; Protocol PRN Reason: Symptoms of alcohol withdrawl Last Admin: 05/30/17 17:00 Dose: 4 mg Metoprolol Tartrate (Lopressor) 25 mg PO BID [facility] Last Admin: 06/03/17 17:36 Dose: 25 mg Pantoprazole Sodium (Protonix Inj) 40 mg IVP DAILY [facility] Last Admin: 06/03/17 09:57 Dose: 40 mg Silver Sulfadiazine (Silvadene 1% 25 Gm) 0 gm TP BID [facility] Last Admin: 06/03/17 17:33 Dose: Not Given Sodium Chloride (Sodium Chloride Tab) 1 gm PO Q12 [facility] Last Admin: 06/02/17 21:31 Dose: 1 gm - Labs Labs: 06/04/17 05:30 06/04/17 05:30 PT 14.0 SECONDS (9.4-12.5) H 05/31/17 09:30 INR 1.27 (0.93-1.08) H 05/31/17 09:30 APTT 23.3 Seconds (25.1-36.5) L 05/31/17 09:30 - Constitutional Appears: No Acute Distress - Head Exam Head Exam: ATRAUMATIC, NORMAL INSPECTION, NORMOCEPHALIC - Eye Exam Eye Exam: EOMI - Neck Exam Neck Exam: Full ROM - Respiratory Exam Additional comments: Intubated and on vent. PRVC. FiO2 40%. RR 14. TV 480, PEEP 5. - Cardiovascular Exam Cardiovascular Exam: RRR. absent: JVD - GI/Abdominal Exam GI & Abdominal Exam: Soft. absent: Distended, Firm, Guarding, Tenderness - Exam Additional comments: Left scrotum lesion, draining thick purulent fluid. - Extremities Exam Extremities Exam: Normal Inspection. absent: Calf Tenderness Additional comments: Left buttock: two I&D sites draining. Dressing replaced and is clean, dry and intact. - Neurological Exam Additional comments: intubated and sedated. Does follow simple commands. Responds to verbal and tactile stimuli - Skin Skin Exam: Dry, Intact, Normal Color, Warm Assessment and Plan - Assessment and Plan (Free Text) Assessment: 67yo M w/ a PMHx of tobacco and alcohol abuse, HTN who presented to [facility] on with left thalamic/BG ICH with intraventricular extension, found to be short of breath and unable to protect his airway 05/31 and intubated for airway protection, complicated by tachyarrythmia found to be SVT which resolved with adenosine. Also with left gluteal and left scrotal abscess, s/p ID by gen surg and urology. Neuro: Left thalamic/BG with intraventricular extension on Head CT, no neurosurgical intervention indicated Repeat Head CT 05/30 showed little interval change and decreased intraventricular blood Neuro following, recs appreciate Maintain Na 150-155 Maintain SBP 140-160 HOB > 30 degrees Will need trach/PEG and intensive PT/OT Cardio: Hemodynamically stable, SVT resolved with adenosine x1 on 05/31 Cardio following, recs appreciated Continue metoprolol Resp: Intubated for airway protection, PRVC 480/14/5/40% On fentanyl gtt for sedation Will initiate Pressure support trials with sedation vacations Surgery following, will need trach Maintain O2 sat >92% GI: OGT in place, on feeds with water flushes Monitor residuals Optimize nutrition. Currently on Glucerna 1.2 @30cc/hr Patient may benefit from placement of Gastric feeding tube. Will discuss with Neuro and primary teams today. Nephro/Electrolytes: Monitoring IxOs, will replace condom cath to [place] for more accurate monitoring Monitoring Na closely, elevated so will hold salt tabs. Maintain Na 150-155 Per neuro will allow to slowly normalize ID: ID Dr. Dunn consulted, recs appreciated Left buttock abscess improving, surgery following Febrile 102.5 this morning with no leukocytosis. Temp down after IV Ofirmev Left scrotal swelling, drainage noted Testicular US - no evidence of epididymitis, orchitis, torsion Urology following, performed bedside ID today. Wound culture sent for C&S. On aztreonam D4, flagyl D4, and vanco D4 Heme: No signs of active bleeding noted Hemodynamically stable Following CBC PPx: Protonix SCDs no AC Discussed case with Dr. Jeramie Andersen PGY1 <Brody Bobo - Last Filed: 06/04/17 13:35> Objective - Vital Signs/Intake and Output Vital Signs (last 24 hours): Temp Pulse Resp BP Pulse Ox 99.6 F 76 14 123/62 100 06/04/17 08:00 06/04/17 10:25 06/04/17 07:44 06/04/17 10:25 06/04/17 10:25 Intake and Output: 06/04/17 06/04/17 06:59 18:59 Intake Total 1400 100 Output Total 525 Balance 875 100 - Medications Medications: Current Medications Artificial Tears (Artificial Tears) 0 ml OU DAILY [facility] Last Admin: 06/04/17 09:07 Dose: 1 drop Chlorhexidine Gluconate (Peridex) 15 ml PO TID [facility] Last Admin: 06/04/17 13:23 Dose: 15 ml Clonidine HCl (Catapres) 0.1 mg PO BID [facility] Last Admin: 06/04/17 09:01 Dose: 0.1 mg Vancomycin HCl (Vancomycin 1gm) 1 gm in 250 mls @ 167 mls/hr IVPB Q12H [facility] PRN Reason: Protocol Last Admin: 06/04/17 09:04 Dose: 167 mls/hr Aztreonam (Azactam 2 Gm) 100 mls @ 100 mls/hr IVPB Q8 [facility] PRN Reason: Protocol Stop: 06/08/17 09:01 Last Admin: 06/04/17 13:22 Dose: 100 mls/hr Metronidazole (Flagyl) 500 mg in 100 mls @ 100 mls/hr IVPB Q8 [facility] PRN Reason: Protocol Last Admin: 06/04/17 13:22 Dose: 100 mls/hr Fentanyl Citrate (Fentanyl Citrate/Sodium Chloride 1 Mg/100 Ml) 1,000 mcg in 100 mls @ 2 mls/hr IV .Q24H PRN; Protocol; 20 MCG/HR PRN Reason: TITRATE PER MD ORDER Last Admin: 06/04/17 09:57 Dose: 40 mcg/hr, 4 mls/hr Lorazepam (Ativan) 2 mg IVP Q2H PRN; Protocol PRN Reason: Symptoms of alcohol withdrawl Lorazepam (Ativan) 4 mg IVP Q4H PRN; Protocol PRN Reason: Symptoms of alcohol withdrawl Last Admin: 05/30/17 17:00 Dose: 4 mg Metoprolol Tartrate (Lopressor) 25 mg PO BID [facility] Last Admin: 06/04/17 09:02 Dose: 25 mg Pantoprazole Sodium (Protonix Inj) 40 mg IVP DAILY [facility] Last Admin: 06/04/17 09:05 Dose: 40 mg Silver Sulfadiazine (Silvadene 1% 25 Gm) 0 gm TP BID [facility] Last Admin: 06/04/17 09:08 Dose: 25 gm Sodium Chloride (Sodium Chloride Tab) 1 gm PO Q12 [facility] Last Admin: 06/02/17 21:31 Dose: 1 gm - Labs Labs: 06/04/17 05:30 06/04/17 05:30 PT 14.0 SECONDS (9.4-12.5) H 05/31/17 09:30 INR 1.27 (0.93-1.08) H 05/31/17 09:30 APTT 23.3 Seconds (25.1-36.5) L 05/31/17 09:30 Assessment and Plan - Assessment and Plan (Free Text) Assessment: Patient is seen and examined, on rounds with resident, agree with residents note , with following additions/exceptions: Patient is a 67 year old male with a PMH of tobacco and alcohol abuse, hypertension, who was admitted altered mental status, 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 Patient is currently intubated , sedated. Patient had bedside InD by urology today for scrotal abscess. ICH HTN Gluteal Abscess/Cellulitis Scrotal abscess Recommend: - cont with vent support as needed - patient unable to protect airway, will need Tracheostomy, consult surgery - BP control - Abx as per ID - follow up neurology, ?repeat CTH - Follow up Urology - GI ppx - DVT ppx
--- NOTE | 2017-06-04 08:10 | CP.PCM.PN ---
Subjective - Date & Time of Evaluation Date of Evaluation: 06/04/17 Time of Evaluation: 08:02 - Subjective Subjective: PGY1 General Surgery for Dr. Hyatt Patient seen and examined at beside this morning. No acute events overnight. Patient is intubated, ROS unattainable. Objective - Vital Signs/Intake and Output Vital Signs (last 24 hours): Temp Pulse Resp BP Pulse Ox 99.5 F 59 L 14 104/55 L 99 06/04/17 04:00 06/04/17 03:13 06/04/17 07:44 06/04/17 03:13 06/04/17 07:44 Intake and Output: 06/04/17 06/04/17 06:59 18:59 Intake Total 1400 Output Total 525 Balance 875 - Medications Medications: Current Medications Artificial Tears (Artificial Tears) 0 ml OU DAILY [facility] Last Admin: 06/03/17 09:57 Dose: 2 drop Chlorhexidine Gluconate (Peridex) 15 ml PO TID [facility] Last Admin: 06/03/17 17:34 Dose: 15 ml Clonidine HCl (Catapres) 0.1 mg PO BID [facility] Last Admin: 06/03/17 17:36 Dose: 0.1 mg Vancomycin HCl (Vancomycin 1gm) 1 gm in 250 mls @ 167 mls/hr IVPB Q12H [facility] PRN Reason: Protocol Last Admin: 06/03/17 22:30 Dose: 167 mls/hr Aztreonam (Azactam 2 Gm) 100 mls @ 100 mls/hr IVPB Q8 [facility] PRN Reason: Protocol Stop: 06/08/17 09:01 Last Admin: 06/04/17 05:50 Dose: 100 mls/hr Metronidazole (Flagyl) 500 mg in 100 mls @ 100 mls/hr IVPB Q8 [facility] PRN Reason: Protocol Last Admin: 06/04/17 05:05 Dose: 100 mls/hr Fentanyl Citrate (Fentanyl Citrate/Sodium Chloride 1 Mg/100 Ml) 1,000 mcg in 100 mls @ 2 mls/hr IV .Q24H PRN; Protocol; 20 MCG/HR PRN Reason: TITRATE PER MD ORDER Last Admin: 06/03/17 09:16 Dose: 40 mcg/hr, 4 mls/hr Lorazepam (Ativan) 2 mg IVP Q2H PRN; Protocol PRN Reason: Symptoms of alcohol withdrawl Lorazepam (Ativan) 4 mg IVP Q4H PRN; Protocol PRN Reason: Symptoms of alcohol withdrawl Last Admin: 05/30/17 17:00 Dose: 4 mg Metoprolol Tartrate (Lopressor) 25 mg PO BID [facility] Last Admin: 06/03/17 17:36 Dose: 25 mg Pantoprazole Sodium (Protonix Inj) 40 mg IVP DAILY [facility] Last Admin: 06/03/17 09:57 Dose: 40 mg Silver Sulfadiazine (Silvadene 1% 25 Gm) 0 gm TP BID [facility] Last Admin: 06/03/17 17:33 Dose: Not Given Sodium Chloride (Sodium Chloride Tab) 1 gm PO Q12 [facility] Last Admin: 06/02/17 21:31 Dose: 1 gm - Labs Labs: 06/04/17 05:30 06/04/17 05:30 PT 14.0 SECONDS (9.4-12.5) H 05/31/17 09:30 INR 1.27 (0.93-1.08) H 05/31/17 09:30 APTT 23.3 Seconds (25.1-36.5) L 05/31/17 09:30 - Constitutional Appears: Non-toxic, No Acute Distress - Respiratory Exam Additional comments: Intubated, breathing on vent - Cardiovascular Exam Cardiovascular Exam: REGULAR RHYTHM - GI/Abdominal Exam GI & Abdominal Exam: Soft. absent: Distended, Firm, Guarding, Rigid, Tenderness - Rectal Exam Additional comments: Purulent drainage from the left glute. - Exam Additional comments: Left sided testiular abscess spontaneously draining - Extremities Exam Additional comments: Pressure ulcer boots in place. Assessment and Plan - Assessment and Plan (Free Text) Assessment: This is a 67M with a SDH on a vent who currently has multiple draining leasions on his left buttock and groin Plan: No surgical intervention at this time Continue ABX Testicular abscess management per urology Will continue to monitor gluteal abscess Will Discuss with Dr. Edmar Cruz Alisia PGY1
--- NOTE | 2017-06-04 08:27 | PCM.URO ---
Urology Progress Note - Objective Lab Studies: Reviewed (bedside drainage of a scrotal abcess // packed gently with betadine soaked gauze / would consider a banegas catheter insertion / thanks for the consult / full note to be dictated) Lab Results Last 24 Hours: Laboratory Results - last 24 hr 06/03/17 06/03/17 06/03/17 07:23 08:25 11:24 WBC RBC Hgb Hct MCV MCH MCHC RDW Plt Count MPV Gran % Lymph % (Auto) [place] % (Auto) Eos % (Auto) Baso % (Auto) Gran # Lymph # [place] # Eos # Baso # pCO2 47 H pO2 108.0 H HCO3 25.4 ABG pH 7.34 L ABG Total CO2 26.8 ABG O2 Saturation 100.2 H ABG O2 Content 12.4 L ABG Base Excess -0.5 ABG Hemoglobin 8.9 L ABG Carboxyhemoglobin 1.9 H POC ABG HHb (Measured) -0.2 L ABG Methemoglobin 0.6 ABG O2 Capacity 12.4 L Hgb O2 Saturation 97.7 FiO2 40.0 Sodium Potassium Chloride Carbon Dioxide Anion Gap BUN Creatinine Est GFR ( Amer) Est GFR (Non-Af Amer) POC Glucose (mg/dL) 144 H 141 H Random Glucose Calcium Total Bilirubin AST ALT Alkaline Phosphatase Total Protein Albumin Globulin Albumin/Globulin Ratio 06/03/17 06/03/17 06/03/17 12:33 16:08 22:02 WBC RBC Hgb Hct MCV MCH MCHC RDW Plt Count MPV Gran % Lymph % (Auto) [place] % (Auto) Eos % (Auto) Baso % (Auto) Gran # Lymph # [place] # Eos # Baso # pCO2 pO2 HCO3 ABG pH ABG Total CO2 ABG O2 Saturation ABG O2 Content ABG Base Excess ABG Hemoglobin ABG Carboxyhemoglobin POC ABG HHb (Measured) ABG Methemoglobin ABG O2 Capacity Hgb O2 Saturation FiO2 Sodium 150 H Potassium 3.6 Chloride 119 H Carbon Dioxide 26 Anion Gap 9 L BUN 14 Creatinine 0.7 L Est GFR ( Amer) > 60 Est GFR (Non-Af Amer) > 60 POC Glucose (mg/dL) 122 H 145 H Random Glucose 118 H Calcium 8.4 Total Bilirubin 0.4 AST 18 ALT 24 Alkaline Phosphatase 77 Total Protein 6.7 Albumin 2.6 L Globulin 4.1 Albumin/Globulin Ratio 0.6 L 06/04/17 06/04/17 06/04/17 05:30 05:30 05:40 WBC 9.2 RBC 3.10 L Hgb 9.2 L Hct 30.0 L MCV 96.8 MCH 29.7 MCHC 30.7 L RDW 14.0 Plt Count 178 MPV 10.2 Gran % 77.6 H Lymph % (Auto) 12.6 L [place] % (Auto) 7.1 H Eos % (Auto) 2.6 Baso % (Auto) 0.1 Gran # 7.17 H Lymph # 1.2 [place] # 0.7 H Eos # 0.2 Baso # 0.01 pCO2 46 H pO2 130.0 H HCO3 27.8 ABG pH 7.39 ABG Total CO2 29.2 H ABG O2 Saturation 99.4 H ABG O2 Content 13.0 L ABG Base Excess 2.4 ABG Hemoglobin 9.4 L ABG Carboxyhemoglobin 1.7 H POC ABG HHb (Measured) 0.6 ABG Methemoglobin 1.0 ABG O2 Capacity 13.1 L Hgb O2 Saturation 96.7 FiO2 40.0 Sodium 152 H Potassium 3.6 Chloride 120 H Carbon Dioxide 28 Anion Gap 8 L BUN 14 Creatinine 0.7 L Est GFR ( Amer) > 60 Est GFR (Non-Af Amer) > 60 POC Glucose (mg/dL) Random Glucose 124 H Calcium 8.5 Total Bilirubin 0.4 AST 22 ALT 18 Alkaline Phosphatase 79 Total Protein 6.8 Albumin 2.5 L Globulin 4.2 Albumin/Globulin Ratio 0.6 L Intake & Output: Intake & Output 06/03/17 06/04/17 06/04/17 18:59 06:59 18:59 Intake Total 1948 1400 Output Total 750 525 Balance 1198 875 Weight 170 lb 6.4 oz Intake: IV 1198 800 Left Internal Jugular 1098 800 Oral 550 Tube Feeding 600 Other 200 Output: Urine 750 525 Condom 750 525 Vital Signs: Vital Signs - 24 hr 06/03/17 06/03/17 06/03/17 09:50 09:59 10:00 Temperature Pulse Rate 71 71 70 Respiratory Rate Blood Pressure 111/58 L 112/60 O2 Sat by Pulse 99 99 Oximetry 06/03/17 06/03/17 06/03/17 10:10 10:20 10:30 Temperature Pulse Rate 70 72 69 Respiratory Rate Blood Pressure O2 Sat by Pulse 99 100 100 Oximetry 06/03/17 06/03/17 06/03/17 10:40 10:50 10:58 Temperature Pulse Rate 68 70 71 Respiratory Rate Blood Pressure 111/58 L O2 Sat by Pulse 100 100 100 Oximetry 06/03/17 06/03/17 06/03/17 11:00 11:10 11:20 Temperature Pulse Rate 71 72 71 Respiratory Rate Blood Pressure 103/50 L O2 Sat by Pulse 99 100 100 Oximetry 06/03/17 06/03/17 06/03/17 11:30 11:40 11:50 Temperature Pulse Rate 76 68 70 Respiratory Rate Blood Pressure O2 Sat by Pulse 100 99 100 Oximetry 06/03/17 06/03/17 06/03/17 12:00 12:10 12:20 Temperature 99.6 F Pulse Rate 70 70 74 Respiratory Rate Blood Pressure 110/56 L O2 Sat by Pulse 100 100 100 Oximetry 06/03/17 06/03/17 06/03/17 12:30 12:40 12:50 Temperature Pulse Rate 70 70 67 Respiratory Rate Blood Pressure O2 Sat by Pulse 100 100 100 Oximetry 06/03/17 06/03/17 06/03/17 13:00 13:10 13:20 Temperature Pulse Rate 81 68 70 Respiratory Rate Blood Pressure 100/48 L O2 Sat by Pulse 100 100 100 Oximetry 06/03/17 06/03/17 06/03/17 13:30 13:40 13:50 Temperature Pulse Rate 70 70 85 Respiratory Rate Blood Pressure O2 Sat by Pulse 100 100 100 Oximetry 06/03/17 06/03/17 06/03/17 14:00 14:10 14:20 Temperature Pulse Rate 70 68 70 Respiratory Rate Blood Pressure 135/65 O2 Sat by Pulse 100 100 100 Oximetry 06/03/17 06/03/17 06/03/17 14:30 14:40 14:50 Temperature Pulse Rate 72 72 72 Respiratory Rate Blood Pressure O2 Sat by Pulse 99 99 99 Oximetry 06/03/17 06/03/17 06/03/17 15:00 15:10 15:20 Temperature Pulse Rate 86 74 72 Respiratory Rate Blood Pressure 155/84 H O2 Sat by Pulse 100 100 100 Oximetry 06/03/17 06/03/17 06/03/17 15:30 15:33 16:00 Temperature 99.6 F Pulse Rate 71 79 Respiratory Rate Blood Pressure 115/55 L O2 Sat by Pulse 100 100 Oximetry 06/03/17 06/03/17 06/03/17 16:40 16:50 17:00 Temperature 99.6 F Pulse Rate 80 81 80 Respiratory Rate Blood Pressure 130/59 L O2 Sat by Pulse 100 100 100 Oximetry 06/03/17 06/03/17 06/03/17 17:10 17:20 17:30 Temperature Pulse Rate 79 79 81 Respiratory Rate Blood Pressure O2 Sat by Pulse 100 100 100 Oximetry 06/03/17 06/03/17 06/03/17 17:36 17:40 17:50 Temperature Pulse Rate 79 80 80 Respiratory Rate Blood Pressure 150/70 O2 Sat by Pulse 100 100 Oximetry 06/03/17 06/03/17 06/03/17 18:00 18:08 19:00 Temperature Pulse Rate 87 79 63 Respiratory Rate Blood Pressure 151/70 H 117/57 L O2 Sat by Pulse 100 98 Oximetry 06/03/17 06/03/17 06/03/17 19:10 19:20 19:30 Temperature Pulse Rate 75 73 69 Respiratory Rate Blood Pressure O2 Sat by Pulse 98 98 98 Oximetry 06/03/17 06/03/17 06/03/17 19:40 19:50 20:00 Temperature Pulse Rate 67 64 63 Respiratory Rate Blood Pressure 101/49 L O2 Sat by Pulse 99 100 100 Oximetry 06/03/17 06/03/17 06/03/17 20:10 20:20 20:30 Temperature Pulse Rate 63 63 62 Respiratory Rate Blood Pressure O2 Sat by Pulse 100 100 100 Oximetry 06/03/17 06/03/17 06/03/17 20:40 20:50 21:00 Temperature 102.5 F H Pulse Rate 68 63 63 Respiratory Rate Blood Pressure 102/53 L O2 Sat by Pulse 100 100 100 Oximetry 06/03/17 06/03/17 06/03/17 21:10 21:20 21:30 Temperature Pulse Rate 63 77 73 Respiratory Rate Blood Pressure O2 Sat by Pulse 100 99 100 Oximetry 06/03/17 06/03/17 06/03/17 21:40 21:41 22:39 Temperature Pulse Rate 68 68 65 Respiratory Rate Blood Pressure 98/50 L O2 Sat by Pulse 100 99 98 Oximetry 06/03/17 06/03/17 06/03/17 22:40 22:50 23:00 Temperature 101.2 F H Pulse Rate 64 64 63 Respiratory Rate Blood Pressure 88/45 L O2 Sat by Pulse 99 99 99 Oximetry 06/03/17 06/03/17 06/03/17 23:10 23:20 23:30 Temperature Pulse Rate 63 63 63 Respiratory Rate Blood Pressure O2 Sat by Pulse 99 100 100 Oximetry 06/03/17 06/03/17 06/03/17 23:40 23:49 23:50 Temperature Pulse Rate 63 65 65 Respiratory Rate Blood Pressure 102/49 L O2 Sat by Pulse 100 100 100 Oximetry 06/04/17 06/04/17 06/04/17 00:00 00:10 00:20 Temperature Pulse Rate 63 60 64 Respiratory Rate Blood Pressure 96/43 L O2 Sat by Pulse 100 100 100 Oximetry 06/04/17 06/04/17 06/04/17 00:30 00:40 00:50 Temperature Pulse Rate 59 L 59 L 60 Respiratory Rate Blood Pressure O2 Sat by Pulse 100 100 100 Oximetry 06/04/17 06/04/17 06/04/17 01:00 01:10 01:20 Temperature Pulse Rate 60 58 L 58 L Respiratory Rate Blood Pressure 116/59 L O2 Sat by Pulse 100 100 100 Oximetry 06/04/17 06/04/17 06/04/17 01:30 01:40 01:50 Temperature Pulse Rate 57 L 56 L 55 L Respiratory Rate Blood Pressure O2 Sat by Pulse 100 100 100 Oximetry 06/04/17 06/04/17 06/04/17 02:00 02:10 02:20 Temperature Pulse Rate 57 L 55 L 55 L Respiratory Rate Blood Pressure 114/60 O2 Sat by Pulse 100 100 100 Oximetry 06/04/17 06/04/17 06/04/17 02:30 02:40 02:50 Temperature Pulse Rate 58 L 56 L 65 Respiratory Rate Blood Pressure O2 Sat by Pulse 100 100 100 Oximetry 06/04/17 06/04/17 06/04/17 03:00 03:10 03:13 Temperature Pulse Rate 59 L 61 57 L Respiratory Rate Blood Pressure 111/61 104/55 L O2 Sat by Pulse 100 100 100 Oximetry 06/04/17 06/04/17 04:00 07:44 Temperature 99.5 F Pulse Rate Respiratory 14 Rate Blood Pressure O2 Sat by Pulse 99 Oximetry
--- NOTE | 2017-06-04 08:58 | RAD ---
HISTORY: Intubated. Portable study 05:12 COMPARISON: Multiple serial examinations preceding the most recent study: June 03, 2017. Time of the most recent examination: 08:56 FINDINGS: LUNGS: No active pulmonary disease. PLEURA: No significant pleural effusion identified, no pneumothorax apparent. CARDIOVASCULAR: No radiographic findings to suggest acute or significant cardiovascular disease. OSSEOUS STRUCTURES: No significant abnormalities. VISUALIZED UPPER ABDOMEN: Normal. OTHER FINDINGS: Stable, satisfactory position ventilatory, vascular and nasogastric apparatus. IMPRESSION: No significant interval change compared to the prior examination(s).
[2017-06-04] MEDS: Vancomycin 1gm in NS 250ml 1 GM/250 ML BAG IVPB SCH ×2 (09:04→21:47)
[2017-06-04] MEDS: Aritificial Tears (15ml) OU SCH (09:07)
[2017-06-04] MEDS: Silver Sulfadiazine 1% Cream (25 gm) TP SCH ×2 (09:08→18:28)
--- NOTE | 2017-06-04 09:47 | PN ---
DATE: 06/01/2017 SUBJECTIVE: The patient was seen this morning on rounds. He was noted to have an intracerebral hemorrhage. He was noted to have a left gluteal abscess that is somewhat certainly inflamed and probably fluctuant. I reviewed the history and physical by Dr. Licona examined the patient, we will drain the abscess and consider early tracheostomy. LABORATORY DATA: His white count is 12 and platelet count is 229. Coags; slightly elevated pro-time at 14 with an INR of 1.2. We will follow the patient with you. Manuel Hyatt MD
[2017-06-04] MEDS: Fentanyl 1000mcg/100ml NS 1,000 MCG/100 ML BAG IV PRN (09:57)
--- NOTE | 2017-06-04 09:57 | CP.PCM.PN ---
Subjective - Date & Time of Evaluation Date of Evaluation: 06/04/17 Time of Evaluation: 09:40 - Subjective Subjective: Continues to be on the ventilator, still with fevers overnight, underwent I and D of the left scrotum today. Responds by eye opening to verbal and tactile stimuli. Objective - Vital Signs/Intake and Output Vital Signs (last 24 hours): Temp Pulse Resp BP Pulse Ox 99.5 F 59 L 14 104/55 L 100 06/04/17 04:00 06/04/17 03:13 06/03/17 07:55 06/04/17 03:13 06/04/17 03:13 Intake and Output: 06/03/17 06/04/17 18:59 06:59 Intake Total 1948 1400 Output Total 750 525 Balance 1198 875 - Medications Medications: Current Medications Artificial Tears (Artificial Tears) 0 ml OU DAILY [facility] Last Admin: 06/03/17 09:57 Dose: 2 drop Chlorhexidine Gluconate (Peridex) 15 ml PO TID [facility] Last Admin: 06/03/17 17:34 Dose: 15 ml Clonidine HCl (Catapres) 0.1 mg PO BID [facility] Last Admin: 06/03/17 17:36 Dose: 0.1 mg Vancomycin HCl (Vancomycin 1gm) 1 gm in 250 mls @ 167 mls/hr IVPB Q12H [facility] PRN Reason: Protocol Last Admin: 06/03/17 22:30 Dose: 167 mls/hr Aztreonam (Azactam 2 Gm) 100 mls @ 100 mls/hr IVPB Q8 [facility] PRN Reason: Protocol Stop: 06/08/17 09:01 Last Admin: 06/04/17 05:50 Dose: 100 mls/hr Metronidazole (Flagyl) 500 mg in 100 mls @ 100 mls/hr IVPB Q8 [facility] PRN Reason: Protocol Last Admin: 06/04/17 05:05 Dose: 100 mls/hr Fentanyl Citrate (Fentanyl Citrate/Sodium Chloride 1 Mg/100 Ml) 1,000 mcg in 100 mls @ 2 mls/hr IV .Q24H PRN; Protocol; 20 MCG/HR PRN Reason: TITRATE PER MD ORDER Last Admin: 06/03/17 09:16 Dose: 40 mcg/hr, 4 mls/hr Lorazepam (Ativan) 2 mg IVP Q2H PRN; Protocol PRN Reason: Symptoms of alcohol withdrawl Lorazepam (Ativan) 4 mg IVP Q4H PRN; Protocol PRN Reason: Symptoms of alcohol withdrawl Last Admin: 05/30/17 17:00 Dose: 4 mg Metoprolol Tartrate (Lopressor) 25 mg PO BID [facility] Last Admin: 06/03/17 17:36 Dose: 25 mg Pantoprazole Sodium (Protonix Inj) 40 mg IVP DAILY [facility] Last Admin: 06/03/17 09:57 Dose: 40 mg Silver Sulfadiazine (Silvadene 1% 25 Gm) 0 gm TP BID [facility] Last Admin: 06/03/17 17:33 Dose: Not Given Sodium Chloride (Sodium Chloride Tab) 1 gm PO Q12 [facility] Last Admin: 06/02/17 21:31 Dose: 1 gm - Labs Labs: 06/03/17 07:20 06/03/17 12:33 PT 14.0 SECONDS (9.4-12.5) H 05/31/17 09:30 INR 1.27 (0.93-1.08) H 05/31/17 09:30 APTT 23.3 Seconds (25.1-36.5) L 05/31/17 09:30 - Constitutional Appears: Other (intubated, sedated) - Head Exam Head Exam: NORMAL INSPECTION - ENT Exam Additional comments: ET tube in place - Neck Exam Additional comments: right IJ CVC in place, clean , intact - Respiratory Exam Respiratory Exam: Decreased Breath Sounds. absent: Rales - Cardiovascular Exam Cardiovascular Exam: +S1, +S2 - GI/Abdominal Exam GI & Abdominal Exam: Soft. absent: Tenderness - Exam Exam: Scrotal Swelling (with dressings in place) Assessment and Plan - Assessment and Plan (Free Text) Plan: Assessment new onset fevers, R/O sepsis due to scrotal cellulitis R/O abscess formation S/ P I and D today Probable left buttock skin and skin structure infection S/P I and D POD #3 systemic inflammatory response syndrome probably from acute left sided hemorrhagic CVA skin cancer S/P resection around right ear area S/P lumbar disc hernia repair Plan continue Vancomycin, Azactam and Flagyl day 4wound cx from the scrotum - blood cx are negative Neuro and Neurosurgery managing the CVA will continue to monitor clinically
[2017-06-04] MEDS: Chlorhexidine 0.12% Oral Sol 480 ml Bot PO SCH ×3 (10:48→18:27)
--- NOTE | 2017-06-04 13:14 | CP.PCM.PN ---
<MANBROOKS - Last Filed: 06/04/17 13:08> Subjective - Date & Time of Evaluation Date of Evaluation: 06/04/17 Time of Evaluation: 13:08 - Subjective Subjective: Medicine Progress Note: Pt seen and examined at bedside. Pt currently on mechanical ventilation, off sedation and feedings per NGT. Pt is awake and responds to left sided commands. Pt is s/p I&D left gluteal abscess POD #3 and scrotal abscess POD#0. ROS is limited due to current mental status of patient. Objective - Vital Signs/Intake and Output Vital Signs (last 24 hours): Temp Pulse Resp BP Pulse Ox 99.6 F 76 14 123/62 100 06/04/17 08:00 06/04/17 10:25 06/04/17 07:44 06/04/17 10:25 06/04/17 10:25 Intake and Output: 06/04/17 06/04/17 06:59 18:59 Intake Total 1400 100 Output Total 525 Balance 875 100 - Medications Medications: Current Medications Artificial Tears (Artificial Tears) 0 ml OU DAILY [facility] Last Admin: 06/04/17 09:07 Dose: 1 drop Chlorhexidine Gluconate (Peridex) 15 ml PO TID [facility] Last Admin: 06/03/17 17:34 Dose: 15 ml Clonidine HCl (Catapres) 0.1 mg PO BID [facility] Last Admin: 06/04/17 09:01 Dose: 0.1 mg Vancomycin HCl (Vancomycin 1gm) 1 gm in 250 mls @ 167 mls/hr IVPB Q12H [facility] PRN Reason: Protocol Last Admin: 06/04/17 09:04 Dose: 167 mls/hr Aztreonam (Azactam 2 Gm) 100 mls @ 100 mls/hr IVPB Q8 [facility] PRN Reason: Protocol Stop: 06/08/17 09:01 Last Admin: 06/04/17 05:50 Dose: 100 mls/hr Metronidazole (Flagyl) 500 mg in 100 mls @ 100 mls/hr IVPB Q8 [facility] PRN Reason: Protocol Last Admin: 06/04/17 05:05 Dose: 100 mls/hr Fentanyl Citrate (Fentanyl Citrate/Sodium Chloride 1 Mg/100 Ml) 1,000 mcg in 100 mls @ 2 mls/hr IV .Q24H PRN; Protocol; 20 MCG/HR PRN Reason: TITRATE PER MD ORDER Last Admin: 06/04/17 09:57 Dose: 40 mcg/hr, 4 mls/hr Lorazepam (Ativan) 2 mg IVP Q2H PRN; Protocol PRN Reason: Symptoms of alcohol withdrawl Lorazepam (Ativan) 4 mg IVP Q4H PRN; Protocol PRN Reason: Symptoms of alcohol withdrawl Last Admin: 05/30/17 17:00 Dose: 4 mg Metoprolol Tartrate (Lopressor) 25 mg PO BID [facility] Last Admin: 06/04/17 09:02 Dose: 25 mg Pantoprazole Sodium (Protonix Inj) 40 mg IVP DAILY [facility] Last Admin: 06/04/17 09:05 Dose: 40 mg Silver Sulfadiazine (Silvadene 1% 25 Gm) 0 gm TP BID [facility] Last Admin: 06/04/17 09:08 Dose: 25 gm Sodium Chloride (Sodium Chloride Tab) 1 gm PO Q12 [facility] Last Admin: 06/02/17 21:31 Dose: 1 gm - Labs Labs: 06/04/17 05:30 06/04/17 05:30 PT 14.0 SECONDS (9.4-12.5) H 05/31/17 09:30 INR 1.27 (0.93-1.08) H 05/31/17 09:30 APTT 23.3 Seconds (25.1-36.5) L 05/31/17 09:30 - Head Exam Head Exam: ATRAUMATIC, NORMOCEPHALIC - Eye Exam Additional comments: Pupils 2-3 mm b/l not reactive to light - ENT Exam ENT Exam: Mucous Membranes Moist - Neck Exam Neck Exam: absent: Lymphadenopathy, Tenderness, Thyromegaly - Respiratory Exam Respiratory Exam: Clear to Ausculation Bilateral. absent: Accessory Muscle Use , Rales, Rhonchi, Wheezes, Respiratory Distress - Cardiovascular Exam Cardiovascular Exam: RRR, +S1, +S2. absent: Diastolic murmur, Gallop, Rubs, Murmur - GI/Abdominal Exam GI & Abdominal Exam: Soft. absent: Distended, Guarding, Rigid, Tenderness, Rebound - Exam Additional comments: open scrotal incision with packing consistent with I&D - Extremities Exam Extremities Exam: Normal Inspection. absent: Calf Tenderness, Joint Swelling, Pedal Edema - Neurological Exam Neurological Exam: Awake. absent: Alert, Oriented x3 - Skin Additional comments: left gluteal incision consistent with I&D Assessment and Plan - Assessment and Plan (Free Text) Assessment: 67 yo M with unknown PMH presented for possible stroke, found to have 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 Patient is intubated and off sedation. Pt s/p incision and drainage of left buttock abscess and I&D of scrotal abscess. Plan: 1. Intracerebral Hemorrhage - Admitted to ICU - Intubated to protect airway, currently off sedation - NGT in place, tube feedings - Plan for trach today or tomorrow per surgery - CT showed hemorrhagic infarct of the left thalamus/basal ganglia. No midline shift. Left thalamic edema - Repeat CT's showed stable left thalamic hemorrhage - Neurosurgery consulted No surgical intervention at this time - Neuro consulted Target Na 135-145 and osmolarity is < 320 Hypertonic saline, currently held Monitor serum sodium and osmolarity Q6H Maintain serum glucose below 160 mg/dL Maintain head of bed above 30 degrees Avoid IV glucose, hyperthermia - Lipid panel, A1C WNL 2. Left gluteal ulcer, Grade 2 - Blood cultures negative - Wound culture positive for coag negative staph - Surgery consulted POD #3 I&D Wound care - ID consulted Vancomycin, Azactam, Flagyl day 4 3. Scrotal Abscess - Blood and urine cultures negative - Testicular US negative for epidymitis, orthitis, torsion; decreased flow to left testicle, scrotal edema - Urology consulted POD#0 I&D Wound care - Abx for ulcer covers scrotal abscess 4. SVT vs. Rapid a-fib, resolved - Cardio consulted Lopressor 25 mg PO BID - Adenosine given, which converted patient to NSR - Start Lopressor and aggresive IV hydration 5. Hypokalemia - K 3.8 - Repleted - Monitor and replete as needed 6. EtOH Abuse - EtOH negative - Ativan held to better assess neuro status GI/DVT PPx - Protonix - SCDs Case and planned reviewed with attending Tao Greenberg, PGY1 <Tammy Rocha - Last Filed: 06/04/17 13:40> Objective - Vital Signs/Intake and Output Vital Signs (last 24 hours): Temp Pulse Resp BP Pulse Ox 99.6 F 76 14 123/62 100 06/04/17 08:00 06/04/17 10:25 06/04/17 07:44 06/04/17 10:25 06/04/17 10:25 Intake and Output: 06/04/17 06/04/17 06:59 18:59 Intake Total 1400 100 Output Total 525 Balance 875 100 - Medications Medications: Current Medications Artificial Tears (Artificial Tears) 0 ml OU DAILY [facility] Last Admin: 06/04/17 09:07 Dose: 1 drop Chlorhexidine Gluconate (Peridex) 15 ml PO TID [facility] Last Admin: 06/04/17 13:23 Dose: 15 ml Clonidine HCl (Catapres) 0.1 mg PO BID [facility] Last Admin: 06/04/17 09:01 Dose: 0.1 mg Vancomycin HCl (Vancomycin 1gm) 1 gm in 250 mls @ 167 mls/hr IVPB Q12H [facility] PRN Reason: Protocol Last Admin: 06/04/17 09:04 Dose: 167 mls/hr Aztreonam (Azactam 2 Gm) 100 mls @ 100 mls/hr IVPB Q8 [facility] PRN Reason: Protocol Stop: 06/08/17 09:01 Last Admin: 06/04/17 13:22 Dose: 100 mls/hr Metronidazole (Flagyl) 500 mg in 100 mls @ 100 mls/hr IVPB Q8 [facility] PRN Reason: Protocol Last Admin: 06/04/17 13:22 Dose: 100 mls/hr Fentanyl Citrate (Fentanyl Citrate/Sodium Chloride 1 Mg/100 Ml) 1,000 mcg in 100 mls @ 2 mls/hr IV .Q24H PRN; Protocol; 20 MCG/HR PRN Reason: TITRATE PER MD ORDER Last Admin: 06/04/17 09:57 Dose: 40 mcg/hr, 4 mls/hr Lorazepam (Ativan) 2 mg IVP Q2H PRN; Protocol PRN Reason: Symptoms of alcohol withdrawl Lorazepam (Ativan) 4 mg IVP Q4H PRN; Protocol PRN Reason: Symptoms of alcohol withdrawl Last Admin: 05/30/17 17:00 Dose: 4 mg Metoprolol Tartrate (Lopressor) 25 mg PO BID [facility] Last Admin: 06/04/17 09:02 Dose: 25 mg Pantoprazole Sodium (Protonix Inj) 40 mg IVP DAILY [facility] Last Admin: 06/04/17 09:05 Dose: 40 mg Silver Sulfadiazine (Silvadene 1% 25 Gm) 0 gm TP BID [facility] Last Admin: 06/04/17 09:08 Dose: 25 gm Sodium Chloride (Sodium Chloride Tab) 1 gm PO Q12 [facility] Last Admin: 06/02/17 21:31 Dose: 1 gm - Labs Labs: 06/04/17 05:30 06/04/17 05:30 PT 14.0 SECONDS (9.4-12.5) H 05/31/17 09:30 INR 1.27 (0.93-1.08) H 05/31/17 09:30 APTT 23.3 Seconds (25.1-36.5) L 05/31/17 09:30 Attending/Attestation - Attestation I have personally seen and examined this patient.: Yes I have fully participated in the care of the patient.: Yes I have reviewed all pertinent clinical information, including history, physical exam and plan: Yes Notes (Text): 06/04/17 13:35 67 year old male who was admitted with altered mental status. He was found to have hemorrhagic infarct of the left thalamus / basal ganglia. Neurosurgery recommended conservative management. Patient was seen by neurology as well. Patient is currently intubated for airway protection. Possible plan for trach this week. He is on iv antibiotics for scrotal cellulitis. Will follow up with urology recommendations. He is also being followed by surgery for right buttock abscess s/p I&D. Tammy Rocha MD Hospitalist.
--- NOTE | 2017-06-04 13:14 | PN ---
CARDIOLOGY FOLLOWUP DATE OF FOLLOWUP: 06/04/2017 SUBJECTIVE: The patient remains on a ventilator and is unresponsive. PHYSICAL EXAMINATION: VITAL SIGNS: Blood pressure is 123/62, heart rate is in the 70s. NECK: Negative JVD. LUNGS: Without rales. HEART: S1, S2. EXTREMITIES: Without edema. LABORATORY DATA: The hemoglobin is 9.2. BUN and creatinine are within normal limits. IMPRESSION: 1. Status post intracerebral bleed. 2. Respiratory failure. 3. Status post supraventricular tachycardia, which is now back to normal sinus rhythm, well-controlled, on beta blockers. 4. History of transient malignant hypertension. Given these findings, the patient's cardiac status remains stable despite his poor neurologic function. Nathan Pereyra MD
--- NOTE | 2017-06-04 18:01 | CT ---
PROCEDURE: CT HEAD WITHOUT CONTRAST. HISTORY: interval changes COMPARISON: Comparison is made to the previous study dated 2016 TECHNIQUE: Axial computed tomography images were obtained through the head/brain without intravenous contrast. Radiation dose: Total exam DLP = 775.01 mGy-cm. This CT exam was performed using one or more of the following dose reduction techniques: Automated exposure control, adjustment of the mA and/or kV according to patient size, and/or use of iterative reconstruction technique. FINDINGS: HEMORRHAGE: Re- demonstration of left thalamus basal ganglia intraparenchymal hemorrhage surrounding with vasogenic edema. BRAIN: Again seen is mild mass effect on the left lateral ventricle and mild [id number] midline shift at the level of the thalamus measures 6 millimeter. Moderate atrophy and moderate chronic microvascular white matter ischemic disease are again noted. VENTRICLES: Unremarkable. No hydrocephalus. CALVARIUM: Unremarkable. PARANASAL SINUSES: [id number] right maxillary sinus mucosal thickening is again noted. MASTOID AIR CELLS: Unremarkable as visualized. No inflammatory changes. OTHER FINDINGS: None. IMPRESSION: No significant interval change in the size of left thalamic basal ganglia intraparenchymal hemorrhage since the previous exam. Mild mass effect and approximately 6 millimeter [id number] midline shift noted at the level of the thalamus. Moderate atrophy and chronic microvascular white matter ischemic disease.
--- NOTE | 2017-06-04 19:41 | OP ---
PROCEDURE DATE: 06/04/2017 PREOPERATIVE DIAGNOSIS: Scrotal wall abscess. POSTOPERATIVE DIAGNOSIS: Scrotal wall abscess. NAME OF THE PROCEDURE: Incisional drainage of a scrotal wall abscess. SURGEON: Gerald aMjano MD ESTIMATED BLOOD LOSS: Less than 10 mL. COMPLICATIONS: There were no complications. SPECIMEN SENT DOWN: Culture of the wound with a little purulent drainage. DESCRIPTION OF PROCEDURE: Chart was reviewed. See the consultation note, but in brief this is a patient who is in the ICU with an intracranial hemorrhage. He is currently intubated. He is on sedation. He is on fentanyl. Just observing the patient and there is an abscess with the purulent drainage. So at the bedside, we prepped the skin sterilely. We made an incision. We drained a little bit of purulent drainage. We sent off the culture. At this point, I opened up the wound, drained it out, it tracks down to the lower scrotum. I do not feel that it is connected anywhere out further in the perineal region and it seems to be limited to the scrotum. Again upon observation, the patient has a condom catheter; it is not clear why he does not have a Philippe catheter, but at this point what I had done is just moved it from the patient's left leg to the right leg. We had drained the scrotal wall on the left side. It does not appear to be deeper. There is no testicular involvement and that is clear. So at this point, we packed the wound with the Betadine soaked gauze and applied ABD dressing. Overall, the patient tolerates the procedure well without complication. Gerald Majano MD [facility]ITALSteven
--- NOTE | 2017-06-04 21:37 | CON ---
UROLOGY CONSULTATION DATE OF SERVICE: 06/04/2017 REASON FOR CONSULTATION: A mass in the scrotal wall, rule out an abscess. HISTORY OF PRESENT ILLNESS: Mr. Veras's chart is reviewed. The patient is currently intubated. History is from the chart, cannot get a history from the patient right now. He is in the ICU. He has an intracranial hemorrhage. This is old new onset in a 67 years' old. Significant medical history as listed on the chart. From urology standpoint, he was noted to have a buttock abscess and now there is concern about the scrotal abscess, does not seem to be by CAT scan criteria involvement there is a direct connection. Urology is consulted for further management. PAST MEDICAL AND SURGICAL HISTORY: As listed in the chart. REVIEW OF SYSTEMS: As listed above. PHYSICAL EXAMINATION: He has a condom catheter in place. No apparent Philippe. The exact reason for this is unknown at this point. In terms of ICU monitoring, I do not know if he has had a urethral stricture or any attempt to insert Philippe catheter. In conversation, I need to obtain this. There is a condom catheter that is in place and it is draining well clear yellow urine. In his left freda-scrotum, he has an area that is like that of pinpoint that has some purulent drainage. As well, the patient has a little area of induration below this area and it tracks down along the patient's left freda-scrotum. The right freda-scrotum appears to be normal. No other skin lesions are noted throughout that we can find. See the procedure below because we drained it at the bedside. The remainder of the physical exam is otherwise unremarkable as mentioned above. DIAGNOSES: Scrotal wall abscess and voiding dysfunction in a patient who is 67 years' old in the Intensive Care Unit with intracranial hemorrhage. PLAN: See the addendum, see the separately dictated note. Basically, we drained it at the bedside. The patient is somewhat sedated between the fentanyl and the other medications, and he is definitely medically able to be brought to the OR. See this in the separately dictated note. At the bedside, we drained an abscess. We got a little purulent fluid. We sent it off for culture. This is a 67-year-old gentleman who is in the Intensive Care Unit. We packed the wound. We will monitor the wound care. We will discuss the possibility for insertion of a Philippe catheter and find out some further details. In the interim, the patient is on antibiotics, wound care, and then follow up and see how the patient does clinically. Gerald Majano MD [facility]
--- NOTE | 2017-06-05 05:56 | CP.PCM.PN ---
Subjective - Date & Time of Evaluation Date of Evaluation: 06/05/17 Time of Evaluation: 05:52 - Subjective Subjective: Mr. Veras was seen and examined at the bedside in the ICU. He opens his eyes with both verbal and tactile stimuli. He remains on mechanical ventilation and sedation of Fentanyl at 40 mcg/hr. He also has OGT which was clamp overnight for possible tracheostomy today. He had febrile episode overnight with max. temp. 101. IV tylenol was given and currently the patient is on antibiotic therapy. Objective - Vital Signs/Intake and Output Vital Signs (last 24 hours): Temp Pulse Resp BP Pulse Ox 99.6 F 80 14 121/61 99 06/04/17 08:00 06/05/17 03:51 06/04/17 07:44 06/05/17 03:51 06/05/17 03:51 Intake and Output: 06/04/17 06/05/17 18:59 06:59 Intake Total 1474 Output Total 725 Balance 749 - Medications Medications: Current Medications Artificial Tears (Artificial Tears) 0 ml OU DAILY [facility] Last Admin: 06/04/17 09:07 Dose: 1 drop Chlorhexidine Gluconate (Peridex) 15 ml PO TID KATIE Last Admin: 06/04/17 18:27 Dose: 15 ml Clonidine HCl (Catapres) 0.1 mg PO BID [facility] Last Admin: 06/04/17 18:26 Dose: Not Given Vancomycin HCl (Vancomycin 1gm) 1 gm in 250 mls @ 167 mls/hr IVPB Q12H KATIE PRN Reason: Protocol Last Admin: 06/04/17 21:47 Dose: 167 mls/hr Aztreonam (Azactam 2 Gm) 100 mls @ 100 mls/hr IVPB Q8 KATIE PRN Reason: Protocol Stop: 06/08/17 09:01 Last Admin: 06/04/17 21:47 Dose: 100 mls/hr Metronidazole (Flagyl) 500 mg in 100 mls @ 100 mls/hr IVPB Q8 KATIE PRN Reason: Protocol Last Admin: 06/04/17 21:47 Dose: 100 mls/hr Fentanyl Citrate (Fentanyl Citrate/Sodium Chloride 1 Mg/100 Ml) 1,000 mcg in 100 mls @ 2 mls/hr IV .Q24H PRN; Protocol; 20 MCG/HR PRN Reason: TITRATE PER MD ORDER Last Admin: 06/04/17 09:57 Dose: 40 mcg/hr, 4 mls/hr Acetaminophen (Ofirmev) 1,000 mg in 100 mls @ 400 mls/hr IVPB Q6H PRN PRN Reason: Temperature Stop: 06/06/17 15:33 Last Admin: 06/04/17 16:04 Dose: 400 mls/hr Lorazepam (Ativan) 2 mg IVP Q2H PRN; Protocol PRN Reason: Symptoms of alcohol withdrawl Lorazepam (Ativan) 4 mg IVP Q4H PRN; Protocol PRN Reason: Symptoms of alcohol withdrawl Last Admin: 05/30/17 17:00 Dose: 4 mg Metoprolol Tartrate (Lopressor) 25 mg PO BID [facility] Last Admin: 06/04/17 18:26 Dose: Not Given Pantoprazole Sodium (Protonix Inj) 40 mg IVP DAILY [facility] Last Admin: 06/04/17 09:05 Dose: 40 mg Silver Sulfadiazine (Silvadene 1% 25 Gm) 0 gm TP BID [facility] Last Admin: 06/04/17 18:28 Dose: 25 gm Sodium Chloride (Sodium Chloride Tab) 1 gm PO Q12 [facility] Last Admin: 06/02/17 21:31 Dose: 1 gm - Labs Labs: 06/04/17 05:30 06/04/17 05:30 PT 14.0 SECONDS (9.4-12.5) H 05/31/17 09:30 INR 1.27 (0.93-1.08) H 05/31/17 09:30 APTT 23.3 Seconds (25.1-36.5) L 05/31/17 09:30 - Constitutional Appears: No Acute Distress - Head Exam Head Exam: ATRAUMATIC - Eye Exam Additional comments: very sluggish to react to light, with 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 Assessment and Plan (1) Intracerebral hemorrhage Assessment & Plan: Case discussed with Dr. Davies, continue all current medical, physical regimen. Continue normotension, normothermia, euglycemia and manage infection. Recommends to start with Amantadine 100 mg OGT BID after trach or peg. Status: Acute
[2017-06-05 06:10] LABS: ARTERIAL BLOOD GAS HCO3 29.9 mmol/L (21-28); ARTERIAL BLOOD GAS O2 CAPACITY 12.7 mL/dl (16-24); ARTERIAL BLOOD GAS O2 CONTENT 12.6 ML/dl (15-23); ARTERIAL BLOOD GAS PH 7.44 (7.35-7.45); ARTERIAL BLOOD HGB O2 SAT 96.3 % (95.0-98.0); CARBOXYHEMOGLOBIN 2.1 % (0.5-1.5); HHB 0.7 % (0-5)
[2017-06-05] MEDS: Aztreonam 2 Gm in NS 100mL 100 ML IVPB SCH ×3 (07:00→21:21)
--- NOTE | 2017-06-05 07:27 | CP.CCUPN ---
<José Andersen - Last Filed: 06/05/17 11:14> CCU Subjective - Physician Review Events Since Last Encounter (Free Text): 06/05/17 11:[address] Bobo Pt seen and examined at bedside. No acute events overnight. Patient febrile to 102 overnight, resolved with IV tylonol. Patient on vent and sedated, easily arousable. Does follow simple commands. CCU Objective - Vital Signs / Intake & Output Vital Signs (Last 4 hours): Vital Signs Pulse Resp BP Pulse Ox 06/05/17 06:38 14 98 06/05/17 03:51 75 121/61 99 06/05/17 03:50 77 99 06/05/17 03:40 80 100 06/05/17 03:30 79 99 Intake and Output (Last 8hrs): Intake & Output 06/04/17 06/05/17 06/05/17 22:59 06:59 14:59 Intake Total 1374 Output Total 725 Balance 649 Intake: IV 550 Left Internal Jugular 550 Tube Feeding 624 Other 200 Output: Urine 725 Condom 725 - Physical Exam Head: Positive for: Atraumatic, Normocephalic Pupils: Positive for: Other (~2-3mm fixed) Extroacular Muscles: Positive for: Other (Does track with his eyes) Conjunctiva: Positive for: Normal Ears: Positive for: Normal Mouth: Positive for: Moist Mucous Membranes Pharnyx: Positive for: Normal, Other (OGT in place. Intubated) Nose (External): Positive for: Atraumatic Neck: Positive for: Other (L IJ in place) Respiratory/Chest: Positive for: Respiratory Distress. Negative for: Accessory Muscle Use, Wheezes, Rales, Rhonchi Cardiovascular: Positive for: Regular Rate and Rhythm, Normal S1, S2. Negative for: Murmurs, Rub Abdomen: Positive for: Normal Bowel Sounds. Negative for: Tenderness, Distention, Peritoneal Signs Upper Extremity: Positive for: Capillary Refill < 2s, Other (Flacid right sided hemiparesis). Negative for: Edema, Erythema Lower Extremity: Positive for: Capillary Refill < 2 s. Negative for: Edema, CALF TENDERNESS Neurological: Positive for: Other (intubated, right Babinski positive). Negative for: Speech Normal Skin: Positive for: Warm, Dry - Medications Active Medications: Active Medications Generic Name Dose Route Start Last Admin Trade Name Freq PRN Reason Stop Dose Admin Artificial Tears 0 ml 06/02/17 14:45 06/04/17 09:07 Artificial Tears OU 1 drop DAILY KAITE Administration Chlorhexidine Gluconate 15 ml 06/01/17 12:00 06/04/17 18:27 Peridex PO 15 ml TID KATIE Administration Clonidine HCl 0.1 mg 06/01/17 18:00 06/04/17 18:26 Catapres PO Not Given BID KATIE Vancomycin HCl 1 gm in 250 mls @ 167 mls/hr 06/01/17 10:00 06/04/17 21:47 Vancomycin 1gm IVPB 167 mls/hr Q12H KATIE Administration Protocol Aztreonam 100 mls @ 100 mls/hr 06/01/17 09:00 06/05/17 07:00 Azactam 2 Gm IVPB 06/08/17 09:01 100 mls/hr Q8 KATIE Administration Protocol Metronidazole 500 mg in 100 mls @ 100 mls/hr 06/01/17 14:00 06/04/17 21:47 Flagyl IVPB 100 mls/hr Q8 KATIE Administration Protocol Fentanyl Citrate 1,000 mcg in 100 mls @ 2 mls/hr 06/01/17 14:04 06/04/17 09: 57 Fentanyl Citrate/Sodium Chloride 1 Mg/100 Ml IV 40 mcg/hr .Q24H PRN 4 mls/hr TITRATE PER MD ORDER Administration Protocol 20 MCG/HR Acetaminophen 1,000 mg in 100 mls @ 400 mls/hr 06/04/17 15:32 06/04/17 16:04 Ofirmev IVPB 06/06/17 15:33 400 mls/hr Q6H PRN Administration Temperature Lorazepam 2 mg 05/29/17 15:23 Ativan IVP Q2H PRN Symptoms of alcohol withdrawl Protocol Lorazepam 4 mg 05/29/17 15:23 05/30/17 17:00 Ativan IVP 4 mg Q4H PRN Administration Symptoms of alcohol withdrawl Protocol Metoprolol Tartrate 25 mg 06/01/17 10:15 06/04/17 18:26 Lopressor PO Not Given BID KATIE Pantoprazole Sodium 40 mg 05/29/17 13:30 06/04/17 09:05 Protonix Inj IVP 40 mg DAILY KATIE Administration Silver Sulfadiazine 0 gm 05/30/17 18:00 06/04/17 18:28 Silvadene 1% 25 Gm TP 25 gm BID KATIE Administration Sodium Chloride 1 gm 05/31/17 10:00 06/02/17 21:31 Sodium Chloride Tab PO 1 gm Q12 KATIE Administration - Patient Studies Lab Studies: Microbiology Studies 06/03/17 05:45 Blood Culture - Preliminary Blood-Venous NO GROWTH AFTER 48 HOURS 06/03/17 05:10 Blood Culture - Preliminary Blood-Venous NO GROWTH AFTER 48 HOURS 06/04/17 08:56 Gram Stain - Final Scrotum 06/01/17 07:40 Gram Stain - Final Drainage Wound Culture - Final Coagulase Neg Staphylococcus 06/01/17 09:15 Blood Culture - Preliminary Blood-Venous NO GROWTH AFTER 3 DAYS 06/01/17 09:00 Blood Culture - Preliminary Blood-Venous NO GROWTH AFTER 3 DAYS 06/03/17 08:50 Urine Culture - Final Urine No Growth (<1,000 CFU/ML) Lab Studies 06/05/17 06/04/17 06/04/17 Range/Units 06:08 21:05 16:15 pCO2 44 (35-45) mm/Hg pO2 93.0 (80-100) mm/Hg HCO3 29.9 H (21-28) mmol/L ABG pH 7.44 (7.35-7.45) ABG Total CO2 31.3 H (22-28) mmol.L ABG O2 Saturation 99.3 H (95-98) % ABG O2 Content 12.6 L (15-23) ML/dl ABG Base Excess 5.2 H (-2.0-3.0) mmol/L ABG Hemoglobin 9.2 L (11.7-17.4) g/dL ABG Carboxyhemoglobin 2.1 H (0.5-1.5) % POC ABG HHb (Measured) 0.7 (0-5) % ABG Methemoglobin 1.0 (0.0-3.0) % ABG O2 Capacity 12.7 L (16-24) mL/dl Hgb O2 Saturation 96.3 (95.0-98.0) % FiO2 40.0 % POC Glucose (mg/dL) 113 H 128 H (65-110) mg/dL 06/04/17 06/04/17 Range/Units 11:14 07:34 pCO2 (35-45) mm/Hg pO2 (80-100) mm/Hg HCO3 (21-28) mmol/L ABG pH (7.35-7.45) ABG Total CO2 (22-28) mmol.L ABG O2 Saturation (95-98) % ABG O2 Content (15-23) ML/dl ABG Base Excess (-2.0-3.0) mmol/L ABG Hemoglobin (11.7-17.4) g/dL ABG Carboxyhemoglobin (0.5-1.5) % POC ABG HHb (Measured) (0-5) % ABG Methemoglobin (0.0-3.0) % ABG O2 Capacity (16-24) mL/dl Hgb O2 Saturation (95.0-98.0) % FiO2 % POC Glucose (mg/dL) 144 H 135 H (65-110) mg/dL Laboratory Results - last 24 hr 06/04/17 06/04/17 06/04/17 07:34 11:14 16:15 pCO2 pO2 HCO3 ABG pH ABG Total CO2 ABG O2 Saturation ABG O2 Content ABG Base Excess ABG Hemoglobin ABG Carboxyhemoglobin POC ABG HHb (Measured) ABG Methemoglobin ABG O2 Capacity Hgb O2 Saturation FiO2 POC Glucose (mg/dL) 135 H 144 H 128 H 06/04/17 06/05/17 21:05 06:08 pCO2 44 pO2 93.0 HCO3 29.9 H ABG pH 7.44 ABG Total CO2 31.3 H ABG O2 Saturation 99.3 H ABG O2 Content 12.6 L ABG Base Excess 5.2 H ABG Hemoglobin 9.2 L ABG Carboxyhemoglobin 2.1 H POC ABG HHb (Measured) 0.7 ABG Methemoglobin 1.0 ABG O2 Capacity 12.7 L Hgb O2 Saturation 96.3 FiO2 40.0 POC Glucose (mg/dL) 113 H Fingerstick Blood Sugar Results: 145 Assessment/Plan - Assessment and Plan (Free Text) Assessment: 67yo M w/ a PMHx of tobacco and alcohol abuse, HTN who presented to [facility] ER on with left thalamic/BG ICH with intraventricular extension, found to be short of breath and unable to protect his airway 05/31 and intubated for airway protection, complicated by tachyarrythmia found to be SVT which resolved with adenosine. Also with left gluteal and left scrotal abscess, s/p ID by gen surg and urology. Pending Trach/PEG by surgery on 06/07 Neuro: Left thalamic/BG with intraventricular extension on Head CT, no neurosurgical intervention indicated Repeat Head CT 06/04 with no sig interval change in size of bleed, mild mass effect and 6mm [id number] midline shift at level of thalamus No plans for repeat CTs unless change in neuro exam findings Neuro following, recs appreciate Maintain SBP 140-160 HOB > 30 degrees Will need trach/PEG and intensive PT/OT. Cardio: Hemodynamically stable, SVT resolved with adenosine x1 on 05/31 Cardio following, recs appreciated Continue metoprolol Resp: Intubated for airway protection, PRVC 480/14/5/40% On fentanyl gtt for sedation Will initiate Pressure support trials with sedation vacations Surgery following, will need trach. Plan for Trach/PEG , 06/07 Maintain O2 sat >92% GI: OGT in place, on feeds with water flushes Monitor residuals Optimize nutrition. Currently on Glucerna 1.2 with water flushes 300cc q6h due hypernatremia Surgery plan for PEG on 06/07 Nephro/Electrolytes: Monitoring I&Os, has banegas Monitoring Na closely. Increased water flushes to 300cc q6h Maintain Na 135-145 as per neuro. Allow to slowly normalize ID: ID Dr. Dunn consulted, recs appreciated Left buttock abscess improving, surgery following Febrile 102 this morning with no leukocytosis. Temp down after IV Ofirmev will dc TLC today. Consider central fever to be a cause Left scrotal swelling Testicular US - no evidence of epididymitis, orchitis, or torsion Urology following, performed bedside ID [id number]. Wound culture sent for C&S. On aztreonam D5, flagyl D5, and vanco D5. Pending final Cxs Heme: No signs of active bleeding noted Hemodynamically stable Following CBC PPx: Protonix SCDs no AC Discussed case with Dr. Jeramie Andersen PGY1 <Brody Bobo - Last Filed: 06/05/17 11:37> CCU Objective - Vital Signs / Intake & Output Vital Signs (Last 4 hours): Vital Signs Temp Pulse BP Pulse Ox 06/05/17 10:48 67 98/51 L 100 06/05/17 10:40 61 99 06/05/17 10:34 62 89/49 L 99 06/05/17 10:30 66 98 06/05/17 10:20 70 99 06/05/17 10:10 62 98 06/05/17 10:00 64 93/52 L 99 06/05/17 09:50 67 98 06/05/17 09:40 65 98 06/05/17 09:36 61 89/49 L 06/05/17 09:35 65 89/49 L 06/05/17 09:30 65 98 06/05/17 09:20 64 99 06/05/17 09:10 67 100 06/05/17 09:00 68 108/59 L 100 06/05/17 08:50 67 99 06/05/17 08:40 69 100 06/05/17 08:30 66 100 06/05/17 08:20 66 100 06/05/17 08:10 65 99 06/05/17 08:00 100.1 F H 68 100/61 100 06/05/17 07:50 71 99 06/05/17 07:40 69 99 Intake and Output (Last 8hrs): Intake & Output 06/04/17 06/05/17 06/05/17 22:59 06:59 14:59 Intake Total 1374 1150 100 Output Total 725 750 Balance 649 400 100 Intake: IV 550 550 100 Left Internal Jugular 550 550 Tube Feeding 624 300 Other 200 300 Output: Urine 725 750 Condom 725 750 Stool 0 Urine/Stool Mix 0 Emesis 0 Oral Regurgitation 0 Other 0 Other: # Bowel Movements 0 - Medications Active Medications: Active Medications Generic Name Dose Route Start Last Admin Trade Name Freq PRN Reason Stop Dose Admin Artificial Tears 0 ml 06/02/17 14:45 06/05/17 09:29 Artificial Tears OU 2 drop DAILY KATIE Administration Chlorhexidine Gluconate 15 ml 06/01/17 12:00 06/05/17 09:30 Peridex PO 15 ml TID KATIE Administration Clonidine HCl 0.1 mg 06/01/17 18:00 06/05/17 09:35 Catapres PO Not Given BID KATIE Vancomycin HCl 1 gm in 250 mls @ 167 mls/hr 06/01/17 10:00 06/05/17 09:40 Vancomycin 1gm IVPB 167 mls/hr Q12H KATIE Administration Protocol Aztreonam 100 mls @ 100 mls/hr 06/01/17 09:00 06/05/17 07:00 Azactam 2 Gm IVPB 06/08/17 09:01 100 mls/hr Q8 KATIE Administration Protocol Metronidazole 500 mg in 100 mls @ 100 mls/hr 06/01/17 14:00 06/04/17 21:47 Flagyl IVPB 100 mls/hr Q8 KATIE Administration Protocol Fentanyl Citrate 1,000 mcg in 100 mls @ 2 mls/hr 06/01/17 14:04 06/05/17 11: 07 Fentanyl Citrate/Sodium Chloride 1 Mg/100 Ml IV 40 mcg/hr .Q24H PRN 4 mls/hr TITRATE PER MD ORDER Administration Protocol 20 MCG/HR Acetaminophen 1,000 mg in 100 mls @ 400 mls/hr 06/05/17 09:56 Ofirmev IVPB 06/07/17 09:57 Q8H PRN Temperature Lorazepam 2 mg 05/29/17 15:23 Ativan IVP Q2H PRN Symptoms of alcohol withdrawl Protocol Lorazepam 4 mg 05/29/17 15:23 05/30/17 17:00 Ativan IVP 4 mg Q4H PRN Administration Symptoms of alcohol withdrawl Protocol Metoprolol Tartrate 25 mg 06/01/17 10:15 06/05/17 09:36 Lopressor PO Not Given BID KATIE Pantoprazole Sodium 40 mg 05/29/17 13:30 06/05/17 09:35 Protonix Inj IVP 40 mg DAILY KATIE Administration Silver Sulfadiazine 0 gm 05/30/17 18:00 06/05/17 09:33 Silvadene 1% 25 Gm TP Not Given BID KATIE Sodium Chloride 1 gm 05/31/17 10:00 06/02/17 21:31 Sodium Chloride Tab PO 1 gm Q12 KATIE Administration - Patient Studies Lab Studies: Microbiology Studies 06/01/17 09:15 Blood Culture - Preliminary Blood-Venous NO GROWTH AFTER 4 DAYS 06/01/17 09:00 Blood Culture - Preliminary Blood-Venous NO GROWTH AFTER 4 DAYS 06/04/17 08:56 Gram Stain - Final Scrotum Wound Culture - Preliminary NO GROWTH AFTER 24 HOURS 06/03/17 05:45 Blood Culture - Preliminary Blood-Venous NO GROWTH AFTER 48 HOURS 06/03/17 05:10 Blood Culture - Preliminary Blood-Venous NO GROWTH AFTER 48 HOURS 06/01/17 07:40 Gram Stain - Final Drainage Wound Culture - Final Coagulase Neg Staphylococcus 06/03/17 08:50 Urine Culture - Final Urine No Growth (<1,000 CFU/ML) Lab Studies 06/05/17 06/05/17 06/05/17 Range/Units 11:02 07:35 06:23 WBC (4.5-11.0) 10^3/ul RBC (3.5-6.1) 10^6/uL Hgb (14.0-18.0) g/dL Hct (42.0-52.0) % MCV (80.0-105.0) fl MCH (25.0-35.0) pg MCHC (31.0-37.0) g/dl RDW (11.5-14.5) % Plt Count (120.0-450.0) 10^3/uL MPV (7.0-11.0) fl Gran % (50.0-68.0) % Lymph % (Auto) (22.0-35.0) % [place] % (Auto) (1.0-6.0) % Eos % (Auto) (1.5-5.0) % Baso % (Auto) (0.0-3.0) % Gran # (1.4-6.5) Lymph # (1.2-3.4) [place] # (0.1-0.6) Eos # (0.0-0.7) Baso # (0.0-2.0) K/mm3 pCO2 (35-45) mm/Hg pO2 (80-100) mm/Hg HCO3 (21-28) mmol/L ABG pH (7.35-7.45) ABG Total CO2 (22-28) mmol.L ABG O2 Saturation (95-98) % ABG O2 Content (15-23) ML/dl ABG Base Excess (-2.0-3.0) mmol/L ABG Hemoglobin (11.7-17.4) g/dL ABG Carboxyhemoglobin (0.5-1.5) % POC ABG HHb (Measured) (0-5) % ABG Methemoglobin (0.0-3.0) % ABG O2 Capacity (16-24) mL/dl Hgb O2 Saturation (95.0-98.0) % FiO2 % Sodium 149 H (132-148) mmol/L Potassium 3.8 (3.6-5.0) mmol/L Chloride 116 H (98-107) mmol/L Carbon Dioxide 30 (21-33) mmol/L Anion Gap 7 L (10-20) BUN 13 (7-21) mg/dL Creatinine 0.7 L (0.8-1.5) mg/dL Est GFR ( Amer) > 60 Est GFR (Non-Af Amer) > 60 POC Glucose (mg/dL) 112 H 110 (65-110) mg/dL Random Glucose 110 (70-110) mg/dL Calcium 8.3 L (8.4-10.5) mg/dL Total Bilirubin 0.5 (0.2-1.3) mg/dL AST 27 (17-59) U/L ALT 21 (7-56) U/L Alkaline Phosphatase 83 (38-126) U/L Total Protein 6.6 (5.8-8.3) g/dL Albumin 2.4 L (3.0-4.8) g/dL Globulin 4.1 gm/dL Albumin/Globulin Ratio 0.6 L (1.1-1.8) 06/05/17 06/05/17 06/04/17 Range/Units 06:23 06:08 21:05 WBC 9.0 (4.5-11.0) 10^3/ul RBC 2.96 L (3.5-6.1) 10^6/uL Hgb 8.9 L (14.0-18.0) g/dL Hct 28.9 L (42.0-52.0) % MCV 97.6 (80.0-105.0) fl MCH 30.1 (25.0-35.0) pg MCHC 30.8 L (31.0-37.0) g/dl RDW 13.8 (11.5-14.5) % Plt Count 181 (120.0-450.0) 10^3/uL MPV 11.0 (7.0-11.0) fl Gran % 75.4 H (50.0-68.0) % Lymph % (Auto) 15.3 L (22.0-35.0) % [place] % (Auto) 5.9 (1.0-6.0) % Eos % (Auto) 3.2 (1.5-5.0) % Baso % (Auto) 0.2 (0.0-3.0) % Gran # 6.82 H (1.4-6.5) Lymph # 1.4 (1.2-3.4) [place] # 0.5 (0.1-0.6) Eos # 0.3 (0.0-0.7) Baso # 0.02 (0.0-2.0) K/mm3 pCO2 44 (35-45) mm/Hg pO2 93.0 (80-100) mm/Hg HCO3 29.9 H (21-28) mmol/L ABG pH 7.44 (7.35-7.45) ABG Total CO2 31.3 H (22-28) mmol.L ABG O2 Saturation 99.3 H (95-98) % ABG O2 Content 12.6 L (15-23) ML/dl ABG Base Excess 5.2 H (-2.0-3.0) mmol/L ABG Hemoglobin 9.2 L (11.7-17.4) g/dL ABG Carboxyhemoglobin 2.1 H (0.5-1.5) % POC ABG HHb (Measured) 0.7 (0-5) % ABG Methemoglobin 1.0 (0.0-3.0) % ABG O2 Capacity 12.7 L (16-24) mL/dl Hgb O2 Saturation 96.3 (95.0-98.0) % FiO2 40.0 % Sodium (132-148) mmol/L Potassium (3.6-5.0) mmol/L Chloride (98-107) mmol/L Carbon Dioxide (21-33) mmol/L Anion Gap (10-20) BUN (7-21) mg/dL Creatinine (0.8-1.5) mg/dL Est GFR ( Amer) Est GFR (Non-Af Amer) POC Glucose (mg/dL) 113 H (65-110) mg/dL Random Glucose (70-110) mg/dL Calcium (8.4-10.5) mg/dL Total Bilirubin (0.2-1.3) mg/dL AST (17-59) U/L ALT (7-56) U/L Alkaline Phosphatase (38-126) U/L Total Protein (5.8-8.3) g/dL Albumin (3.0-4.8) g/dL Globulin gm/dL Albumin/Globulin Ratio (1.1-1.8) 06/04/17 06/04/17 06/04/17 Range/Units 16:15 11:14 07:34 WBC (4.5-11.0) 10^3/ul RBC (3.5-6.1) 10^6/uL Hgb (14.0-18.0) g/dL Hct (42.0-52.0) % MCV (80.0-105.0) fl MCH (25.0-35.0) pg MCHC (31.0-37.0) g/dl RDW (11.5-14.5) % Plt Count (120.0-450.0) 10^3/uL MPV (7.0-11.0) fl Gran % (50.0-68.0) % Lymph % (Auto) (22.0-35.0) % [place] % (Auto) (1.0-6.0) % Eos % (Auto) (1.5-5.0) % Baso % (Auto) (0.0-3.0) % Gran # (1.4-6.5) Lymph # (1.2-3.4) [place] # (0.1-0.6) Eos # (0.0-0.7) Baso # (0.0-2.0) K/mm3 pCO2 (35-45) mm/Hg pO2 (80-100) mm/Hg HCO3 (21-28) mmol/L ABG pH (7.35-7.45) ABG Total CO2 (22-28) mmol.L ABG O2 Saturation (95-98) % ABG O2 Content (15-23) ML/dl ABG Base Excess (-2.0-3.0) mmol/L ABG Hemoglobin (11.7-17.4) g/dL ABG Carboxyhemoglobin (0.5-1.5) % POC ABG HHb (Measured) (0-5) % ABG Methemoglobin (0.0-3.0) % ABG O2 Capacity (16-24) mL/dl Hgb O2 Saturation (95.0-98.0) % FiO2 % Sodium (132-148) mmol/L Potassium (3.6-5.0) mmol/L Chloride (98-107) mmol/L Carbon Dioxide (21-33) mmol/L Anion Gap (10-20) BUN (7-21) mg/dL Creatinine (0.8-1.5) mg/dL Est GFR ( Amer) Est GFR (Non-Af Amer) POC Glucose (mg/dL) 128 H 144 H 135 H (65-110) mg/dL Random Glucose (70-110) mg/dL Calcium (8.4-10.5) mg/dL Total Bilirubin (0.2-1.3) mg/dL AST (17-59) U/L ALT (7-56) U/L Alkaline Phosphatase (38-126) U/L Total Protein (5.8-8.3) g/dL Albumin (3.0-4.8) g/dL Globulin gm/dL Albumin/Globulin Ratio (1.1-1.8) Laboratory Results - last 24 hr 06/04/17 06/04/17 06/04/17 07:34 11:14 16:15 WBC RBC Hgb Hct MCV MCH MCHC RDW Plt Count MPV Gran % Lymph % (Auto) [place] % (Auto) Eos % (Auto) Baso % (Auto) Gran # Lymph # [place] # Eos # Baso # pCO2 pO2 HCO3 ABG pH ABG Total CO2 ABG O2 Saturation ABG O2 Content ABG Base Excess ABG Hemoglobin ABG Carboxyhemoglobin POC ABG HHb (Measured) ABG Methemoglobin ABG O2 Capacity Hgb O2 Saturation FiO2 Sodium Potassium Chloride Carbon Dioxide Anion Gap BUN Creatinine Est GFR ( Amer) Est GFR (Non-Af Amer) POC Glucose (mg/dL) 135 H 144 H 128 H Random Glucose Calcium Total Bilirubin AST ALT Alkaline Phosphatase Total Protein Albumin Globulin Albumin/Globulin Ratio 06/04/17 06/05/17 06/05/17 21:05 06:08 06:23 WBC 9.0 RBC 2.96 L Hgb 8.9 L Hct 28.9 L MCV 97.6 MCH 30.1 MCHC 30.8 L RDW 13.8 Plt Count 181 MPV 11.0 Gran % 75.4 H Lymph % (Auto) 15.3 L [place] % (Auto) 5.9 Eos % (Auto) 3.2 Baso % (Auto) 0.2 Gran # 6.82 H Lymph # 1.4 [place] # 0.5 Eos # 0.3 Baso # 0.02 pCO2 44 pO2 93.0 HCO3 29.9 H ABG pH 7.44 ABG Total CO2 31.3 H ABG O2 Saturation 99.3 H ABG O2 Content 12.6 L ABG Base Excess 5.2 H ABG Hemoglobin 9.2 L ABG Carboxyhemoglobin 2.1 H POC ABG HHb (Measured) 0.7 ABG Methemoglobin 1.0 ABG O2 Capacity 12.7 L Hgb O2 Saturation 96.3 FiO2 40.0 Sodium Potassium Chloride Carbon Dioxide Anion Gap BUN Creatinine Est GFR ( Amer) Est GFR (Non-Af Amer) POC Glucose (mg/dL) 113 H Random Glucose Calcium Total Bilirubin AST ALT Alkaline Phosphatase Total Protein Albumin Globulin Albumin/Globulin Ratio 06/05/17 06/05/17 06/05/17 06:23 07:35 11:02 WBC RBC Hgb Hct MCV MCH MCHC RDW Plt Count MPV Gran % Lymph % (Auto) [place] % (Auto) Eos % (Auto) Baso % (Auto) Gran # Lymph # [place] # Eos # Baso # pCO2 pO2 HCO3 ABG pH ABG Total CO2 ABG O2 Saturation ABG O2 Content ABG Base Excess ABG Hemoglobin ABG Carboxyhemoglobin POC ABG HHb (Measured) ABG Methemoglobin ABG O2 Capacity Hgb O2 Saturation FiO2 Sodium 149 H Potassium 3.8 Chloride 116 H Carbon Dioxide 30 Anion Gap 7 L BUN 13 Creatinine 0.7 L Est GFR ( Amer) > 60 Est GFR (Non-Af Amer) > 60 POC Glucose (mg/dL) 110 112 H Random Glucose 110 Calcium 8.3 L Total Bilirubin 0.5 AST 27 ALT 21 Alkaline Phosphatase 83 Total Protein 6.6 Albumin 2.4 L Globulin 4.1 Albumin/Globulin Ratio 0.6 L Assessment/Plan - Assessment and Plan (Free Text) Assessment: Patient is seen and examined, on rounds with resident, agree with residents note , with following additions/exceptions: Patient is a 67 year old male with a PMH of tobacco and alcohol abuse, hypertension, who was admitted altered mental status, 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 Patient is currently intubated , sedated. Patient had bedside InD by urology yesterday for scrotal abscess. Repeat CTH noted, neurology aware of findings. Persistent fevers, with negative blood cultures, ??central fevers ICH HTN Gluteal Abscess/Cellulitis Scrotal abscess Fever Recommend: - cont with vent support as needed - patient unable to protect airway, will need Tracheostomy/PEG, possible - BP control - Abx as per ID - follow up neurology, - Follow up Urology - DC central line - follow up cultures - GI ppx - DVT ppx
[2017-06-05 07:36] LABS: ALB/GLOB RATIO 0.6 (1.1-1.8); ALKALINE PHOSPHATASE 83 U/L (38-126); ALT/SGPT 21 U/L (7-56); AST/SGOT 27 U/L (17-59); BILIRUBIN,TOTAL 0.5 mg/dL (0.2-1.3); BLOOD UREA NITROGEN 13 mg/dL (7-21); CALCIUM 8.3 mg/dL (8.4-10.5); CARBON DIOXIDE 30 mmol/L (21-33); CHLORIDE 116 mmol/L (98-107); GFR AFRICAN-AMERICAN > 60; GLUCOSE,RANDOM 110 mg/dL (70-110); POTASSIUM 3.8 mmol/L (3.6-5.0); SODIUM 149 mmol/L (132-148); TOTAL PROTEIN 6.6 g/dL (5.8-8.3)
[2017-06-05 07:51] LABS: BASO # 0.02 K/mm3 (0.0-2.0); BASO % 0.2 % (0.0-3.0); EOS # 0.3 (0.0-0.7); EOS % 3.2 % (1.5-5.0); GRAN # 6.82 (1.4-6.5); GRAN % 75.4 % (50.0-68.0); HEMATOCRIT 28.9 % (42.0-52.0); LYMPH # 1.4 (1.2-3.4); LYMPH % 15.3 % (22.0-35.0); MEAN CELL VOLUME 97.6 fl (80.0-105.0); MEAN CORPUSCULAR HEMOGLOBIN 30.1 pg (25.0-35.0); MEAN CORPUSCULAR HGB CONC 30.8 g/dl (31.0-37.0); MONO # 0.5 (0.1-0.6); MONO % 5.9 % (1.0-6.0); RED CELL DISTRIBUTION WIDTH 13.8 % (11.5-14.5)
[2017-06-05] MEDS: Aritificial Tears (15ml) OU SCH (09:29)
[2017-06-05] MEDS: Chlorhexidine 0.12% Oral Sol 480 ml Bot PO SCH ×3 (09:30→17:34)
[2017-06-05] MEDS: Silver Sulfadiazine 1% Cream (25 gm) TP SCH ×2 (09:33→17:34)
[2017-06-05] MEDS: Vancomycin 1gm in NS 250ml 1 GM/250 ML BAG IVPB SCH ×2 (09:40→21:21)
--- NOTE | 2017-06-05 10:06 | CP.PCM.PN ---
Subjective - Date & Time of Evaluation Date of Evaluation: 06/05/17 Time of Evaluation: 09:35 - Subjective Subjective: Still having intermittent fevers, continues to be on the ventilator, squeezes hand when asked. Objective - Vital Signs/Intake and Output Vital Signs (last 24 hours): Temp Pulse Resp BP Pulse Ox 99.6 F 80 14 121/61 99 06/04/17 08:00 06/05/17 03:51 06/04/17 07:44 06/05/17 03:51 06/05/17 03:51 Intake and Output: 06/04/17 06/05/17 18:59 06:59 Intake Total 1474 Output Total 725 Balance 749 - Medications Medications: Current Medications Artificial Tears (Artificial Tears) 0 ml OU DAILY [facility] Last Admin: 06/04/17 09:07 Dose: 1 drop Chlorhexidine Gluconate (Peridex) 15 ml PO TID [facility] Last Admin: 06/04/17 18:27 Dose: 15 ml Clonidine HCl (Catapres) 0.1 mg PO BID [facility] Last Admin: 06/04/17 18:26 Dose: Not Given Vancomycin HCl (Vancomycin 1gm) 1 gm in 250 mls @ 167 mls/hr IVPB Q12H KATIE PRN Reason: Protocol Last Admin: 06/04/17 21:47 Dose: 167 mls/hr Aztreonam (Azactam 2 Gm) 100 mls @ 100 mls/hr IVPB Q8 KATIE PRN Reason: Protocol Stop: 06/08/17 09:01 Last Admin: 06/04/17 21:47 Dose: 100 mls/hr Metronidazole (Flagyl) 500 mg in 100 mls @ 100 mls/hr IVPB Q8 KATIE PRN Reason: Protocol Last Admin: 06/04/17 21:47 Dose: 100 mls/hr Fentanyl Citrate (Fentanyl Citrate/Sodium Chloride 1 Mg/100 Ml) 1,000 mcg in 100 mls @ 2 mls/hr IV .Q24H PRN; Protocol; 20 MCG/HR PRN Reason: TITRATE PER MD ORDER Last Admin: 06/04/17 09:57 Dose: 40 mcg/hr, 4 mls/hr Acetaminophen (Ofirmev) 1,000 mg in 100 mls @ 400 mls/hr IVPB Q6H PRN PRN Reason: Temperature Stop: 06/06/17 15:33 Last Admin: 06/04/17 16:04 Dose: 400 mls/hr Lorazepam (Ativan) 2 mg IVP Q2H PRN; Protocol PRN Reason: Symptoms of alcohol withdrawl Lorazepam (Ativan) 4 mg IVP Q4H PRN; Protocol PRN Reason: Symptoms of alcohol withdrawl Last Admin: 05/30/17 17:00 Dose: 4 mg Metoprolol Tartrate (Lopressor) 25 mg PO BID [facility] Last Admin: 06/04/17 18:26 Dose: Not Given Pantoprazole Sodium (Protonix Inj) 40 mg IVP DAILY [facility] Last Admin: 06/04/17 09:05 Dose: 40 mg Silver Sulfadiazine (Silvadene 1% 25 Gm) 0 gm TP BID [facility] Last Admin: 06/04/17 18:28 Dose: 25 gm Sodium Chloride (Sodium Chloride Tab) 1 gm PO Q12 [facility] Last Admin: 06/02/17 21:31 Dose: 1 gm - Labs Labs: 06/04/17 05:30 06/04/17 05:30 PT 14.0 SECONDS (9.4-12.5) H 05/31/17 09:30 INR 1.27 (0.93-1.08) H 05/31/17 09:30 APTT 23.3 Seconds (25.1-36.5) L 05/31/17 09:30 - Constitutional Appears: Other (intubated and on the ventilator) - Head Exam Head Exam: NORMAL INSPECTION - ENT Exam Additional comments: ET tube in place - Neck Exam Additional comments: right IJ CVC in place, intact and clean - Respiratory Exam Respiratory Exam: Decreased Breath Sounds. absent: Rales - Cardiovascular Exam Cardiovascular Exam: +S1, +S2 - GI/Abdominal Exam GI & Abdominal Exam: Soft. absent: Tenderness - Exam Exam: Scrotal Swelling (with packing in place) Assessment and Plan - Assessment and Plan (Free Text) Plan: Assessment new onset fevers, R/O sepsis due to scrotal cellulitis R/O abscess formation S/ P I and D POD #1; R/O central fever Probable left buttock skin and skin structure infection S/P I and D POD #3 systemic inflammatory response syndrome probably from acute left sided hemorrhagic CVA skin cancer S/P resection around right ear area S/P lumbar disc hernia repair Plan continue Vancomycin, Azactam and Flagyl day 5 pending final wound cx from the scrotum - blood cx are negative; right sided central venous catheter to be removed today ; will continue to trend fever curve Neuro and Neurosurgery managing the CVA will continue to monitor clinically discussed with ICU team
[2017-06-05] MEDS: Fentanyl 1000mcg/100ml NS 1,000 MCG/100 ML BAG IV PRN ×2 (11:07→19:17)
--- NOTE | 2017-06-05 11:19 | CP.PCM.PN ---
<BROOKS GREENBERG - Last Filed: 06/05/17 11:16> Subjective - Date & Time of Evaluation Date of Evaluation: 06/05/17 Time of Evaluation: 11:16 - Subjective Subjective: Medicine Progress Note: Pt seen and examined at bedside. Pt is awake and mental status currently stable. Able to follow basic left-sided commands. Pt is currently intubated, off sedation and has OG tube. ROS limited due to patient's current mentation. Objective - Vital Signs/Intake and Output Vital Signs (last 24 hours): Temp Pulse Resp BP Pulse Ox 100.1 F H 67 14 99/50 L 100 06/05/17 08:00 06/05/17 10:48 06/05/17 06:38 06/05/17 10:48 06/05/17 10:48 Intake and Output: 06/05/17 06/05/17 06:59 18:59 Intake Total 1150 100 Output Total 750 Balance 400 100 - Medications Medications: Current Medications Artificial Tears (Artificial Tears) 0 ml OU DAILY [facility] Last Admin: 06/05/17 09:29 Dose: 2 drop Chlorhexidine Gluconate (Peridex) 15 ml PO TID [facility] Last Admin: 06/05/17 09:30 Dose: 15 ml Clonidine HCl (Catapres) 0.1 mg PO BID [facility] Last Admin: 06/05/17 09:35 Dose: Not Given Vancomycin HCl (Vancomycin 1gm) 1 gm in 250 mls @ 167 mls/hr IVPB Q12H KATIE PRN Reason: Protocol Last Admin: 06/05/17 09:40 Dose: 167 mls/hr Aztreonam (Azactam 2 Gm) 100 mls @ 100 mls/hr IVPB Q8 KATIE PRN Reason: Protocol Stop: 06/08/17 09:01 Last Admin: 06/05/17 07:00 Dose: 100 mls/hr Metronidazole (Flagyl) 500 mg in 100 mls @ 100 mls/hr IVPB Q8 KATIE PRN Reason: Protocol Last Admin: 06/04/17 21:47 Dose: 100 mls/hr Fentanyl Citrate (Fentanyl Citrate/Sodium Chloride 1 Mg/100 Ml) 1,000 mcg in 100 mls @ 2 mls/hr IV .Q24H PRN; Protocol; 20 MCG/HR PRN Reason: TITRATE PER MD ORDER Last Admin: 06/05/17 11:07 Dose: 40 mcg/hr, 4 mls/hr Acetaminophen (Ofirmev) 1,000 mg in 100 mls @ 400 mls/hr IVPB Q8H PRN PRN Reason: Temperature Stop: 06/07/17 09:57 Lorazepam (Ativan) 2 mg IVP Q2H PRN; Protocol PRN Reason: Symptoms of alcohol withdrawl Lorazepam (Ativan) 4 mg IVP Q4H PRN; Protocol PRN Reason: Symptoms of alcohol withdrawl Last Admin: 05/30/17 17:00 Dose: 4 mg Metoprolol Tartrate (Lopressor) 25 mg PO BID [facility] Last Admin: 06/05/17 09:36 Dose: Not Given Pantoprazole Sodium (Protonix Inj) 40 mg IVP DAILY [facility] Last Admin: 06/05/17 09:35 Dose: 40 mg Silver Sulfadiazine (Silvadene 1% 25 Gm) 0 gm TP BID [facility] Last Admin: 06/05/17 09:33 Dose: Not Given Sodium Chloride (Sodium Chloride Tab) 1 gm PO Q12 [facility] Last Admin: 06/02/17 21:31 Dose: 1 gm - Labs Labs: 06/05/17 06:23 06/05/17 06:23 PT 14.0 SECONDS (9.4-12.5) H 05/31/17 09:30 INR 1.27 (0.93-1.08) H 05/31/17 09:30 APTT 23.3 Seconds (25.1-36.5) L 05/31/17 09:30 - Head Exam Head Exam: ATRAUMATIC, NORMOCEPHALIC Additional comments: Right sided facial droop - Eye Exam Additional comments: Pupils 2-3 mm and not reactive to light - ENT Exam ENT Exam: Mucous Membranes Moist Additional comments: endotracheal tube and OG tube present - Neck Exam Neck Exam: absent: Lymphadenopathy, Tenderness, Thyromegaly - Respiratory Exam Respiratory Exam: Clear to Ausculation Bilateral. absent: Accessory Muscle Use , Rales, Rhonchi, Wheezes, Respiratory Distress - Cardiovascular Exam Cardiovascular Exam: RRR, +S1, +S2. absent: Diastolic murmur, Gallop, Rubs, Murmur - GI/Abdominal Exam GI & Abdominal Exam: Soft. absent: Distended, Guarding, Tenderness, Mass, Rebound - Exam Additional comments: Philippe catheter in place. Incision with packing s/p scrotal I&D. Mild swelling, erythema. - Neurological Exam Neurological Exam: Awake. 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 Patient is intubated and off sedation. Pt s/p incision and drainage of left buttock abscess and I&D of scrotal abscess. Plan: 1. Intracerebral Hemorrhage - Admitted to ICU - Intubated to protect airway, currently off sedation - OGT in place, tube feedings - Plan for trach today or tomorrow per surgery - CT showed hemorrhagic infarct of the left thalamus/basal ganglia. No midline shift. Left thalamic edema - Repeat CT's showed stable left thalamic hemorrhage x3 - Neurosurgery consulted No surgical intervention at this time - Neuro consulted Target Na 135-145 and osmolarity is < 320 Monitor serum sodium and osmolarity Q6H Maintain serum glucose below 160 mg/dL Maintain head of bed above 30 degrees Avoid IV glucose, hyperthermia - Lipid panel, A1C WNL 2. Left gluteal ulcer, Grade 2 - Blood cultures negative - Wound culture positive for coag negative staph - Surgery consulted POD #4 I&D Wound care - ID consulted Vancomycin, Azactam, Flagyl day 5 3. Scrotal Abscess - Blood and urine cultures negative - Wound culture negative after 24 hours - Testicular US negative for epidymitis, orthitis, torsion; decreased flow to left testicle, scrotal edema - Urology consulted POD#1 I&D Wound care - Abx for ulcer covers scrotal abscess 4. SVT vs. Rapid a-fib, resolved - Cardio consulted Lopressor 25 mg PO BID - Adenosine given, which converted patient to NSR 5. Hypokalemia, resolved - K 3.8 - Repleted - Monitor and replete as needed 6. EtOH Abuse - EtOH negative - Ativan held to better assess neuro status GI/DVT PPx - Protonix - SCDs Case and planned reviewed with attending Tao Greenberg, PGY1 <Tammy Rocha - Last Filed: 06/05/17 13:46> Objective - Vital Signs/Intake and Output Vital Signs (last 24 hours): Temp Pulse Resp BP Pulse Ox 97.8 F 80 14 138/67 100 06/05/17 12:00 06/05/17 12:51 06/05/17 06:38 06/05/17 12:51 06/05/17 12:51 Intake and Output: 06/05/17 06/05/17 06:59 18:59 Intake Total 1150 100 Output Total 750 Balance 400 100 - Medications Medications: Current Medications Artificial Tears (Artificial Tears) 0 ml OU DAILY [facility] Last Admin: 06/05/17 09:29 Dose: 2 drop Chlorhexidine Gluconate (Peridex) 15 ml PO TID [facility] Last Admin: 06/05/17 13:37 Dose: 15 ml Clonidine HCl (Catapres) 0.1 mg PO BID [facility] Last Admin: 06/05/17 09:35 Dose: Not Given Vancomycin HCl (Vancomycin 1gm) 1 gm in 250 mls @ 167 mls/hr IVPB Q12H [facility]IE PRN Reason: Protocol Last Admin: 06/05/17 09:40 Dose: 167 mls/hr Aztreonam (Azactam 2 Gm) 100 mls @ 100 mls/hr IVPB Q8 [facility]ATIE PRN Reason: Protocol Stop: 06/08/17 09:01 Last Admin: 06/05/17 13:37 Dose: 100 mls/hr Metronidazole (Flagyl) 500 mg in 100 mls @ 100 mls/hr IVPB Q8 KATIE PRN Reason: Protocol Last Admin: 06/04/17 21:47 Dose: 100 mls/hr Fentanyl Citrate (Fentanyl Citrate/Sodium Chloride 1 Mg/100 Ml) 1,000 mcg in 100 mls @ 2 mls/hr IV .Q24H PRN; Protocol; 20 MCG/HR PRN Reason: TITRATE PER MD ORDER Last Admin: 06/05/17 11:07 Dose: 40 mcg/hr, 4 mls/hr Acetaminophen (Ofirmev) 1,000 mg in 100 mls @ 400 mls/hr IVPB Q8H PRN PRN Reason: Temperature Stop: 06/07/17 09:57 Lorazepam (Ativan) 2 mg IVP Q2H PRN; Protocol PRN Reason: Symptoms of alcohol withdrawl Lorazepam (Ativan) 4 mg IVP Q4H PRN; Protocol PRN Reason: Symptoms of alcohol withdrawl Last Admin: 05/30/17 17:00 Dose: 4 mg Metoprolol Tartrate (Lopressor) 25 mg PO BID [facility] Last Admin: 06/05/17 09:36 Dose: Not Given Pantoprazole Sodium (Protonix Inj) 40 mg IVP DAILY [facility] Last Admin: 06/05/17 09:35 Dose: 40 mg Silver Sulfadiazine (Silvadene 1% 25 Gm) 0 gm TP BID [facility] Last Admin: 06/05/17 09:33 Dose: Not Given Sodium Chloride (Sodium Chloride Tab) 1 gm PO Q12 [facility] Last Admin: 06/02/17 21:31 Dose: 1 gm - Labs Labs: 06/05/17 06:23 06/05/17 06:23 PT 14.0 SECONDS (9.4-12.5) H 05/31/17 09:30 INR 1.27 (0.93-1.08) H 05/31/17 09:30 APTT 23.3 Seconds (25.1-36.5) L 05/31/17 09:30 Attending/Attestation - Attestation I have personally seen and examined this patient.: Yes I have fully participated in the care of the patient.: Yes I have reviewed all pertinent clinical information, including history, physical exam and plan: Yes Notes (Text): 06/05/17 13:44 67 year old male who was admitted with altered mental status. He was found to have hemorrhagic infarct of the left thalamus / basal ganglia. Neurosurgery recommended conservative management. Patient was seen by neurology as well. Repeat CT head was reviewed. Patient is currently intubated for airway protection. Plan is for possible trach/peg this week per surgery. He is on iv antibiotics for scrotal cellulitis. S/p I&D. Will follow up with urology recommendations. He is also s/p I&D of right buttock abscess. Tammy Rocha MD Hospitalist.
[2017-06-05] MEDS ORDERED: Sodium Chloride 0.9% 1,000 ML IV STA (11:49)
--- NOTE | 2017-06-05 12:37 | CP.PCM.PN ---
Subjective - Date & Time of Evaluation Date of Evaluation: 06/05/17 Time of Evaluation: 12:35 - Subjective Subjective: General Surgery Progress Note for Dr. Hyatt This is patient was seen and examined this AM at bedside. No acute events to report overnight. The patient's family is agreeable to a trach and a PEG. Objective - Vital Signs/Intake and Output Vital Signs (last 24 hours): Temp Pulse Resp BP Pulse Ox 100.1 F H 67 14 99/50 L 100 06/05/17 08:00 06/05/17 10:48 06/05/17 06:38 06/05/17 10:48 06/05/17 10:48 Intake and Output: 06/05/17 06/05/17 06:59 18:59 Intake Total 1150 100 Output Total 750 Balance 400 100 - Medications Medications: Current Medications Artificial Tears (Artificial Tears) 0 ml OU DAILY [facility] Last Admin: 06/05/17 09:29 Dose: 2 drop Chlorhexidine Gluconate (Peridex) 15 ml PO TID [facility] Last Admin: 06/05/17 09:30 Dose: 15 ml Clonidine HCl (Catapres) 0.1 mg PO BID [facility] Last Admin: 06/05/17 09:35 Dose: Not Given Vancomycin HCl (Vancomycin 1gm) 1 gm in 250 mls @ 167 mls/hr IVPB Q12H [facility]ATIE PRN Reason: Protocol Last Admin: 06/05/17 09:40 Dose: 167 mls/hr Aztreonam (Azactam 2 Gm) 100 mls @ 100 mls/hr IVPB Q8 [facility]ATIE PRN Reason: Protocol Stop: 06/08/17 09:01 Last Admin: 06/05/17 07:00 Dose: 100 mls/hr Metronidazole (Flagyl) 500 mg in 100 mls @ 100 mls/hr IVPB Q8 [facility]ATIE PRN Reason: Protocol Last Admin: 06/04/17 21:47 Dose: 100 mls/hr Fentanyl Citrate (Fentanyl Citrate/Sodium Chloride 1 Mg/100 Ml) 1,000 mcg in 100 mls @ 2 mls/hr IV .Q24H PRN; Protocol; 20 MCG/HR PRN Reason: TITRATE PER MD ORDER Last Admin: 06/05/17 11:07 Dose: 40 mcg/hr, 4 mls/hr Acetaminophen (Ofirmev) 1,000 mg in 100 mls @ 400 mls/hr IVPB Q8H PRN PRN Reason: Temperature Stop: 06/07/17 09:57 Sodium Chloride (Sodium Chloride 0.9%) 1,000 mls @ 999 mls/hr IV .Q1H1M STA Stop: 06/05/17 12:49 Last Admin: 06/05/17 12:33 Dose: 999 mls/hr Lorazepam (Ativan) 2 mg IVP Q2H PRN; Protocol PRN Reason: Symptoms of alcohol withdrawl Lorazepam (Ativan) 4 mg IVP Q4H PRN; Protocol PRN Reason: Symptoms of alcohol withdrawl Last Admin: 05/30/17 17:00 Dose: 4 mg Metoprolol Tartrate (Lopressor) 25 mg PO BID [facility] Last Admin: 06/05/17 09:36 Dose: Not Given Pantoprazole Sodium (Protonix Inj) 40 mg IVP DAILY [facility] Last Admin: 06/05/17 09:35 Dose: 40 mg Silver Sulfadiazine (Silvadene 1% 25 Gm) 0 gm TP BID [facility] Last Admin: 06/05/17 09:33 Dose: Not Given Sodium Chloride (Sodium Chloride Tab) 1 gm PO Q12 [facility] Last Admin: 06/02/17 21:31 Dose: 1 gm - Labs Labs: 06/05/17 06:23 06/05/17 06:23 PT 14.0 SECONDS (9.4-12.5) H 05/31/17 09:30 INR 1.27 (0.93-1.08) H 05/31/17 09:30 APTT 23.3 Seconds (25.1-36.5) L 05/31/17 09:30 - Constitutional Appears: Non-toxic, No Acute Distress - Respiratory Exam Additional comments: Intubated, breathing on vent - Cardiovascular Exam Cardiovascular Exam: REGULAR RHYTHM - GI/Abdominal Exam GI & Abdominal Exam: Soft. absent: Distended, Firm, Guarding, Rigid, Tenderness - Rectal Exam Additional comments: Purulent drainage from the left glute. - Exam Additional comments: Left sided testiular abscess spontaneously draining - Extremities Exam Additional comments: Pressure ulcer boots in place. Assessment and Plan - Assessment and Plan (Free Text) Assessment: This is a 67M with a SDH on a vent who currently has multiple draining lesions on his left buttock and groin Plan: No surgical intervention at this time Continue ABX Testicular abscess management per urology Will continue to monitor gluteal abscess Will Discuss with Dr. Edmar Pennington PGY-2
[2017-06-05] MEDS: metroNIDAZOLE IV 500 mg/100 ml 500 MG/100 ML BAG IVPB SCH ×2 (13:50→21:21)
--- NOTE | 2017-06-05 16:38 | PCM.URO ---
Urology Progress Note - Objective Lab Studies: Reviewed (no major changes//will follow along//) Lab Results Last 24 Hours: Laboratory Results - last 24 hr 06/04/17 06/04/17 06/04/17 07:34 11:14 16:15 WBC RBC Hgb Hct MCV MCH MCHC RDW Plt Count MPV Gran % Lymph % (Auto) [place] % (Auto) Eos % (Auto) Baso % (Auto) Gran # Lymph # [place] # Eos # Baso # pCO2 pO2 HCO3 ABG pH ABG Total CO2 ABG O2 Saturation ABG O2 Content ABG Base Excess ABG Hemoglobin ABG Carboxyhemoglobin POC ABG HHb (Measured) ABG Methemoglobin ABG O2 Capacity Hgb O2 Saturation FiO2 Sodium Potassium Chloride Carbon Dioxide Anion Gap BUN Creatinine Est GFR ( Amer) Est GFR (Non-Af Amer) POC Glucose (mg/dL) 135 H 144 H 128 H Random Glucose Calcium Total Bilirubin AST ALT Alkaline Phosphatase Total Protein Albumin Globulin Albumin/Globulin Ratio 06/04/17 06/05/17 06/05/17 21:05 06:08 06:23 WBC 9.0 RBC 2.96 L Hgb 8.9 L Hct 28.9 L MCV 97.6 MCH 30.1 MCHC 30.8 L RDW 13.8 Plt Count 181 MPV 11.0 Gran % 75.4 H Lymph % (Auto) 15.3 L [place] % (Auto) 5.9 Eos % (Auto) 3.2 Baso % (Auto) 0.2 Gran # 6.82 H Lymph # 1.4 [place] # 0.5 Eos # 0.3 Baso # 0.02 pCO2 44 pO2 93.0 HCO3 29.9 H ABG pH 7.44 ABG Total CO2 31.3 H ABG O2 Saturation 99.3 H ABG O2 Content 12.6 L ABG Base Excess 5.2 H ABG Hemoglobin 9.2 L ABG Carboxyhemoglobin 2.1 H POC ABG HHb (Measured) 0.7 ABG Methemoglobin 1.0 ABG O2 Capacity 12.7 L Hgb O2 Saturation 96.3 FiO2 40.0 Sodium Potassium Chloride Carbon Dioxide Anion Gap BUN Creatinine Est GFR ( Amer) Est GFR (Non-Af Amer) POC Glucose (mg/dL) 113 H Random Glucose Calcium Total Bilirubin AST ALT Alkaline Phosphatase Total Protein Albumin Globulin Albumin/Globulin Ratio 06/05/17 06/05/17 06/05/17 06:23 07:35 11:02 WBC RBC Hgb Hct MCV MCH MCHC RDW Plt Count MPV Gran % Lymph % (Auto) [place] % (Auto) Eos % (Auto) Baso % (Auto) Gran # Lymph # [place] # Eos # Baso # pCO2 pO2 HCO3 ABG pH ABG Total CO2 ABG O2 Saturation ABG O2 Content ABG Base Excess ABG Hemoglobin ABG Carboxyhemoglobin POC ABG HHb (Measured) ABG Methemoglobin ABG O2 Capacity Hgb O2 Saturation FiO2 Sodium 149 H Potassium 3.8 Chloride 116 H Carbon Dioxide 30 Anion Gap 7 L BUN 13 Creatinine 0.7 L Est GFR ( Amer) > 60 Est GFR (Non-Af Amer) > 60 POC Glucose (mg/dL) 110 112 H Random Glucose 110 Calcium 8.3 L Total Bilirubin 0.5 AST 27 ALT 21 Alkaline Phosphatase 83 Total Protein 6.6 Albumin 2.4 L Globulin 4.1 Albumin/Globulin Ratio 0.6 L Intake & Output: Intake & Output 06/04/17 06/05/17 06/05/17 18:59 06:59 18:59 Intake Total 1474 1150 100 Output Total 725 750 Balance 749 400 100 Weight 170 lb Intake: IV 650 550 100 Left Internal Jugular 550 550 Tube Feeding 624 300 Other 200 300 Output: Urine 725 750 Condom 725 750 Stool 0 Urine/Stool Mix 0 Emesis 0 Oral Regurgitation 0 Other 0 Other: # Bowel Movements 0 Vital Signs: Vital Signs - 24 hr 06/04/17 06/04/17 06/04/17 18:00 18:26 21:40 Temperature Pulse Rate 67 67 69 Respiratory Rate Blood Pressure 93/51 L O2 Sat by Pulse 99 Oximetry 06/04/17 06/04/17 06/04/17 21:50 22:00 22:10 Temperature Pulse Rate 70 70 71 Respiratory Rate Blood Pressure 117/58 L O2 Sat by Pulse 99 99 98 Oximetry 06/04/17 06/04/17 06/04/17 22:20 22:30 22:40 Temperature Pulse Rate 76 72 71 Respiratory Rate Blood Pressure O2 Sat by Pulse 99 99 99 Oximetry 06/04/17 06/04/17 06/04/17 22:50 23:00 23:10 Temperature Pulse Rate 74 74 76 Respiratory Rate Blood Pressure 113/58 L O2 Sat by Pulse 99 99 98 Oximetry 06/04/17 06/04/17 06/04/17 23:20 23:30 23:40 Temperature Pulse Rate 75 76 76 Respiratory Rate Blood Pressure O2 Sat by Pulse 98 99 99 Oximetry 06/04/17 06/05/17 06/05/17 23:50 00:00 00:10 Temperature Pulse Rate 87 78 78 Respiratory Rate Blood Pressure 111/56 L O2 Sat by Pulse 100 100 98 Oximetry 06/05/17 06/05/17 06/05/17 00:20 00:30 00:40 Temperature Pulse Rate 77 80 78 Respiratory Rate Blood Pressure O2 Sat by Pulse 99 100 98 Oximetry 06/05/17 06/05/17 06/05/17 00:50 01:00 01:10 Temperature Pulse Rate 78 78 79 Respiratory Rate Blood Pressure 123/62 O2 Sat by Pulse 98 98 98 Oximetry 06/05/17 06/05/17 06/05/17 01:20 01:30 01:40 Temperature Pulse Rate 79 81 82 Respiratory Rate Blood Pressure O2 Sat by Pulse 98 98 98 Oximetry 06/05/17 06/05/17 06/05/17 01:50 02:00 02:10 Temperature Pulse Rate 80 80 80 Respiratory Rate Blood Pressure 129/63 O2 Sat by Pulse 98 98 98 Oximetry 06/05/17 06/05/17 06/05/17 02:20 02:30 02:40 Temperature Pulse Rate 81 80 81 Respiratory Rate Blood Pressure O2 Sat by Pulse 100 99 99 Oximetry 06/05/17 06/05/17 06/05/17 02:50 03:00 03:10 Temperature Pulse Rate 81 82 83 Respiratory Rate Blood Pressure 134/69 O2 Sat by Pulse 99 100 99 Oximetry 06/05/17 06/05/17 06/05/17 03:20 03:30 03:40 Temperature Pulse Rate 82 79 80 Respiratory Rate Blood Pressure O2 Sat by Pulse 99 99 100 Oximetry 06/05/17 06/05/17 06/05/17 03:50 03:51 04:00 Temperature 102 F H Pulse Rate 77 75 Respiratory Rate Blood Pressure 121/61 O2 Sat by Pulse 99 99 Oximetry 06/05/17 06/05/17 06/05/17 05:10 05:20 05:30 Temperature Pulse Rate 79 80 79 Respiratory Rate Blood Pressure O2 Sat by Pulse 99 99 99 Oximetry 06/05/17 06/05/17 06/05/17 05:40 05:50 06:00 Temperature Pulse Rate 79 79 83 Respiratory Rate Blood Pressure 122/62 O2 Sat by Pulse 99 99 100 Oximetry 06/05/17 06/05/17 06/05/17 06:10 06:20 06:30 Temperature Pulse Rate 78 Respiratory Rate Blood Pressure O2 Sat by Pulse 99 97 98 Oximetry 06/05/17 06/05/17 06/05/17 06:38 06:40 06:50 Temperature Pulse Rate 74 76 Respiratory 14 Rate Blood Pressure O2 Sat by Pulse 98 98 98 Oximetry 06/05/17 06/05/17 06/05/17 07:00 07:10 07:20 Temperature Pulse Rate 72 77 76 Respiratory Rate Blood Pressure 111/55 L O2 Sat by Pulse 99 99 98 Oximetry 06/05/17 06/05/17 06/05/17 07:30 07:40 07:50 Temperature Pulse Rate 72 69 71 Respiratory Rate Blood Pressure O2 Sat by Pulse 98 99 99 Oximetry 06/05/17 06/05/17 06/05/17 08:00 08:10 08:20 Temperature 100.1 F H Pulse Rate 68 65 66 Respiratory Rate Blood Pressure 100/61 O2 Sat by Pulse 100 99 100 Oximetry 06/05/17 06/05/17 06/05/17 08:30 08:40 08:50 Temperature Pulse Rate 66 69 67 Respiratory Rate Blood Pressure O2 Sat by Pulse 100 100 99 Oximetry 06/05/17 06/05/17 06/05/17 09:00 09:10 09:20 Temperature Pulse Rate 68 67 64 Respiratory Rate Blood Pressure 108/59 L O2 Sat by Pulse 100 100 99 Oximetry 06/05/17 06/05/17 06/05/17 09:30 09:35 09:36 Temperature Pulse Rate 65 65 61 Respiratory Rate Blood Pressure 89/49 L 89/49 L O2 Sat by Pulse 98 Oximetry 06/05/17 06/05/17 06/05/17 09:40 09:50 10:00 Temperature Pulse Rate 65 67 71 Respiratory Rate Blood Pressure 93/52 L O2 Sat by Pulse 98 98 99 Oximetry 06/05/17 06/05/17 06/05/17 10:10 10:20 10:30 Temperature Pulse Rate 62 70 66 Respiratory Rate Blood Pressure O2 Sat by Pulse 98 99 98 Oximetry 06/05/17 06/05/17 06/05/17 10:34 10:40 10:48 Temperature Pulse Rate 62 61 67 Respiratory Rate Blood Pressure 89/49 L 98/51 L O2 Sat by Pulse 99 99 100 Oximetry 06/05/17 06/05/17 06/05/17 11:50 12:00 12:10 Temperature 97.8 F Pulse Rate 63 71 67 Respiratory Rate Blood Pressure 104/61 O2 Sat by Pulse 99 100 99 Oximetry 06/05/17 06/05/17 06/05/17 12:20 12:30 12:40 Temperature Pulse Rate 65 63 64 Respiratory Rate Blood Pressure O2 Sat by Pulse 99 99 99 Oximetry 06/05/17 06/05/17 06/05/17 12:50 12:51 13:40 Temperature Pulse Rate 72 78 78 Respiratory Rate Blood Pressure 138/67 O2 Sat by Pulse 100 100 100 Oximetry 06/05/17 06/05/17 06/05/17 13:50 14:00 14:10 Temperature Pulse Rate 73 67 75 Respiratory Rate Blood Pressure 129/73 O2 Sat by Pulse 100 100 100 Oximetry 06/05/17 06/05/17 06/05/17 14:20 14:30 14:40 Temperature Pulse Rate 73 77 73 Respiratory Rate Blood Pressure O2 Sat by Pulse 100 100 100 Oximetry 06/05/17 06/05/17 06/05/17 14:42 15:50 16:00 Temperature 98.8 F Pulse Rate 68 69 66 Respiratory Rate Blood Pressure 110/59 L 102/52 L O2 Sat by Pulse 98 99 100 Oximetry 06/05/17 06/05/17 16:10 16:11 Temperature Pulse Rate 66 64 Respiratory Rate Blood Pressure O2 Sat by Pulse 100 99 Oximetry
[2017-06-06 06:08] LABS: ARTERIAL BLOOD GAS HCO3 28.5 mmol/L (21-28); ARTERIAL BLOOD GAS O2 CAPACITY 12.8 mL/dl (16-24); ARTERIAL BLOOD GAS O2 CONTENT 12.6 ML/dl (15-23); ARTERIAL BLOOD HGB O2 SAT 95.7 % (95.0-98.0); CARBOXYHEMOGLOBIN 1.9 % (0.5-1.5); HHB 1.3 % (0-5); METHEMOGLOBIN 1.1 % (0.0-3.0)
[2017-06-06] MEDS: metroNIDAZOLE IV 500 mg/100 ml 500 MG/100 ML BAG IVPB SCH ×3 (06:31→21:43)
[2017-06-06] MEDS: Aztreonam 2 Gm in NS 100mL 100 ML IVPB SCH ×3 (06:31→21:43)
--- NOTE | 2017-06-06 06:38 | CP.PCM.PN ---
Subjective - Date & Time of Evaluation Date of Evaluation: 06/06/17 Time of Evaluation: 06:34 - Subjective Subjective: Mr. Veras was seen and examined at the bedside in ICU. He is awake, but remains on mechanical ventilation. He also on Fentanyl drip at 50 mch/hr. According to the staff, he bits his ET tube and with increase of 10 mcg/hr of the Fentanyl drip, he is more comfortable. He is able to follow simple commands such as squeezing his left hand, and moving bilateral feet. He has an episode of febrile early this morning and IV tylenol was given. His left jugular TLC was removed.He is on antibiotic therapy. Objective - Vital Signs/Intake and Output Vital Signs (last 24 hours): Temp Pulse Resp BP Pulse Ox 99.3 F 69 14 101/48 L 100 06/05/17 23:46 06/05/17 23:45 06/05/17 06:38 06/05/17 23:45 06/05/17 23:45 Intake and Output: 06/05/17 06/06/17 18:59 06:59 Intake Total 2248 Output Total 250 Balance 1997 - Medications Medications: Current Medications Artificial Tears (Artificial Tears) 0 ml OU DAILY [facility] Last Admin: 06/05/17 09:29 Dose: 2 drop Chlorhexidine Gluconate (Peridex) 15 ml PO TID KATIE Last Admin: 06/05/17 17:34 Dose: 15 ml Clonidine HCl (Catapres) 0.1 mg PO BID [facility] Last Admin: 06/05/17 17:33 Dose: Not Given Vancomycin HCl (Vancomycin 1gm) 1 gm in 250 mls @ 167 mls/hr IVPB Q12H KATIE PRN Reason: Protocol Last Admin: 06/05/17 21:21 Dose: 167 mls/hr Aztreonam (Azactam 2 Gm) 100 mls @ 100 mls/hr IVPB Q8 KATIE PRN Reason: Protocol Stop: 06/08/17 09:01 Last Admin: 06/06/17 06:31 Dose: 100 mls/hr Metronidazole (Flagyl) 500 mg in 100 mls @ 100 mls/hr IVPB Q8 KATIE PRN Reason: Protocol Last Admin: 06/06/17 06:31 Dose: 100 mls/hr Acetaminophen (Ofirmev) 1,000 mg in 100 mls @ 400 mls/hr IVPB Q8H PRN PRN Reason: Temperature Stop: 06/07/17 09:57 Last Admin: 06/06/17 06:29 Dose: 400 mls/hr Fentanyl Citrate (Fentanyl Citrate/Sodium Chloride 1 Mg/100 Ml) 1,000 mcg in 100 mls @ 2 mls/hr IV .Q24H PRN; Protocol; 20 MCG/HR PRN Reason: TITRATE PER MD ORDER Last Admin: 06/05/17 19:17 Dose: 50 mcg/hr, 5 mls/hr Lorazepam (Ativan) 2 mg IVP Q2H PRN; Protocol PRN Reason: Symptoms of alcohol withdrawl Lorazepam (Ativan) 4 mg IVP Q4H PRN; Protocol PRN Reason: Symptoms of alcohol withdrawl Last Admin: 05/30/17 17:00 Dose: 4 mg Metoprolol Tartrate (Lopressor) 25 mg PO BID [facility] Last Admin: 06/05/17 17:33 Dose: Not Given Pantoprazole Sodium (Protonix Inj) 40 mg IVP DAILY [facility] Last Admin: 06/05/17 09:35 Dose: 40 mg Silver Sulfadiazine (Silvadene 1% 25 Gm) 0 gm TP BID [facility] Last Admin: 06/05/17 17:34 Dose: Not Given Sodium Chloride (Sodium Chloride Tab) 1 gm PO Q12 [facility] Last Admin: 06/02/17 21:31 Dose: 1 gm - Labs Labs: 06/05/17 06:23 06/05/17 06:23 PT 14.0 SECONDS (9.4-12.5) H 05/31/17 09:30 INR 1.27 (0.93-1.08) H 05/31/17 09:30 APTT 23.3 Seconds (25.1-36.5) L 05/31/17 09:30 - Constitutional Appears: No Acute Distress - Head Exam Head Exam: ATRAUMATIC - Neurological Exam Neurological Exam: Awake Neuro motor strength exam: Left Upper Extremity: 3, Right Upper Extremity: 0 ( paralyzed), Left Lower Extremity: 3, Right Lower Extremity: 2/1 Additional comments: He is more awake today in comparison from previous examination. Sensation remains asymmetrical especially on his right upper extremity. Assessment and Plan (1) Intracerebral hemorrhage Assessment & Plan: Case discussed with Dr. Davies, continue all current medical. physical, and occupational therapies. When patient has trach and peg to start with Amantadine 100 mg via peg BID to assist him with his rehabilitation regimen. Continue normotension, normothermia, euglycemia and manage infection. Status: Acute
[2017-06-06 07:12] LABS: BASO # 0.02 K/mm3 (0.0-2.0); BASO % 0.2 % (0.0-3.0); EOS # 0.3 (0.0-0.7); EOS % 2.5 % (1.5-5.0); GRAN # 8.49 (1.4-6.5); HEMATOCRIT 30.6 % (42.0-52.0); LYMPH # 0.9 (1.2-3.4); LYMPH % 9.2 % (22.0-35.0); MEAN CELL VOLUME 96.8 fl (80.0-105.0); MEAN CORPUSCULAR HEMOGLOBIN 29.4 pg (25.0-35.0); MEAN CORPUSCULAR HGB CONC 30.4 g/dl (31.0-37.0); MEAN PLATELET VOLUME 11.1 fl (7.0-11.0); MONO # 0.5 (0.1-0.6); MONO % 5.1 % (1.0-6.0); RED CELL DISTRIBUTION WIDTH 13.6 % (11.5-14.5); WHITE BLOOD COUNT 10.2 10^3/ul (4.5-11.0)
[2017-06-06] MEDS: Fentanyl 1000mcg/100ml NS 1,000 MCG/100 ML BAG IV PRN (07:17)
[2017-06-06 07:20] LABS: INR 1.69 (0.93-1.08); PARTIAL THROMBOPLASTIN TIME 35.3 Seconds (25.1-36.5)
[2017-06-06 07:28] LABS: ALB/GLOB RATIO 0.6 (1.1-1.8); ALKALINE PHOSPHATASE 78 U/L (38-126); ALT/SGPT 23 U/L (7-56); AST/SGOT 26 U/L (17-59); BILIRUBIN,TOTAL 0.5 mg/dL (0.2-1.3); BLOOD UREA NITROGEN 15 mg/dL (7-21); CALCIUM 8.2 mg/dL (8.4-10.5); CARBON DIOXIDE 31 mmol/L (21-33); CHLORIDE 115 mmol/L (98-107); GFR AFRICAN-AMERICAN > 60; GLUCOSE,RANDOM 126 mg/dL (70-110); POTASSIUM 3.9 mmol/L (3.6-5.0); SODIUM 149 mmol/L (132-148); TOTAL PROTEIN 6.7 g/dL (5.8-8.3)
--- NOTE | 2017-06-06 07:40 | CP.CCUPN ---
<Benji Ma - Last Filed: 06/06/17 10:56> CCU Subjective - Physician Review Subjective (Free Text): 06/06/17 07:36 Benji Ma D.O. 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 Patient was seen and examined at bedside. Patient continues to be intubated. Overnight patient had a fever of 101.7 but otherwise no acute overnight events. Patient not following commands, unable to obtain any information. CCU Objective - Vital Signs / Intake & Output Vital Signs (Last 4 hours): Vital Signs Temp Pulse BP Pulse Ox 06/06/17 07:04 87 148/78 100 06/06/17 06:56 75 122/67 98 06/06/17 06:50 87 98 06/06/17 06:40 87 96 06/06/17 06:30 88 96 06/06/17 06:25 90 128/67 97 06/06/17 06:20 90 98 06/06/17 06:10 100 06/06/17 06:00 87 100 06/06/17 05:50 81 98 06/06/17 05:40 79 98 06/06/17 05:30 79 98 06/06/17 05:20 78 98 06/06/17 05:10 76 98 06/06/17 05:00 76 111/49 L 98 06/06/17 04:50 75 98 06/06/17 04:40 75 98 06/06/17 04:30 75 98 06/06/17 04:20 75 98 06/06/17 04:10 78 100 06/06/17 04:00 101.7 F H 70 102/50 L 99 06/06/17 03:50 71 99 06/06/17 03:40 70 99 Intake and Output (Last 8hrs): Intake & Output 06/05/17 06/06/17 06/06/17 22:59 06:59 14:59 Intake Total 2148 1900 100 Output Total 250 650 Balance 1898 1250 100 Weight 77.564 kg Intake: IV 1548 1000 100 Left Internal Jugular 1000 Right Hand 548 left upper arm 1000 Tube Feeding 300 600 Other 300 300 Output: Urine 250 650 Urethral ([place]) 250 650 Stool 0 Urine/Stool Mix 0 Emesis 0 Oral Regurgitation 0 Other 0 Other: # Bowel Movements 0 - Physical Exam Head: Positive for: Atraumatic, Normocephalic Pupils: Positive for: Other (~2-3mm fixed) Extroacular Muscles: Positive for: Other (Does track with his eyes) Conjunctiva: Positive for: Normal Ears: Positive for: Normal Mouth: Positive for: Moist Mucous Membranes Pharnyx: Positive for: Normal, Other (OGT in place, feeds running, intubated) Nose (External): Positive for: Atraumatic Neck: Positive for: Other (L IJ in place) Respiratory/Chest: Positive for: Respiratory Distress. Negative for: Accessory Muscle Use, Wheezes, Rales, Rhonchi Cardiovascular: Positive for: Regular Rate and Rhythm, Normal S1, S2. Negative for: Murmurs, Rub Abdomen: Positive for: Normal Bowel Sounds. Negative for: Tenderness, Distention, Peritoneal Signs Upper Extremity: Positive for: Edema (+1 R arm), Capillary Refill < 2s, Other ( Flacid right sided hemiparesis). Negative for: Erythema Lower Extremity: Positive for: Capillary Refill < 2 s, Other (right sided hemiparesis). Negative for: Edema, CALF TENDERNESS Neurological: Positive for: Other (intubated, right Babinski positive, at times tracks, pupils fixed at 2-3mm nonreactive, cough present, relatively unchanged) . Negative for: Speech Normal Skin: Positive for: Warm, Dry - Medications Active Medications: Active Medications Generic Name Dose Route Start Last Admin Trade Name Freq PRN Reason Stop Dose Admin Artificial Tears 0 ml 06/02/17 14:45 06/05/17 09:29 Artificial Tears OU 2 drop DAILY KATIE Administration Chlorhexidine Gluconate 15 ml 06/01/17 12:00 06/05/17 17:34 Peridex PO 15 ml TID KATIE Administration Clonidine HCl 0.1 mg 06/01/17 18:00 06/05/17 17:33 Catapres PO Not Given BID KATIE Vancomycin HCl 1 gm in 250 mls @ 167 mls/hr 06/01/17 10:00 06/05/17 21:21 Vancomycin 1gm IVPB 167 mls/hr Q12H KATIE Administration Protocol Aztreonam 100 mls @ 100 mls/hr 06/01/17 09:00 06/06/17 06:31 Azactam 2 Gm IVPB 06/08/17 09:01 100 mls/hr Q8 KATIE Administration Protocol Metronidazole 500 mg in 100 mls @ 100 mls/hr 06/01/17 14:00 06/06/17 06:31 Flagyl IVPB 100 mls/hr Q8 KATIE Administration Protocol Acetaminophen 1,000 mg in 100 mls @ 400 mls/hr 06/05/17 09:56 06/06/17 06:29 Ofirmev IVPB 06/07/17 09:57 400 mls/hr Q8H PRN Administration Temperature Fentanyl Citrate 1,000 mcg in 100 mls @ 2 mls/hr 06/05/17 19:02 06/06/17 07: 17 Fentanyl Citrate/Sodium Chloride 1 Mg/100 Ml IV 50 mcg/hr .Q24H PRN 5 mls/hr TITRATE PER MD ORDER Administration Protocol 20 MCG/HR Lorazepam 2 mg 05/29/17 15:23 Ativan IVP Q2H PRN Symptoms of alcohol withdrawl Protocol Lorazepam 4 mg 05/29/17 15:23 05/30/17 17:00 Ativan IVP 4 mg Q4H PRN Administration Symptoms of alcohol withdrawl Protocol Metoprolol Tartrate 25 mg 06/01/17 10:15 06/05/17 17:33 Lopressor PO Not Given BID KATIE Pantoprazole Sodium 40 mg 05/29/17 13:30 06/05/17 09:35 Protonix Inj IVP 40 mg DAILY KATIE Administration Silver Sulfadiazine 0 gm 05/30/17 18:00 06/05/17 17:34 Silvadene 1% 25 Gm TP Not Given BID KATIE Sodium Chloride 1 gm 05/31/17 10:00 06/02/17 21:31 Sodium Chloride Tab PO 1 gm Q12 KATIE Administration - Patient Studies Lab Studies: Microbiology Studies 06/03/17 05:45 Blood Culture - Preliminary Blood-Venous NO GROWTH AFTER 3 DAYS 06/03/17 05:10 Blood Culture - Preliminary Blood-Venous NO GROWTH AFTER 3 DAYS 06/01/17 09:15 Blood Culture - Preliminary Blood-Venous NO GROWTH AFTER 4 DAYS 06/01/17 09:00 Blood Culture - Preliminary Blood-Venous NO GROWTH AFTER 4 DAYS 06/04/17 08:56 Gram Stain - Final Scrotum Wound Culture - Preliminary NO GROWTH AFTER 24 HOURS Lab Studies 06/06/17 06/06/17 06/06/17 Range/Units 06:45 06:45 06:45 WBC 10.2 (4.5-11.0) 10^3/ul RBC 3.16 L (3.5-6.1) 10^6/uL Hgb 9.3 L (14.0-18.0) g/dL Hct 30.6 L (42.0-52.0) % MCV 96.8 (80.0-105.0) fl MCH 29.4 (25.0-35.0) pg MCHC 30.4 L (31.0-37.0) g/dl RDW 13.6 (11.5-14.5) % Plt Count 186 (120.0-450.0) 10^3/uL MPV 11.1 H (7.0-11.0) fl Gran % 83.0 H (50.0-68.0) % Lymph % (Auto) 9.2 L (22.0-35.0) % [place] % (Auto) 5.1 (1.0-6.0) % Eos % (Auto) 2.5 (1.5-5.0) % Baso % (Auto) 0.2 (0.0-3.0) % Gran # 8.49 H (1.4-6.5) Lymph # 0.9 L (1.2-3.4) [place] # 0.5 (0.1-0.6) Eos # 0.3 (0.0-0.7) Baso # 0.02 (0.0-2.0) K/mm3 PT 18.8 H (9.4-12.5) SECONDS INR 1.69 H (0.93-1.08) APTT 35.3 (25.1-36.5) Seconds pCO2 (35-45) mm/Hg pO2 (80-100) mm/Hg HCO3 (21-28) mmol/L ABG pH (7.35-7.45) ABG Total CO2 (22-28) mmol.L ABG O2 Saturation (95-98) % ABG O2 Content (15-23) ML/dl ABG Base Excess (-2.0-3.0) mmol/L ABG Hemoglobin (11.7-17.4) g/dL ABG Carboxyhemoglobin (0.5-1.5) % POC ABG HHb (Measured) (0-5) % ABG Methemoglobin (0.0-3.0) % ABG O2 Capacity (16-24) mL/dl Hgb O2 Saturation (95.0-98.0) % FiO2 % Sodium 149 H (132-148) mmol/L Potassium 3.9 (3.6-5.0) mmol/L Chloride 115 H (98-107) mmol/L Carbon Dioxide 31 (21-33) mmol/L Anion Gap 7 L (10-20) BUN 15 (7-21) mg/dL Creatinine 0.7 L (0.8-1.5) mg/dL Est GFR ( Amer) > 60 Est GFR (Non-Af Amer) > 60 POC Glucose (mg/dL) (65-110) mg/dL Random Glucose 126 H (70-110) mg/dL Calcium 8.2 L (8.4-10.5) mg/dL Total Bilirubin 0.5 (0.2-1.3) mg/dL AST 26 (17-59) U/L ALT 23 (7-56) U/L Alkaline Phosphatase 78 (38-126) U/L Total Protein 6.7 (5.8-8.3) g/dL Albumin 2.5 L (3.0-4.8) g/dL Globulin 4.2 gm/dL Albumin/Globulin Ratio 0.6 L (1.1-1.8) 06/06/17 06/05/17 06/05/17 Range/Units 06:02 21:50 15:30 WBC (4.5-11.0) 10^3/ul RBC (3.5-6.1) 10^6/uL Hgb (14.0-18.0) g/dL Hct (42.0-52.0) % MCV (80.0-105.0) fl MCH (25.0-35.0) pg MCHC (31.0-37.0) g/dl RDW (11.5-14.5) % Plt Count (120.0-450.0) 10^3/uL MPV (7.0-11.0) fl Gran % (50.0-68.0) % Lymph % (Auto) (22.0-35.0) % [place] % (Auto) (1.0-6.0) % Eos % (Auto) (1.5-5.0) % Baso % (Auto) (0.0-3.0) % Gran # (1.4-6.5) Lymph # (1.2-3.4) [place] # (0.1-0.6) Eos # (0.0-0.7) Baso # (0.0-2.0) K/mm3 PT (9.4-12.5) SECONDS INR (0.93-1.08) APTT (25.1-36.5) Seconds pCO2 46 H (35-45) mm/Hg pO2 88.0 (80-100) mm/Hg HCO3 28.5 H (21-28) mmol/L ABG pH 7.40 (7.35-7.45) ABG Total CO2 29.9 H (22-28) mmol.L ABG O2 Saturation 98.7 H (95-98) % ABG O2 Content 12.6 L (15-23) ML/dl ABG Base Excess 3.2 H (-2.0-3.0) mmol/L ABG Hemoglobin 9.3 L (11.7-17.4) g/dL ABG Carboxyhemoglobin 1.9 H (0.5-1.5) % POC ABG HHb (Measured) 1.3 (0-5) % ABG Methemoglobin 1.1 (0.0-3.0) % ABG O2 Capacity 12.8 L (16-24) mL/dl Hgb O2 Saturation 95.7 (95.0-98.0) % FiO2 40.0 % Sodium (132-148) mmol/L Potassium (3.6-5.0) mmol/L Chloride (98-107) mmol/L Carbon Dioxide (21-33) mmol/L Anion Gap (10-20) BUN (7-21) mg/dL Creatinine (0.8-1.5) mg/dL Est GFR ( Amer) Est GFR (Non-Af Amer) POC Glucose (mg/dL) 138 H 110 (65-110) mg/dL Random Glucose (70-110) mg/dL Calcium (8.4-10.5) mg/dL Total Bilirubin (0.2-1.3) mg/dL AST (17-59) U/L ALT (7-56) U/L Alkaline Phosphatase (38-126) U/L Total Protein (5.8-8.3) g/dL Albumin (3.0-4.8) g/dL Globulin gm/dL Albumin/Globulin Ratio (1.1-1.8) 06/05/17 06/05/17 06/05/17 Range/Units 11:02 07:35 06:23 WBC (4.5-11.0) 10^3/ul RBC (3.5-6.1) 10^6/uL Hgb (14.0-18.0) g/dL Hct (42.0-52.0) % MCV (80.0-105.0) fl MCH (25.0-35.0) pg MCHC (31.0-37.0) g/dl RDW (11.5-14.5) % Plt Count (120.0-450.0) 10^3/uL MPV (7.0-11.0) fl Gran % (50.0-68.0) % Lymph % (Auto) (22.0-35.0) % [place] % (Auto) (1.0-6.0) % Eos % (Auto) (1.5-5.0) % Baso % (Auto) (0.0-3.0) % Gran # (1.4-6.5) Lymph # (1.2-3.4) [place] # (0.1-0.6) Eos # (0.0-0.7) Baso # (0.0-2.0) K/mm3 PT (9.4-12.5) SECONDS INR (0.93-1.08) APTT (25.1-36.5) Seconds pCO2 (35-45) mm/Hg pO2 (80-100) mm/Hg HCO3 (21-28) mmol/L ABG pH (7.35-7.45) ABG Total CO2 (22-28) mmol.L ABG O2 Saturation (95-98) % ABG O2 Content (15-23) ML/dl ABG Base Excess (-2.0-3.0) mmol/L ABG Hemoglobin (11.7-17.4) g/dL ABG Carboxyhemoglobin (0.5-1.5) % POC ABG HHb (Measured) (0-5) % ABG Methemoglobin (0.0-3.0) % ABG O2 Capacity (16-24) mL/dl Hgb O2 Saturation (95.0-98.0) % FiO2 % Sodium 149 H (132-148) mmol/L Potassium 3.8 (3.6-5.0) mmol/L Chloride 116 H (98-107) mmol/L Carbon Dioxide 30 (21-33) mmol/L Anion Gap 7 L (10-20) BUN 13 (7-21) mg/dL Creatinine 0.7 L (0.8-1.5) mg/dL Est GFR ( Amer) > 60 Est GFR (Non-Af Amer) > 60 POC Glucose (mg/dL) 112 H 110 (65-110) mg/dL Random Glucose 110 (70-110) mg/dL Calcium 8.3 L (8.4-10.5) mg/dL Total Bilirubin 0.5 (0.2-1.3) mg/dL AST 27 (17-59) U/L ALT 21 (7-56) U/L Alkaline Phosphatase 83 (38-126) U/L Total Protein 6.6 (5.8-8.3) g/dL Albumin 2.4 L (3.0-4.8) g/dL Globulin 4.1 gm/dL Albumin/Globulin Ratio 0.6 L (1.1-1.8) 06/05/17 Range/Units 06:23 WBC 9.0 (4.5-11.0) 10^3/ul RBC 2.96 L (3.5-6.1) 10^6/uL Hgb 8.9 L (14.0-18.0) g/dL Hct 28.9 L (42.0-52.0) % MCV 97.6 (80.0-105.0) fl MCH 30.1 (25.0-35.0) pg MCHC 30.8 L (31.0-37.0) g/dl RDW 13.8 (11.5-14.5) % Plt Count 181 (120.0-450.0) 10^3/uL MPV 11.0 (7.0-11.0) fl Gran % 75.4 H (50.0-68.0) % Lymph % (Auto) 15.3 L (22.0-35.0) % [place] % (Auto) 5.9 (1.0-6.0) % Eos % (Auto) 3.2 (1.5-5.0) % Baso % (Auto) 0.2 (0.0-3.0) % Gran # 6.82 H (1.4-6.5) Lymph # 1.4 (1.2-3.4) [place] # 0.5 (0.1-0.6) Eos # 0.3 (0.0-0.7) Baso # 0.02 (0.0-2.0) K/mm3 PT (9.4-12.5) SECONDS INR (0.93-1.08) APTT (25.1-36.5) Seconds pCO2 (35-45) mm/Hg pO2 (80-100) mm/Hg HCO3 (21-28) mmol/L ABG pH (7.35-7.45) ABG Total CO2 (22-28) mmol.L ABG O2 Saturation (95-98) % ABG O2 Content (15-23) ML/dl ABG Base Excess (-2.0-3.0) mmol/L ABG Hemoglobin (11.7-17.4) g/dL ABG Carboxyhemoglobin (0.5-1.5) % POC ABG HHb (Measured) (0-5) % ABG Methemoglobin (0.0-3.0) % ABG O2 Capacity (16-24) mL/dl Hgb O2 Saturation (95.0-98.0) % FiO2 % Sodium (132-148) mmol/L Potassium (3.6-5.0) mmol/L Chloride (98-107) mmol/L Carbon Dioxide (21-33) mmol/L Anion Gap (10-20) BUN (7-21) mg/dL Creatinine (0.8-1.5) mg/dL Est GFR ( Amer) Est GFR (Non-Af Amer) POC Glucose (mg/dL) (65-110) mg/dL Random Glucose (70-110) mg/dL Calcium (8.4-10.5) mg/dL Total Bilirubin (0.2-1.3) mg/dL AST (17-59) U/L ALT (7-56) U/L Alkaline Phosphatase (38-126) U/L Total Protein (5.8-8.3) g/dL Albumin (3.0-4.8) g/dL Globulin gm/dL Albumin/Globulin Ratio (1.1-1.8) Laboratory Results - last 24 hr 06/05/17 06/05/17 06/05/17 06:23 06:23 07:35 WBC 9.0 RBC 2.96 L Hgb 8.9 L Hct 28.9 L MCV 97.6 MCH 30.1 MCHC 30.8 L RDW 13.8 Plt Count 181 MPV 11.0 Gran % 75.4 H Lymph % (Auto) 15.3 L [place] % (Auto) 5.9 Eos % (Auto) 3.2 Baso % (Auto) 0.2 Gran # 6.82 H Lymph # 1.4 [place] # 0.5 Eos # 0.3 Baso # 0.02 PT INR APTT pCO2 pO2 HCO3 ABG pH ABG Total CO2 ABG O2 Saturation ABG O2 Content ABG Base Excess ABG Hemoglobin ABG Carboxyhemoglobin POC ABG HHb (Measured) ABG Methemoglobin ABG O2 Capacity Hgb O2 Saturation FiO2 Sodium 149 H Potassium 3.8 Chloride 116 H Carbon Dioxide 30 Anion Gap 7 L BUN 13 Creatinine 0.7 L Est GFR ( Amer) > 60 Est GFR (Non-Af Amer) > 60 POC Glucose (mg/dL) 110 Random Glucose 110 Calcium 8.3 L Total Bilirubin 0.5 AST 27 ALT 21 Alkaline Phosphatase 83 Total Protein 6.6 Albumin 2.4 L Globulin 4.1 Albumin/Globulin Ratio 0.6 L 06/05/17 06/05/17 06/05/17 11:02 15:30 21:50 WBC RBC Hgb Hct MCV MCH MCHC RDW Plt Count MPV Gran % Lymph % (Auto) [place] % (Auto) Eos % (Auto) Baso % (Auto) Gran # Lymph # [place] # Eos # Baso # PT INR APTT pCO2 pO2 HCO3 ABG pH ABG Total CO2 ABG O2 Saturation ABG O2 Content ABG Base Excess ABG Hemoglobin ABG Carboxyhemoglobin POC ABG HHb (Measured) ABG Methemoglobin ABG O2 Capacity Hgb O2 Saturation FiO2 Sodium Potassium Chloride Carbon Dioxide Anion Gap BUN Creatinine Est GFR ( Amer) Est GFR (Non-Af Amer) POC Glucose (mg/dL) 112 H 110 138 H Random Glucose Calcium Total Bilirubin AST ALT Alkaline Phosphatase Total Protein Albumin Globulin Albumin/Globulin Ratio 06/06/17 06/06/17 06/06/17 06:02 06:45 06:45 WBC 10.2 RBC 3.16 L Hgb 9.3 L Hct 30.6 L MCV 96.8 MCH 29.4 MCHC 30.4 L RDW 13.6 Plt Count 186 MPV 11.1 H Gran % 83.0 H Lymph % (Auto) 9.2 L [place] % (Auto) 5.1 Eos % (Auto) 2.5 Baso % (Auto) 0.2 Gran # 8.49 H Lymph # 0.9 L [place] # 0.5 Eos # 0.3 Baso # 0.02 PT INR APTT pCO2 46 H pO2 88.0 HCO3 28.5 H ABG pH 7.40 ABG Total CO2 29.9 H ABG O2 Saturation 98.7 H ABG O2 Content 12.6 L ABG Base Excess 3.2 H ABG Hemoglobin 9.3 L ABG Carboxyhemoglobin 1.9 H POC ABG HHb (Measured) 1.3 ABG Methemoglobin 1.1 ABG O2 Capacity 12.8 L Hgb O2 Saturation 95.7 FiO2 40.0 Sodium 149 H Potassium 3.9 Chloride 115 H Carbon Dioxide 31 Anion Gap 7 L BUN 15 Creatinine 0.7 L Est GFR ( Amer) > 60 Est GFR (Non-Af Amer) > 60 POC Glucose (mg/dL) Random Glucose 126 H Calcium 8.2 L Total Bilirubin 0.5 AST 26 ALT 23 Alkaline Phosphatase 78 Total Protein 6.7 Albumin 2.5 L Globulin 4.2 Albumin/Globulin Ratio 0.6 L 06/06/17 06:45 WBC RBC Hgb Hct MCV MCH MCHC RDW Plt Count MPV Gran % Lymph % (Auto) [place] % (Auto) Eos % (Auto) Baso % (Auto) Gran # Lymph # [place] # Eos # Baso # PT 18.8 H INR 1.69 H APTT 35.3 pCO2 pO2 HCO3 ABG pH ABG Total CO2 ABG O2 Saturation ABG O2 Content ABG Base Excess ABG Hemoglobin ABG Carboxyhemoglobin POC ABG HHb (Measured) ABG Methemoglobin ABG O2 Capacity Hgb O2 Saturation FiO2 Sodium Potassium Chloride Carbon Dioxide Anion Gap BUN Creatinine Est GFR ( Amer) Est GFR (Non-Af Amer) POC Glucose (mg/dL) Random Glucose Calcium Total Bilirubin AST ALT Alkaline Phosphatase Total Protein Albumin Globulin Albumin/Globulin Ratio Fingerstick Blood Sugar Results: 110 Assessment/Plan - Assessment and Plan (Free Text) Assessment: 67 year old male with a PMH of tobacco and alcohol abuse, HTN who presented after being found down by , diagnosed with left thalamic/BG ICH with intraventricular extension, found to be short of breath and unable to protect his airway 05/31 and intubated for airway protection, hospital course complicated by tachyarrythmia found to be SVT which resolved with adenosine and left gluteal abscess s/p I&D POD#5 and left scrotal abscess s/p I&D POD#2, pending Trach/PEG by surgery tomorrow 06/07 for LTAC placement for intensive PT/ OT Plan: Neurological Left thalamic/BG with intraventricular extension on Head CT Neuro and NeuroSx following, no neurosurgical intervention indicated, all recs appreciated Repeat Head CTs on 06/01 and 06/04 reviewed, no interval changes Off salt tabs, allowing Na to slowly normalize aim for 135-145 Sedation vacation Maintain SBP 140-160 HOB 30 Plan for Trach/Peg tomorrow 06/07, SW consulted for placement Cardiovascular Cardio following, recs appreciated Hemodynamically stable Had episode of SVT resolved with adenosine x1 on 11 Cont metoprolol Following closely Pulmnologic Intubated for airway protection, PRVC 480/14/5/40% On fentanyl gtt ABG and CXR reviewed Surgery following, will transition to Trach tomorrow per Surgery Maintain O2 sat >92% GI OGT in place, on feeds with water flushes Monitor residuals Optimize nutrition Plan for PEG tomorrow Nephro/Electrolytes Monitoring IxOs, banegas in place Monitoring Na closely Per neuro will allow to slowly normalize ID ID Dr. Dunn consulted, recs appreciated Left buttock abscess improving, surgery following, POD#5 I&D, wound Cx showed Coag negative staph Left scrotal abscess packed and healing well, Uro following, POD#2, Uro feels there is no extension, Pelvis CT reviewed No leukocytosis although fevers present, possibly central, discussed with ID On aztreonam D6, flagyl D6, and vanco D6 On ofirmev PRN fevers Heme No active bleeding noted Hemodynamically stable Following CBC GI/DVT ppx: protonix/SCDs, no AC Dispo: discussed with case management, plan for patient to go to LTAC 06/08 once has trach and peg, will continue to monitor at this time. Patient was seen and examined and case was discussed at length with attending physician. - Date & Time Date: 06/06/17 Time: 07:10 <Sukhwinder Oliva - Last Filed: 06/06/17 15:34> CCU Objective - Vital Signs / Intake & Output Vital Signs (Last 4 hours): Vital Signs Temp Pulse BP Pulse Ox 06/06/17 13:05 61 104/53 L 06/06/17 13:00 62 104/53 L 100 06/06/17 12:58 62 109/57 L 06/06/17 12:50 63 99 06/06/17 12:40 82 100 06/06/17 12:30 85 100 06/06/17 12:20 68 100 06/06/17 12:10 64 100 06/06/17 12:00 97.8 F Intake and Output (Last 8hrs): Intake & Output 06/06/17 06/06/17 06/06/17 06:59 14:59 22:59 Intake Total 1900 100 Output Total 650 Balance 1250 100 Weight 171 lb Intake: IV 1000 100 left upper arm 1000 Tube Feeding 600 Other 300 Output: Urine 650 Urethral ([place]) 650 Stool 0 Urine/Stool Mix 0 Emesis 0 Oral Regurgitation 0 Other 0 Other: # Bowel Movements 0 - Medications Active Medications: Active Medications Generic Name Dose Route Start Last Admin Trade Name Freq PRN Reason Stop Dose Admin Artificial Tears 0 ml 06/02/17 14:45 06/06/17 09:37 Artificial Tears OU 2 drop DAILY KATIE Administration Chlorhexidine Gluconate 15 ml 06/01/17 12:00 06/06/17 14:08 Peridex PO 15 ml TID KATIE Administration Clonidine HCl 0.1 mg 06/01/17 18:00 06/06/17 09:37 Catapres PO Not Given BID KATIE Vancomycin HCl 1 gm in 250 mls @ 167 mls/hr 06/01/17 10:00 06/06/17 09:27 Vancomycin 1gm IVPB 167 mls/hr Q12H KATIE Administration Protocol Aztreonam 100 mls @ 100 mls/hr 06/01/17 09:00 06/06/17 15:19 Azactam 2 Gm IVPB 06/08/17 09:01 100 mls/hr Q8 KATIE Administration Protocol Metronidazole 500 mg in 100 mls @ 100 mls/hr 06/01/17 14:00 06/06/17 14:19 Flagyl IVPB 100 mls/hr Q8 KATIE Administration Protocol Acetaminophen 1,000 mg in 100 mls @ 400 mls/hr 06/05/17 09:56 06/06/17 06:29 Ofirmev IVPB 06/07/17 09:57 400 mls/hr Q8H PRN Administration Temperature Fentanyl Citrate 1,000 mcg in 100 mls @ 2 mls/hr 06/05/17 19:02 06/06/17 07: 17 Fentanyl Citrate/Sodium Chloride 1 Mg/100 Ml IV 50 mcg/hr .Q24H PRN 5 mls/hr TITRATE PER MD ORDER Administration Protocol 20 MCG/HR Lorazepam 2 mg 05/29/17 15:23 Ativan IVP Q2H PRN Symptoms of alcohol withdrawl Protocol Lorazepam 4 mg 05/29/17 15:23 05/30/17 17:00 Ativan IVP 4 mg Q4H PRN Administration Symptoms of alcohol withdrawl Protocol Metoprolol Tartrate 25 mg 06/01/17 10:15 06/06/17 09:43 Lopressor PO 25 mg BID KATIE Administration Pantoprazole Sodium 40 mg 05/29/17 13:30 06/06/17 09:25 Protonix Inj IVP 40 mg DAILY KATIE Administration Sodium Chloride 1 gm 05/31/17 10:00 06/02/17 21:31 Sodium Chloride Tab PO 1 gm Q12 KAITE Administration - Patient Studies Lab Studies: Microbiology Studies 06/04/17 08:56 Gram Stain - Final Scrotum Wound Culture - Preliminary 06/01/17 09:15 Blood Culture - Final Blood-Venous NO GROWTH AFTER 5 DAYS Gram Stain - Final TEST NOT PERFORMED 06/01/17 09:00 Blood Culture - Final Blood-Venous NO GROWTH AFTER 5 DAYS Gram Stain - Final TEST NOT PERFORMED 06/03/17 05:45 Blood Culture - Preliminary Blood-Venous NO GROWTH AFTER 3 DAYS 06/03/17 05:10 Blood Culture - Preliminary Blood-Venous NO GROWTH AFTER 3 DAYS Lab Studies 06/06/17 06/06/17 06/06/17 Range/Units 13:32 07:38 06:45 WBC (4.5-11.0) 10^3/ul RBC (3.5-6.1) 10^6/uL Hgb (14.0-18.0) g/dL Hct (42.0-52.0) % MCV (80.0-105.0) fl MCH (25.0-35.0) pg MCHC (31.0-37.0) g/dl RDW (11.5-14.5) % Plt Count (120.0-450.0) 10^3/uL MPV (7.0-11.0) fl Gran % (50.0-68.0) % Lymph % (Auto) (22.0-35.0) % [place] % (Auto) (1.0-6.0) % Eos % (Auto) (1.5-5.0) % Baso % (Auto) (0.0-3.0) % Gran # (1.4-6.5) Lymph # (1.2-3.4) [place] # (0.1-0.6) Eos # (0.0-0.7) Baso # (0.0-2.0) K/mm3 PT 18.8 H (9.4-12.5) SECONDS INR 1.69 H (0.93-1.08) APTT 35.3 (25.1-36.5) Seconds pCO2 (35-45) mm/Hg pO2 (80-100) mm/Hg HCO3 (21-28) mmol/L ABG pH (7.35-7.45) ABG Total CO2 (22-28) mmol.L ABG O2 Saturation (95-98) % ABG O2 Content (15-23) ML/dl ABG Base Excess (-2.0-3.0) mmol/L ABG Hemoglobin (11.7-17.4) g/dL ABG Carboxyhemoglobin (0.5-1.5) % POC ABG HHb (Measured) (0-5) % ABG Methemoglobin (0.0-3.0) % ABG O2 Capacity (16-24) mL/dl Hgb O2 Saturation (95.0-98.0) % FiO2 % Sodium (132-148) mmol/L Potassium (3.6-5.0) mmol/L Chloride (98-107) mmol/L Carbon Dioxide (21-33) mmol/L Anion Gap (10-20) BUN (7-21) mg/dL Creatinine (0.8-1.5) mg/dL Est GFR ( Amer) Est GFR (Non-Af Amer) POC Glucose (mg/dL) 126 H (65-110) mg/dL Random Glucose (70-110) mg/dL Calcium (8.4-10.5) mg/dL Total Bilirubin (0.2-1.3) mg/dL AST (17-59) U/L ALT (7-56) U/L Alkaline Phosphatase (38-126) U/L Total Protein (5.8-8.3) g/dL Albumin (3.0-4.8) g/dL Globulin gm/dL Albumin/Globulin Ratio (1.1-1.8) Urine Color Dark yellow (YELLOW) Urine Appearance Slight-cloudy (CLEAR) Urine pH 6.0 (4.7-8.0) Ur Specific [place] 1.025 (1.005-1.035) Urine Protein Trace H (<30 mg/dL) mg/dL Urine Glucose (UA) Negative (NEGATIVE) mg/dL Urine Ketones Trace H (NEGATIVE) mg/dL Urine Blood Moderate H (NEGATIVE) Urine Nitrate Negative (NEGATIVE) Urine Bilirubin Negative (NEGATIVE) Urine Urobilinogen 1.0 H (<1 E.U./dL) E.U./dL Ur Leukocyte Esterase Trace H (NEGATIVE) Marek/uL Urine RBC 20 - 25 (0-2) /hpf Urine WBC 5 - 10 (0-6) /hpf Ur Epithelial Cells 0 - 2 (0-5) /hpf Amorphous Sediment Small Urine Bacteria Many (NEG) Urine Other Fiber 06/06/17 06/06/17 06/06/17 Range/Units 06:45 06:45 06:02 WBC 10.2 (4.5-11.0) 10^3/ul RBC 3.16 L (3.5-6.1) 10^6/uL Hgb 9.3 L (14.0-18.0) g/dL Hct 30.6 L (42.0-52.0) % MCV 96.8 (80.0-105.0) fl MCH 29.4 (25.0-35.0) pg MCHC 30.4 L (31.0-37.0) g/dl RDW 13.6 (11.5-14.5) % Plt Count 186 (120.0-450.0) 10^3/uL MPV 11.1 H (7.0-11.0) fl Gran % 83.0 H (50.0-68.0) % Lymph % (Auto) 9.2 L (22.0-35.0) % [place] % (Auto) 5.1 (1.0-6.0) % Eos % (Auto) 2.5 (1.5-5.0) % Baso % (Auto) 0.2 (0.0-3.0) % Gran # 8.49 H (1.4-6.5) Lymph # 0.9 L (1.2-3.4) [place] # 0.5 (0.1-0.6) Eos # 0.3 (0.0-0.7) Baso # 0.02 (0.0-2.0) K/mm3 PT (9.4-12.5) SECONDS INR (0.93-1.08) APTT (25.1-36.5) Seconds pCO2 46 H (35-45) mm/Hg pO2 88.0 (80-100) mm/Hg HCO3 28.5 H (21-28) mmol/L ABG pH 7.40 (7.35-7.45) ABG Total CO2 29.9 H (22-28) mmol.L ABG O2 Saturation 98.7 H (95-98) % ABG O2 Content 12.6 L (15-23) ML/dl ABG Base Excess 3.2 H (-2.0-3.0) mmol/L ABG Hemoglobin 9.3 L (11.7-17.4) g/dL ABG Carboxyhemoglobin 1.9 H (0.5-1.5) % POC ABG HHb (Measured) 1.3 (0-5) % ABG Methemoglobin 1.1 (0.0-3.0) % ABG O2 Capacity 12.8 L (16-24) mL/dl Hgb O2 Saturation 95.7 (95.0-98.0) % FiO2 40.0 % Sodium 149 H (132-148) mmol/L Potassium 3.9 (3.6-5.0) mmol/L Chloride 115 H (98-107) mmol/L Carbon Dioxide 31 (21-33) mmol/L Anion Gap 7 L (10-20) BUN 15 (7-21) mg/dL Creatinine 0.7 L (0.8-1.5) mg/dL Est GFR ( Amer) > 60 Est GFR (Non-Af Amer) > 60 POC Glucose (mg/dL) (65-110) mg/dL Random Glucose 126 H (70-110) mg/dL Calcium 8.2 L (8.4-10.5) mg/dL Total Bilirubin 0.5 (0.2-1.3) mg/dL AST 26 (17-59) U/L ALT 23 (7-56) U/L Alkaline Phosphatase 78 (38-126) U/L Total Protein 6.7 (5.8-8.3) g/dL Albumin 2.5 L (3.0-4.8) g/dL Globulin 4.2 gm/dL Albumin/Globulin Ratio 0.6 L (1.1-1.8) Urine Color (YELLOW) Urine Appearance (CLEAR) Urine pH (4.7-8.0) Ur Specific [place] (1.005-1.035) Urine Protein (<30 mg/dL) mg/dL Urine Glucose (UA) (NEGATIVE) mg/dL Urine Ketones (NEGATIVE) mg/dL Urine Blood (NEGATIVE) Urine Nitrate (NEGATIVE) Urine Bilirubin (NEGATIVE) Urine Urobilinogen (<1 E.U./dL) E.U./dL Ur Leukocyte Esterase (NEGATIVE) Marek/uL Urine RBC (0-2) /hpf Urine WBC (0-6) /hpf Ur Epithelial Cells (0-5) /hpf Amorphous Sediment Urine Bacteria (NEG) Urine Other 06/05/17 06/05/17 Range/Units 21:50 15:30 WBC (4.5-11.0) 10^3/ul RBC (3.5-6.1) 10^6/uL Hgb (14.0-18.0) g/dL Hct (42.0-52.0) % MCV (80.0-105.0) fl MCH (25.0-35.0) pg MCHC (31.0-37.0) g/dl RDW (11.5-14.5) % Plt Count (120.0-450.0) 10^3/uL MPV (7.0-11.0) fl Gran % (50.0-68.0) % Lymph % (Auto) (22.0-35.0) % [place] % (Auto) (1.0-6.0) % Eos % (Auto) (1.5-5.0) % Baso % (Auto) (0.0-3.0) % Gran # (1.4-6.5) Lymph # (1.2-3.4) [place] # (0.1-0.6) Eos # (0.0-0.7) Baso # (0.0-2.0) K/mm3 PT (9.4-12.5) SECONDS INR (0.93-1.08) APTT (25.1-36.5) Seconds pCO2 (35-45) mm/Hg pO2 (80-100) mm/Hg HCO3 (21-28) mmol/L ABG pH (7.35-7.45) ABG Total CO2 (22-28) mmol.L ABG O2 Saturation (95-98) % ABG O2 Content (15-23) ML/dl ABG Base Excess (-2.0-3.0) mmol/L ABG Hemoglobin (11.7-17.4) g/dL ABG Carboxyhemoglobin (0.5-1.5) % POC ABG HHb (Measured) (0-5) % ABG Methemoglobin (0.0-3.0) % ABG O2 Capacity (16-24) mL/dl Hgb O2 Saturation (95.0-98.0) % FiO2 % Sodium (132-148) mmol/L Potassium (3.6-5.0) mmol/L Chloride (98-107) mmol/L Carbon Dioxide (21-33) mmol/L Anion Gap (10-20) BUN (7-21) mg/dL Creatinine (0.8-1.5) mg/dL Est GFR ( Amer) Est GFR (Non-Af Amer) POC Glucose (mg/dL) 138 H 110 (65-110) mg/dL Random Glucose (70-110) mg/dL Calcium (8.4-10.5) mg/dL Total Bilirubin (0.2-1.3) mg/dL AST (17-59) U/L ALT (7-56) U/L Alkaline Phosphatase (38-126) U/L Total Protein (5.8-8.3) g/dL Albumin (3.0-4.8) g/dL Globulin gm/dL Albumin/Globulin Ratio (1.1-1.8) Urine Color (YELLOW) Urine Appearance (CLEAR) Urine pH (4.7-8.0) Ur Specific [place] (1.005-1.035) Urine Protein (<30 mg/dL) mg/dL Urine Glucose (UA) (NEGATIVE) mg/dL Urine Ketones (NEGATIVE) mg/dL Urine Blood (NEGATIVE) Urine Nitrate (NEGATIVE) Urine Bilirubin (NEGATIVE) Urine Urobilinogen (<1 E.U./dL) E.U./dL Ur Leukocyte Esterase (NEGATIVE) Marek/uL Urine RBC (0-2) /hpf Urine WBC (0-6) /hpf Ur Epithelial Cells (0-5) /hpf Amorphous Sediment Urine Bacteria (NEG) Urine Other Laboratory Results - last 24 hr 06/05/17 06/05/17 06/06/17 15:30 21:50 06:02 WBC RBC Hgb Hct MCV MCH MCHC RDW Plt Count MPV Gran % Lymph % (Auto) [place] % (Auto) Eos % (Auto) Baso % (Auto) Gran # Lymph # [place] # Eos # Baso # PT INR APTT pCO2 46 H pO2 88.0 HCO3 28.5 H ABG pH 7.40 ABG Total CO2 29.9 H ABG O2 Saturation 98.7 H ABG O2 Content 12.6 L ABG Base Excess 3.2 H ABG Hemoglobin 9.3 L ABG Carboxyhemoglobin 1.9 H POC ABG HHb (Measured) 1.3 ABG Methemoglobin 1.1 ABG O2 Capacity 12.8 L Hgb O2 Saturation 95.7 FiO2 40.0 Sodium Potassium Chloride Carbon Dioxide Anion Gap BUN Creatinine Est GFR ( Amer) Est GFR (Non-Af Amer) POC Glucose (mg/dL) 110 138 H Random Glucose Calcium Total Bilirubin AST ALT Alkaline Phosphatase Total Protein Albumin Globulin Albumin/Globulin Ratio Urine Color Urine Appearance Urine pH Ur Specific [place] Urine Protein Urine Glucose (UA) Urine Ketones Urine Blood Urine Nitrate Urine Bilirubin Urine Urobilinogen Ur Leukocyte Esterase Urine RBC Urine WBC Ur Epithelial Cells Amorphous Sediment Urine Bacteria Urine Other 06/06/17 06/06/17 06/06/17 06:45 06:45 06:45 WBC 10.2 RBC 3.16 L Hgb 9.3 L Hct 30.6 L MCV 96.8 MCH 29.4 MCHC 30.4 L RDW 13.6 Plt Count 186 MPV 11.1 H Gran % 83.0 H Lymph % (Auto) 9.2 L [place] % (Auto) 5.1 Eos % (Auto) 2.5 Baso % (Auto) 0.2 Gran # 8.49 H Lymph # 0.9 L [place] # 0.5 Eos # 0.3 Baso # 0.02 PT 18.8 H INR 1.69 H APTT 35.3 pCO2 pO2 HCO3 ABG pH ABG Total CO2 ABG O2 Saturation ABG O2 Content ABG Base Excess ABG Hemoglobin ABG Carboxyhemoglobin POC ABG HHb (Measured) ABG Methemoglobin ABG O2 Capacity Hgb O2 Saturation FiO2 Sodium 149 H Potassium 3.9 Chloride 115 H Carbon Dioxide 31 Anion Gap 7 L BUN 15 Creatinine 0.7 L Est GFR ( Amer) > 60 Est GFR (Non-Af Amer) > 60 POC Glucose (mg/dL) Random Glucose 126 H Calcium 8.2 L Total Bilirubin 0.5 AST 26 ALT 23 Alkaline Phosphatase 78 Total Protein 6.7 Albumin 2.5 L Globulin 4.2 Albumin/Globulin Ratio 0.6 L Urine Color Urine Appearance Urine pH Ur Specific [place] Urine Protein Urine Glucose (UA) Urine Ketones Urine Blood Urine Nitrate Urine Bilirubin Urine Urobilinogen Ur Leukocyte Esterase Urine RBC Urine WBC Ur Epithelial Cells Amorphous Sediment Urine Bacteria Urine Other 06/06/17 06/06/17 07:38 13:32 WBC RBC Hgb Hct MCV MCH MCHC RDW Plt Count MPV Gran % Lymph % (Auto) [place] % (Auto) Eos % (Auto) Baso % (Auto) Gran # Lymph # [place] # Eos # Baso # PT INR APTT pCO2 pO2 HCO3 ABG pH ABG Total CO2 ABG O2 Saturation ABG O2 Content ABG Base Excess ABG Hemoglobin ABG Carboxyhemoglobin POC ABG HHb (Measured) ABG Methemoglobin ABG O2 Capacity Hgb O2 Saturation FiO2 Sodium Potassium Chloride Carbon Dioxide Anion Gap BUN Creatinine Est GFR ( Amer) Est GFR (Non-Af Amer) POC Glucose (mg/dL) 126 H Random Glucose Calcium Total Bilirubin AST ALT Alkaline Phosphatase Total Protein Albumin Globulin Albumin/Globulin Ratio Urine Color Dark yellow Urine Appearance Slight-cloudy Urine pH 6.0 Ur Specific [place] 1.025 Urine Protein Trace H Urine Glucose (UA) Negative Urine Ketones Trace H Urine Blood Moderate H Urine Nitrate Negative Urine Bilirubin Negative Urine Urobilinogen 1.0 H Ur Leukocyte Esterase Trace H Urine RBC 20 - 25 Urine WBC 5 - 10 Ur Epithelial Cells 0 - 2 Amorphous Sediment Small Urine Bacteria Many Urine Other Fiber Attending/Attestation - Attestation I have personally seen and examined this patient.: Yes I have fully participated in the care of the patient.: Yes I have reviewed all pertinent clinical information: Yes Notes (Text): 06/06/17 15:32 67 yo male with thalamic bleed, VDRF for trach in am. maintain euvolemia, euglycemia, normothermia and 02sat>90%. ccm time 40 min
[2017-06-06] MEDS: Vancomycin 1gm in NS 250ml 1 GM/250 ML BAG IVPB SCH ×2 (09:27→21:44)
[2017-06-06] MEDS: Chlorhexidine 0.12% Oral Sol 480 ml Bot PO SCH ×3 (09:36→17:26)
[2017-06-06] MEDS: Aritificial Tears (15ml) OU SCH (09:37)
--- NOTE | 2017-06-06 10:01 | CP.PCM.PN ---
Subjective - Date & Time of Evaluation Date of Evaluation: 06/06/17 Time of Evaluation: 09:40 - Subjective Subjective: Comfortable, still on the ventilator, still had 101.7 F fever this morning. Objective - Vital Signs/Intake and Output Vital Signs (last 24 hours): Temp Pulse Resp BP Pulse Ox 99.3 F 69 14 101/48 L 100 06/05/17 23:46 06/05/17 23:45 06/05/17 06:38 06/05/17 23:45 06/05/17 23:45 Intake and Output: 06/05/17 06/06/17 18:59 06:59 Intake Total 2248 Output Total 250 Balance 1997 - Medications Medications: Current Medications Artificial Tears (Artificial Tears) 0 ml OU DAILY [facility] Last Admin: 06/05/17 09:29 Dose: 2 drop Chlorhexidine Gluconate (Peridex) 15 ml PO TID [facility] Last Admin: 06/05/17 17:34 Dose: 15 ml Clonidine HCl (Catapres) 0.1 mg PO BID [facility] Last Admin: 06/05/17 17:33 Dose: Not Given Vancomycin HCl (Vancomycin 1gm) 1 gm in 250 mls @ 167 mls/hr IVPB Q12H KATIE PRN Reason: Protocol Last Admin: 06/05/17 21:21 Dose: 167 mls/hr Aztreonam (Azactam 2 Gm) 100 mls @ 100 mls/hr IVPB Q8 KATIE PRN Reason: Protocol Stop: 06/08/17 09:01 Last Admin: 06/06/17 06:31 Dose: 100 mls/hr Metronidazole (Flagyl) 500 mg in 100 mls @ 100 mls/hr IVPB Q8 KATIE PRN Reason: Protocol Last Admin: 06/06/17 06:31 Dose: 100 mls/hr Acetaminophen (Ofirmev) 1,000 mg in 100 mls @ 400 mls/hr IVPB Q8H PRN PRN Reason: Temperature Stop: 06/07/17 09:57 Last Admin: 06/06/17 06:29 Dose: 400 mls/hr Fentanyl Citrate (Fentanyl Citrate/Sodium Chloride 1 Mg/100 Ml) 1,000 mcg in 100 mls @ 2 mls/hr IV .Q24H PRN; Protocol; 20 MCG/HR PRN Reason: TITRATE PER MD ORDER Last Admin: 06/05/17 19:17 Dose: 50 mcg/hr, 5 mls/hr Lorazepam (Ativan) 2 mg IVP Q2H PRN; Protocol PRN Reason: Symptoms of alcohol withdrawl Lorazepam (Ativan) 4 mg IVP Q4H PRN; Protocol PRN Reason: Symptoms of alcohol withdrawl Last Admin: 05/30/17 17:00 Dose: 4 mg Metoprolol Tartrate (Lopressor) 25 mg PO BID [facility] Last Admin: 06/05/17 17:33 Dose: Not Given Pantoprazole Sodium (Protonix Inj) 40 mg IVP DAILY [facility] Last Admin: 06/05/17 09:35 Dose: 40 mg Silver Sulfadiazine (Silvadene 1% 25 Gm) 0 gm TP BID [facility] Last Admin: 06/05/17 17:34 Dose: Not Given Sodium Chloride (Sodium Chloride Tab) 1 gm PO Q12 [facility] Last Admin: 06/02/17 21:31 Dose: 1 gm - Labs Labs: 06/05/17 06:23 06/05/17 06:23 PT 14.0 SECONDS (9.4-12.5) H 05/31/17 09:30 INR 1.27 (0.93-1.08) H 05/31/17 09:30 APTT 23.3 Seconds (25.1-36.5) L 05/31/17 09:30 - Constitutional Appears: Other (intubated) - Head Exam Head Exam: NORMAL INSPECTION - ENT Exam Additional comments: Et tube in place - Respiratory Exam Respiratory Exam: Decreased Breath Sounds - Cardiovascular Exam Cardiovascular Exam: +S1, +S2 - GI/Abdominal Exam GI & Abdominal Exam: Soft. absent: Tenderness Assessment and Plan - Assessment and Plan (Free Text) Plan: Assessment persistent fevers, R/O sepsis due to scrotal cellulitis R/O abscess formation S/ P I and D POD #2; R/O central fever, R/O new onset sepsis Probable left buttock skin and skin structure infection S/P I and D POD #3 systemic inflammatory response syndrome probably from acute left sided hemorrhagic CVA skin cancer S/P resection around right ear area S/P lumbar disc hernia repair Plan continue Vancomycin, Azactam and Flagyl day 6; wound cx from the scrotum are negative - will repeat blood cx, urine cx, sputum cx, CXR done this morning; right sided central venous catheter removed; will continue to trend fever curve Neuro and Neurosurgery managing the CVA will continue to monitor clinically discussed with ICU team
--- NOTE | 2017-06-06 10:13 | RAD ---
HISTORY: intubated COMPARISON: 06/04/2017 FINDINGS: LUNGS: No consolidation. Old hyperinflation. There is hazy vague increased density diffusely over the right freda thorax. Possibility of some minimal layering fluid in this labeled study "Portable semi-erect) is not excluded. No dense consolidation suggested. A minimal pleural thickening on end could also simulate this at the right lung base. Technical factors are favored. PLEURA: No significant pleural effusion identified, no pneumothorax apparent. CARDIOVASCULAR: Normal heart size. Aortic knob arterial vascular calcifications as before OSSEOUS STRUCTURES: Rightward thoracolumbar convexity. VISUALIZED UPPER ABDOMEN: Normal. OTHER FINDINGS: NG tube tip beyond the inferior edge of the image. At least coursing over expected gastric fundus. IMPRESSION: Limited exam -as discussed above. Bilateral hyperinflation- background COPD probable. No interval dense consolidation. Consider follow-up chest x-ray of right without chin obscuring left lung apex and less rotated patient can tolerate. NG tube course as above
--- NOTE | 2017-06-06 11:09 | CP.PCM.PN ---
<Paramjit Greenberg - Last Filed: 06/06/17 11:05> Subjective - Date & Time of Evaluation Date of Evaluation: 06/06/17 Time of Evaluation: 11:06 - Subjective Subjective: Medicine Progress Note: Pt seen and examined at bedside. Patient's mental status stable. Pt responding to simple commands. Pt is intubated, off sedation and has OGT. ROS limited due to patient's current mental status. Objective - Vital Signs/Intake and Output Vital Signs (last 24 hours): Temp Pulse Resp BP Pulse Ox 99.6 F 65 14 121/54 L 100 06/06/17 07:48 06/06/17 09:43 06/06/17 08:07 06/06/17 09:43 06/06/17 08:07 Intake and Output: 06/06/17 06/06/17 06:59 18:59 Intake Total 1900 100 Output Total 650 Balance 1250 100 - Medications Medications: Current Medications Artificial Tears (Artificial Tears) 0 ml OU DAILY [facility] Last Admin: 06/06/17 09:37 Dose: 2 drop Chlorhexidine Gluconate (Peridex) 15 ml PO TID [facility] Last Admin: 06/06/17 09:36 Dose: 15 ml Clonidine HCl (Catapres) 0.1 mg PO BID [facility] Last Admin: 06/06/17 09:37 Dose: Not Given Vancomycin HCl (Vancomycin 1gm) 1 gm in 250 mls @ 167 mls/hr IVPB Q12H KATIE PRN Reason: Protocol Last Admin: 06/06/17 09:27 Dose: 167 mls/hr Aztreonam (Azactam 2 Gm) 100 mls @ 100 mls/hr IVPB Q8 KATIE PRN Reason: Protocol Stop: 06/08/17 09:01 Last Admin: 06/06/17 06:31 Dose: 100 mls/hr Metronidazole (Flagyl) 500 mg in 100 mls @ 100 mls/hr IVPB Q8 KATIE PRN Reason: Protocol Last Admin: 06/06/17 06:31 Dose: 100 mls/hr Acetaminophen (Ofirmev) 1,000 mg in 100 mls @ 400 mls/hr IVPB Q8H PRN PRN Reason: Temperature Stop: 06/07/17 09:57 Last Admin: 06/06/17 06:29 Dose: 400 mls/hr Fentanyl Citrate (Fentanyl Citrate/Sodium Chloride 1 Mg/100 Ml) 1,000 mcg in 100 mls @ 2 mls/hr IV .Q24H PRN; Protocol; 20 MCG/HR PRN Reason: TITRATE PER MD ORDER Last Admin: 06/06/17 07:17 Dose: 50 mcg/hr, 5 mls/hr Lorazepam (Ativan) 2 mg IVP Q2H PRN; Protocol PRN Reason: Symptoms of alcohol withdrawl Lorazepam (Ativan) 4 mg IVP Q4H PRN; Protocol PRN Reason: Symptoms of alcohol withdrawl Last Admin: 05/30/17 17:00 Dose: 4 mg Metoprolol Tartrate (Lopressor) 25 mg PO BID [facility] Last Admin: 06/06/17 09:43 Dose: 25 mg Pantoprazole Sodium (Protonix Inj) 40 mg IVP DAILY [facility] Last Admin: 06/06/17 09:25 Dose: 40 mg Sodium Chloride (Sodium Chloride Tab) 1 gm PO Q12 [facility] Last Admin: 06/02/17 21:31 Dose: 1 gm - Labs Labs: 06/06/17 06:45 06/06/17 06:45 PT 18.8 SECONDS (9.4-12.5) H 06/06/17 06:45 INR 1.69 (0.93-1.08) H 06/06/17 06:45 APTT 35.3 Seconds (25.1-36.5) 06/06/17 06:45 - Constitutional Appears: No Acute Distress - Head Exam Head Exam: ATRAUMATIC, NORMAL INSPECTION, NORMOCEPHALIC - Eye Exam Additional comments: pupils 2-3 mm b/l, sluggishly reactive to light - ENT Exam ENT Exam: Mucous Membranes Moist Additional comments: endotraceal tube and orogastric tube in place - Neck Exam Neck Exam: absent: Lymphadenopathy, Tenderness, Thyromegaly - Respiratory Exam Respiratory Exam: Clear to Ausculation Bilateral. absent: Accessory Muscle Use , Rales, Rhonchi, Wheezes, Respiratory Distress - Cardiovascular Exam Cardiovascular Exam: RRR, +S1, +S2. absent: Diastolic murmur, Gallop, Rubs, Murmur - GI/Abdominal Exam GI & Abdominal Exam: Soft. absent: Distended, Guarding, Tenderness, Mass, Rebound - Rectal Exam Additional comments: left gluteal wound - Exam Additional comments: open scrotal wound s/p I&D with packing - Extremities Exam Extremities Exam: Normal Inspection - Back Exam Back Exam: NORMAL INSPECTION - Neurological Exam Neurological Exam: Awake Additional comments: Right facial droop, right-sided hemiplegia, right CN3 palsy, moves LUE and LLE - Skin Skin Exam: Dry, Intact, Normal Color, Warm Assessment and Plan - Assessment and Plan (Free Text) Assessment: 67 yo M with unknown PMH presented for possible stroke, found to have 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 Patient is intubated and off sedation. Pt s/p incision and drainage of left buttock abscess and I&D of scrotal abscess. Plan: 1. Intracerebral Hemorrhage - Admitted to ICU - Intubated to protect airway, currently off sedation - OGT in place, tube feedings - Plan for trach/PEG tomorrow per surgery - CT showed hemorrhagic infarct of the left thalamus/basal ganglia. No midline shift. Left thalamic edema - Repeat CT's showed stable left thalamic hemorrhage x3 - Neurosurgery consulted No surgical intervention at this time - Neuro consulted Cont current medications PT/OT Amantadine 100 mg BID via PEG is in place Continue normotension, normothermia, euglycemia - Lipid panel, A1C WNL 2. Left gluteal ulcer, Grade 2 - Blood cultures negative - Wound culture positive for coag negative staph - Surgery consulted POD #5 I&D Wound care - ID consulted Vancomycin, Azactam, Flagyl day 6 3. Scrotal Abscess - Blood and urine cultures negative - Wound culture negative after 24 hours - Testicular US negative for epidymitis, orthitis, torsion; decreased flow to left testicle, scrotal edema - Urology consulted POD#2 I&D Wound care - Abx for ulcer covers scrotal abscess 4. Fever - Tmax over 24 hours 101.7 - Gluteal ulcer vs. scrotal abscess vs. UTI vs. pneumonia - IV abx per ID - CXR shows no consolidation - F/U UA, procal 5. SVT vs. Rapid a-fib, resolved - Cardio consulted Lopressor 25 mg PO BID - Adenosine given, which converted patient to NSR 6. Hypokalemia, resolved - Monitor and replete as needed 7. EtOH Abuse - EtOH negative - Ativan held to better assess neuro status GI/DVT PPx - Protonix - SCDs Case and planned reviewed with attending Tao Greenberg, PGY1 <Tammy Rocha - Last Filed: 06/06/17 12:50> Objective - Vital Signs/Intake and Output Vital Signs (last 24 hours): Temp Pulse Resp BP Pulse Ox 99.6 F 63 14 109/57 L 100 06/06/17 07:48 06/06/17 11:15 06/06/17 08:07 06/06/17 11:15 06/06/17 11:15 Intake and Output: 06/06/17 06/06/17 06:59 18:59 Intake Total 1900 100 Output Total 650 Balance 1250 100 - Medications Medications: Current Medications Artificial Tears (Artificial Tears) 0 ml OU DAILY [facility] Last Admin: 06/06/17 09:37 Dose: 2 drop Chlorhexidine Gluconate (Peridex) 15 ml PO TID [facility] Last Admin: 06/06/17 09:36 Dose: 15 ml Clonidine HCl (Catapres) 0.1 mg PO BID [facility] Last Admin: 06/06/17 09:37 Dose: Not Given Vancomycin HCl (Vancomycin 1gm) 1 gm in 250 mls @ 167 mls/hr IVPB Q12H KATIE PRN Reason: Protocol Last Admin: 06/06/17 09:27 Dose: 167 mls/hr Aztreonam (Azactam 2 Gm) 100 mls @ 100 mls/hr IVPB Q8 KATIE PRN Reason: Protocol Stop: 06/08/17 09:01 Last Admin: 06/06/17 06:31 Dose: 100 mls/hr Metronidazole (Flagyl) 500 mg in 100 mls @ 100 mls/hr IVPB Q8 KATIE PRN Reason: Protocol Last Admin: 06/06/17 06:31 Dose: 100 mls/hr Acetaminophen (Ofirmev) 1,000 mg in 100 mls @ 400 mls/hr IVPB Q8H PRN PRN Reason: Temperature Stop: 06/07/17 09:57 Last Admin: 06/06/17 06:29 Dose: 400 mls/hr Fentanyl Citrate (Fentanyl Citrate/Sodium Chloride 1 Mg/100 Ml) 1,000 mcg in 100 mls @ 2 mls/hr IV .Q24H PRN; Protocol; 20 MCG/HR PRN Reason: TITRATE PER MD ORDER Last Admin: 06/06/17 07:17 Dose: 50 mcg/hr, 5 mls/hr Lorazepam (Ativan) 2 mg IVP Q2H PRN; Protocol PRN Reason: Symptoms of alcohol withdrawl Lorazepam (Ativan) 4 mg IVP Q4H PRN; Protocol PRN Reason: Symptoms of alcohol withdrawl Last Admin: 05/30/17 17:00 Dose: 4 mg Metoprolol Tartrate (Lopressor) 25 mg PO BID [facility] Last Admin: 06/06/17 09:43 Dose: 25 mg Pantoprazole Sodium (Protonix Inj) 40 mg IVP DAILY [facility] Last Admin: 06/06/17 09:25 Dose: 40 mg Sodium Chloride (Sodium Chloride Tab) 1 gm PO Q12 [facility] Last Admin: 06/02/17 21:31 Dose: 1 gm - Labs Labs: 06/06/17 06:45 06/06/17 06:45 PT 18.8 SECONDS (9.4-12.5) H 06/06/17 06:45 INR 1.69 (0.93-1.08) H 06/06/17 06:45 APTT 35.3 Seconds (25.1-36.5) 06/06/17 06:45 Attending/Attestation - Attestation I have personally seen and examined this patient.: Yes I have fully participated in the care of the patient.: Yes I have reviewed all pertinent clinical information, including history, physical exam and plan: Yes Notes (Text): 06/06/17 12:48 67 year old male who was admitted with altered mental status. He was found to have hemorrhagic infarct of the left thalamus / basal ganglia. He was seen by neurosurgery and neurology who recommended conservative management. Patient is currently intubated for airway protection. Plan is for possible trach/peg tomorrow as per surgery. He is on iv antibiotics for scrotal cellulitis. S/p I&D. Will follow up with urology recommendations. Still has fever with tmax of 101.7. ID is following and repeat cultures and UA are ordered. He is also s/p I&D of right buttock abscess. Tammy Rocha MD Hospitalist.
--- NOTE | 2017-06-06 12:11 | CP.PCM.PN ---
Subjective - Date & Time of Evaluation Date of Evaluation: 06/06/17 Time of Evaluation: 12:08 - Subjective Subjective: General Surgery Progress Note For Dr. Hyatt This 67M was seen and examined this AM at bedside. Tmax was 102, otherwise no acute events reported overnight. Patient still has packing in scrotal abscess, left buttock wound with decreasing drainage and decreasing erythema. Patient currently [id number], [id number]. Plan for trach and peg tomorrow AM. Objective - Vital Signs/Intake and Output Vital Signs (last 24 hours): Temp Pulse Resp BP Pulse Ox 99.6 F 63 14 109/57 L 100 06/06/17 07:48 06/06/17 11:15 06/06/17 08:07 06/06/17 11:15 06/06/17 11:15 Intake and Output: 06/06/17 06/06/17 06:59 18:59 Intake Total 1900 100 Output Total 650 Balance 1250 100 - Medications Medications: Current Medications Artificial Tears (Artificial Tears) 0 ml OU DAILY [facility] Last Admin: 06/06/17 09:37 Dose: 2 drop Chlorhexidine Gluconate (Peridex) 15 ml PO TID [facility] Last Admin: 06/06/17 09:36 Dose: 15 ml Clonidine HCl (Catapres) 0.1 mg PO BID [facility] Last Admin: 06/06/17 09:37 Dose: Not Given Vancomycin HCl (Vancomycin 1gm) 1 gm in 250 mls @ 167 mls/hr IVPB Q12H KATIE PRN Reason: Protocol Last Admin: 06/06/17 09:27 Dose: 167 mls/hr Aztreonam (Azactam 2 Gm) 100 mls @ 100 mls/hr IVPB Q8 KATIE PRN Reason: Protocol Stop: 06/08/17 09:01 Last Admin: 06/06/17 06:31 Dose: 100 mls/hr Metronidazole (Flagyl) 500 mg in 100 mls @ 100 mls/hr IVPB Q8 KATIE PRN Reason: Protocol Last Admin: 06/06/17 06:31 Dose: 100 mls/hr Acetaminophen (Ofirmev) 1,000 mg in 100 mls @ 400 mls/hr IVPB Q8H PRN PRN Reason: Temperature Stop: 06/07/17 09:57 Last Admin: 06/06/17 06:29 Dose: 400 mls/hr Fentanyl Citrate (Fentanyl Citrate/Sodium Chloride 1 Mg/100 Ml) 1,000 mcg in 100 mls @ 2 mls/hr IV .Q24H PRN; Protocol; 20 MCG/HR PRN Reason: TITRATE PER MD ORDER Last Admin: 06/06/17 07:17 Dose: 50 mcg/hr, 5 mls/hr Lorazepam (Ativan) 2 mg IVP Q2H PRN; Protocol PRN Reason: Symptoms of alcohol withdrawl Lorazepam (Ativan) 4 mg IVP Q4H PRN; Protocol PRN Reason: Symptoms of alcohol withdrawl Last Admin: 05/30/17 17:00 Dose: 4 mg Metoprolol Tartrate (Lopressor) 25 mg PO BID [facility] Last Admin: 06/06/17 09:43 Dose: 25 mg Pantoprazole Sodium (Protonix Inj) 40 mg IVP DAILY [facility] Last Admin: 06/06/17 09:25 Dose: 40 mg Sodium Chloride (Sodium Chloride Tab) 1 gm PO Q12 [facility] Last Admin: 06/02/17 21:31 Dose: 1 gm - Labs Labs: 06/06/17 06:45 06/06/17 06:45 PT 18.8 SECONDS (9.4-12.5) H 06/06/17 06:45 INR 1.69 (0.93-1.08) H 06/06/17 06:45 APTT 35.3 Seconds (25.1-36.5) 06/06/17 06:45 - Constitutional Appears: Non-toxic, No Acute Distress - Respiratory Exam Additional comments: Intubated, breathing on vent - Cardiovascular Exam Cardiovascular Exam: REGULAR RHYTHM - GI/Abdominal Exam GI & Abdominal Exam: Soft. absent: Distended, Firm, Guarding, Rigid, Tenderness - Rectal Exam Additional comments: Dcreased drainage and erythema left glut - Exam Additional comments: Left sided testiular abscess spontaneously draining - Extremities Exam Additional comments: Pressure ulcer boots in place. Assessment and Plan - Assessment and Plan (Free Text) Assessment: This is a 67M with a SDH on a vent who currently has multiple draining lesions on his left buttock and groin Plan: Trach and peg booked for tomorrow AM Continue ABX Testicular abscess management per urology Will continue to monitor gluteal abscess Will Discuss with Dr. Edmar Pennington PGY-2
[2017-06-06 13:39] LABS: URINE BILIRUBIN NEGATIVE (NEGATIVE); URINE BLOOD MODERATE (NEGATIVE); URINE GLUCOSE (UA) NEGATIVE (NEGATIVE); URINE KETONE TRACE mg/dL (NEGATIVE); URINE LEUKOCYTE ESTERASE TRACE Leu/uL (NEGATIVE); URINE PROTEIN TRACE mg/dL (<30 mg/dL)
[2017-06-06 13:40] LABS: URINE APPEARANCE SLIGHT-CLOUDY (CLEAR); URINE COLOR DARK YELLOW (YELLOW)
[2017-06-06 13:43] LABS: URINE AMORPHOUS SEDIMENT SMALL; URINE BACTERIA MANY (NEG); URINE EPITHELIAL CELLS 0 - 2 /hpf (0-5); URINE RBC 20 - 25 /hpf (0-2)
--- NOTE | 2017-06-06 19:38 | PN ---
CARDIOLOGY FOLLOWUP DATE OF SERVICE: 06/06/2017 SUBJECTIVE: The patient remains on a ventilator with minimally responsiveness. OBJECTIVE: VITAL SIGNS: Blood pressure is 104/53. The heart rate is in the 60s, normal sinus rhythm. NECK: Negative JVD. LUNGS: Decreased breath sounds. HEART: Reveals S1 and S2. EXTREMITIES: Without change. LABORATORY DATA: Hemoglobin is 9.3. Chemistries, BUN and creatinine are unremarkable. IMPRESSION: 1. Status post respiratory failure. 2. Status post intracerebral bleed. 3. Transient supraventricular tachycardia, stable on beta-blockers. 4. Hypertension. PLAN: Given these findings, the patient's mental status is unchanged which pertains a poor prognosis. The patient is for tracheostomy in the morning. Nathan Pereyra MD
[2017-06-07] MEDS: Fentanyl 1000mcg/100ml NS 1,000 MCG/100 ML BAG IV PRN ×2 (01:46→22:23)
[2017-06-07] MEDS: Aztreonam 2 Gm in NS 100mL 100 ML IVPB SCH ×3 (06:04→21:56)
[2017-06-07] MEDS: metroNIDAZOLE IV 500 mg/100 ml 500 MG/100 ML BAG IVPB SCH ×3 (06:07→21:38)
--- NOTE | 2017-06-07 06:20 | CP.PCM.PN ---
Subjective - Date & Time of Evaluation Date of Evaluation: 06/07/17 Time of Evaluation: 06:17 - Subjective Subjective: Mr. eVras was seen and examined at the bedside in ICU. He is awake, responsive to verbal and tactile stimuli. He remains on mechanical ventilation, for trach and peg placement this am. He is on Fentanyl drip of 50 mcg/hr for sedation.He was febrile this am with Tmax. of 101.3. IV tylenol was given. He is on antibiotic therapy for scrotal/ sacral wound. Objective - Vital Signs/Intake and Output Vital Signs (last 24 hours): Temp Pulse Resp BP Pulse Ox 99.4 F 80 14 125/62 97 06/07/17 00:00 06/07/17 03:00 06/06/17 08:07 06/07/17 03:00 06/07/17 03:00 Intake and Output: 06/06/17 06/07/17 18:59 06:59 Intake Total 1710 100 Output Total 400 Balance 1310 100 - Medications Medications: Current Medications Amantadine HCl (Amantadine 100 Mg Cap) 100 mg PO BID [facility] Artificial Tears (Artificial Tears) 0 ml OU DAILY [facility] Last Admin: 06/06/17 09:37 Dose: 2 drop Chlorhexidine Gluconate (Peridex) 15 ml PO TID [facility] Last Admin: 06/06/17 17:26 Dose: 15 ml Clonidine HCl (Catapres) 0.1 mg PO BID [facility] Last Admin: 06/06/17 17:30 Dose: Not Given Vancomycin HCl (Vancomycin 1gm) 1 gm in 250 mls @ 167 mls/hr IVPB Q12H KTAIE PRN Reason: Protocol Last Admin: 06/06/17 21:44 Dose: 167 mls/hr Aztreonam (Azactam 2 Gm) 100 mls @ 100 mls/hr IVPB Q8 KATIE PRN Reason: Protocol Stop: 06/08/17 09:01 Last Admin: 06/07/17 06:04 Dose: 100 mls/hr Metronidazole (Flagyl) 500 mg in 100 mls @ 100 mls/hr IVPB Q8 KATIE PRN Reason: Protocol Last Admin: 06/07/17 06:07 Dose: 100 mls/hr Acetaminophen (Ofirmev) 1,000 mg in 100 mls @ 400 mls/hr IVPB Q8H PRN PRN Reason: Temperature Stop: 06/07/17 09:57 Last Admin: 06/07/17 06:07 Dose: 400 mls/hr Fentanyl Citrate (Fentanyl Citrate/Sodium Chloride 1 Mg/100 Ml) 1,000 mcg in 100 mls @ 2 mls/hr IV .Q24H PRN; Protocol; 20 MCG/HR PRN Reason: TITRATE PER MD ORDER Last Admin: 06/07/17 01:46 Dose: 50 mcg/hr, 5 mls/hr Lorazepam (Ativan) 2 mg IVP Q2H PRN; Protocol PRN Reason: Symptoms of alcohol withdrawl Lorazepam (Ativan) 4 mg IVP Q4H PRN; Protocol PRN Reason: Symptoms of alcohol withdrawl Last Admin: 05/30/17 17:00 Dose: 4 mg Metoprolol Tartrate (Lopressor) 25 mg PO BID [facility] Last Admin: 06/06/17 17:31 Dose: 25 mg Pantoprazole Sodium (Protonix Inj) 40 mg IVP DAILY [facility] Last Admin: 06/06/17 09:25 Dose: 40 mg Sodium Chloride (Sodium Chloride Tab) 1 gm PO Q12 [facility] Last Admin: 06/02/17 21:31 Dose: 1 gm - Labs Labs: 06/06/17 06:45 06/06/17 06:45 PT 18.8 SECONDS (9.4-12.5) H 06/06/17 06:45 INR 1.69 (0.93-1.08) H 06/06/17 06:45 APTT 35.3 Seconds (25.1-36.5) 06/06/17 06:45 - Constitutional Appears: No Acute Distress - Head Exam Head Exam: ATRAUMATIC - Eye Exam Additional comments: very sluggish, but equal in size and no 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 - Neurological Exam Neurological Exam: Awake Neuro motor strength exam: Left Upper Extremity: 3, Right Upper Extremity: 0 ( paralyze), Left Lower Extremity: 3, Right Lower Extremity: 2/1 Additional comments: Sensation remains asymmetrical especially on his right upper extremity. He is able to follow commands such as squeezing his left hand and moving his left foot. Assessment and Plan (1) Intracerebral hemorrhage Assessment & Plan: Case discussed with Dr. Davies, continue all current medical, physical, occupational, and speech therapies. Patient is schedule for trach and peg this am. Will start with Amantadine 100 mg via peg BID this evening.Continue normotension, normothermia, euglycemia and manage infection. Status: Acute
[2017-06-07 06:29] LABS: BASO # 0.02 K/mm3 (0.0-2.0); BASO % 0.2 % (0.0-3.0); EOS # 0.2 (0.0-0.7); EOS % 2.2 % (1.5-5.0); GRAN # 8.34 (1.4-6.5); HEMATOCRIT 30.8 % (42.0-52.0); LYMPH # 1.3 (1.2-3.4); LYMPH % 12.7 % (22.0-35.0); MEAN CELL VOLUME 97.8 fl (80.0-105.0); MEAN CORPUSCULAR HEMOGLOBIN 29.8 pg (25.0-35.0); MEAN CORPUSCULAR HGB CONC 30.5 g/dl (31.0-37.0); MEAN PLATELET VOLUME 11.4 fl (7.0-11.0); MONO # 0.6 (0.1-0.6); MONO % 5.9 % (1.0-6.0); RED CELL DISTRIBUTION WIDTH 13.7 % (11.5-14.5); WHITE BLOOD COUNT 10.6 10^3/ul (4.5-11.0)
[2017-06-07 06:47] LABS: ALB/GLOB RATIO 0.6 (1.1-1.8); ALKALINE PHOSPHATASE 111 U/L (38-126); ALT/SGPT 24 U/L (7-56); AST/SGOT 31 U/L (17-59); BILIRUBIN,TOTAL 0.6 mg/dL (0.2-1.3); BLOOD UREA NITROGEN 16 mg/dL (7-21); CALCIUM 8.5 mg/dL (8.4-10.5); CARBON DIOXIDE 31 mmol/L (21-33); CHLORIDE 116 mmol/L (98-107); GFR AFRICAN-AMERICAN > 60; GLUCOSE,RANDOM 110 mg/dL (70-110); POTASSIUM 3.9 mmol/L (3.6-5.0); SODIUM 148 mmol/L (132-148); TOTAL PROTEIN 6.8 g/dL (5.8-8.3)
[2017-06-07 06:50] LABS: INR 1.69 (0.93-1.08); PARTIAL THROMBOPLASTIN TIME 30.8 Seconds (25.1-36.5)
--- NOTE | 2017-06-07 07:24 | CP.CCUPN ---
<Benji Ma - Last Filed: 06/07/17 10:37> CCU Subjective - Physician Review Subjective (Free Text): 06/07/17 07:21 Benji Ma D.O. 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 Patient was seen and examined at bedside. Patient is still intubated at this time with plan for trach /peg this morning. Overall status unchanged, able to follow commands. On sedation. Overnight patient had another episode of pyrexia at 101.3. Otherwise no overnight events per nursing staff. CCU Objective - Vital Signs / Intake & Output Vital Signs (Last 4 hours): Vital Signs Temp Pulse BP Pulse Ox 06/07/17 06:17 68 103/59 L 99 06/07/17 06:02 117/58 L 98 06/07/17 06:00 51 L 99 06/07/17 05:00 101.3 F H 72 110/54 L 98 06/07/17 04:00 76 113/56 L 97 Intake and Output (Last 8hrs): Intake & Output 06/06/17 06/07/17 06/07/17 22:59 06:59 14:59 Intake Total 1610 1030 Output Total 400 600 Balance 1210 430 Weight 80.938 kg Intake: IV 510 220 Left Hand 120 right upper arm 510 Tube Feeding 500 60 Blood Product 600 Other 750 Output: Urine 400 600 Urethral (Philippe) 400 600 - Physical Exam Head: Positive for: Atraumatic, Normocephalic Pupils: Positive for: Other (2-3mm fixed) Extroacular Muscles: Positive for: Other (Does track with his eyes) Conjunctiva: Positive for: Normal Ears: Positive for: Normal Mouth: Positive for: Moist Mucous Membranes Pharnyx: Positive for: Normal, Other (OGT in place, feeds running, intubated) Nose (External): Positive for: Atraumatic Neck: Positive for: Other (L IJ in place) Respiratory/Chest: Positive for: Clear to Auscultation. Negative for: Accessory Muscle Use, Wheezes, Rales, Rhonchi Cardiovascular: Positive for: Regular Rate and Rhythm, Normal S1, S2. Negative for: Murmurs, Rub Abdomen: Positive for: Normal Bowel Sounds. Negative for: Tenderness, Distention, Peritoneal Signs Upper Extremity: Positive for: Edema (+1 R arm), Capillary Refill < 2s, Other ( Flacid right sided hemiparesis). Negative for: Erythema Lower Extremity: Positive for: Capillary Refill < 2 s, Other (right sided hemiparesis). Negative for: Edema, CALF TENDERNESS Neurological: Positive for: Other (relatively unchanged, intubated, right Babinski positive, pupils fixed at 2-3mm nonreactive, +cough relfex). Negative for: Speech Normal Skin: Positive for: Warm, Dry - Medications Active Medications: Active Medications Generic Name Dose Route Start Last Admin Trade Name Freq PRN Reason Stop Dose Admin Amantadine HCl 100 mg 06/07/17 17:00 Amantadine 100 Mg Cap PO BID KATIE Artificial Tears 0 ml 06/02/17 14:45 06/06/17 09:37 Artificial Tears OU 2 drop DAILY KATIE Administration Chlorhexidine Gluconate 15 ml 06/01/17 12:00 06/06/17 17:26 Peridex PO 15 ml TID KATIE Administration Clonidine HCl 0.1 mg 06/01/17 18:00 06/06/17 17:30 Catapres PO Not Given BID KATIE Vancomycin HCl 1 gm in 250 mls @ 167 mls/hr 06/01/17 10:00 06/06/17 21:44 Vancomycin 1gm IVPB 167 mls/hr Q12H KATIE Administration Protocol Aztreonam 100 mls @ 100 mls/hr 06/01/17 09:00 06/07/17 06:04 Azactam 2 Gm IVPB 06/08/17 09:01 100 mls/hr Q8 KATIE Administration Protocol Metronidazole 500 mg in 100 mls @ 100 mls/hr 06/01/17 14:00 06/07/17 06:07 Flagyl IVPB 100 mls/hr Q8 KATIE Administration Protocol Acetaminophen 1,000 mg in 100 mls @ 400 mls/hr 06/05/17 09:56 06/07/17 06:07 Ofirmev IVPB 06/07/17 09:57 400 mls/hr Q8H PRN Administration Temperature Fentanyl Citrate 1,000 mcg in 100 mls @ 2 mls/hr 06/05/17 19:02 06/07/17 01: 46 Fentanyl Citrate/Sodium Chloride 1 Mg/100 Ml IV 50 mcg/hr .Q24H PRN 5 mls/hr TITRATE PER MD ORDER Administration Protocol 20 MCG/HR Lorazepam 2 mg 05/29/17 15:23 Ativan IVP Q2H PRN Symptoms of alcohol withdrawl Protocol Lorazepam 4 mg 05/29/17 15:23 05/30/17 17:00 Ativan IVP 4 mg Q4H PRN Administration Symptoms of alcohol withdrawl Protocol Metoprolol Tartrate 25 mg 06/01/17 10:15 06/06/17 17:31 Lopressor PO 25 mg BID KATIE Administration Pantoprazole Sodium 40 mg 05/29/17 13:30 06/06/17 09:25 Protonix Inj IVP 40 mg DAILY KATIE Administration Sodium Chloride 1 gm 05/31/17 10:00 06/02/17 21:31 Sodium Chloride Tab PO 1 gm Q12 KATIE Administration - Patient Studies Lab Studies: Microbiology Studies 06/03/17 05:45 Blood Culture - Preliminary Blood-Venous NO GROWTH AFTER 4 DAYS 06/03/17 05:10 Blood Culture - Preliminary Blood-Venous NO GROWTH AFTER 4 DAYS 06/06/17 13:55 Gram Stain - Final Trachasp 06/04/17 08:56 Gram Stain - Final Scrotum Wound Culture - Preliminary 06/01/17 09:15 Blood Culture - Final Blood-Venous NO GROWTH AFTER 5 DAYS Gram Stain - Final TEST NOT PERFORMED 06/01/17 09:00 Blood Culture - Final Blood-Venous NO GROWTH AFTER 5 DAYS Gram Stain - Final TEST NOT PERFORMED Lab Studies 06/07/17 06/07/17 06/07/17 Range/Units 05:30 05:30 05:30 WBC 10.6 (4.5-11.0) 10^3/ul RBC 3.15 L (3.5-6.1) 10^6/uL Hgb 9.4 L (14.0-18.0) g/dL Hct 30.8 L (42.0-52.0) % MCV 97.8 (80.0-105.0) fl MCH 29.8 (25.0-35.0) pg MCHC 30.5 L (31.0-37.0) g/dl RDW 13.7 (11.5-14.5) % Plt Count 199 (120.0-450.0) 10^3/uL MPV 11.4 H (7.0-11.0) fl Gran % 79.0 H (50.0-68.0) % Lymph % (Auto) 12.7 L (22.0-35.0) % [place] % (Auto) 5.9 (1.0-6.0) % Eos % (Auto) 2.2 (1.5-5.0) % Baso % (Auto) 0.2 (0.0-3.0) % Gran # 8.34 H (1.4-6.5) Lymph # 1.3 (1.2-3.4) [place] # 0.6 (0.1-0.6) Eos # 0.2 (0.0-0.7) Baso # 0.02 (0.0-2.0) K/mm3 PT 18.8 H (9.4-12.5) SECONDS INR 1.69 H (0.93-1.08) APTT 30.8 (25.1-36.5) Seconds Sodium 148 (132-148) mmol/L Potassium 3.9 (3.6-5.0) mmol/L Chloride 116 H (98-107) mmol/L Carbon Dioxide 31 (21-33) mmol/L Anion Gap 5 L (10-20) BUN 16 (7-21) mg/dL Creatinine 0.7 L (0.8-1.5) mg/dL Est GFR ( Amer) > 60 Est GFR (Non-Af Amer) > 60 POC Glucose (mg/dL) (65-110) mg/dL Random Glucose 110 (70-110) mg/dL Calcium 8.5 (8.4-10.5) mg/dL Total Bilirubin 0.6 (0.2-1.3) mg/dL AST 31 (17-59) U/L ALT 24 (7-56) U/L Alkaline Phosphatase 111 (38-126) U/L Total Protein 6.8 (5.8-8.3) g/dL Albumin 2.5 L (3.0-4.8) g/dL Globulin 4.3 gm/dL Albumin/Globulin Ratio 0.6 L (1.1-1.8) Procalcitonin (0.19-0.49) NG/ML Urine Color (YELLOW) Urine Appearance (CLEAR) Urine pH (4.7-8.0) Ur Specific [place] (1.005-1.035) Urine Protein (<30 mg/dL) mg/dL Urine Glucose (UA) (NEGATIVE) mg/dL Urine Ketones (NEGATIVE) mg/dL Urine Blood (NEGATIVE) Urine Nitrate (NEGATIVE) Urine Bilirubin (NEGATIVE) Urine Urobilinogen (<1 E.U./dL) E.U./dL Ur Leukocyte Esterase (NEGATIVE) Marek/uL Urine RBC (0-2) /hpf Urine WBC (0-6) /hpf Ur Epithelial Cells (0-5) /hpf Amorphous Sediment Urine Bacteria (NEG) Urine Other 06/06/17 06/06/17 06/06/17 Range/Units 15:59 13:32 11:03 WBC (4.5-11.0) 10^3/ul RBC (3.5-6.1) 10^6/uL Hgb (14.0-18.0) g/dL Hct (42.0-52.0) % MCV (80.0-105.0) fl MCH (25.0-35.0) pg MCHC (31.0-37.0) g/dl RDW (11.5-14.5) % Plt Count (120.0-450.0) 10^3/uL MPV (7.0-11.0) fl Gran % (50.0-68.0) % Lymph % (Auto) (22.0-35.0) % [place] % (Auto) (1.0-6.0) % Eos % (Auto) (1.5-5.0) % Baso % (Auto) (0.0-3.0) % Gran # (1.4-6.5) Lymph # (1.2-3.4) C[place]es # (0.1-0.6) Eos # (0.0-0.7) Baso # (0.0-2.0) K/mm3 PT (9.4-12.5) SECONDS INR (0.93-1.08) APTT (25.1-36.5) Seconds Sodium (132-148) mmol/L Potassium (3.6-5.0) mmol/L Chloride (98-107) mmol/L Carbon Dioxide (21-33) mmol/L Anion Gap (10-20) BUN (7-21) mg/dL Creatinine (0.8-1.5) mg/dL Est GFR ( Amer) Est GFR (Non-Af Amer) POC Glucose (mg/dL) 119 H 117 H (65-110) mg/dL Random Glucose (70-110) mg/dL Calcium (8.4-10.5) mg/dL Total Bilirubin (0.2-1.3) mg/dL AST (17-59) U/L ALT (7-56) U/L Alkaline Phosphatase (38-126) U/L Total Protein (5.8-8.3) g/dL Albumin (3.0-4.8) g/dL Globulin gm/dL Albumin/Globulin Ratio (1.1-1.8) Procalcitonin (0.19-0.49) NG/ML Urine Color Dark yellow (YELLOW) Urine Appearance Slight-cloudy (CLEAR) Urine pH 6.0 (4.7-8.0) Ur Specific [place] 1.025 (1.005-1.035) Urine Protein Trace H (<30 mg/dL) mg/dL Urine Glucose (UA) Negative (NEGATIVE) mg/dL Urine Ketones Trace H (NEGATIVE) mg/dL Urine Blood Moderate H (NEGATIVE) Urine Nitrate Negative (NEGATIVE) Urine Bilirubin Negative (NEGATIVE) Urine Urobilinogen 1.0 H (<1 E.U./dL) E.U./dL Ur Leukocyte Esterase Trace H (NEGATIVE) Marek/uL Urine RBC 20 - 25 (0-2) /hpf Urine WBC 5 - 10 (0-6) /hpf Ur Epithelial Cells 0 - 2 (0-5) /hpf Amorphous Sediment Small Urine Bacteria Many (NEG) Urine Other Fiber 06/06/17 06/06/17 06/06/17 Range/Units 10:10 07:38 06:45 WBC (4.5-11.0) 10^3/ul RBC (3.5-6.1) 10^6/uL Hgb (14.0-18.0) g/dL Hct (42.0-52.0) % MCV (80.0-105.0) fl MCH (25.0-35.0) pg MCHC (31.0-37.0) g/dl RDW (11.5-14.5) % Plt Count (120.0-450.0) 10^3/uL MPV (7.0-11.0) fl Gran % (50.0-68.0) % Lymph % (Auto) (22.0-35.0) % [place] % (Auto) (1.0-6.0) % Eos % (Auto) (1.5-5.0) % Baso % (Auto) (0.0-3.0) % Gran # (1.4-6.5) Lymph # (1.2-3.4) C[place]es # (0.1-0.6) Eos # (0.0-0.7) Baso # (0.0-2.0) K/mm3 PT (9.4-12.5) SECONDS INR (0.93-1.08) APTT (25.1-36.5) Seconds Sodium 149 H (132-148) mmol/L Potassium 3.9 (3.6-5.0) mmol/L Chloride 115 H (98-107) mmol/L Carbon Dioxide 31 (21-33) mmol/L Anion Gap 7 L (10-20) BUN 15 (7-21) mg/dL Creatinine 0.7 L (0.8-1.5) mg/dL Est GFR ( Amer) > 60 Est GFR (Non-Af Amer) > 60 POC Glucose (mg/dL) 126 H (65-110) mg/dL Random Glucose 126 H (70-110) mg/dL Calcium 8.2 L (8.4-10.5) mg/dL Total Bilirubin 0.5 (0.2-1.3) mg/dL AST 26 (17-59) U/L ALT 23 (7-56) U/L Alkaline Phosphatase 78 (38-126) U/L Total Protein 6.7 (5.8-8.3) g/dL Albumin 2.5 L (3.0-4.8) g/dL Globulin 4.2 gm/dL Albumin/Globulin Ratio 0.6 L (1.1-1.8) Procalcitonin 0.16 L (0.19-0.49) NG/ML Urine Color (YELLOW) Urine Appearance (CLEAR) Urine pH (4.7-8.0) Ur Specific [place] (1.005-1.035) Urine Protein (<30 mg/dL) mg/dL Urine Glucose (UA) (NEGATIVE) mg/dL Urine Ketones (NEGATIVE) mg/dL Urine Blood (NEGATIVE) Urine Nitrate (NEGATIVE) Urine Bilirubin (NEGATIVE) Urine Urobilinogen (<1 E.U./dL) E.U./dL Ur Leukocyte Esterase (NEGATIVE) Marek/uL Urine RBC (0-2) /hpf Urine WBC (0-6) /hpf Ur Epithelial Cells (0-5) /hpf Amorphous Sediment Urine Bacteria (NEG) Urine Other 06/06/17 Range/Units 06:45 WBC 10.2 (4.5-11.0) 10^3/ul RBC 3.16 L (3.5-6.1) 10^6/uL Hgb 9.3 L (14.0-18.0) g/dL Hct 30.6 L (42.0-52.0) % MCV 96.8 (80.0-105.0) fl MCH 29.4 (25.0-35.0) pg MCHC 30.4 L (31.0-37.0) g/dl RDW 13.6 (11.5-14.5) % Plt Count 186 (120.0-450.0) 10^3/uL MPV 11.1 H (7.0-11.0) fl Gran % 83.0 H (50.0-68.0) % Lymph % (Auto) 9.2 L (22.0-35.0) % [place] % (Auto) 5.1 (1.0-6.0) % Eos % (Auto) 2.5 (1.5-5.0) % Baso % (Auto) 0.2 (0.0-3.0) % Gran # 8.49 H (1.4-6.5) Lymph # 0.9 L (1.2-3.4) Ciales # 0.5 (0.1-0.6) Eos # 0.3 (0.0-0.7) Baso # 0.02 (0.0-2.0) K/mm3 PT (9.4-12.5) SECONDS INR (0.93-1.08) APTT (25.1-36.5) Seconds Sodium (132-148) mmol/L Potassium (3.6-5.0) mmol/L Chloride (98-107) mmol/L Carbon Dioxide (21-33) mmol/L Anion Gap (10-20) BUN (7-21) mg/dL Creatinine (0.8-1.5) mg/dL Est GFR ( Amer) Est GFR (Non-Af Amer) POC Glucose (mg/dL) (65-110) mg/dL Random Glucose (70-110) mg/dL Calcium (8.4-10.5) mg/dL Total Bilirubin (0.2-1.3) mg/dL AST (17-59) U/L ALT (7-56) U/L Alkaline Phosphatase (38-126) U/L Total Protein (5.8-8.3) g/dL Albumin (3.0-4.8) g/dL Globulin gm/dL Albumin/Globulin Ratio (1.1-1.8) Procalcitonin (0.19-0.49) NG/ML Urine Color (YELLOW) Urine Appearance (CLEAR) Urine pH (4.7-8.0) Ur Specific [place] (1.005-1.035) Urine Protein (<30 mg/dL) mg/dL Urine Glucose (UA) (NEGATIVE) mg/dL Urine Ketones (NEGATIVE) mg/dL Urine Blood (NEGATIVE) Urine Nitrate (NEGATIVE) Urine Bilirubin (NEGATIVE) Urine Urobilinogen (<1 E.U./dL) E.U./dL Ur Leukocyte Esterase (NEGATIVE) Marek/uL Urine RBC (0-2) /hpf Urine WBC (0-6) /hpf Ur Epithelial Cells (0-5) /hpf Amorphous Sediment Urine Bacteria (NEG) Urine Other Laboratory Results - last 24 hr 06/06/17 06/06/17 06/06/17 06:45 06:45 07:38 WBC 10.2 RBC 3.16 L Hgb 9.3 L Hct 30.6 L MCV 96.8 MCH 29.4 MCHC 30.4 L RDW 13.6 Plt Count 186 MPV 11.1 H Gran % 83.0 H Lymph % (Auto) 9.2 L [place] % (Auto) 5.1 Eos % (Auto) 2.5 Baso % (Auto) 0.2 Gran # 8.49 H Lymph # 0.9 L C[place]es # 0.5 Eos # 0.3 Baso # 0.02 PT INR APTT Sodium 149 H Potassium 3.9 Chloride 115 H Carbon Dioxide 31 Anion Gap 7 L BUN 15 Creatinine 0.7 L Est GFR ( Amer) > 60 Est GFR (Non-Af Amer) > 60 POC Glucose (mg/dL) 126 H Random Glucose 126 H Calcium 8.2 L Total Bilirubin 0.5 AST 26 ALT 23 Alkaline Phosphatase 78 Total Protein 6.7 Albumin 2.5 L Globulin 4.2 Albumin/Globulin Ratio 0.6 L Procalcitonin Urine Color Urine Appearance Urine pH Ur Specific [place] Urine Protein Urine Glucose (UA) Urine Ketones Urine Blood Urine Nitrate Urine Bilirubin Urine Urobilinogen Ur Leukocyte Esterase Urine RBC Urine WBC Ur Epithelial Cells Amorphous Sediment Urine Bacteria Urine Other 06/06/17 06/06/17 06/06/17 10:10 11:03 13:32 WBC RBC Hgb Hct MCV MCH MCHC RDW Plt Count MPV Gran % Lymph % (Auto) [place] % (Auto) Eos % (Auto) Baso % (Auto) Gran # Lymph # Ciales # Eos # Baso # PT INR APTT Sodium Potassium Chloride Carbon Dioxide Anion Gap BUN Creatinine Est GFR ( Amer) Est GFR (Non-Af Amer) POC Glucose (mg/dL) 117 H Random Glucose Calcium Total Bilirubin AST ALT Alkaline Phosphatase Total Protein Albumin Globulin Albumin/Globulin Ratio Procalcitonin 0.16 L Urine Color Dark yellow Urine Appearance Slight-cloudy Urine pH 6.0 Ur Specific [place] 1.025 Urine Protein Trace H Urine Glucose (UA) Negative Urine Ketones Trace H Urine Blood Moderate H Urine Nitrate Negative Urine Bilirubin Negative Urine Urobilinogen 1.0 H Ur Leukocyte Esterase Trace H Urine RBC 20 - 25 Urine WBC 5 - 10 Ur Epithelial Cells 0 - 2 Amorphous Sediment Small Urine Bacteria Many Urine Other Fiber 06/06/17 06/07/17 06/07/17 15:59 05:30 05:30 WBC 10.6 RBC 3.15 L Hgb 9.4 L Hct 30.8 L MCV 97.8 MCH 29.8 MCHC 30.5 L RDW 13.7 Plt Count 199 MPV 11.4 H Gran % 79.0 H Lymph % (Auto) 12.7 L [place] % (Auto) 5.9 Eos % (Auto) 2.2 Baso % (Auto) 0.2 Gran # 8.34 H Lymph # 1.3 Ciales # 0.6 Eos # 0.2 Baso # 0.02 PT INR APTT Sodium 148 Potassium 3.9 Chloride 116 H Carbon Dioxide 31 Anion Gap 5 L BUN 16 Creatinine 0.7 L Est GFR ( Amer) > 60 Est GFR (Non-Af Amer) > 60 POC Glucose (mg/dL) 119 H Random Glucose 110 Calcium 8.5 Total Bilirubin 0.6 AST 31 ALT 24 Alkaline Phosphatase 111 Total Protein 6.8 Albumin 2.5 L Globulin 4.3 Albumin/Globulin Ratio 0.6 L Procalcitonin Urine Color Urine Appearance Urine pH Ur Specific [place] Urine Protein Urine Glucose (UA) Urine Ketones Urine Blood Urine Nitrate Urine Bilirubin Urine Urobilinogen Ur Leukocyte Esterase Urine RBC Urine WBC Ur Epithelial Cells Amorphous Sediment Urine Bacteria Urine Other 06/07/17 05:30 WBC RBC Hgb Hct MCV MCH MCHC RDW Plt Count MPV Gran % Lymph % (Auto) C[place] % (Auto) Eos % (Auto) Baso % (Auto) Gran # Lymph # Ciales # Eos # Baso # PT 18.8 H INR 1.69 H APTT 30.8 Sodium Potassium Chloride Carbon Dioxide Anion Gap BUN Creatinine Est GFR ( Amer) Est GFR (Non-Af Amer) POC Glucose (mg/dL) Random Glucose Calcium Total Bilirubin AST ALT Alkaline Phosphatase Total Protein Albumin Globulin Albumin/Globulin Ratio Procalcitonin Urine Color Urine Appearance Urine pH Ur Specific [place] Urine Protein Urine Glucose (UA) Urine Ketones Urine Blood Urine Nitrate Urine Bilirubin Urine Urobilinogen Ur Leukocyte Esterase Urine RBC Urine WBC Ur Epithelial Cells Amorphous Sediment Urine Bacteria Urine Other Fingerstick Blood Sugar Results: 130 Assessment/Plan - Assessment and Plan (Free Text) Assessment: 67 year old male with a PMH of tobacco and alcohol abuse, HTN who presented after being found down by , diagnosed with left thalamic/BG ICH with intraventricular extension, found to be short of breath and unable to protect his airway 05/31 and intubated for airway protection, hospital course complicated by tachyarrythmia found to be SVT which resolved with adenosine and left gluteal abscess s/p I&D POD#6 and left scrotal abscess s/p I&D POD#3, with plan for trach/PEG by surgery today for LTAC placement for intensive PT/OT Plan: Neurological Left thalamic/BG with intraventricular extension on Head CT, neuro and neurosx following, no neurosurgical intervention indicated No interval changes on repeat Head CTs Per Neuro recs allowing Na to slowly normalize with aim for 135-145 Daily sedation vacation, currently on fentanyl 50 Trach/PEG rescheduled for tomorrow AM with plan for LTAC after Cardiovascular Cardio Dr. Pereyra following, recs appreciated Hemodynamically stable Transient SVT episode resolved, now on metoprolol Following closely Pulmnologic VDRF, cotninues ot be intubated on PRVC 480/14/5/40% On fentanyl gtt for sedation Cont oral hygiene Maintain O2 sat >92% Paln for trach tomorrow with surgery GI OGT in place, on feeds with water flushes Monitoring residuals Optimizing nutrition Plan for PEG tomorrow with surgery Nephro/Electrolytes Monitoring IxOs closely Monitoring Na closely, following CMP ID ID Dr. Dunn consulted, recs appreciated L buttock abscess s/p I&D POD#6 by Surgery, wound Cx showed Coag negative staph L scrotal abscess s/p I&D POD#2 by Uro, cultures pending Continues to not have leukocytosis but has daily fevers in the early AM, discussed with ID, likely central in origin On aztreonam D7, flagyl D7, and vanco D7 On ofirmev PRN fevers Heme No active bleeding noted, Hgb stable Hemodynamically stable Per surgery team will receive FFP for elevated INR before surgery tomorrow Following CBC/Coags GI/DVT ppx: protonix/SCDs, no AC Dispo: surgery rescheduled for tomorrow AM, patient to receive FFP tonight and repeat coags, plan for LTAC after, will discuss with SW Patient was seen and examined and case was discussed at length with attending physician. - Date & Time Date: 06/07/17 Time: 07:00 <Sukhwinder Oliva - Last Filed: 06/07/17 16:24> CCU Objective - Vital Signs / Intake & Output Vital Signs (Last 4 hours): Vital Signs Pulse Resp BP Pulse Ox 06/07/17 15:10 60 13 113/64 100 06/07/17 15:01 67 145/71 98 06/07/17 15:00 70 95 06/07/17 14:00 62 113/54 L 99 06/07/17 13:00 62 137/66 100 Intake and Output (Last 8hrs): Intake & Output 06/07/17 06/07/17 06/07/17 06:59 14:59 22:59 Intake Total 1030 Output Total 600 Balance 430 Weight 178 lb 7 oz Intake: IV 220 Left Hand 120 Tube Feeding 60 Other 750 Output: Urine 600 Urethral (Philippe) 600 - Medications Active Medications: Active Medications Generic Name Dose Route Start Last Admin Trade Name Freq PRN Reason Stop Dose Admin Amantadine HCl 100 mg 06/07/17 17:00 Amantadine 100 Mg Cap PO BID KATIE Artificial Tears 0 ml 06/02/17 14:45 06/07/17 11:04 Artificial Tears OU 1 drop DAILY KATIE Administration Chlorhexidine Gluconate 15 ml 06/01/17 12:00 06/07/17 14:04 Peridex PO 15 ml TID KATIE Administration Clonidine HCl 0.1 mg 06/01/17 18:00 06/07/17 09:53 Catapres PO 0.1 mg BID KATIE Administration Vancomycin HCl 1 gm in 250 mls @ 167 mls/hr 06/01/17 10:00 06/07/17 09:55 Vancomycin 1gm IVPB 167 mls/hr Q12H KATIE Administration Protocol Aztreonam 100 mls @ 100 mls/hr 06/01/17 09:00 06/07/17 13:52 Azactam 2 Gm IVPB 06/08/17 09:01 100 mls/hr Q8 KATIE Administration Protocol Metronidazole 500 mg in 100 mls @ 100 mls/hr 06/01/17 14:00 06/07/17 13:54 Flagyl IVPB 100 mls/hr Q8 KATIE Administration Protocol Fentanyl Citrate 1,000 mcg in 100 mls @ 2 mls/hr 06/05/17 19:02 06/07/17 01: 46 Fentanyl Citrate/Sodium Chloride 1 Mg/100 Ml IV 50 mcg/hr .Q24H PRN 5 mls/hr TITRATE PER MD ORDER Administration Protocol 20 MCG/HR Lorazepam 2 mg 05/29/17 15:23 Ativan IVP Q2H PRN Symptoms of alcohol withdrawl Protocol Lorazepam 4 mg 05/29/17 15:23 05/30/17 17:00 Ativan IVP 4 mg Q4H PRN Administration Symptoms of alcohol withdrawl Protocol Metoprolol Tartrate 25 mg 06/01/17 10:15 06/07/17 09:54 Lopressor PO 25 mg BID KATIE Administration Pantoprazole Sodium 40 mg 05/29/17 13:30 06/07/17 09:54 Protonix Inj IVP 40 mg DAILY KATIE Administration Sodium Chloride 1 gm 05/31/17 10:00 06/02/17 21:31 Sodium Chloride Tab PO 1 gm Q12 KATIE Administration - Patient Studies Lab Studies: Microbiology Studies 06/04/17 08:56 Gram Stain - Final Scrotum Wound Culture - Final No growth. 06/06/17 13:55 Gram Stain - Final Trachasp 06/06/17 13:32 Urine Culture - Final Urine,Philippe No Growth (<1,000 CFU/ML) 06/06/17 10:20 Blood Culture - Preliminary Blood-Venous NO GROWTH AFTER 24 HOURS 06/06/17 10:10 Blood Culture - Preliminary Blood-Venous NO GROWTH AFTER 24 HOURS 06/03/17 05:45 Blood Culture - Preliminary Blood-Venous NO GROWTH AFTER 4 DAYS 06/03/17 05:10 Blood Culture - Preliminary Blood-Venous NO GROWTH AFTER 4 DAYS Lab Studies 06/07/17 06/07/17 06/07/17 Range/Units 08:01 05:30 05:30 WBC (4.5-11.0) 10^3/ul RBC (3.5-6.1) 10^6/uL Hgb (14.0-18.0) g/dL Hct (42.0-52.0) % MCV (80.0-105.0) fl MCH (25.0-35.0) pg MCHC (31.0-37.0) g/dl RDW (11.5-14.5) % Plt Count (120.0-450.0) 10^3/uL MPV (7.0-11.0) fl Gran % (50.0-68.0) % Lymph % (Auto) (22.0-35.0) % [place] % (Auto) (1.0-6.0) % Eos % (Auto) (1.5-5.0) % Baso % (Auto) (0.0-3.0) % Gran # (1.4-6.5) Lymph # (1.2-3.4) [place] # (0.1-0.6) Eos # (0.0-0.7) Baso # (0.0-2.0) K/mm3 PT 18.8 H (9.4-12.5) SECONDS INR 1.69 H (0.93-1.08) APTT 30.8 (25.1-36.5) Seconds Sodium 148 (132-148) mmol/L Potassium 3.9 (3.6-5.0) mmol/L Chloride 116 H (98-107) mmol/L Carbon Dioxide 31 (21-33) mmol/L Anion Gap 5 L (10-20) BUN 16 (7-21) mg/dL Creatinine 0.7 L (0.8-1.5) mg/dL Est GFR ( Amer) > 60 Est GFR (Non-Af Amer) > 60 Random Glucose 110 (70-110) mg/dL Calcium 8.5 (8.4-10.5) mg/dL Total Bilirubin 0.6 (0.2-1.3) mg/dL AST 31 (17-59) U/L ALT 24 (7-56) U/L Alkaline Phosphatase 111 (38-126) U/L Total Protein 6.8 (5.8-8.3) g/dL Albumin 2.5 L (3.0-4.8) g/dL Globulin 4.3 gm/dL Albumin/Globulin Ratio 0.6 L (1.1-1.8) Procalcitonin (0.19-0.49) NG/ML Blood Type A POSITIVE Antibody Screen Negative BBK History Checked Patient has bt 06/07/17 06/06/17 Range/Units 05:30 10:10 WBC 10.6 (4.5-11.0) 10^3/ul RBC 3.15 L (3.5-6.1) 10^6/uL Hgb 9.4 L (14.0-18.0) g/dL Hct 30.8 L (42.0-52.0) % MCV 97.8 (80.0-105.0) fl MCH 29.8 (25.0-35.0) pg MCHC 30.5 L (31.0-37.0) g/dl RDW 13.7 (11.5-14.5) % Plt Count 199 (120.0-450.0) 10^3/uL MPV 11.4 H (7.0-11.0) fl Gran % 79.0 H (50.0-68.0) % Lymph % (Auto) 12.7 L (22.0-35.0) % [place] % (Auto) 5.9 (1.0-6.0) % Eos % (Auto) 2.2 (1.5-5.0) % Baso % (Auto) 0.2 (0.0-3.0) % Gran # 8.34 H (1.4-6.5) Lymph # 1.3 (1.2-3.4) [place] # 0.6 (0.1-0.6) Eos # 0.2 (0.0-0.7) Baso # 0.02 (0.0-2.0) K/mm3 PT (9.4-12.5) SECONDS INR (0.93-1.08) APTT (25.1-36.5) Seconds Sodium (132-148) mmol/L Potassium (3.6-5.0) mmol/L Chloride (98-107) mmol/L Carbon Dioxide (21-33) mmol/L Anion Gap (10-20) BUN (7-21) mg/dL Creatinine (0.8-1.5) mg/dL Est GFR ( Amer) Est GFR (Non-Af Amer) Random Glucose (70-110) mg/dL Calcium (8.4-10.5) mg/dL Total Bilirubin (0.2-1.3) mg/dL AST (17-59) U/L ALT (7-56) U/L Alkaline Phosphatase (38-126) U/L Total Protein (5.8-8.3) g/dL Albumin (3.0-4.8) g/dL Globulin gm/dL Albumin/Globulin Ratio (1.1-1.8) Procalcitonin 0.16 L (0.19-0.49) NG/ML Blood Type Antibody Screen BBK History Checked Laboratory Results - last 24 hr 06/06/17 06/07/17 06/07/17 10:10 05:30 05:30 WBC 10.6 RBC 3.15 L Hgb 9.4 L Hct 30.8 L MCV 97.8 MCH 29.8 MCHC 30.5 L RDW 13.7 Plt Count 199 MPV 11.4 H Gran % 79.0 H Lymph % (Auto) 12.7 L [place] % (Auto) 5.9 Eos % (Auto) 2.2 Baso % (Auto) 0.2 Gran # 8.34 H Lymph # 1.3 [place] # 0.6 Eos # 0.2 Baso # 0.02 PT INR APTT Sodium 148 Potassium 3.9 Chloride 116 H Carbon Dioxide 31 Anion Gap 5 L BUN 16 Creatinine 0.7 L Est GFR ( Amer) > 60 Est GFR (Non-Af Amer) > 60 Random Glucose 110 Calcium 8.5 Total Bilirubin 0.6 AST 31 ALT 24 Alkaline Phosphatase 111 Total Protein 6.8 Albumin 2.5 L Globulin 4.3 Albumin/Globulin Ratio 0.6 L Procalcitonin 0.16 L Blood Type Antibody Screen BBK History Checked 06/07/17 06/07/17 05:30 08:01 WBC RBC Hgb Hct MCV MCH MCHC RDW Plt Count MPV Gran % Lymph % (Auto) [place] % (Auto) Eos % (Auto) Baso % (Auto) Gran # Lymph # [place] # Eos # Baso # PT 18.8 H INR 1.69 H APTT 30.8 Sodium Potassium Chloride Carbon Dioxide Anion Gap BUN Creatinine Est GFR ( Amer) Est GFR (Non-Af Amer) Random Glucose Calcium Total Bilirubin AST ALT Alkaline Phosphatase Total Protein Albumin Globulin Albumin/Globulin Ratio Procalcitonin Blood Type A POSITIVE Antibody Screen Negative BBK History Checked Patient has bt Attending/Attestation - Attestation I have personally seen and examined this patient.: Yes I have fully participated in the care of the patient.: Yes I have reviewed all pertinent clinical information: Yes Notes (Text): 06/07/17 16:23 67 yo with thalamic bleed, unable to protect airways. for trac/peg in am. euvolemia, euglycemia and normothermia. HOB>35. DVT/GI prophylaxis ccm time 40 min
[2017-06-07] MEDS ORDERED: Lidocaine 1% Inj (20ml) ONE (08:23)
[2017-06-07] MEDS ORDERED: Phenylephrine 10 mg/ml Inj ONE (08:28)
[2017-06-07] MEDS ORDERED: ePHEDrine 50 mg/ml Inj ONE (08:28)
[2017-06-07] MEDS ORDERED: Etomidate 20 mg/10ml Inj IV ONE (08:41)
[2017-06-07] MEDS ORDERED: Phytonadione 10 mg/ml Inj (Adult) SC STA (09:28)
--- NOTE | 2017-06-07 09:30 | CP.PCM.PN ---
Subjective - Date & Time of Evaluation Date of Evaluation: 06/07/17 Time of Evaluation: 08:40 - Subjective Subjective: Still having intermittent fevers, still on the ventilator. Objective - Vital Signs/Intake and Output Vital Signs (last 24 hours): Temp Pulse Resp BP Pulse Ox 101.3 F H 68 14 103/59 L 99 06/07/17 05:00 06/07/17 06:17 06/06/17 08:07 06/07/17 06:17 06/07/17 06:17 Intake and Output: 06/06/17 06/07/17 18:59 06:59 Intake Total 1710 1030 Output Total 400 600 Balance 1310 430 - Medications Medications: Current Medications Amantadine HCl (Amantadine 100 Mg Cap) 100 mg PO BID [facility] Artificial Tears (Artificial Tears) 0 ml OU DAILY [facility] Last Admin: 06/06/17 09:37 Dose: 2 drop Chlorhexidine Gluconate (Peridex) 15 ml PO TID [facility] Last Admin: 06/06/17 17:26 Dose: 15 ml Clonidine HCl (Catapres) 0.1 mg PO BID [facility] Last Admin: 06/06/17 17:30 Dose: Not Given Vancomycin HCl (Vancomycin 1gm) 1 gm in 250 mls @ 167 mls/hr IVPB Q12H [facility] PRN Reason: Protocol Last Admin: 06/06/17 21:44 Dose: 167 mls/hr Aztreonam (Azactam 2 Gm) 100 mls @ 100 mls/hr IVPB Q8 [facility] PRN Reason: Protocol Stop: 06/08/17 09:01 Last Admin: 06/07/17 06:04 Dose: 100 mls/hr Metronidazole (Flagyl) 500 mg in 100 mls @ 100 mls/hr IVPB Q8 [facility] PRN Reason: Protocol Last Admin: 06/07/17 06:07 Dose: 100 mls/hr Acetaminophen (Ofirmev) 1,000 mg in 100 mls @ 400 mls/hr IVPB Q8H PRN PRN Reason: Temperature Stop: 06/07/17 09:57 Last Admin: 06/07/17 06:07 Dose: 400 mls/hr Fentanyl Citrate (Fentanyl Citrate/Sodium Chloride 1 Mg/100 Ml) 1,000 mcg in 100 mls @ 2 mls/hr IV .Q24H PRN; Protocol; 20 MCG/HR PRN Reason: TITRATE PER MD ORDER Last Admin: 06/07/17 01:46 Dose: 50 mcg/hr, 5 mls/hr Lorazepam (Ativan) 2 mg IVP Q2H PRN; Protocol PRN Reason: Symptoms of alcohol withdrawl Lorazepam (Ativan) 4 mg IVP Q4H PRN; Protocol PRN Reason: Symptoms of alcohol withdrawl Last Admin: 05/30/17 17:00 Dose: 4 mg Metoprolol Tartrate (Lopressor) 25 mg PO BID [facility] Last Admin: 06/06/17 17:31 Dose: 25 mg Pantoprazole Sodium (Protonix Inj) 40 mg IVP DAILY [facility] Last Admin: 06/06/17 09:25 Dose: 40 mg Sodium Chloride (Sodium Chloride Tab) 1 gm PO Q12 [facility] Last Admin: 06/02/17 21:31 Dose: 1 gm - Labs Labs: 06/07/17 05:30 06/06/17 06:45 PT 18.8 SECONDS (9.4-12.5) H 06/06/17 06:45 INR 1.69 (0.93-1.08) H 06/06/17 06:45 APTT 35.3 Seconds (25.1-36.5) 06/06/17 06:45 - Constitutional Appears: Chronically Ill, Other (intubated) - Head Exam Head Exam: NORMAL INSPECTION - ENT Exam Additional comments: ET tube in place - Respiratory Exam Respiratory Exam: Decreased Breath Sounds - Cardiovascular Exam Cardiovascular Exam: +S1, +S2 - GI/Abdominal Exam GI & Abdominal Exam: Soft. absent: Tenderness Assessment and Plan - Assessment and Plan (Free Text) Plan: Assessment persistent fevers, R/O sepsis due to scrotal cellulitis R/O abscess formation S/ P I and D POD #3; R/O central fever, R/O new onset sepsis Probable left buttock skin and skin structure infection S/P I and D POD #3 systemic inflammatory response syndrome probably from acute left sided hemorrhagic CVA skin cancer S/P resection around right ear area S/P lumbar disc hernia repair Plan continue Vancomycin, Azactam and Flagyl day 7; wound cx from the scrotum are negative - follow up repeat blood cx, urine cx, sputum cx from yesterday; CXR done yesterday still does not show infiltrates; right sided central venous catheter removed; will continue to trend fever curve Neuro and Neurosurgery managing the CVA will continue to monitor clinically discussed with ICU team overall prognosis is poor awaiting plan for possible tracheostomy
[2017-06-07] MEDS: Vancomycin 1gm in NS 250ml 1 GM/250 ML BAG IVPB SCH ×2 (09:55→21:36)
[2017-06-07] MEDS: Aritificial Tears (15ml) OU SCH (11:04)
[2017-06-07] MEDS: Chlorhexidine 0.12% Oral Sol 480 ml Bot PO SCH ×3 (11:35→18:29)
--- NOTE | 2017-06-07 14:17 | CP.PCM.PN ---
<YariParamjit - Last Filed: 06/07/17 14:14> Subjective - Date & Time of Evaluation Date of Evaluation: 06/07/17 Time of Evaluation: 14:14 - Subjective Subjective: Medicine Progress Note: Pt seen and examined at bedside. Pt mental status unchanged; still follows simple commands. Opens eyes on command. Pt currently intubated off sedation and with OGT. ROS limited due to patient's current mental status. Objective - Vital Signs/Intake and Output Vital Signs (last 24 hours): Temp Pulse Resp BP Pulse Ox 101.3 F H 59 L 14 109/64 99 06/07/17 05:00 06/07/17 09:54 06/06/17 08:07 06/07/17 09:54 06/07/17 06:17 Intake and Output: 06/07/17 06/07/17 06:59 18:59 Intake Total 1030 Output Total 600 Balance 430 - Medications Medications: Current Medications Amantadine HCl (Amantadine 100 Mg Cap) 100 mg PO BID [facility] Artificial Tears (Artificial Tears) 0 ml OU DAILY [facility] Last Admin: 06/07/17 11:04 Dose: 1 drop Chlorhexidine Gluconate (Peridex) 15 ml PO TID [facility] Last Admin: 06/07/17 14:04 Dose: 15 ml Clonidine HCl (Catapres) 0.1 mg PO BID [facility] Last Admin: 06/07/17 09:53 Dose: 0.1 mg Vancomycin HCl (Vancomycin 1gm) 1 gm in 250 mls @ 167 mls/hr IVPB Q12H [facility] PRN Reason: Protocol Last Admin: 06/07/17 09:55 Dose: 167 mls/hr Aztreonam (Azactam 2 Gm) 100 mls @ 100 mls/hr IVPB Q8 [facility] PRN Reason: Protocol Stop: 06/08/17 09:01 Last Admin: 06/07/17 13:52 Dose: 100 mls/hr Metronidazole (Flagyl) 500 mg in 100 mls @ 100 mls/hr IVPB Q8 [facility] PRN Reason: Protocol Last Admin: 06/07/17 13:54 Dose: 100 mls/hr Fentanyl Citrate (Fentanyl Citrate/Sodium Chloride 1 Mg/100 Ml) 1,000 mcg in 100 mls @ 2 mls/hr IV .Q24H PRN; Protocol; 20 MCG/HR PRN Reason: TITRATE PER MD ORDER Last Admin: 06/07/17 01:46 Dose: 50 mcg/hr, 5 mls/hr Lorazepam (Ativan) 2 mg IVP Q2H PRN; Protocol PRN Reason: Symptoms of alcohol withdrawl Lorazepam (Ativan) 4 mg IVP Q4H PRN; Protocol PRN Reason: Symptoms of alcohol withdrawl Last Admin: 05/30/17 17:00 Dose: 4 mg Metoprolol Tartrate (Lopressor) 25 mg PO BID [facility] Last Admin: 06/07/17 09:54 Dose: 25 mg Pantoprazole Sodium (Protonix Inj) 40 mg IVP DAILY [facility] Last Admin: 06/07/17 09:54 Dose: 40 mg Sodium Chloride (Sodium Chloride Tab) 1 gm PO Q12 [facility] Last Admin: 06/02/17 21:31 Dose: 1 gm - Labs Labs: 06/07/17 05:30 06/07/17 05:30 PT 18.8 SECONDS (9.4-12.5) H 06/07/17 05:30 INR 1.69 (0.93-1.08) H 06/07/17 05:30 APTT 30.8 Seconds (25.1-36.5) 06/07/17 05:30 - Constitutional Appears: No Acute Distress - Head Exam Head Exam: ATRAUMATIC, NORMAL INSPECTION, NORMOCEPHALIC - Eye Exam Additional comments: pupils 2-3 mm, sluggishly reactive to light - ENT Exam ENT Exam: Mucous Membranes Moist - Neck Exam Neck Exam: absent: Lymphadenopathy, Thyromegaly - Respiratory Exam Respiratory Exam: Clear to Ausculation Bilateral. absent: Accessory Muscle Use , Rales, Rhonchi, Wheezes, Respiratory Distress - Cardiovascular Exam Cardiovascular Exam: RRR, +S1, +S2. absent: Diastolic murmur, Gallop, Rubs, Murmur - GI/Abdominal Exam GI & Abdominal Exam: Soft. absent: Firm, Guarding, Tenderness, Mass, Rebound - Exam Additional comments: open scrotal wound with packing consistent with i&d - Extremities Exam Extremities Exam: Normal Inspection - Neurological Exam Neurological Exam: Awake - Skin Skin Exam: Dry, Intact, Normal Color, Warm Assessment and Plan - Assessment and Plan (Free Text) Assessment: 67 yo M with unknown PMH presented for possible stroke, found to have 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 Patient is intubated and off sedation. Pt s/p incision and drainage of left buttock abscess and I&D of scrotal abscess. Plan: 1. Intracerebral Hemorrhage - Admitted to ICU - Intubated to protect airway, currently off sedation - OGT in place, tube feedings - Plan for trach/PEG today per surgery - CT showed hemorrhagic infarct of the left thalamus/basal ganglia. No midline shift. Left thalamic edema - Repeat CT's showed stable left thalamic hemorrhage x3 - Neurosurgery consulted No surgical intervention at this time - Neuro consulted Cont current medications PT/OT Amantadine 100 mg BID via PEG once it is in place Continue normotension, normothermia, euglycemia - Lipid panel, A1C WNL 2. Left gluteal ulcer, Grade 2 - Blood cultures negative - Wound culture positive for coag negative staph - Surgery consulted POD #6 I&D Wound care - ID consulted Vancomycin, Azactam, Flagyl day 7 3. Scrotal Abscess - Blood and urine cultures negative - Wound culture negative after 24 hours - Testicular US negative for epidymitis, orthitis, torsion; decreased flow to left testicle, scrotal edema - Urology consulted POD#3 I&D Wound care - Abx for ulcer covers scrotal abscess 4. Fever - Likely central fever - Follow up repeat blood cx, urine cx, sputum cx - Tmax over 24 hours 101.3 - Gluteal ulcer vs. scrotal abscess vs. UTI vs. pneumonia - IV abx per ID - CXR shows no consolidation - UA, procal negative 5. SVT vs. Rapid a-fib, resolved - Cardio consulted Lopressor 25 mg PO BID - Adenosine given, which converted patient to NSR 6. Hypokalemia, resolved - Monitor and replete as needed 7. EtOH Abuse - EtOH negative - Ativan held to better assess neuro status GI/DVT PPx - Protonix - SCDs Case and planned reviewed with attending Tao Greenberg, PGY1 <Tammy Rocha A - Last Filed: 06/07/17 14:50> Objective - Vital Signs/Intake and Output Vital Signs (last 24 hours): Temp Pulse Resp BP Pulse Ox 101.3 F H 59 L 14 109/64 99 06/07/17 05:00 06/07/17 09:54 06/06/17 08:07 06/07/17 09:54 06/07/17 06:17 Intake and Output: 06/07/17 06/07/17 06:59 18:59 Intake Total 1030 Output Total 600 Balance 430 - Medications Medications: Current Medications Amantadine HCl (Amantadine 100 Mg Cap) 100 mg PO BID [facility] Artificial Tears (Artificial Tears) 0 ml OU DAILY [facility] Last Admin: 06/07/17 11:04 Dose: 1 drop Chlorhexidine Gluconate (Peridex) 15 ml PO TID [facility] Last Admin: 06/07/17 14:04 Dose: 15 ml Clonidine HCl (Catapres) 0.1 mg PO BID [facility] Last Admin: 06/07/17 09:53 Dose: 0.1 mg Vancomycin HCl (Vancomycin 1gm) 1 gm in 250 mls @ 167 mls/hr IVPB Q12H [facility] PRN Reason: Protocol Last Admin: 06/07/17 09:55 Dose: 167 mls/hr Aztreonam (Azactam 2 Gm) 100 mls @ 100 mls/hr IVPB Q8 [facility] PRN Reason: Protocol Stop: 06/08/17 09:01 Last Admin: 06/07/17 13:52 Dose: 100 mls/hr Metronidazole (Flagyl) 500 mg in 100 mls @ 100 mls/hr IVPB Q8 [facility] PRN Reason: Protocol Last Admin: 06/07/17 13:54 Dose: 100 mls/hr Fentanyl Citrate (Fentanyl Citrate/Sodium Chloride 1 Mg/100 Ml) 1,000 mcg in 100 mls @ 2 mls/hr IV .Q24H PRN; Protocol; 20 MCG/HR PRN Reason: TITRATE PER MD ORDER Last Admin: 06/07/17 01:46 Dose: 50 mcg/hr, 5 mls/hr Lorazepam (Ativan) 2 mg IVP Q2H PRN; Protocol PRN Reason: Symptoms of alcohol withdrawl Lorazepam (Ativan) 4 mg IVP Q4H PRN; Protocol PRN Reason: Symptoms of alcohol withdrawl Last Admin: 05/30/17 17:00 Dose: 4 mg Metoprolol Tartrate (Lopressor) 25 mg PO BID [facility] Last Admin: 06/07/17 09:54 Dose: 25 mg Pantoprazole Sodium (Protonix Inj) 40 mg IVP DAILY [facility] Last Admin: 06/07/17 09:54 Dose: 40 mg Sodium Chloride (Sodium Chloride Tab) 1 gm PO Q12 [facility] Last Admin: 06/02/17 21:31 Dose: 1 gm - Labs Labs: 06/07/17 05:30 06/07/17 05:30 PT 18.8 SECONDS (9.4-12.5) H 06/07/17 05:30 INR 1.69 (0.93-1.08) H 06/07/17 05:30 APTT 30.8 Seconds (25.1-36.5) 06/07/17 05:30 Attending/Attestation - Attestation I have personally seen and examined this patient.: Yes I have fully participated in the care of the patient.: Yes I have reviewed all pertinent clinical information, including history, physical exam and plan: Yes Notes (Text): 06/07/17 14:49 67 year old male who was admitted with altered mental status. He was found to have hemorrhagic infarct of the left thalamus / basal ganglia on CT scan. He was seen by neurosurgery and neurology who recommended conservative management. Patient is currently intubated for airway protection. Plan is for possible trach/peg tomorrow as per surgery. He is on iv antibiotics for scrotal cellulitis. S/p I&D. He is also s/p I&D of right buttock abscess. He continues to have fever (?central). Repeat septic workup was negative to date. Discussed with JUDY. Tammy Rocha MD Hospitalist.
[2017-06-07 17:35] LABS: INR 1.89 (0.93-1.08); PARTIAL THROMBOPLASTIN TIME 37.9 Seconds (25.1-36.5)
[2017-06-08 02:22] LABS: INR 1.52 (0.93-1.08)
[2017-06-08] MEDS: metroNIDAZOLE IV 500 mg/100 ml 500 MG/100 ML BAG IVPB SCH ×3 (05:38→21:45)
[2017-06-08] MEDS: Aztreonam 2 Gm in NS 100mL 100 ML IVPB SCH (05:38)
[2017-06-08 06:14] LABS: BASO # 0.01 K/mm3 (0.0-2.0); BASO % 0.1 % (0.0-3.0); EOS # 0.2 (0.0-0.7); EOS % 1.8 % (1.5-5.0); GRAN # 7.34 (1.4-6.5); HEMATOCRIT 28.3 % (42.0-52.0); LYMPH % 10.9 % (22.0-35.0); MEAN CELL VOLUME 97.9 fl (80.0-105.0); MEAN CORPUSCULAR HEMOGLOBIN 29.8 pg (25.0-35.0); MEAN CORPUSCULAR HGB CONC 30.4 g/dl (31.0-37.0); MEAN PLATELET VOLUME 11.7 fl (7.0-11.0); MONO # 0.5 (0.1-0.6); MONO % 5.2 % (1.0-6.0); RED CELL DISTRIBUTION WIDTH 13.6 % (11.5-14.5)
[2017-06-08 06:33] LABS: ALB/GLOB RATIO 0.7 (1.1-1.8); ALKALINE PHOSPHATASE 160 U/L (38-126); ALT/SGPT 27 U/L (7-56); AST/SGOT 33 U/L (17-59); BLOOD UREA NITROGEN 19 mg/dL (7-21); CALCIUM 8.6 mg/dL (8.4-10.5); CARBON DIOXIDE 30 mmol/L (21-33); CHLORIDE 115 mmol/L (98-107); GFR AFRICAN-AMERICAN > 60; GLUCOSE,RANDOM 120 mg/dL (70-110); INR 1.44 (0.93-1.08); MAGNESIUM 2.2 mg/dL (1.7-2.2); PARTIAL THROMBOPLASTIN TIME 29.7 Seconds (25.1-36.5); PHOSPHOROUS 3.3 mg/dL (2.5-4.5); POTASSIUM 3.3 mmol/L (3.6-5.0); SODIUM 151 mmol/L (132-148); TOTAL PROTEIN 7.1 g/dL (5.8-8.3)
--- NOTE | 2017-06-08 06:35 | CP.PCM.PN ---
Subjective - Date & Time of Evaluation Date of Evaluation: 06/08/17 Time of Evaluation: 06:29 - Subjective Subjective: Mr. Veras was seen and examined at the bedside in the ICU. He remains responsive to verbal and tactile stimuli. He opens his eyes with verbal cues and grimaces with painful tactile. He is on mechanical ventilation and on Fentanyl at 50 mcg/hr. for sedation. His tmax overnight was 100.2, on antibiotic therapy. Trach and peg was not done yesterday due to elevated INR. Objective - Vital Signs/Intake and Output Vital Signs (last 24 hours): Temp Pulse Resp BP Pulse Ox 99.5 F 148 H 13 119/75 99 06/08/17 00:00 06/08/17 05:56 06/07/17 15:10 06/08/17 05:56 06/08/17 05:56 Intake and Output: 06/07/17 06/08/17 18:59 06:59 Intake Total 717 2055 Output Total 425 400 Balance 292 1655 - Medications Medications: Current Medications Amantadine HCl (Amantadine 100 Mg Cap) 100 mg PO BID [facility] Last Admin: 06/07/17 18:27 Dose: 100 mg Artificial Tears (Artificial Tears) 0 ml OU DAILY [facility] Last Admin: 06/07/17 11:04 Dose: 1 drop Chlorhexidine Gluconate (Peridex) 15 ml PO TID [facility] Last Admin: 06/07/17 18:29 Dose: 15 ml Clonidine HCl (Catapres) 0.1 mg PO BID [facility] Last Admin: 06/07/17 18:25 Dose: 0.1 mg Vancomycin HCl (Vancomycin 1gm) 1 gm in 250 mls @ 167 mls/hr IVPB Q12H [facility] PRN Reason: Protocol Last Admin: 06/07/17 21:36 Dose: 167 mls/hr Aztreonam (Azactam 2 Gm) 100 mls @ 100 mls/hr IVPB Q8 [facility] PRN Reason: Protocol Stop: 06/08/17 09:01 Last Admin: 06/08/17 05:38 Dose: 100 mls/hr Metronidazole (Flagyl) 500 mg in 100 mls @ 100 mls/hr IVPB Q8 [facility] PRN Reason: Protocol Last Admin: 06/08/17 05:38 Dose: 100 mls/hr Fentanyl Citrate (Fentanyl Citrate/Sodium Chloride 1 Mg/100 Ml) 1,000 mcg in 100 mls @ 2 mls/hr IV .Q24H PRN; Protocol; 20 MCG/HR PRN Reason: TITRATE PER MD ORDER Last Admin: 06/07/17 22:23 Dose: 50 mcg/hr, 5 mls/hr Lorazepam (Ativan) 2 mg IVP Q2H PRN; Protocol PRN Reason: Symptoms of alcohol withdrawl Lorazepam (Ativan) 4 mg IVP Q4H PRN; Protocol PRN Reason: Symptoms of alcohol withdrawl Last Admin: 05/30/17 17:00 Dose: 4 mg Metoprolol Tartrate (Lopressor) 25 mg PO BID [facility] Last Admin: 06/07/17 18:27 Dose: 25 mg Pantoprazole Sodium (Protonix Inj) 40 mg IVP DAILY [facility] Last Admin: 06/07/17 09:54 Dose: 40 mg Sodium Chloride (Sodium Chloride Tab) 1 gm PO Q12 [facility] Last Admin: 06/02/17 21:31 Dose: 1 gm - Labs Labs: 06/08/17 05:30 06/07/17 05:30 PT 16.7 SECONDS (9.4-12.5) H 06/08/17 01:45 INR 1.52 (0.93-1.08) H 06/08/17 01:45 APTT 37.9 Seconds (25.1-36.5) H 06/07/17 17:15 - Constitutional Appears: No Acute Distress - Head Exam Head Exam: ATRAUMATIC - Eye Exam Additional comments: equal in size but sluggish to react. - Neurological Exam Neurological Exam: Awake Neuro motor strength exam: Left Upper Extremity: 2/1, Right Upper Extremity: 0, Left Lower Extremity: 2/1, Right Lower Extremity: 2/1 Additional comments: Neurological unchanged from previous examination. Assessment and Plan (1) Intracerebral hemorrhage Assessment & Plan: Case discuss with Dr. Davies, continue all current medical, physical, and occupational therapies. If patient will have trach and peg to start with Amantadine 100 mg BID via peg to assist the patient with his rehabilitation regimen. Status: Acute
[2017-06-08] MEDS ORDERED: Lidocaine 1% Inj (20ml) ONE (07:25)
--- NOTE | 2017-06-08 07:51 | CP.CCUPN ---
<José Andersen - Last Filed: 06/08/17 11:22> CCU Subjective - Physician Review Events Since Last Encounter (Free Text): 06/08/17 07:[address] Oliva Pt seen and examined at bedside. Still with temps overnight, Tmax 100.2F. Intubated, sedated but easily arousable. Does follow simple commands, responsive to verbal and tactile stimuli. Overnight, patient with episode of SVT with HR 150s, converted to NSR after adenosine. Patient's INR 1.44 s/p 4 FFP overnight. CCU Objective - Vital Signs / Intake & Output Vital Signs (Last 4 hours): Vital Signs Pulse BP Pulse Ox 06/08/17 05:56 102 H 119/75 97 06/08/17 05:00 136 H 94/53 L 100 06/08/17 04:00 65 141/75 94 L 06/08/17 03:57 76 06/08/17 03:56 66 06/08/17 03:55 57 L 06/08/17 03:54 58 L 06/08/17 03:53 91 H 06/08/17 03:52 58 L 06/08/17 03:51 58 L Intake and Output (Last 8hrs): Intake & Output 06/07/17 06/08/17 06/08/17 22:59 06:59 14:59 Intake Total 817 1955 Output Total 425 400 Balance 392 1555 Weight 182 lb Intake: IV 550 650 right upper arm 450 650 Oral 237 Tube Feeding 30 Blood Product 1305 Output: Urine 425 400 Urethral (Philippe) 425 400 Stool 0 Urine/Stool Mix 0 Emesis 0 Oral Regurgitation 0 Other 0 Other: # Bowel Movements 0 - Physical Exam Head: Positive for: Atraumatic, Normocephalic Pupils: Positive for: Other (2-3mm fixed) Extroacular Muscles: Positive for: Other (Does track with his eyes) Conjunctiva: Positive for: Normal Ears: Positive for: Normal Mouth: Positive for: Moist Mucous Membranes Pharnyx: Positive for: Normal, Other (OGT in place, intubated) Nose (External): Positive for: Atraumatic Respiratory/Chest: Positive for: Clear to Auscultation. Negative for: Accessory Muscle Use, Wheezes, Rales, Rhonchi Cardiovascular: Positive for: Regular Rate and Rhythm, Normal S1, S2. Negative for: Murmurs, Rub Abdomen: Positive for: Normal Bowel Sounds. Negative for: Tenderness, Distention, Peritoneal Signs Upper Extremity: Positive for: Capillary Refill < 2s, Other (Flacid right sided hemiparesis). Negative for: Erythema Lower Extremity: Positive for: Capillary Refill < 2 s, Other (right sided hemiparesis). Negative for: Edema, CALF TENDERNESS Neurological: Positive for: Other (unchanged, intubated, right Babinski positive , pupils fixed at 2-3mm nonreactive, +cough relfex). Negative for: Speech Normal Skin: Positive for: Warm, Dry - Medications Active Medications: Active Medications Generic Name Dose Route Start Last Admin Trade Name Freq PRN Reason Stop Dose Admin Artificial Tears 0 ml 06/02/17 14:45 06/07/17 11:04 Artificial Tears OU 1 drop DAILY KATIE Administration Chlorhexidine Gluconate 15 ml 06/01/17 12:00 06/07/17 18:29 Peridex PO 15 ml TID KATIE Administration Clonidine HCl 0.1 mg 06/01/17 18:00 06/07/17 18:25 Catapres PO 0.1 mg BID KATIE Administration Vancomycin HCl 1 gm in 250 mls @ 167 mls/hr 06/01/17 10:00 06/07/17 21:36 Vancomycin 1gm IVPB 167 mls/hr Q12H KATIE Administration Protocol Aztreonam 100 mls @ 100 mls/hr 06/01/17 09:00 06/08/17 05:38 Azactam 2 Gm IVPB 06/08/17 09:01 100 mls/hr Q8 KATIE Administration Protocol Metronidazole 500 mg in 100 mls @ 100 mls/hr 06/01/17 14:00 06/08/17 05:38 Flagyl IVPB 100 mls/hr Q8 KATIE Administration Protocol Fentanyl Citrate 1,000 mcg in 100 mls @ 2 mls/hr 06/05/17 19:02 06/07/17 22: 23 Fentanyl Citrate/Sodium Chloride 1 Mg/100 Ml IV 50 mcg/hr .Q24H PRN 5 mls/hr TITRATE PER MD ORDER Administration Protocol 20 MCG/HR Potassium Chloride 20 meq in 100 mls @ 50 mls/hr 06/08/17 07:30 Potassium Chloride 20 Meq/100 Ml IVPB 06/08/17 11:29 Q2H KATIE Lorazepam 2 mg 05/29/17 15:23 Ativan IVP Q2H PRN Symptoms of alcohol withdrawl Protocol Lorazepam 4 mg 05/29/17 15:23 05/30/17 17:00 Ativan IVP 4 mg Q4H PRN Administration Symptoms of alcohol withdrawl Protocol Metoprolol Tartrate 25 mg 06/01/17 10:15 06/07/17 18:27 Lopressor PO 25 mg BID KATIE Administration Pantoprazole Sodium 40 mg 05/29/17 13:30 06/07/17 09:54 Protonix Inj IVP 40 mg DAILY KATIE Administration Sodium Chloride 1 gm 05/31/17 10:00 06/02/17 21:31 Sodium Chloride Tab PO 1 gm Q12 KATIE Administration - Patient Studies Lab Studies: Microbiology Studies 06/03/17 05:45 Blood Culture - Final Blood-Venous NO GROWTH AFTER 5 DAYS Gram Stain - Final TEST NOT PERFORMED 06/03/17 05:10 Blood Culture - Final Blood-Venous NO GROWTH AFTER 5 DAYS Gram Stain - Final TEST NOT PERFORMED 06/04/17 08:56 Gram Stain - Final Scrotum Wound Culture - Final No growth. 06/06/17 13:55 Gram Stain - Final Trachasp 06/06/17 13:32 Urine Culture - Final Urine,Philippe No Growth (<1,000 CFU/ML) 06/06/17 10:20 Blood Culture - Preliminary Blood-Venous NO GROWTH AFTER 24 HOURS 06/06/17 10:10 Blood Culture - Preliminary Blood-Venous NO GROWTH AFTER 24 HOURS Lab Studies 06/08/17 06/08/17 06/08/17 Range/Units 05:30 05:30 05:30 WBC 9.0 (4.5-11.0) 10^3/ul RBC 2.89 L (3.5-6.1) 10^6/uL Hgb 8.6 L (14.0-18.0) g/dL Hct 28.3 L (42.0-52.0) % MCV 97.9 (80.0-105.0) fl MCH 29.8 (25.0-35.0) pg MCHC 30.4 L (31.0-37.0) g/dl RDW 13.6 (11.5-14.5) % Plt Count 193 (120.0-450.0) 10^3/uL MPV 11.7 H (7.0-11.0) fl Gran % 82.0 H (50.0-68.0) % Lymph % (Auto) 10.9 L (22.0-35.0) % [place] % (Auto) 5.2 (1.0-6.0) % Eos % (Auto) 1.8 (1.5-5.0) % Baso % (Auto) 0.1 (0.0-3.0) % Gran # 7.34 H (1.4-6.5) Lymph # 1.0 L (1.2-3.4) [place] # 0.5 (0.1-0.6) Eos # 0.2 (0.0-0.7) Baso # 0.01 (0.0-2.0) K/mm3 PT 16.0 H (9.4-12.5) SECONDS INR 1.44 H (0.93-1.08) APTT 29.7 (25.1-36.5) Seconds Sodium 151 H (132-148) mmol/L Potassium 3.3 L (3.6-5.0) mmol/L Chloride 115 H (98-107) mmol/L Carbon Dioxide 30 (21-33) mmol/L Anion Gap 9 L (10-20) BUN 19 (7-21) mg/dL Creatinine 0.8 (0.8-1.5) mg/dL Est GFR ( Amer) > 60 Est GFR (Non-Af Amer) > 60 POC Glucose (mg/dL) (65-110) mg/dL Random Glucose 120 H (70-110) mg/dL Calcium 8.6 (8.4-10.5) mg/dL Phosphorus 3.3 (2.5-4.5) mg/dL Magnesium 2.2 (1.7-2.2) mg/dL Total Bilirubin 1.0 (0.2-1.3) mg/dL AST 33 (17-59) U/L ALT 27 (7-56) U/L Alkaline Phosphatase 160 H D (38-126) U/L Total Protein 7.1 (5.8-8.3) g/dL Albumin 2.8 L (3.0-4.8) g/dL Globulin 4.3 gm/dL Albumin/Globulin Ratio 0.7 L (1.1-1.8) Blood Type Antibody Screen BBK History Checked 06/08/17 06/07/17 06/07/17 Range/Units 01:45 21:53 17:15 WBC (4.5-11.0) 10^3/ul RBC (3.5-6.1) 10^6/uL Hgb (14.0-18.0) g/dL Hct (42.0-52.0) % MCV (80.0-105.0) fl MCH (25.0-35.0) pg MCHC (31.0-37.0) g/dl RDW (11.5-14.5) % Plt Count (120.0-450.0) 10^3/uL MPV (7.0-11.0) fl Gran % (50.0-68.0) % Lymph % (Auto) (22.0-35.0) % [place] % (Auto) (1.0-6.0) % Eos % (Auto) (1.5-5.0) % Baso % (Auto) (0.0-3.0) % Gran # (1.4-6.5) Lymph # (1.2-3.4) [place] # (0.1-0.6) Eos # (0.0-0.7) Baso # (0.0-2.0) K/mm3 PT 16.7 H 20.9 H (9.4-12.5) SECONDS INR 1.52 H 1.89 H (0.93-1.08) APTT 37.9 H (25.1-36.5) Seconds Sodium (132-148) mmol/L Potassium (3.6-5.0) mmol/L Chloride (98-107) mmol/L Carbon Dioxide (21-33) mmol/L Anion Gap (10-20) BUN (7-21) mg/dL Creatinine (0.8-1.5) mg/dL Est GFR ( Amer) Est GFR (Non-Af Amer) POC Glucose (mg/dL) 142 H (65-110) mg/dL Random Glucose (70-110) mg/dL Calcium (8.4-10.5) mg/dL Phosphorus (2.5-4.5) mg/dL Magnesium (1.7-2.2) mg/dL Total Bilirubin (0.2-1.3) mg/dL AST (17-59) U/L ALT (7-56) U/L Alkaline Phosphatase (38-126) U/L Total Protein (5.8-8.3) g/dL Albumin (3.0-4.8) g/dL Globulin gm/dL Albumin/Globulin Ratio (1.1-1.8) Blood Type Antibody Screen BBK History Checked 06/07/17 06/07/17 06/07/17 Range/Units 16:16 11:23 08:01 WBC (4.5-11.0) 10^3/ul RBC (3.5-6.1) 10^6/uL Hgb (14.0-18.0) g/dL Hct (42.0-52.0) % MCV (80.0-105.0) fl MCH (25.0-35.0) pg MCHC (31.0-37.0) g/dl RDW (11.5-14.5) % Plt Count (120.0-450.0) 10^3/uL MPV (7.0-11.0) fl Gran % (50.0-68.0) % Lymph % (Auto) (22.0-35.0) % [place] % (Auto) (1.0-6.0) % Eos % (Auto) (1.5-5.0) % Baso % (Auto) (0.0-3.0) % Gran # (1.4-6.5) Lymph # (1.2-3.4) [place] # (0.1-0.6) Eos # (0.0-0.7) Baso # (0.0-2.0) K/mm3 PT (9.4-12.5) SECONDS INR (0.93-1.08) APTT (25.1-36.5) Seconds Sodium (132-148) mmol/L Potassium (3.6-5.0) mmol/L Chloride (98-107) mmol/L Carbon Dioxide (21-33) mmol/L Anion Gap (10-20) BUN (7-21) mg/dL Creatinine (0.8-1.5) mg/dL Est GFR ( Amer) Est GFR (Non-Af Amer) POC Glucose (mg/dL) 86 95 (65-110) mg/dL Random Glucose (70-110) mg/dL Calcium (8.4-10.5) mg/dL Phosphorus (2.5-4.5) mg/dL Magnesium (1.7-2.2) mg/dL Total Bilirubin (0.2-1.3) mg/dL AST (17-59) U/L ALT (7-56) U/L Alkaline Phosphatase (38-126) U/L Total Protein (5.8-8.3) g/dL Albumin (3.0-4.8) g/dL Globulin gm/dL Albumin/Globulin Ratio (1.1-1.8) Blood Type A POSITIVE Antibody Screen Negative BBK History Checked Patient has bt 06/07/17 06/06/17 Range/Units 07:51 22:00 WBC (4.5-11.0) 10^3/ul RBC (3.5-6.1) 10^6/uL Hgb (14.0-18.0) g/dL Hct (42.0-52.0) % MCV (80.0-105.0) fl MCH (25.0-35.0) pg MCHC (31.0-37.0) g/dl RDW (11.5-14.5) % Plt Count (120.0-450.0) 10^3/uL MPV (7.0-11.0) fl Gran % (50.0-68.0) % Lymph % (Auto) (22.0-35.0) % [place] % (Auto) (1.0-6.0) % Eos % (Auto) (1.5-5.0) % Baso % (Auto) (0.0-3.0) % Gran # (1.4-6.5) Lymph # (1.2-3.4) [place] # (0.1-0.6) Eos # (0.0-0.7) Baso # (0.0-2.0) K/mm3 PT (9.4-12.5) SECONDS INR (0.93-1.08) APTT (25.1-36.5) Seconds Sodium (132-148) mmol/L Potassium (3.6-5.0) mmol/L Chloride (98-107) mmol/L Carbon Dioxide (21-33) mmol/L Anion Gap (10-20) BUN (7-21) mg/dL Creatinine (0.8-1.5) mg/dL Est GFR ( Amer) Est GFR (Non-Af Amer) POC Glucose (mg/dL) 132 H 130 H (65-110) mg/dL Random Glucose (70-110) mg/dL Calcium (8.4-10.5) mg/dL Phosphorus (2.5-4.5) mg/dL Magnesium (1.7-2.2) mg/dL Total Bilirubin (0.2-1.3) mg/dL AST (17-59) U/L ALT (7-56) U/L Alkaline Phosphatase (38-126) U/L Total Protein (5.8-8.3) g/dL Albumin (3.0-4.8) g/dL Globulin gm/dL Albumin/Globulin Ratio (1.1-1.8) Blood Type Antibody Screen BBK History Checked Laboratory Results - last 24 hr 06/06/17 06/07/17 06/07/17 22:00 07:51 08:01 WBC RBC Hgb Hct MCV MCH MCHC RDW Plt Count MPV Gran % Lymph % (Auto) [place] % (Auto) Eos % (Auto) Baso % (Auto) Gran # Lymph # [place] # Eos # Baso # PT INR APTT Sodium Potassium Chloride Carbon Dioxide Anion Gap BUN Creatinine Est GFR ( Amer) Est GFR (Non-Af Amer) POC Glucose (mg/dL) 130 H 132 H Random Glucose Calcium Phosphorus Magnesium Total Bilirubin AST ALT Alkaline Phosphatase Total Protein Albumin Globulin Albumin/Globulin Ratio Blood Type A POSITIVE Antibody Screen Negative BBK History Checked Patient has bt 06/07/17 06/07/17 06/07/17 11:23 16:16 17:15 WBC RBC Hgb Hct MCV MCH MCHC RDW Plt Count MPV Gran % Lymph % (Auto) [place] % (Auto) Eos % (Auto) Baso % (Auto) Gran # Lymph # [place] # Eos # Baso # PT 20.9 H INR 1.89 H APTT 37.9 H Sodium Potassium Chloride Carbon Dioxide Anion Gap BUN Creatinine Est GFR ( Amer) Est GFR (Non-Af Amer) POC Glucose (mg/dL) 95 86 Random Glucose Calcium Phosphorus Magnesium Total Bilirubin AST ALT Alkaline Phosphatase Total Protein Albumin Globulin Albumin/Globulin Ratio Blood Type Antibody Screen BBK History Checked 06/07/17 06/08/17 06/08/17 21:53 01:45 05:30 WBC 9.0 RBC 2.89 L Hgb 8.6 L Hct 28.3 L MCV 97.9 MCH 29.8 MCHC 30.4 L RDW 13.6 Plt Count 193 MPV 11.7 H Gran % 82.0 H Lymph % (Auto) 10.9 L [place] % (Auto) 5.2 Eos % (Auto) 1.8 Baso % (Auto) 0.1 Gran # 7.34 H Lymph # 1.0 L [place] # 0.5 Eos # 0.2 Baso # 0.01 PT 16.7 H INR 1.52 H APTT Sodium Potassium Chloride Carbon Dioxide Anion Gap BUN Creatinine Est GFR ( Amer) Est GFR (Non-Af Amer) POC Glucose (mg/dL) 142 H Random Glucose Calcium Phosphorus Magnesium Total Bilirubin AST ALT Alkaline Phosphatase Total Protein Albumin Globulin Albumin/Globulin Ratio Blood Type Antibody Screen BBK History Checked 06/08/17 06/08/17 05:30 05:30 WBC RBC Hgb Hct MCV MCH MCHC RDW Plt Count MPV Gran % Lymph % (Auto) [place] % (Auto) Eos % (Auto) Baso % (Auto) Gran # Lymph # [place] # Eos # Baso # PT 16.0 H INR 1.44 H APTT 29.7 Sodium 151 H Potassium 3.3 L Chloride 115 H Carbon Dioxide 30 Anion Gap 9 L BUN 19 Creatinine 0.8 Est GFR ( Amer) > 60 Est GFR (Non-Af Amer) > 60 POC Glucose (mg/dL) Random Glucose 120 H Calcium 8.6 Phosphorus 3.3 Magnesium 2.2 Total Bilirubin 1.0 AST 33 ALT 27 Alkaline Phosphatase 160 H D Total Protein 7.1 Albumin 2.8 L Globulin 4.3 Albumin/Globulin Ratio 0.7 L Blood Type Antibody Screen BBK History Checked EKG/Cardiology Studies: Cardiology / EKG Studies 06/08/17 04:55 EKG [ELECTROCARDIOGRAM] Stat Comment: Reason For Exam: rhytham change Fingerstick Blood Sugar Results: 95 Assessment/Plan - Assessment and Plan (Free Text) Assessment: 67yo M w/ PMHx of tobacco and alcohol abuse, HTN who presented after being found down by , diagnosed with left thalamic/BG ICH with intraventricular extension, found to be short of breath and unable to protect his airway 11/ and intubated. Hospital course complicated by tachyarrythmias found to be SVT which resolved with adenosine and left gluteal abscess s/p I&D POD#7 and left scrotal abscess s/p I&D POD#4, with plan for trach/PEG by surgery today; plan LTAC placement for intensive PT/OT Neuro: Left thalamic/BG with intraventricular extension on Head CT, neuro and neurosx following, no neurosurgical intervention indicated No interval changes on repeat Head CTs Per Neuro recs allowing Na to slowly normalize with aim for 135-145 Daily sedation vacation, currently on fentanyl 50 Trach/PEG today AM with plan for LTAC after Neuro recs: Resume Amantadine 100mg BID after PEG in place Cardio: Cardio Dr. Pereyra following, recs appreciated Hemodynamically stable Transient SVT episode again overnight, resolved s/p Adenosine. Now on metoprolol Following closely Pulm: VDRF, Obtained surgical Trach this morning, no immediate complications noted. PRVC 480/14/5/40 On fentanyl gtt for sedation Cont oral hygiene Maintain O2 sat >92% Trach sutures may be removed in 14 days GI: PEG in place. As per GI, may use in 24 hrs Nephro/Electrolytes: Monitoring IxOs closely Monitoring Na closely ID: ID Dr. Dunn consulted, recs appreciated L buttock abscess s/p I&D POD#7 by Surgery, wound Cx showed Coag negative staph L scrotal abscess s/p I&D POD#4 by Uro, cultures NGTD @5 days continues to spike fevers overnight, likely central in origin No leukocytosis On aztreonam D8, flagyl D8, and vanco D8 On ofirmev PRN fevers Heme: No active bleeding noted, Hgb down to 8.6 from 9.4, will continue to monitor Hemodynamically stable INR - 1.44 this morning, s/p 4U FFP +1U FFP given just prior to surgery PPx: protonix SCDs, no AC Dispo: Plan for LTAC, will discuss with SW overall prognosis is poor Discussed case with Dr. Hazel Andersen PGY1 <Sukhwinder Oliva - Last Filed: 06/08/17 15:30> CCU Objective - Vital Signs / Intake & Output Intake and Output (Last 8hrs): Intake & Output 06/08/17 06/08/17 06/08/17 06:59 14:59 22:59 Intake Total 1955 Output Total 400 Balance 1555 Weight 182 lb Intake: IV 650 right upper arm 650 Blood Product 1305 Output: Urine 400 Urethral (Philippe) 400 - Medications Active Medications: Active Medications Generic Name Dose Route Start Last Admin Trade Name Freq PRN Reason Stop Dose Admin Artificial Tears 0 ml 06/02/17 14:45 06/08/17 10:35 Artificial Tears OU 1 drop DAILY KATIE Administration Chlorhexidine Gluconate 15 ml 06/01/17 12:00 06/08/17 14:01 Peridex PO 15 ml TID KATIE Administration Clonidine HCl 0.1 mg 06/01/17 18:00 06/08/17 09:51 Catapres PO Not Given BID KATIE Vancomycin HCl 1 gm in 250 mls @ 167 mls/hr 06/01/17 10:00 06/08/17 09:52 Vancomycin 1gm IVPB 167 mls/hr Q12H KATIE Administration Protocol Metronidazole 500 mg in 100 mls @ 100 mls/hr 06/01/17 14:00 06/08/17 14:00 Flagyl IVPB 100 mls/hr Q8 KATIE Administration Protocol Fentanyl Citrate 1,000 mcg in 100 mls @ 2 mls/hr 06/05/17 19:02 06/07/17 22: 23 Fentanyl Citrate/Sodium Chloride 1 Mg/100 Ml IV 50 mcg/hr .Q24H PRN 5 mls/hr TITRATE PER MD ORDER Administration Protocol 20 MCG/HR Lorazepam 2 mg 05/29/17 15:23 Ativan IVP Q2H PRN Symptoms of alcohol withdrawl Protocol Lorazepam 4 mg 05/29/17 15:23 05/30/17 17:00 Ativan IVP 4 mg Q4H PRN Administration Symptoms of alcohol withdrawl Protocol Metoprolol Tartrate 25 mg 06/01/17 10:15 06/08/17 09:50 Lopressor PO Not Given BID KATIE Pantoprazole Sodium 40 mg 05/29/17 13:30 06/08/17 09:52 Protonix Inj IVP 40 mg DAILY KATIE Administration Sodium Chloride 1 gm 05/31/17 10:00 06/02/17 21:31 Sodium Chloride Tab PO 1 gm Q12 KATIE Administration - Patient Studies Lab Studies: Microbiology Studies 06/06/17 13:55 Gram Stain - Final Trachasp Sputum Culture - Final No growth. 06/06/17 10:20 Blood Culture - Preliminary Blood-Venous NO GROWTH AFTER 48 HOURS 06/06/17 10:10 Blood Culture - Preliminary Blood-Venous NO GROWTH AFTER 48 HOURS 06/03/17 05:45 Blood Culture - Final Blood-Venous NO GROWTH AFTER 5 DAYS Gram Stain - Final TEST NOT PERFORMED 06/03/17 05:10 Blood Culture - Final Blood-Venous NO GROWTH AFTER 5 DAYS Gram Stain - Final TEST NOT PERFORMED 06/04/17 08:56 Gram Stain - Final Scrotum Wound Culture - Final No growth. 06/06/17 13:32 Urine Culture - Final Urine,Philippe No Growth (<1,000 CFU/ML) Lab Studies 06/08/17 06/08/17 06/08/17 Range/Units 05:30 05:30 05:30 WBC 9.0 (4.5-11.0) 10^3/ul RBC 2.89 L (3.5-6.1) 10^6/uL Hgb 8.6 L (14.0-18.0) g/dL Hct 28.3 L (42.0-52.0) % MCV 97.9 (80.0-105.0) fl MCH 29.8 (25.0-35.0) pg MCHC 30.4 L (31.0-37.0) g/dl RDW 13.6 (11.5-14.5) % Plt Count 193 (120.0-450.0) 10^3/uL MPV 11.7 H (7.0-11.0) fl Gran % 82.0 H (50.0-68.0) % Lymph % (Auto) 10.9 L (22.0-35.0) % [place] % (Auto) 5.2 (1.0-6.0) % Eos % (Auto) 1.8 (1.5-5.0) % Baso % (Auto) 0.1 (0.0-3.0) % Gran # 7.34 H (1.4-6.5) Lymph # 1.0 L (1.2-3.4) [place] # 0.5 (0.1-0.6) Eos # 0.2 (0.0-0.7) Baso # 0.01 (0.0-2.0) K/mm3 PT 16.0 H (9.4-12.5) SECONDS INR 1.44 H (0.93-1.08) APTT 29.7 (25.1-36.5) Seconds Sodium 151 H (132-148) mmol/L Potassium 3.3 L (3.6-5.0) mmol/L Chloride 115 H (98-107) mmol/L Carbon Dioxide 30 (21-33) mmol/L Anion Gap 9 L (10-20) BUN 19 (7-21) mg/dL Creatinine 0.8 (0.8-1.5) mg/dL Est GFR ( Amer) > 60 Est GFR (Non-Af Amer) > 60 POC Glucose (mg/dL) (65-110) mg/dL Random Glucose 120 H (70-110) mg/dL Calcium 8.6 (8.4-10.5) mg/dL Phosphorus 3.3 (2.5-4.5) mg/dL Magnesium 2.2 (1.7-2.2) mg/dL Total Bilirubin 1.0 (0.2-1.3) mg/dL AST 33 (17-59) U/L ALT 27 (7-56) U/L Alkaline Phosphatase 160 H D (38-126) U/L Total Protein 7.1 (5.8-8.3) g/dL Albumin 2.8 L (3.0-4.8) g/dL Globulin 4.3 gm/dL Albumin/Globulin Ratio 0.7 L (1.1-1.8) 06/08/17 06/07/17 06/07/17 Range/Units 01:45 21:53 17:15 WBC (4.5-11.0) 10^3/ul RBC (3.5-6.1) 10^6/uL Hgb (14.0-18.0) g/dL Hct (42.0-52.0) % MCV (80.0-105.0) fl MCH (25.0-35.0) pg MCHC (31.0-37.0) g/dl RDW (11.5-14.5) % Plt Count (120.0-450.0) 10^3/uL MPV (7.0-11.0) fl Gran % (50.0-68.0) % Lymph % (Auto) (22.0-35.0) % [place] % (Auto) (1.0-6.0) % Eos % (Auto) (1.5-5.0) % Baso % (Auto) (0.0-3.0) % Gran # (1.4-6.5) Lymph # (1.2-3.4) [place] # (0.1-0.6) Eos # (0.0-0.7) Baso # (0.0-2.0) K/mm3 PT 16.7 H 20.9 H (9.4-12.5) SECONDS INR 1.52 H 1.89 H (0.93-1.08) APTT 37.9 H (25.1-36.5) Seconds Sodium (132-148) mmol/L Potassium (3.6-5.0) mmol/L Chloride (98-107) mmol/L Carbon Dioxide (21-33) mmol/L Anion Gap (10-20) BUN (7-21) mg/dL Creatinine (0.8-1.5) mg/dL Est GFR ( Amer) Est GFR (Non-Af Amer) POC Glucose (mg/dL) 142 H (65-110) mg/dL Random Glucose (70-110) mg/dL Calcium (8.4-10.5) mg/dL Phosphorus (2.5-4.5) mg/dL Magnesium (1.7-2.2) mg/dL Total Bilirubin (0.2-1.3) mg/dL AST (17-59) U/L ALT (7-56) U/L Alkaline Phosphatase (38-126) U/L Total Protein (5.8-8.3) g/dL Albumin (3.0-4.8) g/dL Globulin gm/dL Albumin/Globulin Ratio (1.1-1.8) 06/07/17 06/07/17 06/07/17 Range/Units 16:16 11:23 07:51 WBC (4.5-11.0) 10^3/ul RBC (3.5-6.1) 10^6/uL Hgb (14.0-18.0) g/dL Hct (42.0-52.0) % MCV (80.0-105.0) fl MCH (25.0-35.0) pg MCHC (31.0-37.0) g/dl RDW (11.5-14.5) % Plt Count (120.0-450.0) 10^3/uL MPV (7.0-11.0) fl Gran % (50.0-68.0) % Lymph % (Auto) (22.0-35.0) % [place] % (Auto) (1.0-6.0) % Eos % (Auto) (1.5-5.0) % Baso % (Auto) (0.0-3.0) % Gran # (1.4-6.5) Lymph # (1.2-3.4) [place] # (0.1-0.6) Eos # (0.0-0.7) Baso # (0.0-2.0) K/mm3 PT (9.4-12.5) SECONDS INR (0.93-1.08) APTT (25.1-36.5) Seconds Sodium (132-148) mmol/L Potassium (3.6-5.0) mmol/L Chloride (98-107) mmol/L Carbon Dioxide (21-33) mmol/L Anion Gap (10-20) BUN (7-21) mg/dL Creatinine (0.8-1.5) mg/dL Est GFR ( Amer) Est GFR (Non-Af Amer) POC Glucose (mg/dL) 86 95 132 H (65-110) mg/dL Random Glucose (70-110) mg/dL Calcium (8.4-10.5) mg/dL Phosphorus (2.5-4.5) mg/dL Magnesium (1.7-2.2) mg/dL Total Bilirubin (0.2-1.3) mg/dL AST (17-59) U/L ALT (7-56) U/L Alkaline Phosphatase (38-126) U/L Total Protein (5.8-8.3) g/dL Albumin (3.0-4.8) g/dL Globulin gm/dL Albumin/Globulin Ratio (1.1-1.8) 06/06/17 Range/Units 22:00 WBC (4.5-11.0) 10^3/ul RBC (3.5-6.1) 10^6/uL Hgb (14.0-18.0) g/dL Hct (42.0-52.0) % MCV (80.0-105.0) fl MCH (25.0-35.0) pg MCHC (31.0-37.0) g/dl RDW (11.5-14.5) % Plt Count (120.0-450.0) 10^3/uL MPV (7.0-11.0) fl Gran % (50.0-68.0) % Lymph % (Auto) (22.0-35.0) % [place] % (Auto) (1.0-6.0) % Eos % (Auto) (1.5-5.0) % Baso % (Auto) (0.0-3.0) % Gran # (1.4-6.5) Lymph # (1.2-3.4) [place] # (0.1-0.6) Eos # (0.0-0.7) Baso # (0.0-2.0) K/mm3 PT (9.4-12.5) SECONDS INR (0.93-1.08) APTT (25.1-36.5) Seconds Sodium (132-148) mmol/L Potassium (3.6-5.0) mmol/L Chloride (98-107) mmol/L Carbon Dioxide (21-33) mmol/L Anion Gap (10-20) BUN (7-21) mg/dL Creatinine (0.8-1.5) mg/dL Est GFR ( Amer) Est GFR (Non-Af Amer) POC Glucose (mg/dL) 130 H (65-110) mg/dL Random Glucose (70-110) mg/dL Calcium (8.4-10.5) mg/dL Phosphorus (2.5-4.5) mg/dL Magnesium (1.7-2.2) mg/dL Total Bilirubin (0.2-1.3) mg/dL AST (17-59) U/L ALT (7-56) U/L Alkaline Phosphatase (38-126) U/L Total Protein (5.8-8.3) g/dL Albumin (3.0-4.8) g/dL Globulin gm/dL Albumin/Globulin Ratio (1.1-1.8) Laboratory Results - last 24 hr 06/06/17 06/07/17 06/07/17 22:00 07:51 11:23 WBC RBC Hgb Hct MCV MCH MCHC RDW Plt Count MPV Gran % Lymph % (Auto) [place] % (Auto) Eos % (Auto) Baso % (Auto) Gran # Lymph # [place] # Eos # Baso # PT INR APTT Sodium Potassium Chloride Carbon Dioxide Anion Gap BUN Creatinine Est GFR ( Amer) Est GFR (Non-Af Amer) POC Glucose (mg/dL) 130 H 132 H 95 Random Glucose Calcium Phosphorus Magnesium Total Bilirubin AST ALT Alkaline Phosphatase Total Protein Albumin Globulin Albumin/Globulin Ratio 06/07/17 06/07/17 06/07/17 16:16 17:15 21:53 WBC RBC Hgb Hct MCV MCH MCHC RDW Plt Count MPV Gran % Lymph % (Auto) [place] % (Auto) Eos % (Auto) Baso % (Auto) Gran # Lymph # [place] # Eos # Baso # PT 20.9 H INR 1.89 H APTT 37.9 H Sodium Potassium Chloride Carbon Dioxide Anion Gap BUN Creatinine Est GFR ( Amer) Est GFR (Non-Af Amer) POC Glucose (mg/dL) 86 142 H Random Glucose Calcium Phosphorus Magnesium Total Bilirubin AST ALT Alkaline Phosphatase Total Protein Albumin Globulin Albumin/Globulin Ratio 06/08/17 06/08/17 06/08/17 01:45 05:30 05:30 WBC 9.0 RBC 2.89 L Hgb 8.6 L Hct 28.3 L MCV 97.9 MCH 29.8 MCHC 30.4 L RDW 13.6 Plt Count 193 MPV 11.7 H Gran % 82.0 H Lymph % (Auto) 10.9 L [place] % (Auto) 5.2 Eos % (Auto) 1.8 Baso % (Auto) 0.1 Gran # 7.34 H Lymph # 1.0 L [place] # 0.5 Eos # 0.2 Baso # 0.01 PT 16.7 H INR 1.52 H APTT Sodium 151 H Potassium 3.3 L Chloride 115 H Carbon Dioxide 30 Anion Gap 9 L BUN 19 Creatinine 0.8 Est GFR ( Amer) > 60 Est GFR (Non-Af Amer) > 60 POC Glucose (mg/dL) Random Glucose 120 H Calcium 8.6 Phosphorus 3.3 Magnesium 2.2 Total Bilirubin 1.0 AST 33 ALT 27 Alkaline Phosphatase 160 H D Total Protein 7.1 Albumin 2.8 L Globulin 4.3 Albumin/Globulin Ratio 0.7 L 06/08/17 05:30 WBC RBC Hgb Hct MCV MCH MCHC RDW Plt Count MPV Gran % Lymph % (Auto) [place] % (Auto) Eos % (Auto) Baso % (Auto) Gran # Lymph # [place] # Eos # Baso # PT 16.0 H INR 1.44 H APTT 29.7 Sodium Potassium Chloride Carbon Dioxide Anion Gap BUN Creatinine Est GFR ( Amer) Est GFR (Non-Af Amer) POC Glucose (mg/dL) Random Glucose Calcium Phosphorus Magnesium Total Bilirubin AST ALT Alkaline Phosphatase Total Protein Albumin Globulin Albumin/Globulin Ratio EKG/Cardiology Studies: Cardiology / EKG Studies 06/08/17 04:55 EKG [ELECTROCARDIOGRAM] Stat Comment: Reason For Exam: rhytham change Attending/Attestation - Attestation I have personally seen and examined this patient.: Yes I have fully participated in the care of the patient.: Yes I have reviewed all pertinent clinical information: Yes Notes (Text): 06/08/17 15:28 67 yo with thalamic bleed and subsequent VDRF, now s/p trach and peg. signed off by surgical team. continue weaning from MV. Maintain euvolemia, euglycemia, normothermia and 02sat>90%. fever likely central. DVT/GI prophylaxis ccm time 40 min
[2017-06-08] MEDS ORDERED: Rocuronium 10 mg/ml (5 ml) ONE (08:11)
[2017-06-08] MEDS ORDERED: Midazolam 2 MG/2 ML VIAL ONE (08:13)
--- NOTE | 2017-06-08 08:36 | CON ---
DATE: 06/07/2017 REASON FOR CONSULTATION: Evaluation for placement of a feeding tube. HISTORY OF PRESENT ILLNESS: This 67-year-old patient with past medical history of chronic back pain, herniated disc, history of skin cancer , with a history of ETOH use, hypertension was brought to the emergency room on 05/29/2017 after being found by his on the floor. The patient was noted to have an intracerebral hemorrhage with intraventricular extension. The patient remains on vent. Request for feeding tube placement. The patient is also found to be scheduled for a tracheostomy. The patient had a spiking fever. PAST MEDICAL HISTORY: Other past medical history as above. FAMILY HISTORY: Positive for skin cancer and esophageal cancer. ALLERGIES: ALLERGIC TO BASIL AND PENICILLIN. SOCIAL HISTORY: Drinks about 15 beers a day, 2 packs of cigarettes for nearly 30 years. REVIEW OF SYSTEMS: Limited as above. PHYSICAL EXAMINATION: GENERAL: The patient is lying on the bed, not in acute distress. VITAL SIGNS: T-max is 101.3, blood pressure is 103/59, pulse 68, The patient is on 40% FiO2, saturation is 99%. HEENT: Anicteric, normocephalic. Extraocular movement intact. NECK: Supple. HEART: S1 and S2 . LUNGS: Bilateral air entry present. ABDOMEN: Soft. There is no mass palpable. EXTREMITIES: 1+ edema present upper extremities. NEUROLOGIC: He has a fixed pupil, small, noncommunicative and on vent. LABORATORY DATA: Hemoglobin 9.4, hematocrit 30.8, WBC 10.6, platelets 199. Chemistry is essentially unremarkable. INR is 1.69. IMPRESSION: This is a 67-year-old patient with status post cerebrovascular accident, intravascular and intracerebral hemorrhage, needing tracheostomy and feeding tube placement. Informed consent was obtained. The patient is scheduled for the procedure. The patient's INR is mildly elevated. We will discuss with surgical team. Milagro Zapien MD [facility]
--- NOTE | 2017-06-08 09:36 | PCM.SURG1 ---
Surgeon's Initial Post Op Note - Surgeon's Notes Surgeon: Dr. Hyatt Respiratory Services Manager: Dr. Mclain PGY-3 Type of Anesthesia: General Endo Anesthesia Administered By: Dr. Montgomery Pre-Operative Diagnosis: Respiratoy failure, Vent Dependence Operative Findings: See operative dictation Post-Operative Diagnosis: Same Operation Performed: Open Tracheostomy Specimen/Specimens Removed: none Estimated Blood Loss: EBL {In ML}: 10 Blood Products Given: FFP Drains Used: No Drains Post-Op Condition: Good Date of Surgery/Procedure: 06/08/17 Time of Surgery/Procedure: 09:36
--- NOTE | 2017-06-08 09:37 | RAD ---
HISTORY: interval changes COMPARISON: 06/06/2017 FINDINGS: LUNGS: There is no change in the right lower lobe infiltrate. There is a minimal infiltrate at the left lung base. PLEURA: No significant pleural effusion identified, no pneumothorax apparent. CARDIOVASCULAR: Normal. OSSEOUS STRUCTURES: No significant abnormalities. VISUALIZED UPPER ABDOMEN: Normal. OTHER FINDINGS: Endotracheal and nasogastric tubes unchanged IMPRESSION: No change in right lower lobe infiltrate. New minimal infiltrate at the left lung base
[2017-06-08] MEDS: Vancomycin 1gm in NS 250ml 1 GM/250 ML BAG IVPB SCH ×2 (09:52→21:45)
--- NOTE | 2017-06-08 10:09 | CP.PCM.PN ---
Subjective - Date & Time of Evaluation Date of Evaluation: 06/08/17 Time of Evaluation: 09:40 - Subjective Subjective: No fevers overnight, not in distress. Still on the vent. Objective - Vital Signs/Intake and Output Vital Signs (last 24 hours): Temp Pulse Resp BP Pulse Ox 99.5 F 148 H 13 119/75 99 06/08/17 00:00 06/08/17 05:56 06/07/17 15:10 06/08/17 05:56 06/08/17 05:56 Intake and Output: 06/07/17 06/08/17 18:59 06:59 Intake Total 717 2055 Output Total 425 400 Balance 292 1655 - Medications Medications: Current Medications Artificial Tears (Artificial Tears) 0 ml OU DAILY [facility] Last Admin: 06/07/17 11:04 Dose: 1 drop Chlorhexidine Gluconate (Peridex) 15 ml PO TID [facility] Last Admin: 06/07/17 18:29 Dose: 15 ml Clonidine HCl (Catapres) 0.1 mg PO BID [facility] Last Admin: 06/07/17 18:25 Dose: 0.1 mg Vancomycin HCl (Vancomycin 1gm) 1 gm in 250 mls @ 167 mls/hr IVPB Q12H KATIE PRN Reason: Protocol Last Admin: 06/07/17 21:36 Dose: 167 mls/hr Aztreonam (Azactam 2 Gm) 100 mls @ 100 mls/hr IVPB Q8 KATIE PRN Reason: Protocol Stop: 06/08/17 09:01 Last Admin: 06/08/17 05:38 Dose: 100 mls/hr Metronidazole (Flagyl) 500 mg in 100 mls @ 100 mls/hr IVPB Q8 KATIE PRN Reason: Protocol Last Admin: 06/08/17 05:38 Dose: 100 mls/hr Fentanyl Citrate (Fentanyl Citrate/Sodium Chloride 1 Mg/100 Ml) 1,000 mcg in 100 mls @ 2 mls/hr IV .Q24H PRN; Protocol; 20 MCG/HR PRN Reason: TITRATE PER MD ORDER Last Admin: 06/07/17 22:23 Dose: 50 mcg/hr, 5 mls/hr Lorazepam (Ativan) 2 mg IVP Q2H PRN; Protocol PRN Reason: Symptoms of alcohol withdrawl Lorazepam (Ativan) 4 mg IVP Q4H PRN; Protocol PRN Reason: Symptoms of alcohol withdrawl Last Admin: 05/30/17 17:00 Dose: 4 mg Metoprolol Tartrate (Lopressor) 25 mg PO BID [facility] Last Admin: 06/07/17 18:27 Dose: 25 mg Pantoprazole Sodium (Protonix Inj) 40 mg IVP DAILY [facility] Last Admin: 06/07/17 09:54 Dose: 40 mg Sodium Chloride (Sodium Chloride Tab) 1 gm PO Q12 [facility] Last Admin: 06/02/17 21:31 Dose: 1 gm - Labs Labs: 06/08/17 05:30 06/07/17 05:30 PT 16.0 SECONDS (9.4-12.5) H 06/08/17 05:30 INR 1.44 (0.93-1.08) H 06/08/17 05:30 APTT 29.7 Seconds (25.1-36.5) 06/08/17 05:30 - Constitutional Appears: Other (on the ventilator) - Head Exam Head Exam: NORMAL INSPECTION - Neck Exam Neck Exam: absent: Lymphadenopathy, Meningismus - Respiratory Exam Respiratory Exam: Decreased Breath Sounds - Cardiovascular Exam Cardiovascular Exam: +S1, +S2 - GI/Abdominal Exam GI & Abdominal Exam: Soft. absent: Tenderness Assessment and Plan - Assessment and Plan (Free Text) Plan: Assessment persistent fevers, R/O sepsis due to scrotal cellulitis R/O abscess formation S/ P I and D POD #4; R/O central fever, R/O new onset sepsis Probable left buttock skin and skin structure infection S/P I and D POD #5 systemic inflammatory response syndrome probably from acute left sided hemorrhagic CVA skin cancer S/P resection around right ear area S/P lumbar disc hernia repair Plan continue Vancomycin, Azactam and Flagyl day 8; wound cx from the scrotum are negative - follow up repeat blood cx, urine cx, sputum cx from 2 days ago ( negative so far); CXR done 2 days ago still does not show infiltrates - follow up repeat CXR today; right sided central venous catheter removed; will continue to trend fever curve - if cultures continue to be negative, complete 10 days of antibiotics Neuro and Neurosurgery managing the CVA will continue to monitor clinically discussed with ICU team overall prognosis is poor
[2017-06-08] MEDS: Chlorhexidine 0.12% Oral Sol 480 ml Bot PO SCH ×2 (10:25→14:01)
[2017-06-08] MEDS: Aritificial Tears (15ml) OU SCH (10:35)
--- NOTE | 2017-06-08 10:36 | RAD ---
HISTORY: s/p trach COMPARISON: Earlier same day FINDINGS: LUNGS: A tracheostomy is now seen in place. No change in the right lower lobe infiltrate. PLEURA: No significant pleural effusion identified, no pneumothorax apparent. CARDIOVASCULAR: Normal. OSSEOUS STRUCTURES: No significant abnormalities. VISUALIZED UPPER ABDOMEN: Normal. OTHER FINDINGS: None. IMPRESSION: New tracheostomy in satisfactory position. Right lower lobe infiltrate unchanged
--- NOTE | 2017-06-08 12:32 | CARD ---
APPROVED REPORT EKG Measurement Heart [id number] <Conclusion> Supraventricular tachycardia ST & T wave abnormality, consider infero-lat wall ischemia Abnormal ECG
--- NOTE | 2017-06-08 12:56 | CP.PCM.PN ---
<Paramjit Greenberg - Last Filed: 06/08/17 12:52> Subjective - Date & Time of Evaluation Date of Evaluation: 06/08/17 Time of Evaluation: 12:52 - Subjective Subjective: Medicine Progress Note: Pt seen and examined at bedside. Pt follows simple commands. Tmax over 24 hrs 100.1. Pt s/p tracheotomy and PEG tube. ROS not obtained due to patient's current mental status. Objective - Vital Signs/Intake and Output Vital Signs (last 24 hours): Temp Pulse Resp BP Pulse Ox 99.5 F 67 13 129/70 99 06/08/17 00:00 06/08/17 09:51 06/07/17 15:10 06/08/17 09:51 06/08/17 05:56 Intake and Output: 06/08/17 06/08/17 06:59 18:59 Intake Total 2055 Output Total 400 Balance 1655 - Medications Medications: Current Medications Artificial Tears (Artificial Tears) 0 ml OU DAILY [facility] Last Admin: 06/07/17 11:04 Dose: 1 drop Chlorhexidine Gluconate (Peridex) 15 ml PO TID [facility] Last Admin: 06/07/17 18:29 Dose: 15 ml Clonidine HCl (Catapres) 0.1 mg PO BID [facility] Last Admin: 06/08/17 09:51 Dose: Not Given Vancomycin HCl (Vancomycin 1gm) 1 gm in 250 mls @ 167 mls/hr IVPB Q12H KATIE PRN Reason: Protocol Last Admin: 06/08/17 09:52 Dose: 167 mls/hr Metronidazole (Flagyl) 500 mg in 100 mls @ 100 mls/hr IVPB Q8 KATIE PRN Reason: Protocol Last Admin: 06/08/17 05:38 Dose: 100 mls/hr Fentanyl Citrate (Fentanyl Citrate/Sodium Chloride 1 Mg/100 Ml) 1,000 mcg in 100 mls @ 2 mls/hr IV .Q24H PRN; Protocol; 20 MCG/HR PRN Reason: TITRATE PER MD ORDER Last Admin: 06/07/17 22:23 Dose: 50 mcg/hr, 5 mls/hr Lorazepam (Ativan) 2 mg IVP Q2H PRN; Protocol PRN Reason: Symptoms of alcohol withdrawl Lorazepam (Ativan) 4 mg IVP Q4H PRN; Protocol PRN Reason: Symptoms of alcohol withdrawl Last Admin: 05/30/17 17:00 Dose: 4 mg Metoprolol Tartrate (Lopressor) 25 mg PO BID [facility] Last Admin: 06/08/17 09:50 Dose: Not Given Pantoprazole Sodium (Protonix Inj) 40 mg IVP DAILY [facility] Last Admin: 06/08/17 09:52 Dose: 40 mg Sodium Chloride (Sodium Chloride Tab) 1 gm PO Q12 [facility] Last Admin: 06/02/17 21:31 Dose: 1 gm - Labs Labs: 06/08/17 05:30 06/08/17 05:30 PT 16.0 SECONDS (9.4-12.5) H 06/08/17 05:30 INR 1.44 (0.93-1.08) H 06/08/17 05:30 APTT 29.7 Seconds (25.1-36.5) 06/08/17 05:30 - Constitutional Appears: No Acute Distress - Head Exam Head Exam: ATRAUMATIC, NORMAL INSPECTION, NORMOCEPHALIC - Eye Exam Additional comments: pupils 2-3 mm b/l, sluggishly reactive to light - ENT Exam ENT Exam: Mucous Membranes Dry - Neck Exam Neck Exam: absent: Lymphadenopathy, Thyromegaly Additional comments: Tracheotomy tube in place - Respiratory Exam Respiratory Exam: Clear to Ausculation Bilateral. absent: Accessory Muscle Use , Rales, Rhonchi, Wheezes, Respiratory Distress - Cardiovascular Exam Cardiovascular Exam: RRR, +S1, +S2. absent: Diastolic murmur, Gallop, Rubs, Murmur - GI/Abdominal Exam GI & Abdominal Exam: Soft. absent: Distended, Guarding, Tenderness, Mass, Rebound Additional comments: PEG tube in place in LUQ, non-erythematous, non-draining around incision site - Extremities Exam Extremities Exam: Normal Inspection. absent: Joint Swelling, Pedal Edema - Neurological Exam Neurological Exam: Awake. absent: Oriented x3 - Skin Skin Exam: Dry, Intact, Normal Color, Warm Assessment and Plan - Assessment and Plan (Free Text) Assessment: 67 yo M with unknown PMH presented for possible stroke, found to have 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 Patient is intubated and off sedation. Pt s/p incision and drainage of left buttock abscess, I&D of scrotal abscess, trach and PEG insertion. Plan: 1. Intracerebral Hemorrhage - Admitted to ICU - CT showed hemorrhagic infarct of the left thalamus/basal ganglia. No midline shift. Left thalamic edema - Repeat CT's showed stable left thalamic hemorrhage x3 - Neurosurgery consulted No surgical intervention at this time - Neuro consulted Cont current medications PT/OT Amantadine 100 mg BID via PEG Continue normotension, normothermia, euglycemia - Trach/PEG in place POD #0 Tube feedings Mechanically vented, off sedation - Lipid panel, A1C WNL - F/u with case management for inpatient rehab placement 2. SVT, resolved - SVT overnight 06/07/17 2 doses of Adenosine given Patient currently NSR - Cardio consulted Lopressor 25 mg PO BID 3. Left gluteal ulcer, Grade 2 - Blood cultures negative - Wound culture positive for coag negative staph - Surgery consulted POD #7 I&D Wound care - ID consulted Vancomycin, Azactam, Flagyl day 8 4. Scrotal Abscess - Blood and urine cultures negative - Wound culture negative after 48 hours - Testicular US negative for epidymitis, orchitis, torsion; decreased flow to left testicle, scrotal edema - Urology consulted POD#4 I&D Wound care - Abx for ulcer covers scrotal abscess 5. Fever - Likely central fever - Follow up repeat blood cx, urine cx, sputum cx - Tmax over 24 hours 100.1 - Gluteal ulcer vs. scrotal abscess vs. UTI vs. pneumonia - IV abx per ID, if cultures continue to be negative, complete 10 days of abx - CXR shows no consolidation - UA, procal negative 6. Hypokalemia - K 3.3 - IVPB KCl 40 meq - Monitor and replete as needed GI/DVT PPx - Protonix - SCDs Case and planned reviewed with attending Tao Greenberg, PGY1 <Tammy Rocha - Last Filed: 06/08/17 15:54> Objective - Vital Signs/Intake and Output Vital Signs (last 24 hours): Temp Pulse Resp BP Pulse Ox 99.5 F 67 13 129/70 99 06/08/17 00:00 06/08/17 09:51 06/07/17 15:10 06/08/17 09:51 06/08/17 08:54 Intake and Output: 06/08/17 06/08/17 06:59 18:59 Intake Total 2054 Output Total 400 Balance 1655 - Medications Medications: Current Medications Artificial Tears (Artificial Tears) 0 ml OU DAILY [facility] Last Admin: 06/08/17 10:35 Dose: 1 drop Chlorhexidine Gluconate (Peridex) 15 ml PO TID [facility] Last Admin: 06/08/17 14:01 Dose: 15 ml Clonidine HCl (Catapres) 0.1 mg PO BID [facility] Last Admin: 06/08/17 09:51 Dose: Not Given Vancomycin HCl (Vancomycin 1gm) 1 gm in 250 mls @ 167 mls/hr IVPB Q12H KATIE PRN Reason: Protocol Last Admin: 06/08/17 09:52 Dose: 167 mls/hr Metronidazole (Flagyl) 500 mg in 100 mls @ 100 mls/hr IVPB Q8 KATIE PRN Reason: Protocol Last Admin: 06/08/17 14:00 Dose: 100 mls/hr Fentanyl Citrate (Fentanyl Citrate/Sodium Chloride 1 Mg/100 Ml) 1,000 mcg in 100 mls @ 2 mls/hr IV .Q24H PRN; Protocol; 20 MCG/HR PRN Reason: TITRATE PER MD ORDER Last Admin: 06/07/17 22:23 Dose: 50 mcg/hr, 5 mls/hr Lorazepam (Ativan) 2 mg IVP Q2H PRN; Protocol PRN Reason: Symptoms of alcohol withdrawl Lorazepam (Ativan) 4 mg IVP Q4H PRN; Protocol PRN Reason: Symptoms of alcohol withdrawl Last Admin: 05/30/17 17:00 Dose: 4 mg Metoprolol Tartrate (Lopressor) 25 mg PO BID [facility] Last Admin: 06/08/17 09:50 Dose: Not Given Pantoprazole Sodium (Protonix Inj) 40 mg IVP DAILY [facility] Last Admin: 06/08/17 09:52 Dose: 40 mg Sodium Chloride (Sodium Chloride Tab) 1 gm PO Q12 [facility] Last Admin: 06/02/17 21:31 Dose: 1 gm - Labs Labs: 06/08/17 05:30 06/08/17 05:30 PT 16.0 SECONDS (9.4-12.5) H 06/08/17 05:30 INR 1.44 (0.93-1.08) H 06/08/17 05:30 APTT 29.7 Seconds (25.1-36.5) 06/08/17 05:30 Attending/Attestation - Attestation I have personally seen and examined this patient.: Yes I have fully participated in the care of the patient.: Yes I have reviewed all pertinent clinical information, including history, physical exam and plan: Yes Notes (Text): 06/08/17 15:53 67 year old male who was admitted with altered mental status. He was found to have hemorrhagic infarct of the left thalamus / basal ganglia on CT scan. He was seen by neurosurgery and neurology who recommended conservative management. Plan for today is trach and PEG per surgery / GI. He is on iv antibiotics for scrotal cellulitis. S/p I&D. He is also s/p I&D of right buttock abscess. Fever trend is coming down (?central). Repeat septic workup was negative to date. Will replete and repeat lytes. D/c planning to [facility] after trach/peg. Tammy Rocha MD Hospitalist.
[2017-06-08] MEDS: Fentanyl 1000mcg/100ml NS 1,000 MCG/100 ML BAG IV PRN (20:44)
[2017-06-09] MEDS ORDERED: Aztreonam 2 Gm in NS 100mL 100 ML IVPB SCH (06:00)
[2017-06-09] MEDS: metroNIDAZOLE IV 500 mg/100 ml 500 MG/100 ML BAG IVPB SCH (06:30)
[2017-06-09 06:41] LABS: BASO # 0.02 K/mm3 (0.0-2.0); BASO % 0.2 % (0.0-3.0); EOS # 0.3 (0.0-0.7); GRAN # 7.23 (1.4-6.5); HEMATOCRIT 28.3 % (42.0-52.0); LYMPH # 1.2 (1.2-3.4); LYMPH % 12.7 % (22.0-35.0); MEAN CELL VOLUME 97.6 fl (80.0-105.0); MEAN CORPUSCULAR HEMOGLOBIN 29.7 pg (25.0-35.0); MEAN CORPUSCULAR HGB CONC 30.4 g/dl (31.0-37.0); MEAN PLATELET VOLUME 11.4 fl (7.0-11.0); MONO # 0.6 (0.1-0.6); MONO % 6.1 % (1.0-6.0); RED CELL DISTRIBUTION WIDTH 13.7 % (11.5-14.5); WHITE BLOOD COUNT 9.3 10^3/ul (4.5-11.0)
[2017-06-09 06:53] LABS: ALB/GLOB RATIO 0.6 (1.1-1.8); ALKALINE PHOSPHATASE 125 U/L (38-126); ALT/SGPT 21 U/L (7-56); AST/SGOT 32 U/L (17-59); BILIRUBIN,TOTAL 1.1 mg/dL (0.2-1.3); BLOOD UREA NITROGEN 14 mg/dL (7-21); CALCIUM 8.5 mg/dL (8.4-10.5); CARBON DIOXIDE 31 mmol/L (21-33); CHLORIDE 117 mmol/L (98-107); GFR AFRICAN-AMERICAN > 60; GLUCOSE,RANDOM 85 mg/dL (70-110); POTASSIUM 3.3 mmol/L (3.6-5.0); SODIUM 150 mmol/L (132-148); TOTAL PROTEIN 6.9 g/dL (5.8-8.3)
--- NOTE | 2017-06-09 08:33 | CP.PCM.PN ---
Subjective - Date & Time of Evaluation Date of Evaluation: 06/09/17 Time of Evaluation: 08:30 - Subjective Subjective: Surgery Progress note. Dr. Hyatt Pt seen and examined at bedside. No acute events overnight. Trach site clean, dressing in place. PEG site intact. Patient follows simple commands to verbal and tactile cues on the left side. Objective - Vital Signs/Intake and Output Vital Signs (last 24 hours): Temp Pulse Resp BP Pulse Ox 99.7 F H 102 H 17 135/77 97 06/09/17 04:00 06/09/17 07:00 06/09/17 07:12 06/09/17 07:00 06/09/17 07:12 Intake and Output: 06/09/17 06/09/17 06:59 18:59 Intake Total 710 Output Total 900 Balance -190 - Medications Medications: Current Medications Artificial Tears (Artificial Tears) 0 ml OU DAILY [facility] Last Admin: 06/08/17 10:35 Dose: 1 drop Chlorhexidine Gluconate (Peridex) 15 ml PO TID [facility] Last Admin: 06/08/17 14:01 Dose: 15 ml Clonidine HCl (Catapres) 0.1 mg PO BID [facility] Last Admin: 06/08/17 17:55 Dose: Not Given Vancomycin HCl (Vancomycin 1gm) 1 gm in 250 mls @ 167 mls/hr IVPB Q12H KATIE PRN Reason: Protocol Last Admin: 06/08/17 21:45 Dose: 167 mls/hr Metronidazole (Flagyl) 500 mg in 100 mls @ 100 mls/hr IVPB Q8 KATIE PRN Reason: Protocol Last Admin: 06/09/17 06:30 Dose: 100 mls/hr Fentanyl Citrate (Fentanyl Citrate/Sodium Chloride 1 Mg/100 Ml) 1,000 mcg in 100 mls @ 2 mls/hr IV .Q24H PRN; Protocol; 20 MCG/HR PRN Reason: TITRATE PER MD ORDER Last Admin: 06/08/17 20:44 Dose: 50 mcg/hr, 5 mls/hr Aztreonam (Azactam 2 Gm) 100 mls @ 100 mls/hr IVPB Q8 KATIE PRN Reason: Protocol Stop: 06/16/17 06:01 Last Admin: 06/09/17 06:31 Dose: 100 mls/hr Lorazepam (Ativan) 2 mg IVP Q2H PRN; Protocol PRN Reason: Symptoms of alcohol withdrawl Lorazepam (Ativan) 4 mg IVP Q4H PRN; Protocol PRN Reason: Symptoms of alcohol withdrawl Last Admin: 05/30/17 17:00 Dose: 4 mg Metoprolol Tartrate (Lopressor) 25 mg PO BID [facility] Last Admin: 06/08/17 17:55 Dose: Not Given Pantoprazole Sodium (Protonix Inj) 40 mg IVP DAILY [facility] Last Admin: 06/08/17 09:52 Dose: 40 mg Sodium Chloride (Sodium Chloride Tab) 1 gm PO Q12 [facility] Last Admin: 06/02/17 21:31 Dose: 1 gm - Labs Labs: 06/09/17 06:00 06/09/17 06:00 PT 16.0 SECONDS (9.4-12.5) H 06/08/17 05:30 INR 1.44 (0.93-1.08) H 06/08/17 05:30 APTT 29.7 Seconds (25.1-36.5) 06/08/17 05:30 - Constitutional Appears: Non-toxic, No Acute Distress - Head Exam Head Exam: ATRAUMATIC, NORMAL INSPECTION, NORMOCEPHALIC - Eye Exam Eye Exam: EOMI - ENT Exam ENT Exam: Mucous Membranes Moist - Respiratory Exam Respiratory Exam: Clear to Ausculation Bilateral, NORMAL BREATHING PATTERN. absent: Wheezes Additional comments: Trach in place, dressing clean, dry and intact. Sutures in place. - Cardiovascular Exam Cardiovascular Exam: RRR. absent: JVD - GI/Abdominal Exam GI & Abdominal Exam: Soft. absent: Guarding, Rigid, Tenderness Additional comments: PEG in place - Extremities Exam Extremities Exam: Normal Inspection - Neurological Exam Neurological Exam: Awake Additional comments: Follows simple commands - Skin Additional comments: left gluteal abscess I&D site with clean base, mild purulent drainage noted on bandage, dressing changed Assessment and Plan - Assessment and Plan (Free Text) Assessment: 67yo M with Left thalamic intracranial hemorrhage with VDRF s/p Trach/PEG POD#1 and also with L gluteal abscess s/p I&D POD#8. Scrotal Abscess I&D by urology POD#5. - No further surgical intervention at this time - Trach sutures to be removed in 2 weeks - PEG okay to use today - Change left gluteal wound dressings as needed. Keep area clean and dry. q2 turns. - Scrotal abscess management as per Urology - pending transfer to [facility] Further recs as per Dr. Edmar Andersen PGY1 surgery pager: [phone]
[2017-06-09 09:28] VITALS: PULSE 67
[2017-06-09] MEDS: Vancomycin 1gm in NS 250ml 1 GM/250 ML BAG IVPB SCH (10:04)
[2017-06-09 10:06] VITALS: BP 112/58
[2017-06-09] MEDS: Chlorhexidine 0.12% Oral Sol 480 ml Bot PO SCH (10:08)
[2017-06-09] MEDS: Aritificial Tears (15ml) OU SCH (10:08)
[2017-06-09 11:13] VITALS: O2SAT 99
[2017-06-09 11:47] VITALS: RESP 14; TEMP 99
--- NOTE | 2017-06-09 15:27 | OP ---
PROCEDURE DATE: 06/08/2017 PREOPERATIVE DIAGNOSIS: Subarachnoid hemorrhage. OPERATION PERFORMED: Open tracheostomy and a PEG. SURGEON: Manuel Hyatt MD PHYSICIAN'S ASSISTANT: DESCRIPTION OF PROCEDURE: In the operating room, the patient was identified by name, name of the procedure, laterality, my name, number and the consent. The patient was hyperextended with an endotracheal tube in place. After the successful time-out, the wounds were injected with Marcaine followed by an up and down incision. The incision was taken down in the midline between basically the larynx and manubrium. It was dissected down through the thyroid using cautery and the pretracheal fascia was identified and spread apart. The cricothyroid ring was identified going beneath this into the second tracheal ring. A transverse incision was made above and below the second ring. It was then cut out with curves, dilated, the endotracheal tube is pulled back and the #8 Shiley that was lubricated and tested was placed without issue. CO2 was immediately seen. The retractors were removed. The skin was closed with nylon. The tracheostomy was sutured to the skin with silk and the respirations begun through the tube. X-ray postop showed this to be in good position. A light pressure dressing was applied. The patient was then turned over to Dr. Zapien for the PEG, which was dictated under separate cover. Manuel Hyatt MD
--- NOTE | 2017-06-09 16:27 | CP.PCM.DIS ---
<Paramjit Greenberg - Last Filed: 06/09/17 15:54> Provider - Provider Date of Admission: 05/29/17 11:10 Attending physician: Tammy Rocha MD Primary care physician: NO PRIMARY CARE PROVIDER Consults: Cardio: Pereyra GI: Curry Neuro: Korya Neurosurg: Concha ID: [email or web address] Surg: Hyatt Uro: Melecio Time Spent in preparation of Discharge (in minutes): 45 Hospital Course - Lab Results Lab Results: Micro Results 06/06/17 10:20 Blood-Venous Blood Culture - Preliminary NO GROWTH AFTER 3 DAYS 06/06/17 10:10 Blood-Venous Blood Culture - Preliminary NO GROWTH AFTER 3 DAYS 06/06/17 13:55 Trachasp Gram Stain - Final 06/06/17 13:55 Trachasp Sputum Culture - Final No growth. 06/03/17 05:45 Blood-Venous Blood Culture - Final NO GROWTH AFTER 5 DAYS 06/03/17 05:45 Blood-Venous Gram Stain - Final TEST NOT PERFORMED 06/03/17 05:10 Blood-Venous Blood Culture - Final NO GROWTH AFTER 5 DAYS 06/03/17 05:10 Blood-Venous Gram Stain - Final TEST NOT PERFORMED 06/04/17 08:56 Scrotum Gram Stain - Final 06/04/17 08:56 Scrotum Wound Culture - Final No growth. 06/06/17 13:32 Urine,Philippe Urine Culture - Final No Growth (<1,000 CFU/ML) 06/01/17 09:15 Blood-Venous Blood Culture - Final NO GROWTH AFTER 5 DAYS 06/01/17 09:15 Blood-Venous Gram Stain - Final TEST NOT PERFORMED 06/01/17 09:00 Blood-Venous Blood Culture - Final NO GROWTH AFTER 5 DAYS 06/01/17 09:00 Blood-Venous Gram Stain - Final TEST NOT PERFORMED 06/01/17 07:40 Drainage Gram Stain - Final 06/01/17 07:40 Drainage Wound Culture - Final Coagulase Neg Staphylococcus 06/03/17 08:50 Urine Urine Culture - Final No Growth (<1,000 CFU/ML) 05/29/17 12:35 Nose MRSA Culture (Admit) - Final MRSA NOT DETECTED Most Recent Lab Values WBC 9.3 10^3/ul (4.5-11.0) 06/09/17 06:00 RBC 2.90 10^6/uL (3.5-6.1) L 06/09/17 06:00 Hgb 8.6 g/dL (14.0-18.0) L 06/09/17 06:00 Hct 28.3 % (42.0-52.0) L 06/09/17 06:00 MCV 97.6 fl (80.0-105.0) 06/09/17 06:00 MCH 29.7 pg (25.0-35.0) 06/09/17 06:00 MCHC 30.4 g/dl (31.0-37.0) L 06/09/17 06:00 RDW 13.7 % (11.5-14.5) 06/09/17 06:00 Plt Count 236 10^3/uL (120.0-450.0) 06/09/17 06:00 MPV 11.4 fl (7.0-11.0) H 06/09/17 06:00 Gran % 78.0 % (50.0-68.0) H 06/09/17 06:00 Lymph % (Auto) 12.7 % (22.0-35.0) L 06/09/17 06:00 [place] % (Auto) 6.1 % (1.0-6.0) H 06/09/17 06:00 Eos % (Auto) 3.0 % (1.5-5.0) 06/09/17 06:00 Baso % (Auto) 0.2 % (0.0-3.0) 06/09/17 06:00 Gran # 7.23 (1.4-6.5) H 06/09/17 06:00 Lymph # 1.2 (1.2-3.4) 06/09/17 06:00 [place] # 0.6 (0.1-0.6) 06/09/17 06:00 Eos # 0.3 (0.0-0.7) 06/09/17 06:00 Baso # 0.02 K/mm3 (0.0-2.0) 06/09/17 06:00 PT 16.0 SECONDS (9.4-12.5) H 06/08/17 05:30 INR 1.44 (0.93-1.08) H 06/08/17 05:30 APTT 29.7 Seconds (25.1-36.5) 06/08/17 05:30 pCO2 46 mm/Hg (35-45) H 06/06/17 06:02 pO2 88.0 mm/Hg (80-100) 06/06/17 06:02 HCO3 28.5 mmol/L (21-28) H 06/06/17 06:02 ABG pH 7.40 (7.35-7.45) 06/06/17 06:02 ABG Total CO2 29.9 mmol.L (22-28) H 06/06/17 06:02 ABG O2 Saturation 98.7 % (95-98) H 06/06/17 06:02 ABG O2 Content 12.6 ML/dl (15-23) L 06/06/17 06:02 ABG Base Excess 3.2 mmol/L (-2.0-3.0) H 06/06/17 06:02 ABG Hemoglobin 9.3 g/dL (11.7-17.4) L 06/06/17 06:02 ABG Carboxyhemoglobin 1.9 % (0.5-1.5) H 06/06/17 06:02 POC ABG HHb (Measured) 1.3 % (0-5) 06/06/17 06:02 ABG Methemoglobin 1.1 % (0.0-3.0) 06/06/17 06:02 ABG O2 Capacity 12.8 mL/dl (16-24) L 06/06/17 06:02 ABG Potassium 3.5 mmol/L (3.6-5.2) L 05/29/17 13:55 VBG pH 7.33 (7.32-7.43) 05/31/17 09:30 VBG pCO2 42.0 (40-60) 05/31/17 09:30 VBG HCO3 22.1 mmol/l (21-28) 05/31/17 09:30 VBG Total CO2 23.4 mmol.L (22-28) 05/31/17 09:30 VBG O2 Sat (Calc) 85.9 % (40-65) H 05/31/17 09:30 VBG Base Excess -3.7 mmol/L (0.0-2.0) L 05/31/17 09:30 VBG Potassium 3.6 mmol/L (3.6-5.2) 05/31/17 09:30 Hgb O2 Saturation 95.7 % (95.0-98.0) 06/06/17 06:02 Sodium 136.0 mmol/L (132-148) 05/31/17 09:30 Chloride 109.0 mmol/L (98-107) H 05/31/17 09:30 Glucose 130 mg/dl (75-110) H 05/31/17 09:30 Lactate 1.0 mmol/L (0.7-2.1) 05/31/17 09:30 FiO2 40.0 % 06/06/17 06:02 Sodium 150 mmol/L (132-148) H 06/09/17 06:00 Potassium 3.3 mmol/L (3.6-5.0) L 06/09/17 06:00 Chloride 117 mmol/L (98-107) H 06/09/17 06:00 Carbon Dioxide 31 mmol/L (21-33) 06/09/17 06:00 Anion Gap 5 (10-20) L 06/09/17 06:00 BUN 14 mg/dL (7-21) 06/09/17 06:00 Creatinine 0.8 mg/dL (0.8-1.5) 06/09/17 06:00 Est GFR ( Amer) > 60 06/09/17 06:00 Est GFR (Non-Af Amer) > 60 06/09/17 06:00 POC Glucose (mg/dL) 86 mg/dL (65-110) 06/09/17 07:39 Random Glucose 85 mg/dL (70-110) 06/09/17 06:00 Hemoglobin A1c 5.6 % (4.2-6.5) 05/29/17 10:15 Serum Osmolality 310 mosm/kg (272-300) H 06/01/17 09:00 Calcium 8.5 mg/dL (8.4-10.5) 06/09/17 06:00 Phosphorus 3.3 mg/dL (2.5-4.5) 06/08/17 05:30 Magnesium 2.2 mg/dL (1.7-2.2) 06/08/17 05:30 Total Bilirubin 1.1 mg/dL (0.2-1.3) 06/09/17 06:00 AST 32 U/L (17-59) 06/09/17 06:00 ALT 21 U/L (7-56) 06/09/17 06:00 Alkaline Phosphatase 125 U/L (38-126) 06/09/17 06:00 Lactate Dehydrogenase 284 U/L (333-699) L 05/31/17 09:30 Total Creatine Kinase 206 U/L (35-230) 05/31/17 09:30 Troponin I 0.06 ng/mL D 05/31/17 09:30 Total Protein 6.9 g/dL (5.8-8.3) 06/09/17 06:00 Albumin 2.7 g/dL (3.0-4.8) L 06/09/17 06:00 Globulin 4.3 gm/dL 06/09/17 06:00 Albumin/Globulin Ratio 0.6 (1.1-1.8) L 06/09/17 06:00 Triglycerides 46 mg/dL (35-160) 05/30/17 05:20 Cholesterol 113 mg/dL (130-200) L 05/30/17 05:20 LDL Cholesterol Direct 51 mg/dL (0-129) 05/30/17 05:20 HDL Cholesterol 47 mg/dL (29-60) 05/30/17 05:20 Procalcitonin 0.16 NG/ML (0.19-0.49) L 06/06/17 10:10 Arterial Blood Potassium 3.5 mmol/L (3.6-5.2) L 05/29/17 13:55 Venous Blood Potassium 3.6 mmol/L (3.6-5.2) 05/31/17 09:30 Urine Color Dark yellow (YELLOW) 06/06/17 13:32 Urine Appearance Slight-cloudy (CLEAR) 06/06/17 13:32 Urine pH 6.0 (4.7-8.0) 06/06/17 13:32 Ur Specific [place] 1.025 (1.005-1.035) 06/06/17 13:32 Urine Protein Trace mg/dL (<30 mg/dL) H 06/06/17 13:32 Urine Glucose (UA) Negative mg/dL (NEGATIVE) 06/06/17 13:32 Urine Ketones Trace mg/dL (NEGATIVE) H 06/06/17 13:32 Urine Blood Moderate (NEGATIVE) H 06/06/17 13:32 Urine Nitrate Negative (NEGATIVE) 06/06/17 13:32 Urine Bilirubin Negative (NEGATIVE) 06/06/17 13:32 Urine Urobilinogen 1.0 E.U./dL (<1 E.U./dL) H 06/06/17 13:32 Ur Leukocyte Esterase Trace Marek/uL (NEGATIVE) H 06/06/17 13:32 Urine RBC 20 - 25 /hpf (0-2) 06/06/17 13:32 Urine WBC 5 - 10 /hpf (0-6) 06/06/17 13:32 Ur Epithelial Cells 0 - 2 /hpf (0-5) 06/06/17 13:32 Amorphous Sediment Small 06/06/17 13:32 Urine Bacteria Many (NEG) 06/06/17 13:32 Urine Other Fiber 06/06/17 13:32 Urine Osmolality 459 mosm/kg (300-1000) 05/29/17 17:15 Ur Random Creatinine 41 mg/dL 05/29/17 16:45 Ur Random Sodium 161 meq/L 05/29/17 16:45 Alcohol, Quantitative < 10 mg/dL (0-10) 05/29/17 10:15 Blood Type A POSITIVE 06/07/17 08:01 Blood Type Confirm A POSITIVE 05/29/17 11:07 Antibody Screen Negative 06/07/17 08:01 BBK History Checked Patient has bt 06/07/17 08:01 - Hospital Course Hospital Course: Pt is a 67 yo male with an unknown PMH was brought to [facility] by EMS for possible stroke. As per patient's , pt was found on the floor the morning of admission around 9:30 am with head up against cabinet with right-sided paralysis and difficult speaking. Fall was not witnessed. stated that patient was babbling and not answer questions correctly. In the ED, labs and imaging were obtained. BP was elevated. 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 NIHSS in was 21. Neurosurgery was consulted at determined that neurosurgery was not recommended at that time. Neuro was consulted who recommended sodium, glucose, and BP control in order to avoid cerebral edema. The patient was then admitted to the ICU for evaluation and treatment for intracerebral hemorrhage. Significant events during hospital course for 2 episodes of SVT, hypotenstion requiring pressors, endotracheal intubation to protect patient's airway, scrotal abscess requiring I&D, gluteal abscess requiring I&D, placement of tracheotomy tube and PEG tube. Also, repeat CT of head showed stable intracerebral hemorrage, with no significant midline shift. Cardiology was consulted as patient had 2 separate SVT occurences, each treated with adenosine. As per recommendations, patient was placed on medications to maintain normotensive state and control rate. Urology was consulted due to scrotal abscess, which required I&D performed at bedside. Surgery was consulted due to a grade 2 decubitus ulcer on left gluteal region. The ulcer was found to have an abscess formation which was I&D'd. Wound care was per surgery. Surgery was also consulted for tracheotomy placement. GI was consulted for PEG tube placement. ID was consulted due to leukocytosis, fever, and likely infection due to scrotal and gluteal abscess. As patient had received multiple days of IV abx and cultures had been negative, ID determined he would not require further abx on discharge. Neurology followed patient on daily basis and recommeded maintaining normotension, normothermia, euglycemia and manage infection. Amantidine will be administered via PEG tube. Today, patient was seen and examined at bedside. Pt mental status was stable. Pt could follow simple commands with left side, but unable to move right side. Pt opened eyes on command. As patient was hemodynamically stable with trach tube and PEG tube in place, the patient was discharged to inpatient rehab, where he will continue his current medications and receive continued physical therapy. Discharge Exam - Head Exam Head Exam: ATRAUMATIC, NORMAL INSPECTION, NORMOCEPHALIC - Eye Exam Additional comments: CN 3 palsy - ENT Exam ENT Exam: Mucous Membranes Dry - Neck Exam Neck exam: Full Rom - Respiratory Exam Respiratory Exam: Clear to PA & Lateral. absent: Accessory Muscle Use, Rales, Rhonchi, Wheezes - Cardiovascular Exam Cardiovascular Exam: RRR, +S1, +S2. absent: Clicks, Diastolic murmur, Gallop, Rubs, Systolic Murmur - GI/Abdominal Exam GI & Abdominal Exam: Soft. absent: Distended, Guarding, Hernia, Rebound, Tenderness - Rectal Exam Rectal Exam: NORMAL INSPECTION - Exam Additional comments: open scrotal incision packed consistent with I&D - Extremities Exam Additional comments: right UE edema - Neurological Exam Additional comments: right sided hemiplegia, lifts left LE and UE, right sided facial droop, CN 3 palsy - Skin Skin Exam: Dry, Intact, Normal Color, Warm Discharge Plan - Follow Up Plan Condition: CRITICAL Disposition: REHAB FACILITY/REHAB UNIT Additional Instructions: 1. Discharge to LTAC for continued care/rehab 2. Continue current medications as prescribed 3. Monitor sodium, should be between 135-145 4. If sodium is too high, give 200-250cc free water per PEG tube 5. Monitor potassium, replete as needed 6. Paraenteral feedings via PEG tube 7. Resume current vent settings for trach 8. No antibiotics needed on discharge, per ID 9. If condition or symptoms worsen, return to ED Referrals: Jovani Aparicio MD [Staff Provider] - Allan Davies MD [Staff Provider] - RONEN PIÑA [Primary Care Provider] - Milagro Zapien MD [Medical Doctor] - Osvaldo Majano MD [Staff Provider] - Manuel Hyatt MD [Staff Provider] - <Tammy Rocha - Last Filed: 06/09/17 17:19> Provider - Provider Date of Admission: 05/29/17 11:10 Attending physician: Tammy Rocha MD Primary care physician: RONEN PRIMARY CARE PROVIDER Hospital Course - Lab Results Lab Results: Micro Results 06/06/17 10:20 Blood-Venous Blood Culture - Preliminary NO GROWTH AFTER 3 DAYS 06/06/17 10:10 Blood-Venous Blood Culture - Preliminary NO GROWTH AFTER 3 DAYS 06/06/17 13:55 Trachasp Gram Stain - Final 06/06/17 13:55 Trachasp Sputum Culture - Final No growth. 06/03/17 05:45 Blood-Venous Blood Culture - Final NO GROWTH AFTER 5 DAYS 06/03/17 05:45 Blood-Venous Gram Stain - Final TEST NOT PERFORMED 06/03/17 05:10 Blood-Venous Blood Culture - Final NO GROWTH AFTER 5 DAYS 06/03/17 05:10 Blood-Venous Gram Stain - Final TEST NOT PERFORMED 06/04/17 08:56 Scrotum Gram Stain - Final 06/04/17 08:56 Scrotum Wound Culture - Final No growth. 06/06/17 13:32 Urine,Philippe Urine Culture - Final No Growth (<1,000 CFU/ML) 06/01/17 09:15 Blood-Venous Blood Culture - Final NO GROWTH AFTER 5 DAYS 06/01/17 09:15 Blood-Venous Gram Stain - Final TEST NOT PERFORMED 06/01/17 09:00 Blood-Venous Blood Culture - Final NO GROWTH AFTER 5 DAYS 06/01/17 09:00 Blood-Venous Gram Stain - Final TEST NOT PERFORMED 06/01/17 07:40 Drainage Gram Stain - Final 06/01/17 07:40 Drainage Wound Culture - Final Coagulase Neg Staphylococcus 06/03/17 08:50 Urine Urine Culture - Final No Growth (<1,000 CFU/ML) 05/29/17 12:35 Nose MRSA Culture (Admit) - Final MRSA NOT DETECTED Most Recent Lab Values WBC 9.3 10^3/ul (4.5-11.0) 06/09/17 06:00 RBC 2.90 10^6/uL (3.5-6.1) L 06/09/17 06:00 Hgb 8.6 g/dL (14.0-18.0) L 06/09/17 06:00 Hct 28.3 % (42.0-52.0) L 06/09/17 06:00 MCV 97.6 fl (80.0-105.0) 06/09/17 06:00 MCH 29.7 pg (25.0-35.0) 06/09/17 06:00 MCHC 30.4 g/dl (31.0-37.0) L 06/09/17 06:00 RDW 13.7 % (11.5-14.5) 06/09/17 06:00 Plt Count 236 10^3/uL (120.0-450.0) 06/09/17 06:00 MPV 11.4 fl (7.0-11.0) H 06/09/17 06:00 Gran % 78.0 % (50.0-68.0) H 06/09/17 06:00 Lymph % (Auto) 12.7 % (22.0-35.0) L 06/09/17 06:00 [place] % (Auto) 6.1 % (1.0-6.0) H 06/09/17 06:00 Eos % (Auto) 3.0 % (1.5-5.0) 06/09/17 06:00 Baso % (Auto) 0.2 % (0.0-3.0) 06/09/17 06:00 Gran # 7.23 (1.4-6.5) H 06/09/17 06:00 Lymph # 1.2 (1.2-3.4) 06/09/17 06:00 [place] # 0.6 (0.1-0.6) 06/09/17 06:00 Eos # 0.3 (0.0-0.7) 06/09/17 06:00 Baso # 0.02 K/mm3 (0.0-2.0) 06/09/17 06:00 PT 16.0 SECONDS (9.4-12.5) H 06/08/17 05:30 INR 1.44 (0.93-1.08) H 06/08/17 05:30 APTT 29.7 Seconds (25.1-36.5) 06/08/17 05:30 pCO2 46 mm/Hg (35-45) H 06/06/17 06:02 pO2 88.0 mm/Hg (80-100) 06/06/17 06:02 HCO3 28.5 mmol/L (21-28) H 06/06/17 06:02 ABG pH 7.40 (7.35-7.45) 06/06/17 06:02 ABG Total CO2 29.9 mmol.L (22-28) H 06/06/17 06:02 ABG O2 Saturation 98.7 % (95-98) H 06/06/17 06:02 ABG O2 Content 12.6 ML/dl (15-23) L 06/06/17 06:02 ABG Base Excess 3.2 mmol/L (-2.0-3.0) H 06/06/17 06:02 ABG Hemoglobin 9.3 g/dL (11.7-17.4) L 06/06/17 06:02 ABG Carboxyhemoglobin 1.9 % (0.5-1.5) H 06/06/17 06:02 POC ABG HHb (Measured) 1.3 % (0-5) 06/06/17 06:02 ABG Methemoglobin 1.1 % (0.0-3.0) 06/06/17 06:02 ABG O2 Capacity 12.8 mL/dl (16-24) L 06/06/17 06:02 ABG Potassium 3.5 mmol/L (3.6-5.2) L 05/29/17 13:55 VBG pH 7.33 (7.32-7.43) 05/31/17 09:30 VBG pCO2 42.0 (40-60) 05/31/17 09:30 VBG HCO3 22.1 mmol/l (21-28) 05/31/17 09:30 VBG Total CO2 23.4 mmol.L (22-28) 05/31/17 09:30 VBG O2 Sat (Calc) 85.9 % (40-65) H 05/31/17 09:30 VBG Base Excess -3.7 mmol/L (0.0-2.0) L 05/31/17 09:30 VBG Potassium 3.6 mmol/L (3.6-5.2) 05/31/17 09:30 Hgb O2 Saturation 95.7 % (95.0-98.0) 06/06/17 06:02 Sodium 136.0 mmol/L (132-148) 05/31/17 09:30 Chloride 109.0 mmol/L (98-107) H 05/31/17 09:30 Glucose 130 mg/dl (75-110) H 05/31/17 09:30 Lactate 1.0 mmol/L (0.7-2.1) 05/31/17 09:30 FiO2 40.0 % 06/06/17 06:02 Sodium 150 mmol/L (132-148) H 06/09/17 06:00 Potassium 3.3 mmol/L (3.6-5.0) L 06/09/17 06:00 Chloride 117 mmol/L (98-107) H 06/09/17 06:00 Carbon Dioxide 31 mmol/L (21-33) 06/09/17 06:00 Anion Gap 5 (10-20) L 06/09/17 06:00 BUN 14 mg/dL (7-21) 06/09/17 06:00 Creatinine 0.8 mg/dL (0.8-1.5) 06/09/17 06:00 Est GFR ( Amer) > 60 06/09/17 06:00 Est GFR (Non-Af Amer) > 60 06/09/17 06:00 POC Glucose (mg/dL) 86 mg/dL (65-110) 06/09/17 07:39 Random Glucose 85 mg/dL (70-110) 06/09/17 06:00 Hemoglobin A1c 5.6 % (4.2-6.5) 05/29/17 10:15 Serum Osmolality 310 mosm/kg (272-300) H 06/01/17 09:00 Calcium 8.5 mg/dL (8.4-10.5) 06/09/17 06:00 Phosphorus 3.3 mg/dL (2.5-4.5) 06/08/17 05:30 Magnesium 2.2 mg/dL (1.7-2.2) 06/08/17 05:30 Total Bilirubin 1.1 mg/dL (0.2-1.3) 06/09/17 06:00 AST 32 U/L (17-59) 06/09/17 06:00 ALT 21 U/L (7-56) 06/09/17 06:00 Alkaline Phosphatase 125 U/L (38-126) 06/09/17 06:00 Lactate Dehydrogenase 284 U/L (333-699) L 05/31/17 09:30 Total Creatine Kinase 206 U/L (35-230) 05/31/17 09:30 Troponin I 0.06 ng/mL D 05/31/17 09:30 Total Protein 6.9 g/dL (5.8-8.3) 06/09/17 06:00 Albumin 2.7 g/dL (3.0-4.8) L 06/09/17 06:00 Globulin 4.3 gm/dL 06/09/17 06:00 Albumin/Globulin Ratio 0.6 (1.1-1.8) L 06/09/17 06:00 Triglycerides 46 mg/dL (35-160) 05/30/17 05:20 Cholesterol 113 mg/dL (130-200) L 05/30/17 05:20 LDL Cholesterol Direct 51 mg/dL (0-129) 05/30/17 05:20 HDL Cholesterol 47 mg/dL (29-60) 05/30/17 05:20 Procalcitonin 0.16 NG/ML (0.19-0.49) L 06/06/17 10:10 Arterial Blood Potassium 3.5 mmol/L (3.6-5.2) L 05/29/17 13:55 Venous Blood Potassium 3.6 mmol/L (3.6-5.2) 05/31/17 09:30 Urine Color Dark yellow (YELLOW) 06/06/17 13:32 Urine Appearance Slight-cloudy (CLEAR) 06/06/17 13:32 Urine pH 6.0 (4.7-8.0) 06/06/17 13:32 Ur Specific [place] 1.025 (1.005-1.035) 06/06/17 13:32 Urine Protein Trace mg/dL (<30 mg/dL) H 06/06/17 13:32 Urine Glucose (UA) Negative mg/dL (NEGATIVE) 06/06/17 13:32 Urine Ketones Trace mg/dL (NEGATIVE) H 06/06/17 13:32 Urine Blood Moderate (NEGATIVE) H 06/06/17 13:32 Urine Nitrate Negative (NEGATIVE) 06/06/17 13:32 Urine Bilirubin Negative (NEGATIVE) 06/06/17 13:32 Urine Urobilinogen 1.0 E.U./dL (<1 E.U./dL) H 06/06/17 13:32 Ur Leukocyte Esterase Trace Marek/uL (NEGATIVE) H 06/06/17 13:32 Urine RBC 20 - 25 /hpf (0-2) 06/06/17 13:32 Urine WBC 5 - 10 /hpf (0-6) 06/06/17 13:32 Ur Epithelial Cells 0 - 2 /hpf (0-5) 06/06/17 13:32 Amorphous Sediment Small 06/06/17 13:32 Urine Bacteria Many (NEG) 06/06/17 13:32 Urine Other Fiber 06/06/17 13:32 Urine Osmolality 459 mosm/kg (300-1000) 05/29/17 17:15 Ur Random Creatinine 41 mg/dL 05/29/17 16:45 Ur Random Sodium 161 meq/L 05/29/17 16:45 Alcohol, Quantitative < 10 mg/dL (0-10) 05/29/17 10:15 Blood Type A POSITIVE 06/07/17 08:01 Blood Type Confirm A POSITIVE 05/29/17 11:07 Antibody Screen Negative 06/07/17 08:01 BBK History Checked Patient has bt 06/07/17 08:01 Attending/Attestation - Attestation I have personally seen and examined this patient.: Yes I have fully participated in the care of the patient.: Yes I have reviewed all pertinent clinical information, including history, physical exam and plan: Yes Notes (Text): 06/09/17 17:15 67 year old male who presented with altered mental status secondary to hemorrhagic infarct of the left thalamus / basal ganglia as seen on CT scan. He was seen by neurosurgery and neurology who recommended conservative management. He was initially intubated for airway protection in ICU. Yesterday he received trach and PEG. He was on iv antibiotics and had I&D for scrotal cellulitis/abscess. He also had I&D of right buttock abscess. During hospital course he had fever, likely central. Repeat septic workup was negative. Fever trend did come down. He is on metoprolol for hypertension and episodes of SVT per cardiology. Lytes were repleted. Needs close monitoring of hypernatremia which improved. He is discharged to LTACH today. Tammy Rocha MD Hospitalist.
--- NOTE | 2017-06-09 18:08 | CP.PCM.PN ---
Subjective - Date & Time of Evaluation Date of Evaluation: 06/09/17 Time of Evaluation: 07:50 - Subjective Subjective: Comfortable, still with intermittent fevers, not in distress. Objective - Vital Signs/Intake and Output Vital Signs (last 24 hours): Temp Pulse Resp BP Pulse Ox 100.9 F H 75 15 110/51 L 98 06/09/17 00:00 06/09/17 03:15 06/09/17 02:00 06/09/17 03:15 06/09/17 03:15 Intake and Output: 06/08/17 06/09/17 18:59 06:59 Intake Total 1405 100 Output Total 525 Balance 880 100 - Medications Medications: Current Medications Artificial Tears (Artificial Tears) 0 ml OU DAILY [facility] Last Admin: 06/08/17 10:35 Dose: 1 drop Chlorhexidine Gluconate (Peridex) 15 ml PO TID [facility] Last Admin: 06/08/17 14:01 Dose: 15 ml Clonidine HCl (Catapres) 0.1 mg PO BID [facility] Last Admin: 06/08/17 17:55 Dose: Not Given Vancomycin HCl (Vancomycin 1gm) 1 gm in 250 mls @ 167 mls/hr IVPB Q12H KATIE PRN Reason: Protocol Last Admin: 06/08/17 21:45 Dose: 167 mls/hr Metronidazole (Flagyl) 500 mg in 100 mls @ 100 mls/hr IVPB Q8 KATIE PRN Reason: Protocol Last Admin: 06/08/17 21:45 Dose: 100 mls/hr Fentanyl Citrate (Fentanyl Citrate/Sodium Chloride 1 Mg/100 Ml) 1,000 mcg in 100 mls @ 2 mls/hr IV .Q24H PRN; Protocol; 20 MCG/HR PRN Reason: TITRATE PER MD ORDER Last Admin: 06/08/17 20:44 Dose: 50 mcg/hr, 5 mls/hr Aztreonam (Azactam 2 Gm) 100 mls @ 100 mls/hr IVPB Q8 KATIE PRN Reason: Protocol Stop: 06/16/17 06:01 Lorazepam (Ativan) 2 mg IVP Q2H PRN; Protocol PRN Reason: Symptoms of alcohol withdrawl Lorazepam (Ativan) 4 mg IVP Q4H PRN; Protocol PRN Reason: Symptoms of alcohol withdrawl Last Admin: 05/30/17 17:00 Dose: 4 mg Metoprolol Tartrate (Lopressor) 25 mg PO BID [facility] Last Admin: 06/08/17 17:55 Dose: Not Given Pantoprazole Sodium (Protonix Inj) 40 mg IVP DAILY [facility] Last Admin: 06/08/17 09:52 Dose: 40 mg Sodium Chloride (Sodium Chloride Tab) 1 gm PO Q12 [facility] Last Admin: 06/02/17 21:31 Dose: 1 gm - Labs Labs: 06/08/17 05:30 06/08/17 05:30 PT 16.0 SECONDS (9.4-12.5) H 06/08/17 05:30 INR 1.44 (0.93-1.08) H 06/08/17 05:30 APTT 29.7 Seconds (25.1-36.5) 06/08/17 05:30 - Constitutional Appears: Non-toxic - Head Exam Head Exam: NORMAL INSPECTION - ENT Exam Additional comments: trach tube in place - Neck Exam Neck Exam: absent: Meningismus - Respiratory Exam Respiratory Exam: Decreased Breath Sounds - Cardiovascular Exam Cardiovascular Exam: +S1, +S2 - GI/Abdominal Exam GI & Abdominal Exam: Soft. absent: Tenderness Additional comments: PEG tube in place Assessment and Plan - Assessment and Plan (Free Text) Plan: Assessment persistent fevers, probably central fever sepsis due to scrotal cellulitis R/O abscess formation S/P I and D POD #5 Probable left buttock skin and skin structure infection S/P I and D POD #5 systemic inflammatory response syndrome probably from acute left sided hemorrhagic CVA skin cancer S/P resection around right ear area S/P lumbar disc hernia repair Plan on Vancomycin, Azactam and Flagyl day 9 - can d/c today; wound cx from the scrotum are negative - repeat blood cx, sputum cx from 3 days ago are negative; CXR done 3 days ago still does not show infiltrates discussed with Dr. Rocha overall prognosis is poor
--- NOTE | 2017-06-09 21:41 | PN ---
DATE: 06/09/2017 SUBJECTIVE: This patient was seen and evaluated earlier today. The patient was comfortable on vent. PHYSICAL EXAMINATION: VITAL SIGNS: T max is 100.9, pulse 87, blood pressure is 102/58 and O2 saturation 99%. HEENT: Anicteric and normocephalic. NECK: Supple. Tracheostomy present. LUNGS: Bilateral air entry present. ABDOMEN: PEG tube site appeared normal. PEG tube in good position. EXTREMITIES: No cyanosis. No clubbing. The patient remains on vent. LABORATORY DATA: Hemoglobin is 8.6, hematocrit 28.3, WBC 9.3 and platelets 236. Chemistries, sodium 150, potassium 3.3 and INR 1.44. IMPRESSION: This 67-year-old patient with status post cerebrovascular accident, intracerebral hemorrhage, fever, history of collapses, gluteal ulcer on antibiotics, status post feeding tube placement, the tube appears to be in good position. We will start the patient on 20 mL/hour of Glucerna, we will slowly increase it to 30 mL. We will also start the flush about 60 mL q. 6 hourly, we will increase it to 4 hourly and increase it as tolerating. The patient is planned to be transferred to the [facility], we will continue to close . Thank you very much for allowing us to participate in the care of the patient. Milagro Zapien MD
--- NOTE | 2017-06-11 09:01 | PN ---
GRINDER OPERATOR TOOL NOTE DATE: 06/09/2017 SUBJECTIVE: The patient is ventilator dependent on fentanyl at this time and hemodynamically stable. He does have a tracheostomy in place. PHYSICAL EXAMINATION: VITAL SIGNS: His temperature is 99.7, pulse is 96, respirations are 17, and blood pressure is 135/77. SKIN: Warm and dry. HEENT: Head is atraumatic and normocephalic. Eyes are minimally reactive to light. Ears, nose, and throat seem to be within normal limits and noted that the patient does have a tracheostomy in place. LUNGS: Reveal fairly good breath sounds bilaterally. HEART: Has regular rate and rhythm. Normal S1 and S2. ABDOMEN: Soft. Decreased bowel sounds. GENITALIA AND RECTAL: Deferred. MUSCULOSKELETAL: No joint deformities. EXTREMITIES: Reveal positive lower extremity edema. NEUROLOGICAL: The patient is unresponsive on the ventilator. LABORATORY DATA: Reveal a white count of 9.3, hemoglobin of 8.6, hematocrit of 28.3 with platelets of 236,000. His sodium is 150, potassium is 3.3, chloride 117, CO2 of 31 with a BUN of 14, creatinine of 0.8, and a glucose of 85. IMPRESSION: This patient has intracerebral hemorrhage and respiratory failure requiring ventilator support and FIO2 of 40%. It is noted that he does have anemia. PLAN: We will continue with ventilator support. Continue with good trach care and the patient is getting Klonopin for his blood pressure. He continues to require metronidazole and vancomycin and he is on fentanyl. We will continue to monitor closely and noted that the patient is scheduled to be transferred to [facility] today. Shaun Jean MD
== END 2017-06-09 12:00 | DRG 4 ==
LOC: ED 09:57 → ERH 11:10 → CCU 12:07
PROVIDERS: ADMIT Internal Medicine; ATTEND Internal Medicine
PROC: 05HN33Z Insertion of Infusion Device into Left Internal Jugular Vein, Percutaneous Approach (ICD-10-PCS; 2017-05-29)
PROC: B544ZZA Ultrasonography of Left Jugular Veins, Guidance (ICD-10-PCS; 2017-05-29)
PROC: 5A1955Z Respiratory Ventilation, Greater than 96 Consecutive Hours (ICD-10-PCS; 2017-05-31)
PROC: 0BH17EZ Insertion of Endotracheal Airway into Trachea, Via Natural or Artificial Opening (ICD-10-PCS; 2017-05-31)
PROC: 3E033XZ Introduction of Vasopressor into Peripheral Vein, Percutaneous Approach (ICD-10-PCS; 2017-05-31)
PROC: 0Y913ZZ Drainage of Left Buttock, Percutaneous Approach (ICD-10-PCS; 2017-06-01)
PROC: 0V950ZX Drainage of Scrotum, Open Approach, Diagnostic (ICD-10-PCS; 2017-06-04)
PROC: 30233K1 Transfusion of Nonautologous Frozen Plasma into Peripheral Vein, Percutaneous Approach (ICD-10-PCS; 2017-06-07)
PROC: 0DH63UZ Insertion of Feeding Device into Stomach, Percutaneous Approach (ICD-10-PCS; 2017-06-08)
PROC: 3E0G76Z Introduction of Nutritional Substance into Upper GI, Via Natural or Artificial Opening (ICD-10-PCS; 2017-06-08)
PROC: 0B110F4 Bypass Trachea to Cutaneous with Tracheostomy Device, Open Approach (ICD-10-PCS; principal; 2017-06-08 07:30)
DX: I61.5 Nontraumatic intracerebral hemorrhage, intraventricular (principal); J96.90 Respiratory failure, unspecified, unspecified whether with hypoxia or hypercapnia; G81.01 Flaccid hemiplegia affecting right dominant side; R65.10 Systemic inflammatory response syndrome (SIRS) of non-infectious origin without acute organ dysfunction; E87.1 Hypo-osmolality and hyponatremia; I47.1 Supraventricular tachycardia; N45.4 Abscess of epididymis or testis; R47.01 Aphasia; L02.31 Cutaneous abscess of buttock; Z99.11 Dependence on respirator [ventilator] status; L89.322 Pressure ulcer of left buttock, stage 2; R47.1 Dysarthria and anarthria; I48.91 Unspecified atrial fibrillation; I11.9 Hypertensive heart disease without heart failure; I95.9 Hypotension, unspecified; R29.810 Facial weakness; N49.2 Inflammatory disorders of scrotum; F17.200 Nicotine dependence, unspecified, uncomplicated; K21.9 Gastro-esophageal reflux disease without esophagitis; M51.26 Other intervertebral disc displacement, lumbar region; E87.6 Hypokalemia; R29.721 NIHSS score 21; F10.10 Alcohol abuse, uncomplicated; D64.9 Anemia, unspecified; Z88.0 Allergy status to penicillin; Z85.828 Personal history of other malignant neoplasm of skin